=== PATIENT | male | born 1950 | race Caucasian/White ===

== ENCOUNTER 2016-07-04 13:20 | Emergency (ER) | payer MEDICARE, BC ==
[2016-07-04 14:31] LABS: Anisocytosis Slight; Basophils # (A) 0.1 k/uL (0-0.2); Basophils % (A) 1 %; CH 25.2; CHCM 31.6; Eosinophils # (A) 0.3 k/uL (0-0.7); Eosinophils % (A) 6 %; HCT 39.3 % (39.0-53.0); HDW 3.04; HGB 12.1 gm/dL (13.0-17.5); Hypochromasia Slight; Luc # (Auto) 0.08; Luc % (Auto) 2; Lymphocytes # (A) 1.4 k/uL (1.0-4.8); Lymphocytes % (A) 31 %; MCH 24.6 pg (25.0-35.0); MCHC 30.7 g/dL (31.0-37.0); MCV 80.2 fL (80.0-100.0); Mean Platelet Volume 8.3; Microcytosis Slight; Monocytes # (A) 0.4 k/uL (0-1.0); Monocytes % (A) 9 %; Neutrophils # (A) 2.3 k/uL (1.3-7.7); Neutrophils % (A) 51 %; RDW 18.7 % (11.5-15.5); WBC 4.4 k/uL (3.8-10.6)
[2016-07-04 14:47] LABS: Creatine Kinase 211 U/L (55-170)
[2016-07-04 15:00] LABS: ALT 26 U/L (21-72); AST 42 U/L (17-59); Alkaline Phosphatase 59 U/L (38-126); Anion Gap 13 mmol/L; Blood Urea Nitrogen 9 mg/dL (9-20); Calcium 9.1 mg/dL (8.4-10.2); Carbon Dioxide 24 mmol/L (22-30); Chloride 109 mmol/L (98-107); Glucose 99 mg/dL (74-99); Non-African American GFR(MDRD) >60 (>60 ml/min/1.73 sqM); Sodium 146 mmol/L (137-145); Total Bilirubin 0.7 mg/dL (0.2-1.3); Total Protein 8.4 g/dL (6.3-8.2); Troponin I <0.012 ng/mL (0.000-0.034)
[2016-07-04 15:04] LABS: INR 1.2 (<1.1); Partial Thromboplastin Time 30.4 sec (22.0-30.0); Prothrombin Time 12.2 sec (9.0-12.0)
[2016-07-04 15:06] LABS: Creatine Kinase MB 3.1 ng/mL (0.0-2.4)
[2016-07-04 15:18] LABS: Potassium 4.8 mmol/L (3.5-5.1)
--- NOTE | 2016-07-04 15:41 | XR ---
EXAMINATION TYPE: XR chest 1V portable DATE OF EXAM: 07/04/2016 3:29 PM COMPARISON: Prior chest x-ray 22 May 2016 HISTORY: Weakness, shortness of breath TECHNIQUE: Single frontal view of the chest is obtained. FINDINGS: Technique is somewhat rotated, there are overlying cardiac leads. Heart size is thought to be stable. No pneumothorax or pleural effusion is evident. Pulmonary vascularity and davis are stable . Old right clavicular fracture shows bayonet apposition and fusion. IMPRESSION: No acute process.
[2016-07-04 16:49] LABS: Appearance,Urine Cloudy (Clear); Bilirubin,Urine Negative (Negative); Calcium Oxalate Crystals,Urine Rare /hpf; Glucose,Urine (UA) Negative (Negative); Ketones,Urine Negative (Negative); Leukocyte Esterase,Urine Negative (Negative); Mucus,Urine Occasional /hpf; Nitrite,Urine Negative (Negative); Particle Count 1807; Protein,Urine Negative (Negative); RBC,Urine 1 /hpf (0-5); UA Billing (MACRO vs. MICRO) MICRO; Urobilinogen,Urine <2.0 mg/dL (<2.0); WBC,Urine <1 /hpf (0-5)
--- NOTE | 2016-07-04 16:58 | ED ---
Weakness HPI - General Chief complaint: Weakness Stated complaint: Chest Pain Time Seen by Provider: 07/04/16 13:59 Source: patient, family Mode of arrival: wheelchair Limitations: no limitations - History of Present Illness Initial comments: This patient is a 65-year-old man who presents with complaint that when he woke up from a nap around noon he was feeling short of breath. The patient states that he got up, felt that he was weaker than usual, and he went to lie down again. When he got up the second time he was feeling better but after telling his about the symptoms she was encouraged to be seen here in the emergency department. The patient states that he currently is feeling well and would not of come in if he had felt this well day. MD Complaint: lack of energy -: minutes(s) Consistency: now resolved Improves with: none Worsens with: none - Related Data Home Medications Medication Instructions Recorded Confirmed DULoxetine HCL [Cymbalta] 60 mg PO BID 03/08/16 07/04/16 Lovastatin [Mevacor] 80 mg PO DAILY 05/22/16 07/04/16 Albuterol Sulfate [Proair Hfa] 1 - 2 puff INHALATION RT-Q6H PRN 07/04/16 Rivaroxaban [Xarelto] 20 mg PO DAILY 07/04/16 07/04/16 Previous Rx's Medication Instructions Recorded ALPRAZolam 1 mg PO QID #40 tablet 05/26/16 Metoprolol Tartrate [Lopressor] 25 mg PO BID #60 tab 05/26/16 Metoprolol Tartrate [Lopressor] 12.5 mg PO BID #60 dose 07/04/16 Allergies Allergy/AdvReac Type Severity Reaction Status Date / Time No Known Allergies Allergy Verified 07/04/16 14:17 Review of Systems ROS Statement: Those systems with pertinent positive or pertinent negative responses have been documented in the HPI. ROS Other: All systems not noted in ROS Statement are negative. Constitutional: Reports: weakness. Denies: fever, chills Respiratory: Reports: as per HPI, dyspnea. Denies: cough, wheezes Cardiovascular: Denies: chest pain, palpitations, edema, syncope Gastrointestinal: Denies: abdominal pain, nausea, vomiting Genitourinary: Denies: dysuria, hematuria Musculoskeletal: Denies: back pain Skin: Denies: rash Neurological: Denies: headache, weakness Past Medical History Past Medical History: Asthma, Cancer, Hearing Disorder / Deafness, Hyperlipidemia, Hypertension Additional Past Medical History / Comment(s): kidney stones, chronic nausea, well differentiated neuroendocrine tumor, constipation, anemia, LIVER CANCER History of Any Multi-Drug Resistant Organisms: None Reported Past Surgical History: Hernia Repair Additional Past Surgical History / Comment(s): liver biopsy Past Anesthesia/Blood Transfusion Reactions: No Reported Reaction Past Psychological History: Anxiety, Depression Additional Psychological History / Comment(s): obsessive compulsive disorder Smoking Status: Never smoker Past Alcohol Use History: None Reported Past Drug Use History: None Reported - Past Family History Mother Family Medical History: No Reported History General Exam Limitations: no limitations General appearance: alert, in no apparent distress Head exam: Present: atraumatic, normocephalic Eye exam: Present: normal appearance. Absent: scleral icterus, conjunctival injection ENT exam: Present: normal oropharynx Neck exam: Present: normal inspection Respiratory exam: Present: normal lung sounds bilaterally. Absent: respiratory distress, wheezes, rales, rhonchi, stridor Cardiovascular Exam: Present: regular rate, normal rhythm, normal heart sounds. Absent: systolic murmur, diastolic murmur, rubs, gallop GI/Abdominal exam: Present: soft. Absent: distended, tenderness, guarding, rebound, rigid Extremities exam: Present: normal inspection, normal capillary refill. Absent: pedal edema, calf tenderness Neurological exam: Present: alert, CN II-XII intact. Absent: normal gait, motor sensory deficit Skin exam: Present: warm, dry, intact, normal color. Absent: rash, cyanosis, diaphoretic, erythema, petechiae, pallor, mottled Course Vital Signs 07/04/16 07/04/16 07/04/16 13:36 14:12 15:04 Temperature 97.5 F L Pulse Rate 41 L 41 L Pulse Rate [ 41 L Glass Or Mirror Inspector ] Respiratory 16 16 16 Rate Blood Pressure 150/97 150/102 O2 Sat by Pulse 96 98 Oximetry 07/04/16 07/04/16 16:28 17:25 Temperature 97.8 F Pulse Rate 42 L 45 L Pulse Rate [ Glass Or Mirror Inspector ] Respiratory 16 18 Rate Blood Pressure 152/98 149/91 O2 Sat by Pulse 98 99 Oximetry EKG Findings - EKG Results: EKG: interpreted by ERMD, sinus rhythm, normal axis, normal QRS EKG shows: bradycardia (Rate approximate 42 bpm) Medical Decision Making - Medical Decision Making The patient is 65-year-old man who does have underlying carcinoid tumors, who had episode of fatigue and some dyspnea that had resolved. The patient does have history of previous PE but he states that he has been taking his Xarelto and he is not having any chest pain like the last time. In addition the symptoms have resolved. The workup is negative other than revealing the patient to be bradycardic and he wants to try going home and decreasing his dose of beta tierra. He will return should he have a recurrence of the symptoms, we also discussed other signs and symptoms of PE and he will return if any these develop. Given the patient's underlying condition and his desire to be at home this does seem acceptable though I did offer admission, which she again declines - Lab Data Result diagrams: 07/04/16 14:10 07/04/16 14:10 Lab Results 07/04/16 07/04/16 07/04/16 Range/Units 14:10 14:10 14:10 WBC 4.4 (3.8-10.6) k/uL RBC 4.90 (4.30-5.90) m/uL Hgb 12.1 L (13.0-17.5) gm/dL Hct 39.3 (39.0-53.0) % MCV 80.2 (80.0-100.0) fL MCH 24.6 L (25.0-35.0) pg MCHC 30.7 L (31.0-37.0) g/dL RDW 18.7 H (11.5-15.5) % Plt Count 255 (150-450) k/uL Neutrophils % 51 % Lymphocytes % 31 % Monocytes % 9 % Eosinophils % 6 % Basophils % 1 % Neutrophils # 2.3 (1.3-7.7) k/uL Lymphocytes # 1.4 (1.0-4.8) k/uL Monocytes # 0.4 (0-1.0) k/uL Eosinophils # 0.3 (0-0.7) k/uL Basophils # 0.1 (0-0.2) k/uL Hypochromasia Slight Anisocytosis Slight Microcytosis Slight PT (9.0-12.0) sec INR (<1.1) APTT (22.0-30.0) sec Sodium 146 H (137-145) mmol/L Potassium 4.8 (3.5-5.1) mmol/L Chloride 109 H (98-107) mmol/L Carbon Dioxide 24 (22-30) mmol/L Anion Gap 13 mmol/L BUN 9 (9-20) mg/dL Creatinine 0.86 (0.66-1.25) mg/dL Est GFR (MDRD) Af Amer >60 (>60 ml/min/1.73 sqM) Est GFR (MDRD) Non-Af >60 (>60 ml/min/1.73 sqM) Glucose 99 (74-99) mg/dL Plasma Lactic Acid Ganesh (0.7-2.0) mmol/L Calcium 9.1 (8.4-10.2) mg/dL Total Bilirubin 0.7 (0.2-1.3) mg/dL AST 42 (17-59) U/L ALT 26 (21-72) U/L Alkaline Phosphatase 59 (38-126) U/L Ammonia (<30) umol/L Total Creatine Kinase 211 H (55-170) U/L CK-MB (CK-2) 3.1 H* (0.0-2.4) ng/mL CK-MB (CK-2) Rel Index 1.5 Troponin I <0.012 (0.000-0.034) ng/mL Total Protein 8.4 H (6.3-8.2) g/dL Albumin 4.5 (3.5-5.0) g/dL Urine Color Urine Appearance (Clear) Urine pH (5.0-8.0) Ur Specific [place] (1.001-1.035) Urine Protein (Negative) Urine Glucose (UA) (Negative) Urine Ketones (Negative) Urine Blood (Negative) Urine Nitrate (Negative) Urine Bilirubin (Negative) Urine Urobilinogen (<2.0) mg/dL Ur Leukocyte Esterase (Negative) Urine RBC (0-5) /hpf Urine WBC (0-5) /hpf Calcium Oxalate Crystal (None) /hpf Urine Mucus (None) /hpf 07/04/16 07/04/16 07/04/16 Range/Units 14:10 14:10 16:25 WBC (3.8-10.6) k/uL RBC (4.30-5.90) m/uL Hgb (13.0-17.5) gm/dL Hct (39.0-53.0) % MCV (80.0-100.0) fL MCH (25.0-35.0) pg MCHC (31.0-37.0) g/dL RDW (11.5-15.5) % Plt Count (150-450) k/uL Neutrophils % % Lymphocytes % % Monocytes % % Eosinophils % % Basophils % % Neutrophils # (1.3-7.7) k/uL Lymphocytes # (1.0-4.8) k/uL Monocytes # (0-1.0) k/uL Eosinophils # (0-0.7) k/uL Basophils # (0-0.2) k/uL Hypochromasia Anisocytosis Microcytosis PT 12.2 H (9.0-12.0) sec INR 1.2 (<1.1) APTT 30.4 H (22.0-30.0) sec Sodium (137-145) mmol/L Potassium (3.5-5.1) mmol/L Chloride (98-107) mmol/L Carbon Dioxide (22-30) mmol/L Anion Gap mmol/L BUN (9-20) mg/dL Creatinine (0.66-1.25) mg/dL Est GFR (MDRD) Af Amer (>60 ml/min/1.73 sqM) Est GFR (MDRD) Non-Af (>60 ml/min/1.73 sqM) Glucose (74-99) mg/dL Plasma Lactic Acid Ganesh 0.8 (0.7-2.0) mmol/L Calcium (8.4-10.2) mg/dL Total Bilirubin (0.2-1.3) mg/dL AST (17-59) U/L ALT (21-72) U/L Alkaline Phosphatase (38-126) U/L Ammonia 14 (<30) umol/L Total Creatine Kinase (55-170) U/L CK-MB (CK-2) (0.0-2.4) ng/mL CK-MB (CK-2) Rel Index Troponin I (0.000-0.034) ng/mL Total Protein (6.3-8.2) g/dL Albumin (3.5-5.0) g/dL Urine Color Yellow Urine Appearance Cloudy (Clear) Urine pH 5.0 (5.0-8.0) Ur Specific [place] 1.010 (1.001-1.035) Urine Protein Negative (Negative) Urine Glucose (UA) Negative (Negative) Urine Ketones Negative (Negative) Urine Blood Negative (Negative) Urine Nitrate Negative (Negative) Urine Bilirubin Negative (Negative) Urine Urobilinogen <2.0 (<2.0) mg/dL Ur Leukocyte Esterase Negative (Negative) Urine RBC 1 (0-5) /hpf Urine WBC <1 (0-5) /hpf Calcium Oxalate Crystal Rare H (None) /hpf Urine Mucus Occasional H (None) /hpf Disposition Clinical Impression: Bradycardia Disposition: HOME SELF-CARE Condition: Good Instructions: Bradycardia (ED) Prescriptions: Metoprolol Tartrate [Lopressor] 12.5 mg PO BID #60 dose Referrals: Rojas Pedraza DO [Primary Care Provider] - 1-2 days
[2016-07-04 17:26] VITALS: BP 149/91; PULSE 45; RESP 18; TEMP 97.8
== END 2016-07-04 17:35 | disposition home or self-care (01) ==
LOC: EC 13:20
DX: R00.1 Bradycardia, unspecified (principal); F32.9 Major depressive disorder, single episode, unspecified; F41.9 Anxiety disorder, unspecified; Z85.05 Personal history of malignant neoplasm of liver; Z86.711 Personal history of pulmonary embolism; Z79.899 Other long term (current) drug therapy; Z79.01 Long term (current) use of anticoagulants
CPT/HCPCS: 36415; 71010; 80053; 81001; 82140; 82550; 82553; 83605; 84484; 85025; 85610; 85730; 87086; 93005; 99285

== ENCOUNTER → 2016-08-16 | Outpatient (CLI) | payer MEDICARE, BC ==
--- NOTE | 2016-08-16 12:21 | MR ---
EXAMINATION TYPE: MR brain wo/w con DATE OF EXAM: 08/16/2016 11:58 AM COMPARISON: CT brain May 22, 2016. HISTORY: persistent altered mental status and imbalance rule out neoplasm per order. History of liver cancer with bilateral hearing loss per patient. TECHNIQUE: Multiplanar, multisequence images of the brain and brainstem is performed without and with IV contras t, utilizing 20 mL intravenous MultiHance . FINDINGS: Diffusion weighted images demonstrate no evidence of a recent infarct or other diffusion ab normality. There is no worrisome extra-axial fluid collection. There is ventricular and sulcal promi nence consistent with diffuse cerebral atrophy. There are focal and confluent areas of T2 hyperintens ity seen throughout the deep and periventricular white matter. Lesions are nonspecific in appearance and distribution but most likely on basis of product of chronic small vessel ischemic change in patie nt this age. Midline structures demonstrate normal morphology. The craniocervical junction appears within normal limits. Post contrast images demonstrate no abnormal enhancement. The dural venous sinuses appear pa tent mild mucosal thickening involving ethmoid sinuses bilaterally is present. The remainder of the p aranasal sinuses are clear. The globes are intact bilaterally. No suspicious fluid signal seen in mas toid air cells bilaterally. IMPRESSION: There is mild to moderate diffuse cerebral atrophy and moderate to severe chronic small v essel ischemic change without suspicious enhancing intraparenchymal mass noted.
== END | disposition home or self-care (01) ==
LOC: RADMRIMAIN 11:03
PROVIDERS: ATTEND Psychiatry & Neurology Neurology
DX: G31.9 Degenerative disease of nervous system, unspecified (principal); I67.82 Cerebral ischemia
CPT/HCPCS: 70553; A9577

== ENCOUNTER → 2016-12-14 | Outpatient (CLI) | payer MEDICARE, BC ==
[2016-12-14 10:54] LABS: Blood Urea Nitrogen 6 mg/dL (9-20); Non-African American GFR(MDRD) >60 (>60 ml/min/1.73 sqM)
--- NOTE | 2016-12-14 12:26 | CT ---
CT CHEST FOR PULMONARY EMBOLISM. EXAMINATION TYPE: CT angio chest DATE OF EXAM: 12/14/2016 INDICATION: Follow up scan from 04/21/16 CT DLP: 677 mGycm, Automated exposure control for dose reduction was used. CONTRAST: Patient injected with 100 mL of Omnipaque 350. COMPARISON: 05/22/2016 TECHNIQUE: CT of the chest is performed on a spiral scan at 2 mm thick sections. Study is performed with intravenous contrast timed for evaluation for pulmonary embolism. This will limit additional po rtions of the evaluation. 3-D MIP images reconstructed by the technologist are reviewed on the compu ter in the coronal and sagittal planes. FINDINGS: No persistent filling defects are evident to suggest an acute pulmonary embolism. No mediastinal or hilar adenopathy enlarged by CT criteria is evident. The ascending aorta diameter at the level of the main pulmonary artery is 4.4 cm. The main pulmonary artery diameter at the bifur cation is 2.4 cm. Aorta tapers throughout its visualized course. Some mild scattered groundglass opacities are within the lungs. Some mild compressive atelectasis is present. There is a 2.8 cm hypodensity with indistinct margins measuring approximately 18 Hounsfield units. Th is may be a more complex cyst within the anterior right mid lobe liver. Other etiologies are not excl uded. IMPRESSIONS: 1. Ascending thoracic aortic aneurysm measuring 4.4 cm AP dimension. 2. No persistent filling defects. 3. Hypodensity within the liver has increased in size over the interval. Additional workup is recomme nded. This may have been biopsied under ultrasound guidance in March 2016.
== END | disposition home or self-care (01) ==
LOC: RADCTMAIN 10:02
PROVIDERS: ATTEND Family Medicine
DX: I71.2 Thoracic aortic aneurysm, without rupture (principal)
CPT/HCPCS: 82565; 84520; 71275; 36415; Q9967

== ENCOUNTER 2017-05-08 12:43 | Emergency (ER) | payer MEDICARE, BC ==
[2017-05-08] MEDS ORDERED: NITROGLYCERIN OINT 1 INCH/GM PACKET TOPICAL STA (13:40)
[2017-05-08] MEDS ORDERED: LORazepam 2 MG/ML INJ IV STA (13:40)
[2017-05-08] MEDS ORDERED: ASPIRIN 81 MG PO STA (13:42)
[2017-05-08 14:08] LABS: Basophils % (A) 0 %; CH 27.5; CHCM 31.9; Eosinophils # (A) 0.2 k/uL (0-0.7); Eosinophils % (A) 2 %; HCT 41.3 % (39.0-53.0); HDW 2.47; HGB 13.2 gm/dL (13.0-17.5); Luc # (Auto) 0.11; Luc % (Auto) 1; Lymphocytes # (A) 1.4 k/uL (1.0-4.8); Lymphocytes % (A) 18 %; MCH 27.7 pg (25.0-35.0); MCV 86.6 fL (80.0-100.0); Mean Platelet Volume 8.3; Monocytes # (A) 0.7 k/uL (0-1.0); Monocytes % (A) 9 %; Neutrophils # (A) 5.2 k/uL (1.3-7.7); Neutrophils % (A) 69 %; RBC 4.77 m/uL (4.30-5.90); RDW 15.8 % (11.5-15.5); WBC 7.6 k/uL (3.8-10.6); WBC (Perox) 7.46
[2017-05-08 14:22] LABS: ALT 25 U/L (21-72); AST 23 U/L (17-59); Alkaline Phosphatase 77 U/L (38-126); Anion Gap 10 mmol/L; Blood Urea Nitrogen 14 mg/dL (9-20); Calcium 10.2 mg/dL (8.4-10.2); Carbon Dioxide 28 mmol/L (22-30); Chloride 106 mmol/L (98-107); Glucose 72 mg/dL (74-99); INR 1.2 (<1.2); Non-African American GFR(MDRD) >60 (>60 ml/min/1.73 sqM); Partial Thromboplastin Time 27.8 sec (22.0-30.0); Potassium 4.6 mmol/L (3.5-5.1); Prothrombin Time 11.7 sec (9.0-12.0); Sodium 144 mmol/L (137-145); Total Bilirubin 0.4 mg/dL (0.2-1.3)
[2017-05-08 14:28] LABS: Creatine Kinase 146 U/L (55-170)
[2017-05-08 14:38] VITALS: RESP 16
[2017-05-08 14:41] LABS: Troponin I <0.012 ng/mL (0.000-0.034)
[2017-05-08 14:53] LABS: Creatine Kinase MB 3.4 ng/mL (0.0-2.4)
--- NOTE | 2017-05-08 15:12 | ED ---
Anxiety HPI - General Chief Complaint: Anxiety Stated Complaint: Anxiety & SOB Time Seen by Provider: 05/08/17 13:31 Source: patient Mode of arrival: wheelchair - History of Present Illness Initial Comments: this 66-year-old white male presents with with complaint of anxiety. He states that he was changed from his citalopram which is been on for the past 15 + years to try Trintellix. He has been on this new medicine for approximately 3 days and states that he's been very anxious since. He has a long-standing history of anxiety and takes Xanax 1 mg 4 times a day. He relates associated shortness of breath and had some mild lower chest pain earlier today as well. He states that the anxiety is fairly severe and is also had some insomnia and he does see his psychiatrist fairly regularly. He denies any other complaints or modifying factors. - Related Data Home Medications: Home Medications Medication Instructions Recorded Confirmed Lovastatin [Mevacor] 80 mg PO HS 05/22/16 05/08/17 Rivaroxaban [Xarelto] 20 mg PO DAILY 07/04/16 05/08/17 Baclofen [Baclofen] 10 mg PO HS 05/08/17 05/08/17 Ergocalciferol (Vitamin D2) 50,000 unit PO TU 05/08/17 05/08/17 [Vitamin D2] Lisinopril [Zestril] 10 mg PO HS 05/08/17 05/08/17 Metoprolol Tartrate [Lopressor] 12.5 mg PO BID 05/08/17 05/08/17 Prochlorperazine [Compazine] 10 mg PO Q6H PRN 05/08/17 05/08/17 Vortioxetine Hydrobromide 5 mg PO DAILY 05/08/17 05/08/17 [Trintellix] Previous Rx's Medication Instructions Recorded ALPRAZolam 1 mg PO QID #40 tablet 05/26/16 Allergies/Adverse Reactions: Allergies Allergy/AdvReac Type Severity Reaction Status Date / Time No Known Allergies Allergy Verified 05/08/17 14:37 Review of Systems ROS Statement: Those systems with pertinent positive or pertinent negative responses have been documented in the HPI. ROS Other: All systems not noted in ROS Statement are negative. Past Medical History Past Medical History: Asthma, Cancer, Hearing Disorder / Deafness, Hyperlipidemia, Hypertension Additional Past Medical History / Comment(s): kidney stones, chronic nausea, well differentiated neuroendocrine tumor, constipation, anemia, LIVER CANCER History of Any Multi-Drug Resistant Organisms: None Reported Past Surgical History: Hernia Repair Additional Past Surgical History / Comment(s): liver biopsy Past Anesthesia/Blood Transfusion Reactions: No Reported Reaction Past Psychological History: Anxiety, Depression Smoking Status: Never smoker Past Alcohol Use History: None Reported Past Drug Use History: None Reported - Past Family History Mother Family Medical History: No Reported History General Exam - General Exam Comments Initial Comments: GENERAL: The patient is well nourished and well hydrated. VITAL SIGNS: Heart rate, blood pressure, respiratory rate reviewed as recorded in nurse's notes. EYES: Pupils are round and reactive. Extraocular movements are intact. No conjunctival / lid redness or swelling. ENT: No external evidence of injury, swelling, or ecchymosis. Airway is patent. Throat is clear. NECK: Nontender. No swelling or evidence of injury. No subcutaneous emphysema. Trachea is midline. No thyroid mass. HEART: Regular rate and rhythm. Good peripheral pulses. LUNGS/CHEST: Breath sounds clear and equal bilaterally. No rales, rhonchi, or wheezes. No ecchymosis, subcutaneous emphysema, or tenderness. ABDOMEN: Abdomen soft without tenderness. No palpable masses or organomegaly. No peritoneal signs. No abdominal wall swelling or ecchymosis. EXTREMITIES: No extremity tenderness. Normal muscle tone and function. No thoracolumbar tenderness. NEUROLOGIC: Sensation is grossly intact. Cranial nerve exam reveals face is symmetrical, tongue is midline, speech is clear. SKIN: No abrasions or ecchymosis is noted. No induration or masses noted. PSYCHIATRIC: Alert and oriented. appears very anxious. Limitations: no limitations Course Vital Signs 05/08/17 05/08/17 05/08/17 13:03 14:37 14:43 Temperature 97.1 F L Pulse Rate 68 64 Respiratory 18 16 16 Rate Blood Pressure 175/106 177/86 O2 Sat by Pulse 97 98 Oximetry Medical Decision Making - Medical Decision Making the patient was seen and examined. All diagnostics were reviewed. EKG shows a normal sinus rhythm at a rate of 60. There there is some T-wave inversions in V1 and V2. The IV is established and he receives Ativan 1 mg IV. The OH intervals 186, QRS duration is 112, and the QTC intervals 452. The patient's laboratory evaluation is fairly unremarkable with a negative d-dimer.the Ativan seemed to help to a certain degree but he still appears fairly anxious on recheck. He further relates that the anxiety is been fairly severe and feels as though symptoms are all related to this. Due to his complaints of shortness of breath and chest pain he is offered admission to the hospital to definitively rule out any possibility of acute coronary syndrome but refuses. Risks benefits are discussed. 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 He will return if his symptoms worsen. Overall, it is felt as though symptoms are more likely related to his anxiety. Is felt as though patient follow-up and or call his psychiatrist as soon as possible for further recommendations in this regard. He leaves in no apparent distress and return parameters are discussed in detail. - Lab Data Result diagrams: 05/08/17 13:53 05/08/17 13:53 Lab Results 05/08/17 05/08/17 05/08/17 Range/Units 13:53 13:53 13:53 WBC 7.6 (3.8-10.6) k/uL RBC 4.77 (4.30-5.90) m/uL Hgb 13.2 (13.0-17.5) gm/dL Hct 41.3 (39.0-53.0) % MCV 86.6 (80.0-100.0) fL MCH 27.7 (25.0-35.0) pg MCHC 32.0 (31.0-37.0) g/dL RDW 15.8 H (11.5-15.5) % Plt Count 235 (150-450) k/uL Neutrophils % 69 % Lymphocytes % 18 % Monocytes % 9 % Eosinophils % 2 % Basophils % 0 % Neutrophils # 5.2 (1.3-7.7) k/uL Lymphocytes # 1.4 (1.0-4.8) k/uL Monocytes # 0.7 (0-1.0) k/uL Eosinophils # 0.2 (0-0.7) k/uL Basophils # 0.0 (0-0.2) k/uL PT (9.0-12.0) sec INR (<1.2) APTT (22.0-30.0) sec D-Dimer (<0.60) mg/L FEU Sodium 144 (137-145) mmol/L Potassium 4.6 (3.5-5.1) mmol/L Chloride 106 (98-107) mmol/L Carbon Dioxide 28 (22-30) mmol/L Anion Gap 10 mmol/L BUN 14 (9-20) mg/dL Creatinine 0.74 (0.66-1.25) mg/dL Est GFR (MDRD) Af Amer >60 (>60 ml/min/1.73 sqM) Est GFR (MDRD) Non-Af >60 (>60 ml/min/1.73 sqM) Glucose 72 L (74-99) mg/dL Calcium 10.2 (8.4-10.2) mg/dL Total Bilirubin 0.4 (0.2-1.3) mg/dL AST 23 (17-59) U/L ALT 25 (21-72) U/L Alkaline Phosphatase 77 (38-126) U/L Total Creatine Kinase 146 (55-170) U/L CK-MB (CK-2) 3.4 H* (0.0-2.4) ng/mL CK-MB (CK-2) Rel Index 2.3 Troponin I <0.012 (0.000-0.034) ng/mL NT-Pro-B Natriuret Pep pg/mL Total Protein 8.0 (6.3-8.2) g/dL Albumin 4.3 (3.5-5.0) g/dL 05/08/17 05/08/17 Range/Units 13:53 13:53 WBC (3.8-10.6) k/uL RBC (4.30-5.90) m/uL Hgb (13.0-17.5) gm/dL Hct (39.0-53.0) % MCV (80.0-100.0) fL MCH (25.0-35.0) pg MCHC (31.0-37.0) g/dL RDW (11.5-15.5) % Plt Count (150-450) k/uL Neutrophils % % Lymphocytes % % Monocytes % % Eosinophils % % Basophils % % Neutrophils # (1.3-7.7) k/uL Lymphocytes # (1.0-4.8) k/uL Monocytes # (0-1.0) k/uL Eosinophils # (0-0.7) k/uL Basophils # (0-0.2) k/uL PT 11.7 (9.0-12.0) sec INR 1.2 H (<1.2) APTT 27.8 (22.0-30.0) sec D-Dimer 0.19 (<0.60) mg/L FEU Sodium (137-145) mmol/L Potassium (3.5-5.1) mmol/L Chloride (98-107) mmol/L Carbon Dioxide (22-30) mmol/L Anion Gap mmol/L BUN (9-20) mg/dL Creatinine (0.66-1.25) mg/dL Est GFR (MDRD) Af Amer (>60 ml/min/1.73 sqM) Est GFR (MDRD) Non-Af (>60 ml/min/1.73 sqM) Glucose (74-99) mg/dL Calcium (8.4-10.2) mg/dL Total Bilirubin (0.2-1.3) mg/dL AST (17-59) U/L ALT (21-72) U/L Alkaline Phosphatase (38-126) U/L Total Creatine Kinase (55-170) U/L CK-MB (CK-2) (0.0-2.4) ng/mL CK-MB (CK-2) Rel Index Troponin I (0.000-0.034) ng/mL NT-Pro-B Natriuret Pep 53 pg/mL Total Protein (6.3-8.2) g/dL Albumin (3.5-5.0) g/dL Disposition Clinical Impression: Acute anxiety, Panic attack, Dyspnea, Chest pain Disposition: HOME SELF-CARE Condition: Good Instructions: Generalized Anxiety Disorder (ED), Dyspnea (ED), Chest Pain (ED) Referrals: Rojas Pedraza DO [Primary Care Provider] - 1-2 days Time of Disposition: 15:29
--- NOTE | 2017-05-08 15:17 | XR ---
EXAMINATION TYPE: XR chest 2V DATE OF EXAM: 05/08/2017 COMPARISON: Chest x-ray July 04, 2016. CT chest December 14, 2016 HISTORY: Difficulty in breathing. TECHNIQUE: Frontal and lateral views of the chest are obtained. FINDINGS: There is no focal air space opacity, pleural effusion, or pneumothorax seen. The cardiac silhouette size is within normal limits. Old fracture deformity mid right clavicle is redemonstrated. IMPRESSION: No acute cardiopulmonary process currently.
[2017-05-08 15:42] VITALS: BP 164/93; PULSE 72; TEMP 97.9
== END 2017-05-08 15:40 | disposition home or self-care (01) ==
LOC: EC 12:43
DX: F41.0 Panic disorder [episodic paroxysmal anxiety] (principal); E78.5 Hyperlipidemia, unspecified; I10 Essential (primary) hypertension; F32.9 Major depressive disorder, single episode, unspecified; Z85.05 Personal history of malignant neoplasm of liver; Z79.899 Other long term (current) drug therapy
CPT/HCPCS: 36415; 93005; 85379; 83880; 80053; 82550; 82553; 84484; 85025; 85610; 85730; 71020; 99284; 96374; J2060

== ENCOUNTER 2017-07-06 18:07 | Inpatient (IN) | payer BC, MEDICARE ==
[2017-07-06] MEDS ORDERED: SODIUM CHLORIDE 0.9% 500 ML IV ONE (18:37)
[2017-07-06] MEDS ORDERED: diphenhydrAMINE 50 MG/ML 1 ML VIAL IVP STA (18:37)
--- NOTE | 2017-07-06 18:45 | ED ---
General Adult HPI - General Chief complaint: Seizure Stated complaint: Seizure Time Seen by Provider: 07/06/17 18:16 Source: patient, family, RN notes reviewed, old records reviewed Mode of arrival: wheelchair Limitations: no limitations - History of Present Illness Initial comments: Chief complaint and history of present illness this is a 66-year-old male here with his . The patient has a history of carcinoid tumor. He is seeing his oncologist. He received a Sandostatin subcu shots today. He also takes Compazine regularly for his nausea and upset stomach. noticed today that he had some rhythmic movements of his mouth and some tremors. These may be extrapyramidal in nature. - Related Data Home Medications Medication Instructions Recorded Confirmed Lovastatin [Mevacor] 80 mg PO HS 05/22/16 07/06/17 Rivaroxaban [Xarelto] 20 mg PO DAILY 07/04/16 07/06/17 Baclofen [Baclofen] 10 mg PO HS 05/08/17 07/06/17 Ergocalciferol (Vitamin D2) 50,000 unit PO TU 05/08/17 07/06/17 [Vitamin D2] Lisinopril [Zestril] 10 mg PO DAILY 05/08/17 07/06/17 Metoprolol Tartrate [Lopressor] 12.5 mg PO BID 05/08/17 07/06/17 Prochlorperazine [Compazine] 10 mg PO Q6H PRN 05/08/17 07/06/17 Vortioxetine Hydrobromide 5 mg PO DAILY 05/08/17 07/06/17 [Trintellix] Multivitamin with Iron 1 tab PO DAILY 07/06/17 07/06/17 [Multivitamins with Iron] OXcarbazepine [Trileptal] 300 mg PO BID 07/06/17 07/06/17 Previous Rx's Medication Instructions Recorded ALPRAZolam 1 mg PO QID #40 tablet 05/26/16 Allergies Allergy/AdvReac Type Severity Reaction Status Date / Time No Known Allergies Allergy Verified 07/06/17 19:45 Review of Systems ROS Statement: Those systems with pertinent positive or pertinent negative responses have been documented in the HPI. Review of systems; patient is hard of hearing. Denies headache. He reports he feels anxious. Denies chest pain or shortness of breath. He has discomfort to his left abdomen. he Also reports that looks as though he has dark colored urine. Denies frequency urgency or dysuria. Past medical problems significant for asthma, carcinoid, heart appearing, hyperlipidemia, hypertension, seizure disorder, kidney stones. Surgeries hernia repair and liver biopsy. ALLERGIES none. Nonsmoker nondrinker. ROS Other: All systems not noted in ROS Statement are negative. Past Medical History Past Medical History: Asthma, Cancer, Hearing Disorder / Deafness, Hyperlipidemia, Hypertension, Seizure Disorder Additional Past Medical History / Comment(s): kidney stones, chronic nausea, well differentiated neuroendocrine tumor, constipation, anemia, LIVER CANCER History of Any Multi-Drug Resistant Organisms: None Reported Past Surgical History: Hernia Repair Additional Past Surgical History / Comment(s): liver biopsy Past Anesthesia/Blood Transfusion Reactions: No Reported Reaction Past Psychological History: Anxiety, Depression Smoking Status: Never smoker Past Alcohol Use History: None Reported Past Drug Use History: None Reported - Past Family History Mother Family Medical History: No Reported History General Exam - General Exam Comments Initial Comments: General: The patient is awake and alert, states he feels anxious, has some tremors. Rhythmic movement of his mouth and blinking of his eyes. He does take several 10 mg Compazine for nausea. The patient has carcinoid with frequent loose stool. Vital signs temperature 98.6 pulse 61 respiratory rate 17 pulse ox 96% room air blood pressure 188/110. This be repeated when the patient relaxes. Eye: Pupils are equal, round and reactive to light, extra-ocular movements are intact ; there is normal conjunctiva bilaterally. No signs of icterus. Ears, nose, mouth and throat: There are moist mucous membranes and no oral lesions. Poor dentition. Very hard of appearing. Neck: The neck is supple, there is no tenderness . Cardiovascular: There is a regular rate and rhythm. No murmur, rub or gallop is appreciated. Respiratory: Lungs are clear to auscultation, respirations are non-labored, breath sounds are equal. No wheezes, stridor, rales, or rhonchi. Gastrointestinal: Tenderness to the left upper quadrant. Patient states he thinks his urine is dark possibly read. Back: There is no tenderness to palpation in the midline. There is no obvious deformity. No rashes noted. Early shingles discussed. Musculoskeletal: Normal ROM, no tenderness, There is no pedal edema. There is no calf tenderness or swelling. Sensation intact. Pulses equal bilaterally 2+. Neurological: Him hand tremors and rhythmic movements of his face and eyes. Suspected adverse reaction to Compazine Skin: Skin is warm and dry and no rashes or lesions are noted. Limitations: no limitations Course Vital Signs 07/06/17 07/06/17 07/06/17 18:07 18:20 19:08 Temperature 98.6 F Pulse Rate 61 65 63 Respiratory 17 18 18 Rate Blood Pressure 188/110 170/92 168/90 O2 Sat by Pulse 96 95 94 L Oximetry 07/06/17 07/06/17 07/06/17 20:19 20:29 21:39 Temperature 98.9 F 100.3 F H Pulse Rate 70 64 68 Respiratory 18 18 18 Rate Blood Pressure 176/97 179/108 O2 Sat by Pulse 95 94 L 95 Oximetry 07/06/17 07/06/17 22:15 22:24 Temperature Pulse Rate 66 71 Respiratory 18 18 Rate Blood Pressure 163/107 176/111 O2 Sat by Pulse 95 96 Oximetry Medical Decision Making - Medical Decision Making Decision making; patient's here with a fever and left flank area pain. Urine is showing evidence of urinary tract infection possibility of pyelonephritis was discussed with patient and at bedside. The patient's also here because of some twitching motions. Thought possibly to been caused by the overuse of Compazine. He is also taking Sandostatin for carcinoid tumor. Patient seemingly slowed his rhythmic motion with both Benadryl and Cogentin but continued afterwards. Labs show white count 6 hemoglobin 13 hematocrit of 40. Potassium 4.1 BUN 13 creatinine 0.8 and GFR greater than 60. Glucose 1:15. Urine shows leuk esterase +180 reds 68 whites. Culture pending. The patient will be started on Levaquin. Noted the patient's blood pressure remained high he was given Vasotec 1.25 IV push while in emergency room. She was given IV Levaquin. We did discuss possibility of pyelonephritis. The patient's twitching would stop and then started again and then more nervous type manner. The patient did agree to stay in hospital. - Lab Data Result diagrams: 07/06/17 19:04 07/06/17 19:04 Lab Results 07/06/17 07/06/17 07/06/17 Range/Units 19:04 19:04 21:35 WBC 6.0 (3.8-10.6) k/uL RBC 4.87 (4.30-5.90) m/uL Hgb 13.3 (13.0-17.5) gm/dL Hct 40.8 (39.0-53.0) % MCV 84.0 (80.0-100.0) fL MCH 27.4 (25.0-35.0) pg MCHC 32.6 (31.0-37.0) g/dL RDW 18.0 H (11.5-15.5) % Plt Count 230 (150-450) k/uL Neutrophils % 70 % Lymphocytes % 20 % Monocytes % 7 % Eosinophils % 1 % Basophils % 0 % Neutrophils # 4.2 (1.3-7.7) k/uL Lymphocytes # 1.2 (1.0-4.8) k/uL Monocytes # 0.4 (0-1.0) k/uL Eosinophils # 0.1 (0-0.7) k/uL Basophils # 0.0 (0-0.2) k/uL Anisocytosis Slight Sodium 141 (137-145) mmol/L Potassium 4.1 (3.5-5.1) mmol/L Chloride 102 (98-107) mmol/L Carbon Dioxide 28 (22-30) mmol/L Anion Gap 11 mmol/L BUN 13 (9-20) mg/dL Creatinine 0.82 (0.66-1.25) mg/dL Est GFR (MDRD) Af Amer >60 (>60 ml/min/1.73 sqM) Est GFR (MDRD) Non-Af >60 (>60 ml/min/1.73 sqM) Glucose 115 H (74-99) mg/dL Calcium 10.0 (8.4-10.2) mg/dL Total Bilirubin 0.5 (0.2-1.3) mg/dL AST 27 (17-59) U/L ALT 29 (21-72) U/L Alkaline Phosphatase 71 (38-126) U/L Total Protein 7.6 (6.3-8.2) g/dL Albumin 4.4 (3.5-5.0) g/dL Urine Color Light Red Urine Appearance Clear (Clear) Urine pH 6.0 (5.0-8.0) Ur Specific [place] 1.008 (1.001-1.035) Urine Protein Trace H (Negative) Urine Glucose (UA) Negative (Negative) Urine Ketones Negative (Negative) Urine Blood Large H (Negative) Urine Nitrite Negative (Negative) Urine Bilirubin Negative (Negative) Urine Urobilinogen <2.0 (<2.0) mg/dL Ur Leukocyte Esterase Small H (Negative) Urine RBC >182 H (0-5) /hpf Urine WBC 68 H (0-5) /hpf Amorphous Sediment Rare H (None) /hpf Urine Mucus Few H (None) /hpf Disposition Clinical Impression: Pyelonephritis, History of carcinoid syndrome Disposition: ADMITTED IP TO THIS [facility] Condition: Stable Referrals: Rojas Pedraza DO [Primary Care Provider] - 1-2 days
[2017-07-06] MEDS: SODIUM CHLORIDE 0.9% 1,000 ML IV SCH (19:06)
[2017-07-06 19:15] LABS: Anisocytosis Slight; Basophils % (A) 0 %; Eosinophils # (A) 0.1 k/uL (0-0.7); Eosinophils % (A) 1 %; HCT 40.8 % (39.0-53.0); HGB 13.3 gm/dL (13.0-17.5); Lymphocytes # (A) 1.2 k/uL (1.0-4.8); Lymphocytes % (A) 20 %; MCH 27.4 pg (25.0-35.0); MCHC 32.6 g/dL (31.0-37.0); Mean Platelet Volume 8.9; Monocytes # (A) 0.4 k/uL (0-1.0); Monocytes % (A) 7 %; Neutrophils # (A) 4.2 k/uL (1.3-7.7); Neutrophils % (A) 70 %; Platelet Count 230 k/uL (150-450); RBC 4.87 m/uL (4.30-5.90)
[2017-07-06 19:26] LABS: ALT 29 U/L (21-72); AST 27 U/L (17-59); Albumin 4.4 g/dL (3.5-5.0); Alkaline Phosphatase 71 U/L (38-126); Anion Gap 11 mmol/L; Blood Urea Nitrogen 13 mg/dL (9-20); Carbon Dioxide 28 mmol/L (22-30); Chloride 102 mmol/L (98-107); Glucose 115 mg/dL (74-99); Potassium 4.1 mmol/L (3.5-5.1); Sodium 141 mmol/L (137-145); Total Bilirubin 0.5 mg/dL (0.2-1.3); Total Protein 7.6 g/dL (6.3-8.2)
[2017-07-06] MEDS ORDERED: BENZTROPINE MESYLATE 1 MG TAB PO SCH (20:00)
[2017-07-06] MEDS ORDERED: BENZTROPINE MESYLATE 1 MG TAB PO STA (20:26)
[2017-07-06 21:53] LABS: Amorphous Sediment,Urine Rare /hpf; Appearance,Urine Clear (Clear); Bilirubin,Urine Negative (Negative); Blood,Urine Large (Negative); Color,Urine Light Red; Glucose,Urine (UA) Negative (Negative); Ketones,Urine Negative (Negative); Leukocyte Esterase,Urine Small (Negative); Mucus,Urine Few /hpf; Nitrite,Urine Negative (Negative); Protein,Urine Trace (Negative); RBC,Urine >182 /hpf (0-5); Specific Gravity,Urine 1.008 (1.001-1.035); Urobilinogen,Urine <2.0 mg/dL (<2.0); WBC,Urine 68 /hpf (0-5)
[2017-07-06] MEDS ORDERED: ALPRAZolam 0.5 MG TAB PO STA (22:01)
[2017-07-06] MEDS ORDERED: ENALAPRILAT 1.25 MG/ML 1 ML VIAL IVP STA (22:01)
[2017-07-06] MEDS ORDERED: ACETAMINOPHEN TAB 500 MG TAB PO STA (22:01)
[2017-07-06] MEDS ORDERED: LEVOFLOXACIN 500MG-D5W PMX 500 MG in DEXTROSE/WATER 1 100ML.BAG IVPB STA (22:53)
[2017-07-06] MEDS ORDERED: NALOXONE 0.4 MG/ML 1 ML VIAL IV PRN (22:55)
[2017-07-06] MEDS ORDERED: SODIUM CHLORIDE 0.9% 1,000 ML IV SCH (23:00)
[2017-07-06] MEDS ORDERED: cefTRIAXone 1,000 MG VIAL (IM USE) IM STA (23:02)
[2017-07-06] MEDS ORDERED: cefTRIAXone IN SWFI 1,000 MG/10 ML SYRINGE IVP STA (23:20)
[2017-07-06] MEDS ORDERED: ACETAMINOPHEN TAB 500 MG TAB PO PRN (23:22)
[2017-07-06] MEDS: LABETALOL 5 MG/ML VIAL MDV IVP STA (23:58)
[2017-07-07] MEDS ORDERED: cloNIDine HCL 0.1 MG TAB PO STA (00:03)
[2017-07-07] MEDS: LABETALOL 5 MG/ML VIAL MDV IVP STA (00:09)
[2017-07-07] MEDS ORDERED: hydrALAZINE HCL 20 MG/ML 1 ML VIAL IVP STA (00:54)
[2017-07-07 01:46] VITALS: RESP 16
[2017-07-07 02:09] VITALS: BMI 26.6
[2017-07-07] MEDS: MULTIVITAMINS, THERA 1 EACH TAB PO SCH (08:06)
[2017-07-07] MEDS: METOPROLOL TARTRATE 12.5 MG TAB PO SCH ×2 (08:06→20:06)
[2017-07-07] MEDS: LISINOPRIL 10 MG TAB PO SCH (08:07)
[2017-07-07] MEDS: FAMOTIDINE 20 MG TAB PO SCH ×2 (08:07→20:06)
[2017-07-07] MEDS: ALPRAZolam 0.5 MG TAB PO SCH ×4 (08:07→23:05)
[2017-07-07] MEDS: VORTIOXETINE HYDROBROMIDE 5 MG PO SCH (08:08)
[2017-07-07] MEDS: OXcarbazepine 300 MG TAB PO SCH ×2 (08:08→20:06)
[2017-07-07] MEDS: RIVAROXABAN 10 MG TAB PO SCH (08:09)
[2017-07-07] MEDS ORDERED: ONDANSETRON 4 MG/2 ML VIAL IVP PRN (11:52)
[2017-07-07] MEDS: SODIUM CHLORIDE 0.9% 1,000 ML IV SCH ×2 (12:02→23:08)
[2017-07-07] MEDS ORDERED: diphenhydrAMINE 50 MG/ML 1 ML VIAL IVP STA (17:32)
[2017-07-07] MEDS ORDERED: SCOPOLAMINE 1.5MG/72HR PATCH TRANSDERM STA (17:35)
[2017-07-07] MEDS ORDERED: diphenhydrAMINE 25 MG CAP PO SCH (18:00)
--- NOTE | 2017-07-07 18:09 | HP ---
HISTORY AND PHYSICAL DATE OF ADMISSION: 07/06/2017 PRESENT COMPLAINT: Abnormal movement in the face. HISTORY OF PRESENTING COMPLAINT: This is a pleasant 66-year-old patient of Dr. Pedraza. Chronic stable medical conditions include moderate persistent asthma, hard of hearing, hyperlipidemia, hypertension, neuroendocrine tumor of the liver/carcinoid tumor and obsessive- compulsive disorder. Patient yesterday received a dose of Sandostatin by Dr. Espinosa. The patient gets this once a month. Normally patient gets nausea lasting from 1-3 days. The patient did receive Compazine and subsequently patient started having tremors, abnormal movement of face, mouth, unable to eat anything and so was brought to the hospital. The patient did get a dose of Benadryl in the ER which temporarily he did feel better. Because he was not able to take anything by mouth, he was admitted to the medical floor. REVIEW OF SYSTEMS: CONSTITUTIONAL: Tired. HEENT: As above. RESPIRATORY: None. CARDIOVASCULAR: None. GASTROINTESTINAL: One loose stool yesterday. GENITOURINARY: None. MUSCULOSKELETAL: Some shaking tremors. DERMATOLOGICAL: None. HEMATOLOGICAL: None. LYMPHATIC: None. PSYCHIATRY: None. NEUROLOGICAL: As above. PAST MEDICAL HISTORY: Bilateral PE, moderate persistent asthma, hard of hearing with a hearing aid, hypertension, hyperlipidemia, neuroendocrine tumor of the liver/carcinoid tumor. He is following up with Dr. Espinosa. PAST SURGICAL HISTORY: Hernia repair, liver biopsy. SOCIAL HISTORY: Does not smoke or drink alcohol. . FAMILY HISTORY: Noncontributory to presentation. HOME MEDICATIONS: 1. Mevacor 80 mg q.h.s. 2. Trintellix 5 mg p.o. daily. 3. Compazine 10 mg p.o. every 6 hours p.r.n. 4. Multivitamin 1 tablet p.o. daily. 5. Baclofen 10 mg p.o. q.h.s. 6. Xanax 1 mg p.o. q.i.d. 7. Lopressor 12.5 p.o. b.i.d. 8. Zestril 10 mg p.o. daily. 9. Vitamin D2 50,000 units p.o. every Sunday. 10.Xarelto 20 mg p.o. daily. 11.Trileptal 300 mg p.o. b.i.d. ALLERGY: None. EXAMINATION: VITAL SIGNS: On presentation, temperature 100.3, pulse 58, respirations 18, blood pressure up to 163/107, also 179/108, pulse ox 95% on room air. GENERAL APPEARANCE: Elderly male, lying in bed, tired-appearing. EYES: Pupils equal. Conjunctivae normal. HEENT: Oral cavity shows mild abnormal movement of the jaw and tongue. NECK: JVD not raised. Mass not palpable. RESPIRATORY: Effort normal. Lungs are clear. CARDIOVASCULAR: First and second sounds normal. No edema. ABDOMEN: Soft, nontender. Liver and spleen not palpable. LYMPHATIC: No lymph nodes in neck or axillae. PSYCHIATRY: Alert and oriented x3. Mood and affect slightly anxious-appearing. NEUROLOGICAL: As above. INVESTIGATIONS: White count 6, hemoglobin is 13.3. Potassium 4.1. UA showing some blood, WBC 68, leuko esterase small. ASSESSMENT: 1. Extrapyramidal symptoms/tardive dyskinesia likely as a side effect of Compazine/prochlorperazine. 2. Acute urinary tract infection. 3. Chronic bilateral pulmonary embolism for which patient is on Xarelto. 4. Moderate persistent asthma. 5. Hard of hearing, wears hearing aids. 6. Hyperlipidemia. 7. Essential hypertension. 8. Neuroendocrine tumor/carcinoid tumor for which patient receives monthly Sandostatin, followed by Dr. Espinosa. 9. Obsessive-compulsive disorder, chronic. 10.Nausea as a side effect of Sandostatin which normally lasts more than 3 days. PLAN: Will give the patient a dose of IV Benadryl x1 dose 25 mg and give 25 mg 4 times a day. Will also give patient a scopolamine patch. The patient and were reassured. Other home medications resumed. Told them not to take Compazine and in the future. Will give Lovenox for DVT prophylaxis. We will also add Keflex for the antibiotic for the UTI. MMODL / IJN: [id number] /
[2017-07-07] MEDS: CEPHALEXIN 500 MG CAP PO SCH (20:06)
[2017-07-07] MEDS ORDERED: BACLOFEN 10 MG TAB PO SCH (21:00)
[2017-07-07] MEDS ORDERED: ATORVASTATIN 20 MG TAB PO SCH (21:00)
[2017-07-07 22:37] VITALS: PULSE 67
[2017-07-07] MEDS: diphenhydrAMINE 25 MG CAP PO SCH (23:09)
[2017-07-08] MEDS: METOPROLOL TARTRATE 12.5 MG TAB PO SCH (08:25)
[2017-07-08] MEDS: diphenhydrAMINE 25 MG CAP PO SCH ×2 (08:25→12:33)
[2017-07-08] MEDS: ALPRAZolam 0.5 MG TAB PO SCH ×3 (08:25→17:50)
[2017-07-08] MEDS: MULTIVITAMINS, THERA 1 EACH TAB PO SCH (08:26)
[2017-07-08] MEDS: FAMOTIDINE 20 MG TAB PO SCH (08:26)
[2017-07-08] MEDS: CEPHALEXIN 500 MG CAP PO SCH ×2 (08:26→15:24)
[2017-07-08] MEDS: LISINOPRIL 10 MG TAB PO SCH (08:26)
[2017-07-08] MEDS: OXcarbazepine 300 MG TAB PO SCH (08:26)
[2017-07-08] MEDS: RIVAROXABAN 10 MG TAB PO SCH (08:27)
[2017-07-08] MEDS: VORTIOXETINE HYDROBROMIDE 5 MG PO SCH (08:27)
[2017-07-08] MEDS: SODIUM CHLORIDE 0.9% 1,000 ML IV SCH (08:27)
[2017-07-08 16:14] VITALS: BP 186/112; TEMP 98.4
--- NOTE | 2017-07-08 20:57 | DS ---
DISCHARGE SUMMARY DATE OF ADMISSION: 07/06/17 DATE OF DISCHARGE: 07/08/17 FINAL DIAGNOSES: 1. Acute symptoms/tardive dyskinesia likely side effect of Compazine causing patient unable to eat. 2. Chronic bilateral pulmonary embolism for which patient is chronically on Xarelto. 3. Moderate persistent asthma. 4. Hard of hearing. Wears hearing aids. 5. Hyperlipidemia. 6. Essential hypertension. 7. Neuroendocrine tumor, carcinoid tumor for which patient received monthly Sandostatin followed by Dr. Espinosa. 8. Obsessive-compulsive disorder. 9. Nausea as a side effect of Sandostatin. HOSPITAL COURSE: This is a patient is getting treatment for carcinoid tumor with Sandostatin presented after getting Compazine with extrapyramidal symptoms, face twitching, normal movement, unable to eat, nausea. Did give patient Benadryl for 24 hours. Symptoms completely improved. This evening patient is tolerating a diet, up and about, feeling much better. The patient and his elected not to take the Compazine. PHYSICAL EXAMINATION: On examination tardive dyskinesia symptoms are resolved. DISCHARGE MEDICATIONS: 1. Mevacor 80 mg q.h.s. 2. Xanax 1 mg p.o. q.i.d. 3. Xarelto 20 mg p.o. daily. 4. Baclofen 10 mg q.h.s. 5. Vitamin D2 50,000 units on Tuesdays. 6. Zestril 10 mg p.o. daily. 7. Lopressor 12.5 p.o. b.i.d. 8. Trintellix 5 mg p.o. daily. 9. Multivitamin 1 tab p.o. daily. 10.Trileptal 300 mg p.o. b.i.d. 11.Keflex 500 mg p.o. t.i.d. [address] Pedraza in 3 days. Follow up with Dr. Espinosa as scheduled. MMODL / IJN: [id number] /
== END 2017-07-08 18:34 | disposition home or self-care (01) | DRG 92 ==
LOC: EC 18:07 → 5MS5E 22:54
PROVIDERS: ADMIT Hospitalist; ATTEND Hospitalist
DX: G24.01 Drug induced subacute dyskinesia (principal); I27.82 Chronic pulmonary embolism; N39.0 Urinary tract infection, site not specified; D3A.8 Other benign neuroendocrine tumors; T43.3X5A Adverse effect of phenothiazine antipsychotics and neuroleptics, initial encounter; T38.995A Adverse effect of other hormone antagonists, initial encounter; E78.5 Hyperlipidemia, unspecified; F42.9 Obsessive-compulsive disorder, unspecified; G40.909 Epilepsy, unspecified, not intractable, without status epilepticus; H91.90 Unspecified hearing loss, unspecified ear; I10 Essential (primary) hypertension; J45.40 Moderate persistent asthma, uncomplicated; F32.9 Major depressive disorder, single episode, unspecified; F41.9 Anxiety disorder, unspecified; R11.0 Nausea; Z79.01 Long term (current) use of anticoagulants; Z79.899 Other long term (current) drug therapy; Z87.442 Personal history of urinary calculi; Z97.4 Presence of external hearing-aid; Y92.009 Unspecified place in unspecified non-institutional (private) residence as the place of occurrence of the external cause
CPT/HCPCS: 36415; 80053; 81001; 85025; 87077; 87086; 87186; 96361; 96374; 96375; 99285

== ENCOUNTER → 2017-11-23 | Outpatient (CLI) | payer MEDICARE ==
[2017-11-23 13:10] LABS: Blood Urea Nitrogen 8 mg/dL (9-20)
--- NOTE | 2017-11-23 14:39 | CT ---
EXAMINATION TYPE: CT ChestAbdPelvis w con DATE OF EXAM: 11/23/2017 COMPARISON: 12/14/2016 CTA chest and MRCP dated 06/21/2016. HISTORY: Follow up liver cancer CT DLP: 1094.9 mGycm. Automated Exposure Control for Dose Reduction was Utilized. CONTRAST: CT scan of the thorax, abdomen and pelvis is performed with IV Contrast, patient injected with 100 mL of Isovue 300. FINDINGS: LUNGS: The lungs are grossly clear, there is no concerning parenchymal mass or nodule identified. Pun ctate calcified benign granuloma is unchanged from the prior along the right interlobar fissure on se martha 4 image 32. There is no pleural effusion or pneumothorax seen. The tracheobronchial tree is p atent. MEDIASTINUM: The ascending thoracic aorta is measured slightly larger than the prior examination and currently measures approximately 4.2 cm on series 7 image 37, minimally enlarged. There are no greate r than 1 cm hilar or mediastinal lymph nodes. No pericardial effusion is seen. Solitary prominent b ut nonenlarged 9 mm short axis right suprahilar lymph node is unchanged from the prior. Mild coronary artery calcifications are present. OTHER: Incidental note of very mild retroareolar bilateral gynecomastia. LIVER/GB: There is decrease in size of the previously seen segment 4A hepatic lesion now measuring 1. 9 cm and previously measuring 2.8 cm. Additional approximately 3 mm right hepatic lobe lesion on seri es 3 image 50 appears slightly smaller than on the prior. Other smaller subcentimeter hepatic lesions are better seen with MRI and not well delineated on today's examination, possibly due to decrease in size. No intrahepatic biliary ductal dilatation. No cholelithiasis. The gallbladder however is hydro pic in length measuring 10.7 cm. PANCREAS: Pancreatic parenchymal atrophy is seen. No ductal dilatation. SPLEEN: No significant abnormality is seen. ADRENALS: No significant abnormality is seen. KIDNEYS: 2 mm left upper pole nonobstructing renal calculus is present. Additional 2 mm left lower po le renal calculi are seen (2 in number). No hydronephrosis bilaterally. Kidneys enhance and excrete s ymmetrically other than an 8 mm right lower pole renal lesion that is too small to accurately charact erize on series 5 image 43. BOWEL: No dilated bowel. Bowel is grossly unremarkable. GENITAL ORGANS: Prostate gland is enlarged and heterogenous containing central zone calcifications. LYMPH NODES: No greater than 1cm abdominal or pelvic lymph nodes are appreciated. There are few promi nent central mesenteric lymph nodes that appear to have associated calcifications on coronal series 7 image 28 and 29. This may represent treated disease. Although given the patient's history of carcino id tumor surveillance is recommended. Additionally there is a new omental nodule seen on coronal seri es 7 image 20 and axial series 3 image 77 measuring 2.5 x 2.0 x 3.0 cm concerning for metastatic dise ase. OSSEOUS STRUCTURES: Extensive multilevel degenerative changes of the visualized spine are seen. No ne w suspicious osseous lesions. Moderate femoral acetabular arthropathy is seen bilaterally. OTHER: Moderate calcific atheromatous changes are seen of the abdominal aorta and its branches. Abdom inal aorta is of normal course and caliber. IMPRESSION: 1. New soft tissue omental nodule concerning for metastasis. This is seen adjacent to few prominent central mesenteric lymph nodes containing calcifications on coronal images and may represent treated disease in this patient with history of carcinoid tumor. 2. Decrease in size of the hepatic lesions receipt, overall response to treatment concerning for hepa tic metastasis. 3. Hydropic size of the gallbladder without other CT evidence of acute cholecystitis. 4. No evidence of metastatic disease within the chest. Thoracic aortic aneurysm has not enlarged from the prior exam. A Yellow level critical message alert has been initiated for Huang Espinosa MD via the [employer] on 11/23/2017 2:36 PM. This message alert has been sent to Huang Espinosa MD via the preferences provided by the clinician for the receipt of Radiology Critical Findings. Message ID [id number].
== END | disposition home or self-care (01) ==
LOC: RADCTMAIN 11:27
PROVIDERS: ATTEND Internal Medicine Hematology & Oncology
DX: C7A.098 Malignant carcinoid tumors of other sites (principal); K66.8 Other specified disorders of peritoneum; R59.1 Generalized enlarged lymph nodes; K76.9 Liver disease, unspecified; K82.1 Hydrops of gallbladder; I71.2 Thoracic aortic aneurysm, without rupture; Z88.8 Allergy status to other drugs, medicaments and biological substances
CPT/HCPCS: 82565; 84520; 71260; 74177; 36415; Q9967

== ENCOUNTER 2018-01-29 06:50 | Observation (INO) | payer MEDICARE ==
[2018-01-29] MEDS ORDERED: SODIUM CHLORIDE 0.9% 1,000 ML IV STA (07:25)
[2018-01-29] MEDS ORDERED: IPRATROPIUM-ALBUTEROL 3 ML NEB INHALATION STA (07:25)
[2018-01-29 07:43] LABS: Basophils % (A) 0 %; Eosinophils # (A) 0.2 k/uL (0-0.7); Eosinophils % (A) 2 %; HCT 41.1 % (39.0-53.0); HGB 13.4 gm/dL (13.0-17.5); Lymphocytes # (A) 0.7 k/uL (1.0-4.8); Lymphocytes % (A) 6 %; MCH 27.3 pg (25.0-35.0); MCHC 32.6 g/dL (31.0-37.0); MCV 83.8 fL (80.0-100.0); Mean Platelet Volume 6.8; Monocytes # (A) 0.4 k/uL (0-1.0); Monocytes % (A) 4 %; Neutrophils # (A) 9.9 k/uL (1.3-7.7); Neutrophils % (A) 87 %; Platelet Count 410 k/uL (150-450); RDW 15.3 % (11.5-15.5); WBC 11.4 k/uL (3.8-10.6)
--- NOTE | 2018-01-29 07:46 | ED ---
SOB HPI - General Chief Complaint: Shortness of Breath Stated Complaint: EDIE Time Seen by Provider: 01/29/18 07:00 Source: patient, RN notes reviewed Mode of arrival: wheelchair Limitations: no limitations - History of Present Illness Initial Comments: This is a 67-year-old male history of multiple medical problems including carcinoid tumors who was brought in today because of shortness of breath cough with thick white phlegm also earlier this morning he had abdominal pain that doubled him over with nausea. He states she had white frothy phlegm for about a month he was to have a Cardiolite stress test today but he could not make it due to weakness he also states he had an injection yesterday at his oncologist office. He also does state he took a Xanax this morning even though he wasn't supposed to because he was feeling so badly. He denies any overt fevers chills or sweats however no overt chest pain he did have the abdominal pain as mentioned MD Complaint: shortness of breath, cough, anxiety - Related Data Home Medications Medication Instructions Recorded Confirmed Lovastatin [Mevacor] 80 mg PO HS 05/22/16 01/29/18 Rivaroxaban [Xarelto] 20 mg PO DAILY 07/04/16 01/29/18 Baclofen 10 mg PO HS 05/08/17 01/29/18 Ergocalciferol (Vitamin D2) 50,000 unit PO TU 05/08/17 01/29/18 [Vitamin D2] Lisinopril [Zestril] 10 mg PO DAILY 05/08/17 01/29/18 Metoprolol Tartrate [Lopressor] 12.5 mg PO BID 05/08/17 01/29/18 OXcarbazepine [Trileptal] 300 mg PO BID 07/06/17 01/29/18 DULoxetine HCL [Cymbalta] 60 mg PO DAILY 01/29/18 01/29/18 Diphenox-Atrop 2.5-0.025 mg 1 tab PO DAILY PRN 01/29/18 01/29/18 [Lomotil] Famotidine [Pepcid] 20 mg PO BID 01/29/18 01/29/18 Octreotide Lar [SandoSTATIN LAR] 30 mg IM QMONTH 01/29/18 01/29/18 QUEtiapine [SEROquel] 50 mg PO HS 01/29/18 01/29/18 Previous Rx's Medication Instructions Recorded ALPRAZolam 1 mg PO QID #40 tablet 05/26/16 Allergies Allergy/AdvReac Type Severity Reaction Status Date / Time prochlorperazine Allergy Hallucinati Verified 01/29/18 06:56 [From Compazine] ons Review of Systems ROS Statement: Those systems with pertinent positive or pertinent negative responses have been documented in the HPI. ROS Other: All systems not noted in ROS Statement are negative. Past Medical History Past Medical History: Asthma, Cancer, Hearing Disorder / Deafness, Hyperlipidemia, Hypertension, Seizure Disorder Additional Past Medical History / Comment(s): kidney stones, chronic nausea, well differentiated neuroendocrine tumor, constipation, anemia, LIVER CANCER History of Any Multi-Drug Resistant Organisms: None Reported Past Surgical History: Hernia Repair Additional Past Surgical History / Comment(s): liver biopsy Past Anesthesia/Blood Transfusion Reactions: No Reported Reaction Past Psychological History: Anxiety, Depression Smoking Status: Never smoker Past Alcohol Use History: None Reported Past Drug Use History: None Reported - Past Family History Mother Family Medical History: No Reported History General Exam - General Exam Comments Initial Comments: This is a well-developed asthenic appearing male who is awake alert oriented 4. Limitations: no limitations General appearance: alert, anxious Head exam: Present: atraumatic, normocephalic, normal inspection Eye exam: Present: normal appearance, PERRL, EOMI. Absent: scleral icterus, conjunctival injection, periorbital swelling ENT exam: Present: mucous membranes dry Neck exam: Present: normal inspection. Absent: tenderness, meningismus, lymphadenopathy Respiratory exam: Present: decreased breath sounds. Absent: respiratory distress, wheezes, rales, rhonchi, stridor Cardiovascular Exam: Present: regular rate, normal rhythm, normal heart sounds. Absent: systolic murmur, diastolic murmur, rubs, gallop, clicks GI/Abdominal exam: Present: soft, normal bowel sounds. Absent: distended, tenderness, guarding, rebound, rigid Extremities exam: Present: normal inspection, full ROM, normal capillary refill. Absent: tenderness, pedal edema, joint swelling, calf tenderness Back exam: Present: normal inspection Neurological exam: Present: alert, oriented X3, CN II-XII intact, other ( Preliminary Zantac to set the patient is hard of hearing.) Psychiatric exam: Present: normal affect, anxious Skin exam: Present: warm, dry, intact, pallor. Absent: rash Course Vital Signs 01/29/18 01/29/18 01/29/18 06:53 08:09 08:16 Temperature 99.2 F Pulse Rate 81 60 67 Respiratory 20 18 Rate Blood Pressure 148/98 146/96 O2 Sat by Pulse 90 L 96 Oximetry 01/29/18 08:21 Temperature Pulse Rate 69 Respiratory Rate Blood Pressure O2 Sat by Pulse Oximetry Medical Decision Making - Medical Decision Making Patient is still having some difficulty with breathing I did discuss findings with him and his family members. Patient will be admitted for inpatient treatment. Consultation will be made to Dr. Pennington as well as Dr. Espinosa - Lab Data Result diagrams: 01/29/18 07:08 01/29/18 07:08 Lab Results 01/29/18 01/29/18 01/29/18 Range/Units 07:08 07:08 07:08 WBC 11.4 H (3.8-10.6) k/uL RBC 4.90 (4.30-5.90) m/uL Hgb 13.4 (13.0-17.5) gm/dL Hct 41.1 (39.0-53.0) % MCV 83.8 (80.0-100.0) fL MCH 27.3 (25.0-35.0) pg MCHC 32.6 (31.0-37.0) g/dL RDW 15.3 (11.5-15.5) % Plt Count 410 (150-450) k/uL Neutrophils % 87 % Lymphocytes % 6 % Monocytes % 4 % Eosinophils % 2 % Basophils % 0 % Neutrophils # 9.9 H (1.3-7.7) k/uL Lymphocytes # 0.7 L (1.0-4.8) k/uL Monocytes # 0.4 (0-1.0) k/uL Eosinophils # 0.2 (0-0.7) k/uL Basophils # 0.0 (0-0.2) k/uL PT (9.0-12.0) sec INR (<1.2) APTT (22.0-30.0) sec Sodium 135 L (137-145) mmol/L Potassium 4.5 (3.5-5.1) mmol/L Chloride 99 (98-107) mmol/L Carbon Dioxide 25 (22-30) mmol/L Anion Gap 11 mmol/L BUN 11 (9-20) mg/dL Creatinine 0.74 (0.66-1.25) mg/dL Est GFR (CKD-EPI)AfAm >90 (>60 ml/min/1.73 sqM) Est GFR (CKD-EPI)NonAf >90 (>60 ml/min/1.73 sqM) Glucose 121 H (74-99) mg/dL Plasma Lactic Acid Ganesh (0.7-2.0) mmol/L Calcium 9.3 (8.4-10.2) mg/dL Magnesium 1.8 (1.6-2.3) mg/dL Total Bilirubin 0.5 (0.2-1.3) mg/dL AST 30 (17-59) U/L ALT 28 (21-72) U/L Alkaline Phosphatase 93 (38-126) U/L Total Creatine Kinase 138 (55-170) U/L CK-MB (CK-2) 2.6 H* (0.0-2.4) ng/mL CK-MB (CK-2) Rel Index 1.9 Troponin I <0.012 (0.000-0.034) ng/mL NT-Pro-B Natriuret Pep pg/mL Total Protein 7.5 (6.3-8.2) g/dL Albumin 4.1 (3.5-5.0) g/dL Amylase 68 (30-110) U/L Lipase 23 (23-300) U/L 01/29/18 01/29/18 01/29/18 Range/Units 07:08 07:08 07:08 WBC (3.8-10.6) k/uL RBC (4.30-5.90) m/uL Hgb (13.0-17.5) gm/dL Hct (39.0-53.0) % MCV (80.0-100.0) fL MCH (25.0-35.0) pg MCHC (31.0-37.0) g/dL RDW (11.5-15.5) % Plt Count (150-450) k/uL Neutrophils % % Lymphocytes % % Monocytes % % Eosinophils % % Basophils % % Neutrophils # (1.3-7.7) k/uL Lymphocytes # (1.0-4.8) k/uL Monocytes # (0-1.0) k/uL Eosinophils # (0-0.7) k/uL Basophils # (0-0.2) k/uL PT 11.8 (9.0-12.0) sec INR 1.2 H (<1.2) APTT 28.4 (22.0-30.0) sec Sodium (137-145) mmol/L Potassium (3.5-5.1) mmol/L Chloride (98-107) mmol/L Carbon Dioxide (22-30) mmol/L Anion Gap mmol/L BUN (9-20) mg/dL Creatinine (0.66-1.25) mg/dL Est GFR (CKD-EPI)AfAm (>60 ml/min/1.73 sqM) Est GFR (CKD-EPI)NonAf (>60 ml/min/1.73 sqM) Glucose (74-99) mg/dL Plasma Lactic Acid Ganesh 1.1 (0.7-2.0) mmol/L Calcium (8.4-10.2) mg/dL Magnesium (1.6-2.3) mg/dL Total Bilirubin (0.2-1.3) mg/dL AST (17-59) U/L ALT (21-72) U/L Alkaline Phosphatase (38-126) U/L Total Creatine Kinase (55-170) U/L CK-MB (CK-2) (0.0-2.4) ng/mL CK-MB (CK-2) Rel Index Troponin I (0.000-0.034) ng/mL NT-Pro-B Natriuret Pep 267 pg/mL Total Protein (6.3-8.2) g/dL Albumin (3.5-5.0) g/dL Amylase (30-110) U/L Lipase (23-300) U/L - Radiology Data Radiology results: report reviewed (I did review the imaging and report no acute findings.), image reviewed Disposition Clinical Impression: Acute asthma exacerbation, Febrile illness, acute, Bronchitis Disposition: ADMITTED IP TO THIS [facility] Condition: Stable Referrals: Rojas Pedraza DO [Primary Care Provider] - 1-2 days
[2018-01-29 07:50] LABS: INR 1.2 (<1.2); Partial Thromboplastin Time 28.4 sec (22.0-30.0); Prothrombin Time 11.8 sec (9.0-12.0)
[2018-01-29 07:54] LABS: ALT 28 U/L (21-72); AST 30 U/L (17-59); Albumin 4.1 g/dL (3.5-5.0); Alkaline Phosphatase 93 U/L (38-126); Amylase 68 U/L (30-110); Anion Gap 11 mmol/L; Blood Urea Nitrogen 11 mg/dL (9-20); Calcium 9.3 mg/dL (8.4-10.2); Carbon Dioxide 25 mmol/L (22-30); Chloride 99 mmol/L (98-107); Glucose 121 mg/dL (74-99); Lipase 23 U/L (23-300); Magnesium 1.8 mg/dL (1.6-2.3); Potassium 4.5 mmol/L (3.5-5.1); Sodium 135 mmol/L (137-145); Total Bilirubin 0.5 mg/dL (0.2-1.3); Total Protein 7.5 g/dL (6.3-8.2)
[2018-01-29 08:19] LABS: Creatine Kinase 138 U/L (55-170)
--- NOTE | 2018-01-29 08:24 | XR ---
EXAMINATION TYPE: XR chest 2V DATE OF EXAM: 01/29/2018 COMPARISON: 05/08/2017 INDICATION: Difficulty breathing TECHNIQUE: Frontal and lateral views of the chest are obtained. FINDINGS: The heart size is normal. The pulmonary vasculature is normal. The lungs are clear. IMPRESSION: 1. No acute pulmonary process.
--- NOTE | 2018-01-29 08:25 | XR ---
EXAMINATION TYPE: XR KUB DATE OF EXAM: 01/29/2018 COMPARISON: None INDICATION: Abdomen pain TECHNIQUE: Single view abdomen upright view FINDINGS: There is a normal bowel gas pattern. Psoas margins are normal. No organomegaly is present. No suspicious calcifications are evident. IMPRESSION: 1. Unremarkable Abdomen
[2018-01-29 08:30] LABS: Troponin I <0.012 ng/mL (0.000-0.034)
[2018-01-29 08:36] LABS: Creatine Kinase MB 2.6 ng/mL (0.0-2.4)
[2018-01-29] MEDS ORDERED: cefTRIAXone IN SWFI 1,000 MG/10 ML SYRINGE IVP STA (09:20)
[2018-01-29] MEDS ORDERED: methylPREDNISolone SOD SUCCI 125 MG/2 ML VIAL IV STA (09:21)
[2018-01-29] MEDS ORDERED: DIPHENOX-ATROP 2.5-0.025 MG 1 EACH TAB PO PRN (09:29)
[2018-01-29] MEDS ORDERED: ONDANSETRON 4 MG/2 ML VIAL IVP STA (10:00)
[2018-01-29] MEDS: IPRATROPIUM-ALBUTEROL 3 ML NEB INHALATION SCH ×3 (11:09→21:20)
[2018-01-29] MEDS ORDERED: methylPREDNISolone SOD SUCCI 125 MG/2 ML VIAL IV SCH (12:00)
[2018-01-29] MEDS ORDERED: ERGOCALCIFEROL 50,000 UNIT CAP PO SCH (12:00)
[2018-01-29] MEDS ORDERED: MELATONIN 3 MG TABLET PO PRN (13:24)
[2018-01-29] MEDS ORDERED: MAGNESIUM HYDROXIDE 2,400 MG/10 ML CUP PO PRN (13:24)
[2018-01-29] MEDS ORDERED: CALCIUM CARBONATE 500 MG CHEWABLE PO PRN (13:24)
[2018-01-29] MEDS ORDERED: LACTULOSE 20 GM/30 ML CUP PO PRN (13:24)
[2018-01-29] MEDS ORDERED: ACETAMINOPHEN TAB 325 MG TAB PO PRN (13:24)
--- NOTE | 2018-01-29 14:33 | HP ---
HISTORY AND PHYSICAL DATE OF ADMISSION: 01/29/18 DATE OF SERVICE: 01/29/18 PRESENTING COMPLAINT: Cough, congested. HISTORY OF PRESENTING COMPLAINT: This is a pleasant 67-year-old patient who is here in the ER with his who is patient of Dr. Pedraza. Chronic stable medical conditions include hard of hearing, hyperlipidemia, hypertension, neuroendocrine tumor of the liver, carcinoid tumor and also some compulsive disorder. The patient presents with one day of increasingly short of breath, cough, frothy sputum, decreased appetite, low-grade fever, tired, run down. The patient was supposed to have a stress test today by Dr. Pennington and then patient was sent down to the ER. The patient intermittently gets chest pain off and on. Currently none. No radiation. REVIEW OF SYSTEMS: CONSTITUTIONAL: Weak, tired. HEENT: None. RESPIRATORY: As above. CARDIOVASCULAR: As above. GASTROINTESTINAL: None. GENITOURINARY: None. MUSCULOSKELETAL: None. DERMATOLOGICAL: None. HEMATOLOGICAL: None. PSYCHIATRY: Anxious. NEUROLOGICAL: Occasional tremors. PAST MEDICAL HISTORY: Bilateral PE, moderate persistent asthma, hard of hearing with hearing aid, hypertension, hyperlipidemia, neuroendocrine tumor of the liver, carcinoid tumor, being followed by Dr. Espinosa. PAST SURGICAL HISTORY: Hernia repair, liver biopsy. SOCIAL HISTORY: Does not smoke or drink alcohol. Lives with his . FAMILY HISTORY: Reviewed, noncontributory to presentation. HOME MEDICATIONS: 1. Pepcid 20 mg p.o. b.i.d. 2. Lomotil 1 tablet p.o. daily p.r.n. 3. Sandostatin 30 mg IM monthly. 4. Mevacor 80 mg q.h.s. 5. Xarelto 20 mg p.o. daily. 6. Seroquel 50 mg q.h.s. 7. Trileptal 300 mg p.o. b.i.d. 8. Lopressor 12.5 p.o. b.i.d. 9. Zestril 10 mg p.o. daily. 10.Vitamin D2 08520 units p.o. on Sunday. 11.Cymbalta 60 mg p.o. daily. 12.Baclofen 10 mg q.h.s. 13.Xanax 1 mg p.o. q.i.d. ALLERGIES: COMPAZINE. PHYSICAL EXAMINATION: Temperature 99.2, pulse 81, respiratory 20, blood pressure 148/98, pulse ox 90% on room air. GENERAL APPEARANCE: Average build, lying in bed, somewhat uncomfortable. EYES: Pupils equal. Conjunctivae normal. HEENT: External appearance of nose and ears normal. Oral cavity dry. NECK: JVD unable to assess. Mass not palpable. RESPIRATORY: Effort increased. Lungs decreased breath sounds. Prolonged expiration. Some wheezing. CARDIOVASCULAR: First and second sounds. No edema. ABDOMEN: Soft, nontender. Liver and spleen not palpable. LYMPHATIC: No lymph node palpable. PSYCHIATRY: Alert and oriented x3. Mood and affect anxious-appearing. NEUROLOGICAL: Pupils equal. Cranial nerves grossly intact. Power and sensation grossly intact. INVESTIGATIONS: White count 11.4, potassium 4.5, BUN and creatinine are normal. Troponin less than 0.012. UA showing some WBC and RBC. EKG tracing interpreted by me shows poor R-wave progression, unsteady baseline. Chest x-ray film interpreted by me shows a bit prominent pulmonary artery. Otherwise, no acute process. ASSESSMENT: 1. Acute exacerbation of moderate persistent asthma, probably from bronchitis. 2. Chronic bilateral pulmonary embolism for which patient is chronically on Xarelto. 3. Hard of hearing, wears hearing aids. 4. Hyperlipidemia. 5. Essential hypertension. 6. Neuroendocrine tumor for which patient receives monthly Sandostatin being followed by Dr. Espinosa. 7. Obsessive-compulsive disorder. 8. Intermittent chest pain. Patient was due for a stress test today. PLAN: At this point, patient is started on nebulized bronchodilators, IV steroids. Home medications will be resumed. Will give Lovenox for DVT prophylaxis. Consultation to both Pulmonary and Cardiology is being made. Care was discussed with the patient and at the bedside. Questions were answered. MMODL / IJN: [id number] /
[2018-01-29] MEDS: ALPRAZolam 1 MG TAB PO SCH ×3 (15:41→20:58)
[2018-01-29] MEDS ORDERED: methylPREDNISolone SOD SUCCI 40 MG/ML 1 ML VIAL IV SCH (16:00)
--- NOTE | 2018-01-29 16:21 | P.CNPUL ---
History of Present Illness Consult date: 01/29/18 Reason for consult: dyspnea, cough, other (Abdominal pain) Chief complaint: Abdominal pain and shortness of breath History of present illness: This is a 67-year-old white male with history of carcinoid tumor involving the GI tract, with hepatic metastasis. and history of chronic abdominal pain. Patient is on chemotherapy for his carcinoid tumor. Today he woke up with severe abdominal pain, and at the same time he was having some cough and shortness of breath. Patient had no fever, no chills, no hemoptysis, his pain was quite severe and he was at a point where it will double him over with some nausea. Along with the pain the patient was having some white frothy phlegm, more or less phlegm related to his episodes of nausea and dry heaves. I evaluated the patient in the ER, and his lungs sounded relatively clear. Chest x-ray showed no acute pulmonary process. And his labs including CBC, basic metabolic profile, renal profile, lactic acid, all were noted to be normal. His amylase and lipase were also normal. Patient does not have any smoking history, but he was diagnosed by his primary care physician as having COPD. On my physical examination, the lungs sounded quite clear, and I did not feel that the patient had any evidence of acute exacerbation of COPD or asthma exacerbation. I felt that the patient was mostly being admitted for his abdominal pain, and I did not feel that the patient needed to be admitted for his pulmonary issues whatsoever. According to the patient he had chronic abdominal pain, but for some reason his pain was more severe today compared to previous days. Recent CT of the abdomen and pelvis showed a new soft tissue omental nodule highly suspicious for metastasis. Patient is being closely followed by oncology for his metastatic carcinoid tumor. Patient is known to have history of chronic pulmonary embolism, maintained on Xarelto and on previous admissions there was documentation of history of moderate asthma. There is also evidence of essential hypertension, and history of up sensitive compulsive disorder. Denies any headaches, no blurred vision, no dizziness, patient is hard of hearing. His main complaint seems to be related to his abdominal pain, occasional cough, no wheezing, intermittent episodes of nausea and dry heaves, no vomiting, no melena, no hematemesis, no dysuria, no frequency, no urgency. Review of Systems 14 point review of systems were obtained, please refer to pertinent positives as noted in HPI. And pertinent negatives. Past Medical History Past Medical History: Cancer, Hearing Disorder / Deafness, Hyperlipidemia, Hypertension, Pulmonary Embolus (PE), Seizure Disorder Additional Past Medical History / Comment(s): asthma was previously charted but pt/ unaware of this. kidney stones, chronic nausea, neuroendocrine tumor carcinoid) gets sandostatin- stated spots on liver and in stomach", constipation, anemia, [place] even wl hearing aids. History of Any Multi-Drug Resistant Organisms: None Reported Past Surgical History: Hernia Repair Additional Past Surgical History / Comment(s): liver biopsy Past Anesthesia/Blood Transfusion Reactions: Motion Sickness Additional Past Anesthesia/Blood Transfusion Reaction / Comment(s): clausterphobia Past Psychological History: Anxiety, Depression Additional Psychological History / Comment(s): obsessive compulsive disorder Smoking Status: Never smoker Past Alcohol Use History: None Reported Past Drug Use History: None Reported - Past Family History Mother Family Medical History: Dementia Additional Family Medical History / Comment(s): alzhiemers Father Family Medical History: Cancer Additional Family Medical History / Comment(s): lung cancer, hx of smoking Medications and Allergies Home Medications Medication Instructions Recorded Confirmed Type Lovastatin [Mevacor] 80 mg PO HS 05/22/16 01/29/18 History ALPRAZolam 1 mg PO QID #40 tablet 05/26/16 01/29/18 Rx Rivaroxaban [Xarelto] 20 mg PO DAILY 07/04/16 01/29/18 History Baclofen 10 mg PO HS 05/08/17 01/29/18 History Ergocalciferol (Vitamin D2) 50,000 unit PO TU 05/08/17 01/29/18 History [Vitamin D2] Lisinopril [Zestril] 10 mg PO DAILY 05/08/17 01/29/18 History Metoprolol Tartrate [Lopressor] 12.5 mg PO BID 05/08/17 01/29/18 History OXcarbazepine [Trileptal] 300 mg PO BID 07/06/17 01/29/18 History DULoxetine HCL [Cymbalta] 60 mg PO DAILY 01/29/18 01/29/18 History Diphenox-Atrop 2.5-0.025 mg 1 tab PO DAILY PRN 08/07/18 08/07/18 History [Lomotil] Famotidine [Pepcid] 20 mg PO BID 01/29/18 01/29/18 History Octreotide Lar [SandoSTATIN LAR] 30 mg IM QMONTH 01/29/18 01/29/18 History QUEtiapine [SEROquel] 50 mg PO HS 01/29/18 01/29/18 History Allergies Allergy/AdvReac Type Severity Reaction Status Date / Time prochlorperazine Allergy Hallucinati Verified 01/29/18 06:56 [From Compazine] ons Physical Exam Vitals: Vital Signs Temp Pulse Resp BP Pulse Ox 01/29/18 14:30 68 20 146/65 99 01/29/18 12:32 98.0 F 01/29/18 12:15 65 20 138/88 95 01/29/18 11:22 64 01/29/18 11:15 59 L 18 132/85 97 01/29/18 11:09 57 L 01/29/18 09:24 71 18 141/95 93 L 01/29/18 08:21 69 01/29/18 08:16 67 18 146/96 96 01/29/18 08:09 60 01/29/18 06:53 99.2 F 81 20 148/98 90 L Intake and Output 01/29/18 01/29/18 01/29/18 06:59 14:59 22:59 Other: Weight 92.079 kg Physical Exam: Revealed a 67-year-old white male in no distress. Hard of hearing, has hearing aids bilaterally. Head: Atraumatic, normocephalic. HEENT:[Neck is supple.] [No neck masses.] [No thyromegaly.] [No JVD.] Chest: [Diminished breath sounds at the bases, no crackles, no rhonchi, no wheezes..] Cardiac Exam: [Normal S1 and S2, no S3 gallop, no murmur.] Abdomen: [Soft, nontender, no megaly, no rebound, no guarding, normal bowel sounds.] Extremities: [No clubbing, no edema, no cyanosis.] Neurological Exam: [No focal neurologic deficit. Lymphatics: No lymphadenopathy. Psychiatric: Normal mood affect and mental status examination] Results - Laboratory Findings CBC and BMP: 01/29/18 07:08 01/29/18 07:08 PT/INR, D-dimer PT 11.8 sec (9.0-12.0) 01/29/18 07:08 INR 1.2 (<1.2) H 01/29/18 07:08 Abnormal lab findings: Abnormal Labs 01/29/18 01/29/18 01/29/18 07:08 07:08 07:08 WBC 11.4 H Neutrophils # 9.9 H Lymphocytes # 0.7 L INR Sodium 135 L Glucose 121 H CK-MB (CK-2) 2.6 H* 01/29/18 07:08 WBC Neutrophils # Lymphocytes # INR 1.2 H Sodium Glucose CK-MB (CK-2) - Diagnostic Findings Chest x-ray: image reviewed (Chest x-ray showed no evidence of active disease. KUB was unremarkable.) Assessment and Plan Assessment: Impression: 1 acute on chronic abdominal pain and nausea most likely secondary to his underlying neuroendocrine tumor and likely related to his chemotherapy. 2 history of bronchial asthma, presently inactive based on my physical examination. His lungs sounded very clear bilaterally. 3 chronic bilateral pulmonary embolism, maintained on Xarelto. 4 neuroendocrine tumor, on chemotherapy, follows up with oncology on a regular basis. 5 chest with compulsive disorder 6 benign essential hypertension 7 hyperlipidemia 8 hard of hearing. Recommendation: Continue present treatment plan, try to control abdominal pain, placed on bronchodilators which she usually takes for his asthma, no need for systemic steroids, consider discharge planning in the next 24 hours. Time with Patient: Greater than 30
[2018-01-29 16:53] LABS: Glucose,Whole Blood 161 mg/dL (75-99)
[2018-01-29] MEDS: INSULIN ASPART 100 UNIT/ML 1 ML 10 ML VIAL SQ SCH (17:33)
[2018-01-29] MEDS ORDERED: ONDANSETRON 4 MG/2 ML VIAL IVP PRN (19:56)
[2018-01-29 20:34] LABS: Glucose,Whole Blood 158 mg/dL (75-99)
[2018-01-29] MEDS: METOPROLOL TARTRATE 12.5 MG TAB PO SCH (20:58)
[2018-01-29] MEDS: OXcarbazepine 300 MG TAB PO SCH (20:58)
[2018-01-29] MEDS: FAMOTIDINE 20 MG TAB PO SCH (20:58)
[2018-01-29] MEDS ORDERED: BACLOFEN 10 MG TAB PO SCH (21:00)
[2018-01-29] MEDS ORDERED: QUEtiapine 50 MG TAB PO SCH (21:00)
[2018-01-29] MEDS ORDERED: ATORVASTATIN 20 MG TAB PO SCH (21:00)
[2018-01-29] MEDS: SODIUM CHLORIDE 0.9% 1,000 ML IV SCH (21:03)
[2018-01-30] MEDS: IPRATROPIUM-ALBUTEROL 3 ML NEB INHALATION SCH ×5 (01:12→16:34)
[2018-01-30] MEDS: SODIUM CHLORIDE 0.9% 1,000 ML IV SCH ×2 (05:19→12:38)
[2018-01-30] MEDS: INSULIN ASPART 100 UNIT/ML 1 ML 10 ML VIAL SQ SCH ×2 (07:19→12:37)
[2018-01-30] MEDS: OXcarbazepine 300 MG TAB PO SCH (07:28)
[2018-01-30] MEDS: ALPRAZolam 1 MG TAB PO SCH ×2 (07:29→12:37)
[2018-01-30] MEDS: FAMOTIDINE 20 MG TAB PO SCH (07:29)
[2018-01-30] MEDS: METOPROLOL TARTRATE 12.5 MG TAB PO SCH (07:29)
[2018-01-30 07:41] LABS: Glucose,Whole Blood 115 mg/dL (75-99)
[2018-01-30] MEDS ORDERED: DULoxetine HCL 60 MG CAPSULE.DR PO SCH (09:00)
[2018-01-30] MEDS ORDERED: methylPREDNISolone 4 MG TAB TAPER PO SCH (09:00)
[2018-01-30] MEDS ORDERED: RIVAROXABAN 20 MG TAB PO SCH (09:00)
[2018-01-30] MEDS ORDERED: LISINOPRIL 10 MG TAB PO SCH (09:00)
[2018-01-30] MEDS ORDERED: ISOSORBIDE MONONITRATE ER 30 MG TAB.ER.24H PO SCH (09:15)
--- NOTE | 2018-01-30 09:48 | P.PN ---
Subjective Progress Note Date: 01/30/18 Principal diagnosis: Acute on chronic abdominal pain and nausea, most likely secondary to his underlying carcinoid tumor and related to chemotherapy This is a 67-year-old white male with history of carcinoid tumor involving the GI tract, with hepatic metastasis. and history of chronic abdominal pain. Patient is on chemotherapy for his carcinoid tumor. Today he woke up with severe abdominal pain, and at the same time he was having some cough and shortness of breath. Patient had no fever, no chills, no hemoptysis, his pain was quite severe and he was at a point where it will double him over with some nausea. Along with the pain the patient was having some white frothy phlegm, more or less phlegm related to his episodes of nausea and dry heaves. I evaluated the patient in the ER, and his lungs sounded relatively clear. Chest x-ray showed no acute pulmonary process. And his labs including CBC, basic metabolic profile, renal profile, lactic acid, all were noted to be normal. His amylase and lipase were also normal. Patient does not have any smoking history, but he was diagnosed by his primary care physician as having COPD. On my physical examination, the lungs sounded quite clear, and I did not feel that the patient had any evidence of acute exacerbation of COPD or asthma exacerbation. I felt that the patient was mostly being admitted for his abdominal pain, and I did not feel that the patient needed to be admitted for his pulmonary issues whatsoever. According to the patient he had chronic abdominal pain, but for some reason his pain was more severe today compared to previous days. Recent CT of the abdomen and pelvis showed a new soft tissue omental nodule highly suspicious for metastasis. Patient is being closely followed by oncology for his metastatic carcinoid tumor. Patient is known to have history of chronic pulmonary embolism, maintained on Xarelto and on previous admissions there was documentation of history of moderate asthma. There is also evidence of essential hypertension, and history of up sensitive compulsive disorder. Denies any headaches, no blurred vision, no dizziness, patient is hard of hearing. His main complaint seems to be related to his abdominal pain, occasional cough, no wheezing, intermittent episodes of nausea and dry heaves, no vomiting, no melena, no hematemesis, no dysuria, no frequency, no urgency. On 01/30/2018 patient seen in follow-up on medical surgical floor. Doing well, he states his abdominal pain has almost resolved completely. He was able to sleep last night restfully, no pulmonary complaints whatsoever. Remains on 2 L per nasal cannula, and his pulse ox is 94%, he is afebrile, vital signs are stable, no acute events overnight, no further nausea or vomiting. No cough, no phlegm production. His bronchial asthma is stable. From pulmonary standpoint patient can discharge home today. Objective - Vital Signs Vital signs: Vital Signs Temp 97.1 F L 01/30/18 06:06 Pulse 64 01/30/18 06:06 Resp 18 01/30/18 06:06 BP 130/79 01/30/18 06:06 Pulse Ox 94 L 01/30/18 06:06 Intake & Output 01/29/18 01/30/18 01/30/18 18:59 06:59 18:59 Other: Voiding Method Toilet Urinal # Voids 1 - Exam Physical Exam: Revealed a 67-year-old white male in no distress. Hard of hearing, has hearing aids bilaterally. Head: Atraumatic, normocephalic. HEENT:[Neck is supple.] [No neck masses.] [No thyromegaly.] [No JVD.] Chest: [Diminished breath sounds at the bases, no crackles, no rhonchi, no wheezes.] Cardiac Exam: [Normal S1 and S2, no S3 gallop, no murmur.] Abdomen: [Soft, nontender, no megaly, no rebound, no guarding, normal bowel sounds.] Extremities: [No clubbing, no edema, no cyanosis.] Neurological Exam: [No focal neurologic deficit. Lymphatics: No lymphadenopathy. Psychiatric: Normal mood affect and mental status examination] - Labs CBC & Chem 7: 01/29/18 07:08 01/29/18 07:08 Labs: Abnormal Lab Results - Last 24 Hours (Table) 01/29/18 01/29/18 01/30/18 Range/Units 16:41 20:33 07:15 POC Glucose (mg/dL) 161 H 158 H 115 H (75-99) mg/dL Assessment and Plan Plan: 1 acute on chronic abdominal pain and nausea most likely secondary to his underlying neuroendocrine tumor and likely related to his chemotherapy. 2 history of bronchial asthma, presently inactive based on my physical examination. His lungs sounded very clear bilaterally. 3 chronic bilateral pulmonary embolism, maintained on Xarelto. 4 neuroendocrine tumor, on chemotherapy, follows up with oncology on a regular basis. 5 chest with compulsive disorder 6 benign essential hypertension 7 hyperlipidemia 8 hard of hearing. Recommendation: Patient is doing well, his pain is well controlled, no further nausea or vomiting, no pulmonary complaints at today's exam, lungs are clear. Vital signs are stable, no acute events overnight, from pulmonary standpoint patient is stable for discharge home today. I performed a history & physical examination of the patient and discussed their management with my nurse practitioner, Tamera Alva. I reviewed the nurse practitioner's note and agree with the documented findings and plan of care. Lung sounds are clear. The findings and the impression was discussed with the patient. I attest to the documentation by the nurse practitioner. Time with Patient: Less than 30
--- NOTE | 2018-01-30 12:02 | P.CRDCN ---
History of Present Illness History of present illness: Mr. Correa is a pleasant 67-year-old male past medical history significant for hypertension, dyslipidemia, abdominal aortic aneurysm, PE on long-term anticoagulation and carcinoid tumor of the GI tract with hepatic metastasis. He follows with Dr. Pennington in the office. He was supposed to come to the hospital yesterday for Cardiolite stress test for symptoms of intermittent chest pain and exertional shortness of breath. However yesterday morning when he woke up he was feeling abdominal pain, nausea, vomiting and cough. He decided to present to the hospital instead. He states his abdominal pain was very severe woke him up out of asleep causing him to double over. He felt extremely nauseated and was coughing up quite a bit of white phlegm. He denies symptoms of chest pain, shortness of breath, dizziness, palpitations or diaphoresis. He is currently admitted to the hospital with an acute exacerbation of asthma and abdominal pain. He is seen Dr. Pennington in the office January 21 for symptoms of chest discomfort at that time Dr. Pennington recommended he undergo a Cardiolite stress test to further evaluate his symptoms. He started him on Imdur 30 mg daily at that time. EKG reveals sinus mechanism with T-wave inversions noted in the septal leads. Chest x-ray is negative for acute cardiopulmonary process. Laboratory data reviewed, WBC 11.4, hemoglobin 13.4, platelets 410, sodium 135, potassium 4.5, creatinine 0.74, magnesium 1.8, cardiac enzymes negative 1, proBNP 267. Current cardiac medications include lisinopril 10 mg daily, Lopressor 12.5 mg twice a day, lovastatin 80 mg daily and he is also on Xarelto for chronic PE. He takes also Pepcid Sandostatin, Trileptal, Cymbalta, baclofen and Xanax. Most recent stress test performed in the office 2016 he underwent a stress echocardiogram which was negative for stress-induced cardiac ischemia. Review of Systems At the time of my exam: CONSTITUTIONAL: Denies fever. Denies chills. EYES: Denies blurred vision. Denies vision changes. Denies eye pain. EARS, NOSE, MOUTH & THROAT: Denies headache. Denies sore throat. Denies ear pain. CARDIOVASCULAR: Denies chest pain. Denies shortness of breath. Denies orthopnea. Denies PND. Denies palpitations. RESPIRATORY: Denies cough. GASTROINTESTINAL: Denies abdominal pain. Denies diarrhea. Denies constipation. Denies nausea. Denies vomiting. MUSCULOSKELETAL: Denies myalgias. INTEGUMENTARY: Denies pruitis. Denies rash. NEUROLOGIC: Denies numbness. Denies tingling. Denies weakness. PSYCHIATRIC: Denies anxiety. Denies depression. ENDOCRINE: Denies fatigue. Denies weight change. Denies polydipsia. Denies polyurina. GENITOURINARY: Denies burning, hematuria or urgency with micturation. HEMATOLOGIC: Denies history of anemia. Denies bleeding. Past Medical History Past Medical History: Cancer, Hearing Disorder / Deafness, Hyperlipidemia, Hypertension, Pulmonary Embolus (PE), Seizure Disorder Additional Past Medical History / Comment(s): asthma was previously charted but pt/ unaware of this. kidney stones, chronic nausea, neuroendocrine tumor carcinoid) gets sandostatin- stated spots on liver and in stomach", constipation, anemia, [place] even wl hearing aids. History of Any Multi-Drug Resistant Organisms: None Reported Past Surgical History: Hernia Repair Additional Past Surgical History / Comment(s): liver biopsy Past Anesthesia/Blood Transfusion Reactions: Motion Sickness Additional Past Anesthesia/Blood Transfusion Reaction / Comment(s): clausterphobia Past Psychological History: Anxiety, Depression Additional Psychological History / Comment(s): obsessive compulsive disorder Smoking Status: Never smoker Past Alcohol Use History: None Reported Past Drug Use History: None Reported - Past Family History Mother Family Medical History: Dementia Additional Family Medical History / Comment(s): alzhiemers Father Family Medical History: Cancer Additional Family Medical History / Comment(s): lung cancer, hx of smoking Medications and Allergies Home Medications Medication Instructions Recorded Confirmed Type Lovastatin [Mevacor] 80 mg PO HS 05/22/16 01/29/18 History ALPRAZolam 1 mg PO QID #40 tablet 05/26/16 01/29/18 Rx Rivaroxaban [Xarelto] 20 mg PO DAILY 07/04/16 01/29/18 History Baclofen 10 mg PO HS 05/08/17 01/29/18 History Ergocalciferol (Vitamin D2) 50,000 unit PO TU 05/08/17 01/29/18 History [Vitamin D2] Lisinopril [Zestril] 10 mg PO DAILY 05/08/17 01/29/18 History Metoprolol Tartrate [Lopressor] 12.5 mg PO BID 05/08/17 01/29/18 History OXcarbazepine [Trileptal] 300 mg PO BID 07/06/17 01/29/18 History DULoxetine HCL [Cymbalta] 60 mg PO DAILY 01/29/18 01/29/18 History Diphenox-Atrop 2.5-0.025 mg 1 tab PO DAILY PRN 01/29/18 01/29/18 History [Lomotil] Famotidine [Pepcid] 20 mg PO BID 01/29/18 01/29/18 History Octreotide Lar [SandoSTATIN LAR] 30 mg IM QMONTH 01/29/18 01/29/18 History QUEtiapine [SEROquel] 50 mg PO HS 01/29/18 01/29/18 History Allergies Allergy/AdvReac Type Severity Reaction Status Date / Time prochlorperazine Allergy Hallucinati Verified 01/29/18 06:56 [From Compazine] ons Physical Exam Vitals: Vital Signs Temp Pulse Pulse Resp BP BP Pulse Ox 01/30/18 06:06 97.1 F L 64 18 130/79 94 L 01/29/18 23:00 97.4 F L 61 16 116/71 95 01/29/18 14:30 68 20 146/65 99 01/29/18 12:32 98.0 F 01/29/18 12:15 65 20 138/88 95 01/29/18 11:22 64 01/29/18 11:15 59 L 18 132/85 97 01/29/18 11:09 57 L 01/29/18 09:24 71 18 141/95 93 L Intake and Output 01/29/18 01/30/18 01/30/18 22:59 06:59 14:59 Other: Voiding Method Toilet Urinal # Voids 2 1 Blood pressure 130/79 heart rate 64 afebrile maintaining oxygen saturation on nasal cannula GENERAL: This is a 67-year-old male in no apparent distress at the time of my examination. HEENT: Head is atraumatic, normocephalic. Pupils are equal, round. Sclerae anicteric. Conjunctivae are clear. Mucous membranes of the mouth are moist. Neck is supple. There is no jugular venous distention. No carotid bruit is heard. LUNGS: Clear to auscultation no wheezes, rales or rhonchi. No chest wall tenderness is noted on palpation or with deep breathing. HEART: Regular rate and rhythm without murmurs, rubs or gallops. S1 and S2 heard. ABDOMEN: Soft, nontender. Bowel sounds are heard. No organomegaly noted. EXTREMITIES: No evidence of peripheral edema and no calf tenderness noted. VASCULAR: Radial and dorsalis pedis pulses palpated, no evidence of clubbing. NEUROLOGIC: Patient is awake, alert and oriented x3. Results 01/29/18 07:08 01/29/18 07:08 Current Medications Generic Name Dose Route Start Last Admin Trade Name Freq PRN Reason Stop Dose Admin Acetaminophen 650 mg 01/29/18 13:24 01/29/18 17:00 Tylenol Tab PO 650 mg Q6HR PRN Administration Mild Pain or Fever > 100.5 Albuterol/Ipratropium 3 ml 01/29/18 12:00 01/30/18 07:27 Duoneb 0.5 Mg-3 Mg/3 Ml Soln INHALATION Not Given RT-Q4H ISABELL Alprazolam 1 mg 01/29/18 13:00 01/30/18 07:29 Xanax PO 1 mg QID ISABELL Administration Atorvastatin Calcium 20 mg 01/29/18 21:00 01/29/18 20:59 Lipitor PO 20 mg HS ISABELL Administration Baclofen 10 mg 01/29/18 21:00 01/29/18 20:59 Lioresal PO 10 mg HS ISABELL Administration Calcium Carbonate/Glycine 1,000 mg 01/29/18 13:24 Tums PO Q4HR PRN Dyspepsia Diphenoxylate HCl/Atropine 1 each 01/29/18 09:29 Lomotil PO DAILY PRN Constipation Duloxetine HCl 60 mg 01/30/18 09:00 01/30/18 07:29 Cymbalta PO 60 mg DAILY ISABELL Administration Ergocalciferol 50,000 unit 01/29/18 12:00 01/29/18 15:40 Vitamin D2 PO 50,000 unit Tu@1200 ISABELL Administration Famotidine 20 mg 01/29/18 21:00 01/30/18 07:29 Pepcid PO 20 mg BID ISABELL Administration Sodium Chloride 1,000 mls @ 100 mls/hr 01/29/18 20:00 01/30/18 05:19 Saline 0.9% IV 100 mls/hr .Q10H ISABELL Administration Insulin Aspart 0 unit 01/29/18 17:30 01/30/18 07:19 Novolog SQ Not Given AC-TID [facility] Protocol Lactulose 20 gm 01/29/18 13:24 Cephulac PO DAILY PRN Constipation Lisinopril 10 mg 01/30/18 09:00 01/30/18 07:29 Zestril PO 10 mg DAILY ISABELL Administration Magnesium Hydroxide 2,400 mg 01/29/18 13:24 Milk Of Magnesia PO DAILY PRN Constipation Melatonin 3 mg 01/29/18 13:24 Melatonin PO HS PRN Insomnia Methylprednisolone 24 mg 01/30/18 09:00 01/30/18 07:29 Medrol Dose Pack PO 02/05/18 08:59 24 mg DAILY ISABELL Administration Taper Metoprolol Tartrate 12.5 mg 01/29/18 21:00 01/30/18 07:29 Lopressor PO 12.5 mg BID [facility] Administration Octreotide Acetate 30 mg 02/28/18 09:00 Sandostatin Lar IM QMONTH [facility] Ondansetron HCl 4 mg 01/29/18 19:56 Zofran IVP Q6HR PRN Nausea And Vomiting Oxcarbazepine 300 mg 01/29/18 21:00 01/30/18 07:28 Trileptal PO 300 mg BID [facility] Administration Quetiapine Fumarate 50 mg 01/29/18 21:00 01/29/18 20:58 Seroquel PO 50 mg HS ISABELL Administration Rivaroxaban 20 mg 01/30/18 09:00 01/30/18 07:29 Xarelto PO 20 mg DAILY [facility] Administration Intake and Output 01/29/18 01/30/18 01/30/18 22:59 06:59 14:59 Other: Voiding Method Toilet Urinal # Voids 2 1 01/29/18 07:08 01/29/18 07:08 Assessment and Plan Assessment: ASSESSMENT Abdominal pain with history of underlying neuroendocrine tumor of liver Hypertension Dyslipidemia 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 Stable from a cardiac perspective. An acute coronary event has been ruled out. Ongoing medical management of abdominal pain. Follow up with Dr. Pennington as an outpatient. Thank you kindly for this consultation. Nurse Practitioner note has been reviewed, I agree with a documented findings and plan of care. Patient was seen and examined.
[2018-01-30 12:05] LABS: Glucose,Whole Blood 153 mg/dL (75-99)
--- NOTE | 2018-01-30 12:33 | P.CONS ---
History of Present Illness - Reason for Consult Consult date: 01/30/18 Carcinoid Requesting physician: Campos Batista - Chief Complaint Abdominal Pain - History of Present Illness Mr Correa is a pleasant who is well known to us for diagnosis of well differentiated neuroendocrine carconoma, C/W Carcinoid. Primary oncologist Dr. Espinosa. Originally diagnosed in January 2016 when an US abdomen revealed 2 lesions superior and left to gallbladder, 2.5 x 1.8 x 1.3 cm, and 1.1 x 0.9 x 0.8 cm. He had Chest CT , and then CT AP also revealed 1 hypodense focus in the liver in the same area. He had a core biopsy on 04/06/16 revealing a well differentiated neuroendocrine cancer, c/w carcinoid. MRCP on 06/21/16 revealed no finding in the pancreas. However, multiple lesions were seen in the liver. He started Sandostatin in 05/2016. and has continued on this monthly, last dose 01/28/18. He consistently complains of abdominal discomfort and dairrhea and manages this at home with lomotil and imodium. He presented to [facility] with complaints of abdominal pain. He has improved since admission and states he has no abdominal pain this am and feels good enough to go home. We were consulted regarding his known oncologic history. Review of Systems A 14 point review of systems assessed and completed and all negative except HPI Past Medical History Past Medical History: Cancer, Hearing Disorder / Deafness, Hyperlipidemia, Hypertension, Pulmonary Embolus (PE), Seizure Disorder Additional Past Medical History / Comment(s): asthma was previously charted but pt/ unaware of this. kidney stones, chronic nausea, neuroendocrine tumor carcinoid) gets sandostatin- stated spots on liver and in stomach", constipation, anemia, [place] even wl hearing aids. History of Any Multi-Drug Resistant Organisms: None Reported Past Surgical History: Hernia Repair Additional Past Surgical History / Comment(s): liver biopsy Past Anesthesia/Blood Transfusion Reactions: Motion Sickness Additional Past Anesthesia/Blood Transfusion Reaction / Comm: clausterphobia Past Psychological History: Anxiety, Depression Additional Psychological History / Comment(s): obsessive compulsive disorder Smoking Status: Never smoker Past Alcohol Use History: None Reported Past Drug Use History: None Reported - Past Family History Mother Family Medical History: Dementia Additional Family Medical History / Comment(s): alzhiemers Father Family Medical History: Cancer Additional Family Medical History / Comment(s): lung cancer, hx of smoking Medications and Allergies Home Medications Medication Instructions Recorded Confirmed Type Lovastatin [Mevacor] 80 mg PO HS 05/22/16 01/29/18 History ALPRAZolam 1 mg PO QID #40 tablet 05/26/16 01/29/18 Rx Rivaroxaban [Xarelto] 20 mg PO DAILY 07/04/16 01/29/18 History Baclofen 10 mg PO HS 05/08/17 01/29/18 History Ergocalciferol (Vitamin D2) 50,000 unit PO TU 05/08/17 01/29/18 History [Vitamin D2] Lisinopril [Zestril] 10 mg PO DAILY 05/08/17 01/29/18 History Metoprolol Tartrate [Lopressor] 12.5 mg PO BID 05/08/17 01/29/18 History OXcarbazepine [Trileptal] 300 mg PO BID 07/06/17 01/29/18 History DULoxetine HCL [Cymbalta] 60 mg PO DAILY 01/29/18 01/29/18 History Diphenox-Atrop 2.5-0.025 mg 1 tab PO DAILY PRN 01/29/18 01/29/18 History [Lomotil] Famotidine [Pepcid] 20 mg PO BID 01/29/18 01/29/18 History Octreotide Lar [SandoSTATIN LAR] 30 mg IM QMONTH 01/29/18 01/29/18 History QUEtiapine [SEROquel] 50 mg PO HS 01/29/18 01/29/18 History Allergies Allergy/AdvReac Type Severity Reaction Status Date / Time prochlorperazine Allergy Hallucinati Verified 01/29/18 06:56 [From Compazine] ons Physical Exam Vitals: Vital Signs Temp Pulse Pulse Resp BP BP Pulse Ox 01/30/18 06:06 97.1 F L 64 18 130/79 94 L 01/29/18 23:00 97.4 F L 61 16 116/71 95 01/29/18 14:30 68 20 146/65 99 01/29/18 12:32 98.0 F 01/29/18 12:15 65 20 138/88 95 Intake and Output 01/29/18 01/30/18 01/30/18 22:59 06:59 14:59 Output Total 300 Balance -300 Output: Urine 300 Other: Voiding Method Toilet Urinal # Voids 2 1 - Constitutional Wears Hearing aide General appearance: average body habitus, cooperative, no acute distress - EENT Eyes: edentulous ENT: hard of hearing, NA/AT, normal oropharynx - Neck Supple, Trachea Midline Neck: normal ROM - Respiratory Respiratory: bilateral: CTA (No increased respiratory effort) - Cardiovascular Rhythm: regular Heart sounds: normal: S1, S2 - Gastrointestinal General gastrointestinal: normal bowel sounds, soft, tenderness - Integumentary Integumentary: pale - Neurologic NO focal defects Neurologic: CNII-XII intact - Musculoskeletal Musculoskeletal: generalized weakness, strength equal bilaterally - Psychiatric Psychiatric: A&O x's 3, appropriate affect, intact judgment & insight Results CBC & Chem 7: 01/29/18 07:08 01/29/18 07:08 Labs: Abnormal Lab Results - Last 24 Hours (Table) 01/29/18 01/29/18 01/30/18 Range/Units 16:41 20:33 07:15 POC Glucose (mg/dL) 161 H 158 H 115 H (75-99) mg/dL Chest x-ray: report reviewed Abdominal x-ray: report reviewed Assessment and Plan (1) Neuroendocrine carcinoma Narrative/Plan: No need for acute intervention related to his underlying Carcinoid - Will continue on same regimen as outpatient - Follow-up as planned in office Current Visit: No Status: Chronic Priority: Medium Code(s): C7A.8 - OTHER MALIGNANT NEUROENDOCRINE TUMORS SNOMED Code(s): 236187622
--- NOTE | 2018-01-30 13:08 | ECHOF ---
Referral Reason:cp MEASUREMENTS -------- HEIGHT: 185.4 cm WEIGHT: 92.1 kg BP: 130/79 RVIDd: 3.7 cm (< 3.3) IVSd: 1.1 cm (0.6 - 1.1) LVIDd: 5.3 cm (3.9 - 5.3) LVPWd: 1.2 cm (0.6 - 1.1) IVSs: 1.6 cm LVIDs: 3.3 cm LVPWs: 1.6 cm LA Diam: 3.8 cm (2.7 - 3.8) LAESV Index (A-L): 29.45 ml/m Ao Diam: 3.7 cm (2.0 - 3.7) AV Cusp: 2.2 cm (1.5 - 2.6) MV EXCURSION: 16.312 mm (> 18.000) MV EF SLOPE: 26 mm/s (70 - 150) EPSS: 0.8 cm MV E Pablo: 0.76 m/s MV DecT: 381 ms MV A Pablo: 0.71 m/s MV E/A Ratio: 1.06 FINDINGS -------- Resting bradycardia (HR<60bpm). This was a technically excellent study. The left ventricular size is normal. There is borderline concentric left ventricular hypertrophy. Overall left ventricular systolic function is normal with, an EF between 60 - 65 %. The right ventricle is mildly enlarged. LA is midly dilated 29-33ml/m2. The right atrium is normal in size. The aortic valve is trileaflet and appears structurally normal. Trace to mild aortic regurgitation. Mild mitral regurgitation is present. The tricuspid valve appears structurally normal. Trace/mild (physiologic) pulmonic regurgitation. The aortic root size is normal. Normal inferior vena cava with normal inspiratory collapse consistent with estimated right atrial pre ssure of 5 mmHg. There is no pericardial effusion. CONCLUSIONS -------- 1. Resting bradycardia (HR<60bpm). 2. This was a technically excellent study. 3. The left ventricular size is normal. 4. There is borderline concentric left ventricular hypertrophy. 5. Overall left ventricular systolic function is normal with, an EF between 60 - 65 %. 6. The right ventricle is mildly enlarged. 7. LA is midly dilated 29-33ml/m2. 8. The right atrium is normal in size. 9. The aortic valve is trileaflet and appears structurally normal. 10. Trace to mild aortic regurgitation. 11. Mild mitral regurgitation is present. 12. The tricuspid valve appears structurally normal. 13. Trace/mild (physiologic) pulmonic regurgitation. 14. The aortic root size is normal. 15. Normal inferior vena cava with normal inspiratory collapse consistent with estimated right atrial pressure of 5 mmHg. 16. There is no pericardial effusion. DIRECTOR OF [employer]ETING: Cris Arreola RDCS
[2018-01-30 14:42] VITALS: BMI 26.7
[2018-01-30 15:19] VITALS: BP 131/79; PULSE 53; RESP 16; TEMP 97.5
--- NOTE | 2018-01-31 07:08 | DS ---
DISCHARGE SUMMARY DATE OF ADMISSION: 01/29/18 DATE OF DISCHARGE: 01/30/18 FINAL DIAGNOSES: 1. Acute exacerbation of moderate persistent asthma, probably from bronchitis. 2. Chronic bilateral pulmonary embolism for which patient is chronically on Xarelto. 3. Hard of hearing, wears hearing aids. 4. Hyperlipidemia. 5. Essential hypertension. 6. Neuroendocrine tumor for which patient sees monthly [facility] being followed by Dr. Espinosa. 7. Obsessive-compulsive disorder. HOSPITAL COURSE: This patient presented with acute asthma exacerbation. Responded well to steroids, nebulized bronchodilators. Feeling much better. Also seen by Cardiology. Will see the patient as an outpatient. The patient doing much better at time of discharge. EXAM: Lungs: Improved air entry. Cardiovascular: 1st and 2nd sounds normal. Tolerating a diet. CONSULTATION: 1. Dr. Carrasco from Pulmonary. 2. Dr. Pennington from Cardiology. The patient did have a 2-D echocardiogram that showed preserved LV function. DISCHARGE MEDICATIONS: 1. Mevacor 80 mg at bedtime. 2. Xanax 1 mg p.o. q.i.d. 3. Xarelto 20 mg p.o. daily. 4. Baclofen 10 mg q.h.s. 5. Vitamin D2 06996 units p.o. Sunday. 6. Zestril 10 mg p.o. daily. 7. Lopressor 12.5 p.o. b.i.d. 8. Trileptal 16 mg p.o. b.i.d. 9. Cymbalta 60 mg p.o. daily. 10.Lomotil 1 tablet p.o. daily p.r.n. 11.Pepcid 20 mg p.o. b.i.d. 12.Sandostatin 30 mg monthly. 13. 50 mg p.o. q.h.s. 14.Imdur ER 30 mg p.o. daily. 15.Medrol Dosepak. Follow with Dr. Pedraza in 2 days. Follow up with Dr. Pennington on 02/12/18, follow with Pulmonary. MMODL / IJN: [id number] /
[2018-02-28] MEDS ORDERED: OCTREOTIDE LAR 30 MG IM SCH (09:00)
== END 2018-01-30 17:09 | disposition home or self-care (01) ==
LOC: EC 06:50 → 4MS4W 09:25
PROVIDERS: ADMIT Hospitalist; ATTEND Hospitalist
DX: J45.41 Moderate persistent asthma with (acute) exacerbation (principal); R10.9 Unspecified abdominal pain; R11.2 Nausea with vomiting, unspecified; G89.29 Other chronic pain; J44.9 Chronic obstructive pulmonary disease, unspecified; I27.82 Chronic pulmonary embolism; Z79.01 Long term (current) use of anticoagulants; H91.93 Unspecified hearing loss, bilateral; E78.5 Hyperlipidemia, unspecified; I10 Essential (primary) hypertension; F42.9 Obsessive-compulsive disorder, unspecified; Z97.4 Presence of external hearing-aid; G40.909 Epilepsy, unspecified, not intractable, without status epilepticus; K59.00 Constipation, unspecified; D64.9 Anemia, unspecified; F41.9 Anxiety disorder, unspecified; F32.9 Major depressive disorder, single episode, unspecified; C7A.00 Malignant carcinoid tumor of unspecified site; C7B.02 Secondary carcinoid tumors of liver; I71.4 Abdominal aortic aneurysm, without rupture; Z79.899 Other long term (current) drug therapy; Z88.8 Allergy status to other drugs, medicaments and biological substances; Z92.21 Personal history of antineoplastic chemotherapy; Z87.442 Personal history of urinary calculi; Z80.1 Family history of malignant neoplasm of trachea, bronchus and lung; Z81.8 Family history of other mental and behavioral disorders; R50.9 Fever, unspecified; J20.9 Acute bronchitis, unspecified
CPT/HCPCS: 99285 ×2; 96374 ×2; 96375 ×3; 96361 ×11; 36415; 94640; 93005; 93306; 83880; 80053; 82150; 82550; 82553; 83605; 83690; 83735; 84484 ×2; 85025; 85610; 85730; 71046; 74018; G0378 ×2; J2930; J2405; J0696; J7509

== ENCOUNTER 2018-04-30 20:23 | Emergency (ER) | payer MEDICARE ==
[2018-04-30 22:16] LABS: Anisocytosis Slight; Basophils # (A) 0.1 k/uL (0-0.2); Basophils % (A) 1 %; Eosinophils # (A) 1.2 k/uL (0-0.7); Eosinophils % (A) 20 %; HCT 42.7 % (39.0-53.0); Lymphocytes # (A) 1.5 k/uL (1.0-4.8); Lymphocytes % (A) 24 %; MCH 28.3 pg (25.0-35.0); MCHC 32.8 g/dL (31.0-37.0); MCV 86.2 fL (80.0-100.0); Mean Platelet Volume 7.2; Monocytes # (A) 0.4 k/uL (0-1.0); Monocytes % (A) 7 %; Neutrophils # (A) 2.9 k/uL (1.3-7.7); Neutrophils % (A) 47 %; Platelet Count 206 k/uL (150-450); RBC 4.95 m/uL (4.30-5.90); RDW 16.4 % (11.5-15.5); WBC 6.2 k/uL (3.8-10.6)
[2018-04-30 22:33] LABS: ALT 23 U/L (21-72); AST 27 U/L (17-59); Albumin 4.1 g/dL (3.5-5.0); Alkaline Phosphatase 55 U/L (38-126); Anion Gap 10 mmol/L; Blood Urea Nitrogen 10 mg/dL (9-20); Calcium 9.3 mg/dL (8.4-10.2); Carbon Dioxide 26 mmol/L (22-30); Chloride 102 mmol/L (98-107); Glucose 134 mg/dL (74-99); Potassium 3.8 mmol/L (3.5-5.1); Sodium 138 mmol/L (137-145); Total Bilirubin 0.3 mg/dL (0.2-1.3); Total Protein 7.5 g/dL (6.3-8.2)
[2018-04-30] MEDS ORDERED: cefTRIAXone 1,000 MG VIAL (IM USE) IM STA (22:47)
--- NOTE | 2018-04-30 22:56 | ED ---
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 Pt states that he noticed some mild erythema over the left AC joint, pt denies recent injection, masses or lumps. Pt denies pain to palpation. Pt states that the area is itchy. has been applying topical antibacterial ointment however she noticed today that the redness had doubled in size in the past 24 hours. She was concerned of infection and presented for evaluation. Pt denies any new medication, fever, chills, night sweats, malaise, injury/trauma to the arm. Remainder of ROS (-), patient denies any recent shortness of breath, chest pain, back pain, abdominal pain, nausea or vomiting, numbness or tingling, dysuria or hematuria, constipation or diarrhea, headaches or visual changes, or any other complaints. Upon arrival pt VS stable, afebrile. (Nancy Godinez) - Related Data Home Medications Medication Instructions Recorded Confirmed Lovastatin [Mevacor] 80 mg PO HS 05/22/16 01/29/18 Rivaroxaban [Xarelto] 20 mg PO DAILY 07/04/16 01/29/18 Baclofen 10 mg PO HS 05/08/17 01/29/18 Ergocalciferol (Vitamin D2) 50,000 unit PO TU 05/08/17 01/29/18 [Vitamin D2] Lisinopril [Zestril] 10 mg PO DAILY 05/08/17 01/29/18 Metoprolol Tartrate [Lopressor] 12.5 mg PO BID 05/08/17 01/29/18 OXcarbazepine [Trileptal] 300 mg PO BID 07/06/17 01/29/18 DULoxetine HCL [Cymbalta] 60 mg PO DAILY 01/29/18 01/29/18 Diphenox-Atrop 2.5-0.025 mg 1 tab PO DAILY PRN 01/29/18 01/29/18 [Lomotil] Famotidine [Pepcid] 20 mg PO BID 01/29/18 01/29/18 Octreotide Lar [SandoSTATIN LAR] 30 mg IM QMONTH 01/29/18 01/29/18 QUEtiapine [SEROquel] 50 mg PO HS 01/29/18 01/29/18 Previous Rx's Medication Instructions Recorded ALPRAZolam 1 mg PO QID #40 tablet 05/26/16 Isosorbide Mononitrate ER [Imdur] 30 mg PO DAILY #30 tab.er.24h 01/30/18 methylPREDNISolone Dose Pack 24 mg PO DAILY tab 01/30/18 [Medrol Dose Pack] Cephalexin [Keflex] 500 mg PO Q6HR 7 Days #28 cap 04/30/18 Sulfamethox-Tmp 800-160Mg [Bactrim 1 tab PO Q12HR 7 Days #14 tab 04/30/18 DS 800-160 mg] Allergies Allergy/AdvReac Type Severity Reaction Status Date / Time prochlorperazine Allergy Hallucinati Verified 04/30/18 20:44 [From Compazine] ons Review of Systems ROS Other: All systems not noted in ROS Statement are negative. Constitutional: Denies: fever, chills, night sweats ENT: Denies: ear pain, throat pain Respiratory: Denies: cough, dyspnea, wheezes, hemoptysis, stridor Cardiovascular: Denies: chest pain, palpitations, dyspnea on exertion Endocrine: Denies: fatigue Gastrointestinal: Denies: abdominal pain, nausea, vomiting, diarrhea, constipation Genitourinary: Denies: urgency, dysuria, frequency, hematuria Musculoskeletal: Denies: back pain Skin: Reports: as per HPI, rash (left ac erythema and itching) Neurological: Denies: headache, weakness, numbness, paresthesias, confusion <Nancy Godinez - Last Filed: 04/30/18 23:48> ROS Other: All systems not noted in ROS Statement are negative. <Kezia Payne - Last Filed: 05/01/18 04:09> ROS Statement: Those systems with pertinent positive or pertinent negative responses have been documented in the HPI. Past Medical History Past Medical History: Cancer, Hearing Disorder / Deafness, Hyperlipidemia, Hypertension, Pulmonary Embolus (PE), Seizure Disorder Additional Past Medical History / Comment(s): asthma was previously charted but pt/ unaware of this. kidney stones, chronic nausea, neuroendocrine tumor carcinoid) gets sandostatin- stated spots on liver and in stomach", constipation, anemia, [place] even wl hearing aids. History of Any Multi-Drug Resistant Organisms: None Reported Past Surgical History: Hernia Repair Additional Past Surgical History / Comment(s): liver biopsy Past Anesthesia/Blood Transfusion Reactions: Motion Sickness Additional Past Anesthesia/Blood Transfusion Reaction / Comment(s): clausterphobia Past Psychological History: Anxiety, Depression Smoking Status: Never smoker Past Alcohol Use History: None Reported Past Drug Use History: None Reported - Past Family History Mother Family Medical History: Dementia Additional Family Medical History / Comment(s): alzhiemers Father Family Medical History: Cancer Additional Family Medical History / Comment(s): lung cancer, hx of smoking <Nancy Godinez L - Last Filed: 04/30/18 23:48> General Exam Limitations: physical limitation <Nancy Godinez L - Last Filed: 04/30/18 23:48> <Kezia Payne P - Last Filed: 05/01/18 04:09> - General Exam Comments Initial Comments: General: The patient is awake and alert, in no distress, and does not appear acutely ill. Eye: Pupils are equal, round and reactive to light, extra-ocular movements are intact. No nystagmus. There is normal conjunctiva bilaterally. No signs of icterus. Ears, nose, mouth and throat: There are moist mucous membranes and no oral lesions. Neck: The neck is supple, there is no tenderness or JVD. Cardiovascular: There is a regular rate and rhythm. No murmur, rub or gallop is appreciated. Respiratory: Lungs are clear to auscultation, respirations are non-labored, breath sounds are equal. No wheezes, stridor, rales, or rhonchi. Gastrointestinal: Soft, non-distended, non-tender abdomen without masses or organomegaly noted. There is no rebound or guarding present. Musculoskeletal: Normal ROM, no tenderness. Strength 5/5. Sensation intact. Radial pulses equal bilaterally 2+. Neurological: A&O x 3. CN II-XII intact, There are no obvious motor or sensory deficits. Coordination appears grossly intact. Speech is normal. Skin: Skin is warm and dry. Erythema of the left A/C no streaking, warmth to touch. No vesicles/papules noted, no scaling, no evidence of abscess. No palpable cord. No palpable masses. Psychiatric: Cooperative, appropriate mood & affect, normal judgment. (Nancy Godinez) Vital Signs 04/30/18 04/30/18 20:41 23:53 Temperature 98.1 F 97 F L Pulse Rate 54 L 64 Respiratory 20 18 Rate Blood Pressure 168/99 171/99 O2 Sat by Pulse 99 95 Oximetry Medical Decision Making - Lab Data Result diagrams: 04/30/18 21:47 04/30/18 21:47 <Nancy Godinez - Last Filed: 04/30/18 23:48> - Lab Data Result diagrams: 04/30/18 21:47 04/30/18 21:47 <Kezia Payne - Last Filed: 05/01/18 04:09> - Medical Decision Making PE revealed erythema concerning for cellulitis, pt was evaluated by Dr Payne who agreed with impression. CBC obtained, unremarkable. Blood cultures pending. No elevation fo WBC. Pt appears well, nontoxic. VS within acceptable limits. Pt afebrile. At this time pt would like oral outpatient antibiotics, he states that he would refuse admission. We feel outpatient therapy is appropriate at this time. Pt was given 1g rocephin IM, and started on outpatient RX of keflex and bactrim. The area of erythema was marked using a marker. Return parameters discussed in detail, which included rapid spread of erythema, fever, night sweats, chills or general malaise. Both patient and patient's verbalize understanding of plan. Patient denies any ALLERGIES or recent antibiotic use. Patient denies previous MRSA infection. Patient was started on Bactrim and Keflex. At this time I feel patient is stable for discharge with primary care follow-up in 1-2 days. Patient is agreeable plan, denies questions at this time. Patient was discharged in stable condition. (Nancy Godinez) I was available for consultation in the emergency department. The history and physical exam were done by the midlevel provider. I was consulted for this patient's care. I reviewed the case with the midlevel provider and based on their presentation of the patient, I agree with the assessment, medical decision making and plan of care as documented. (Kezia Payne) - Lab Data Lab Results 04/30/18 04/30/18 Range/Units 21:47 21:47 WBC 6.2 (3.8-10.6) k/uL RBC 4.95 (4.30-5.90) m/uL Hgb 14.0 (13.0-17.5) gm/dL Hct 42.7 (39.0-53.0) % MCV 86.2 (80.0-100.0) fL MCH 28.3 (25.0-35.0) pg MCHC 32.8 (31.0-37.0) g/dL RDW 16.4 H (11.5-15.5) % Plt Count 206 (150-450) k/uL Neutrophils % 47 % Lymphocytes % 24 % Monocytes % 7 % Eosinophils % 20 % Basophils % 1 % Neutrophils # 2.9 (1.3-7.7) k/uL Lymphocytes # 1.5 (1.0-4.8) k/uL Monocytes # 0.4 (0-1.0) k/uL Eosinophils # 1.2 H (0-0.7) k/uL Basophils # 0.1 (0-0.2) k/uL Anisocytosis Slight Sodium 138 (137-145) mmol/L Potassium 3.8 (3.5-5.1) mmol/L Chloride 102 (98-107) mmol/L Carbon Dioxide 26 (22-30) mmol/L Anion Gap 10 mmol/L BUN 10 (9-20) mg/dL Creatinine 0.59 L (0.66-1.25) mg/dL Est GFR (CKD-EPI)AfAm >90 (>60 ml/min/1.73 sqM) Est GFR (CKD-EPI)NonAf >90 (>60 ml/min/1.73 sqM) Glucose 134 H (74-99) mg/dL Calcium 9.3 (8.4-10.2) mg/dL Total Bilirubin 0.3 (0.2-1.3) mg/dL AST 27 (17-59) U/L ALT 23 (21-72) U/L Alkaline Phosphatase 55 (38-126) U/L Total Protein 7.5 (6.3-8.2) g/dL Albumin 4.1 (3.5-5.0) g/dL Disposition Is patient prescribed a controlled substance at d/c from ED?: No Time of Disposition: 22:56 <Nancy Godinez L - Last Filed: 04/30/18 23:48> <Kezia Payne P - Last Filed: 05/01/18 04:09> Clinical Impression: Cellulitis of left upper extremity Disposition: HOME SELF-CARE Condition: Good Instructions: Cellulitis (ED) Additional Instructions: Please use medication as discussed. Please follow-up with family doctor in the next 2 days. Please watch area for spread of redness, must return immediately to ER for spread of redness outside of lines as discussed. Please return to emergency room if the symptoms increase or worsen or for any other concerns. Prescriptions: Cephalexin [Keflex] 500 mg PO Q6HR 7 Days #28 cap Sulfamethox-Tmp 800-160Mg [Bactrim DS 800-160 mg] 1 tab PO Q12HR 7 Days #14 tab Referrals: Rojas Pedraza DO [Primary Care Provider] - 1-2 days
[2018-04-30 23:55] VITALS: BP 171/99; PULSE 64; RESP 18; TEMP 97
== END 2018-04-30 23:55 | disposition home or self-care (01) ==
LOC: EC 20:23
DX: L03.114 Cellulitis of left upper limb (principal); E78.5 Hyperlipidemia, unspecified; I10 Essential (primary) hypertension; G40.909 Epilepsy, unspecified, not intractable, without status epilepticus; D64.9 Anemia, unspecified; H91.90 Unspecified hearing loss, unspecified ear; F32.9 Major depressive disorder, single episode, unspecified; F41.9 Anxiety disorder, unspecified; Z85.028 Personal history of other malignant neoplasm of stomach; Z86.711 Personal history of pulmonary embolism; Z85.05 Personal history of malignant neoplasm of liver; Z53.29 Procedure and treatment not carried out because of patient's decision for other reasons; Z79.01 Long term (current) use of anticoagulants; Z79.899 Other long term (current) drug therapy; Z88.8 Allergy status to other drugs, medicaments and biological substances
CPT/HCPCS: 36415; 80053; 85025; 87040; 99283; 96372; J0696

== ENCOUNTER → 2018-05-24 | Outpatient (CLI) | payer MEDICARE ==
[2018-05-24 10:57] LABS: Blood Urea Nitrogen 12 mg/dL (9-20)
--- NOTE | 2018-05-24 11:59 | CT ---
EXAMINATION TYPE: CT ChestAbdPelvis w con DATE OF EXAM: 05/24/2018 COMPARISON: CT chest abdomen and pelvis November 23, 2017 and older studies HISTORY: Liver CA follow up CT DLP: 1564.2 mGycm. Automated Exposure Control for Dose Reduction was Utilized. CONTRAST: CT scan of the thorax, abdomen and pelvis is performed with oral and with IV Contrast, patient inject ed with 100 mL of Isovue 300. FINDINGS: LUNGS: The lungs are grossly clear, there is no concerning parenchymal mass or nodule identified. T here is no pleural effusion or pneumothorax seen. The tracheobronchial tree is patent. MEDIASTINUM: There are no greater than 1 cm hilar or mediastinal lymph nodes. No cardiomegaly or pe ricardial effusion is seen. Coronary artery calcification is present which is noted marker for coron gulshan artery disease. OTHER: Small degree of bilateral gynecomastia is redemonstrated. LIVER/GB: Nonspecific heterogeneous hypodense lesion anterior liver abutting interlobar fissure measu res 1.5 cm long axis on axial image 63 stable or slightly smaller versus older exams is slightly poor defined on current study. No new intrahepatic lesions are clearly seen. Smaller lesions seen on MRI are less well seen on CT similar to prior. PANCREAS: Mild to moderate fat replaced atrophy of pancreas is redemonstrated. SPLEEN: No significant abnormality is seen. ADRENALS: No significant abnormality is seen. KIDNEYS: Scattered nonobstructing small renal calculi throughout the left kidney mid to lower pole [place] are redemonstrated. Stable subcentimeter low dense lesion posteriorly mid to lower pole level rig ht kidney axial image 38 series 5 is redemonstrated BOWEL: Oral contrast does not reach colonic level making evaluation slightly suboptimal. There is no suspicious small or large bowel dilatation. GENITAL ORGANS: Heterogeneous enlarged prostate bulging on bladder base suggestive of BPH is again se en. LYMPH NODES: Heterogeneous partially calcified just right of midline mid abdominal mesenteric mass ax ial image 83 is changed in orientation from axial image 81 but not significantly changed in size. More superior anterior lesion to left of midline on prior study is not clearly identified on current study with surrounding bowel loop and may be present axial image 74 and coronal image 39 slightly dim inished in size and less well circumscribed with persistent surrounding contrast filled small bowel l oop. This however also could reflect nonopacified bowel loop as there is a opacified loop inferior to this which may show contiguous extension OSSEOUS STRUCTURES: Moderate narrowing bilateral hip joints is seen with mild to moderate spurring. T here is multilevel mild to moderate spurring throughout the thoracolumbar spine with multilevel moder ate disc space narrowing. Posterior spurring effacing the anterior thecal sac L2-L3 level. OTHER: There is moderate calcified plaque of aorta extending into branch vessels. IMPRESSION: Prior visualized soft tissue omental nodule is less well seen on current study. Single li mariola lesion identified on CT is stable or smaller in size. There is stable size of partially calcifie d mid abdominal mesenteric lesion. No new suspicious lesions are evident.
== END | disposition home or self-care (01) ==
LOC: RADCTMAIN 09:39
PROVIDERS: ATTEND Internal Medicine Hematology & Oncology
DX: C7A.098 Malignant carcinoid tumors of other sites (principal); K76.9 Liver disease, unspecified
CPT/HCPCS: 82565; 84520; 71260; 74177; 36415; Q9967

== ENCOUNTER 2018-10-08 16:35 | Inpatient (IN) | payer MEDICARE ==
[2018-10-08] MEDS ORDERED: SODIUM CHLORIDE 0.9% 1,000 ML IV STA (16:51)
--- NOTE | 2018-10-08 17:18 | ED ---
SOB HPI - General Chief Complaint: Shortness of Breath Stated Complaint: Weakness/sob Time Seen by Provider: 10/08/18 16:51 Source: patient, family, RN notes reviewed, old records reviewed Mode of arrival: wheelchair Limitations: no limitations - History of Present Illness Initial Comments: This is a 67-year-old male the ER for evaluation shortness of breath. Patient believes that shortness of breath started today, severe weakness and inability to ambulate without severe shortness of breath and inability to go for similar stairs. No pain. No recent travel history or sick contacts. Patient has multiple underlying medical issues. Possible history of asthma MD Complaint: shortness of breath, cough, "asthma attack" -: hour(s) Severity: moderate Severity scale (1-10): 4 Consistency: constant Improves With: oxygen, rest Worsens With: exertion Known History Of: asthma Associated Symptoms: other (weakness) Treatments Prior to Arrival: oxygen - Related Data Home Medications Medication Instructions Recorded Confirmed Lovastatin [Mevacor] 80 mg PO HS 05/22/16 10/08/18 Rivaroxaban [Xarelto] 20 mg PO DAILY 07/04/16 10/08/18 Baclofen 10 mg PO HS 05/08/17 10/08/18 Ergocalciferol (Vitamin D2) 50,000 unit PO TU 05/08/17 10/08/18 [Vitamin D2] Metoprolol Tartrate [Lopressor] 12.5 mg PO BID 05/08/17 10/08/18 OXcarbazepine [Trileptal] 300 mg PO BID 07/06/17 10/08/18 Diphenox-Atrop 2.5-0.025 mg 1 tab PO DAILY PRN 01/29/18 10/08/18 [Lomotil] Famotidine [Pepcid] 20 mg PO BID 01/29/18 10/08/18 Octreotide Lar [SandoSTATIN LAR] 30 mg IM QMONTH 01/29/18 10/08/18 QUEtiapine [SEROquel] 50 mg PO HS 01/29/18 10/08/18 ALPRAZolam [Xanax] 1 mg PO TID 10/08/18 10/08/18 DULoxetine HCL [Cymbalta] 60 mg PO BID 10/08/18 10/08/18 Ipratropium-Albuterol Nebulize 3 ml INHALATION RT-QID 10/08/18 10/08/18 [Duoneb 0.5 mg-3 mg/3 ml Soln] Losartan [Cozaar] 25 mg PO DAILY 10/08/18 10/08/18 Previous Rx's Medication Instructions Recorded Isosorbide Mononitrate ER [Imdur] 30 mg PO DAILY #30 tab.er.24h 01/30/18 Allergies Allergy/AdvReac Type Severity Reaction Status Date / Time prochlorperazine Allergy Hallucinati Verified 10/08/18 16:49 [From Compazine] ons vortioxetine Allergy SEIZURES Verified 10/08/18 18:00 [From [employer]] Review of Systems ROS Statement: Those systems with pertinent positive or pertinent negative responses have been documented in the HPI. ROS Other: All systems not noted in ROS Statement are negative. Past Medical History Past Medical History: Cancer, Hearing Disorder / Deafness, Hyperlipidemia, Hypertension, Pulmonary Embolus (PE), Seizure Disorder Additional Past Medical History / Comment(s): asthma was previously charted but pt/ unaware of this. kidney stones, chronic nausea, neuroendocrine tumor carcinoid) gets sandostatin- stated spots on liver and in stomach", constipation, anemia, [place] even wl hearing aids. History of Any Multi-Drug Resistant Organisms: None Reported Past Surgical History: Hernia Repair Additional Past Surgical History / Comment(s): liver biopsy Past Anesthesia/Blood Transfusion Reactions: Motion Sickness Additional Past Anesthesia/Blood Transfusion Reaction / Comment(s): clausterphobia Past Psychological History: Anxiety, Depression Smoking Status: Never smoker Past Alcohol Use History: None Reported Past Drug Use History: None Reported - Past Family History Mother Family Medical History: Dementia Additional Family Medical History / Comment(s): alzhiemers Father Family Medical History: Cancer Additional Family Medical History / Comment(s): lung cancer, hx of smoking General Exam - General Exam Comments Initial Comments: Pale Limitations: no limitations General appearance: alert, in no apparent distress Head exam: Present: atraumatic, normocephalic, normal inspection Eye exam: Present: normal appearance, PERRL, EOMI. Absent: scleral icterus, conjunctival injection, periorbital swelling ENT exam: Present: normal exam, mucous membranes moist Neck exam: Present: normal inspection. Absent: tenderness, meningismus, lymphadenopathy Respiratory exam: Present: normal lung sounds bilaterally. Absent: respiratory distress, wheezes, rales, rhonchi, stridor Cardiovascular Exam: Present: regular rate, normal rhythm, normal heart sounds. Absent: systolic murmur, diastolic murmur, rubs, gallop, clicks GI/Abdominal exam: Present: soft, normal bowel sounds. Absent: distended, ten derness, guarding, rebound, rigid Extremities exam: Present: normal inspection, full ROM, normal capillary refill. Absent: tenderness, pedal edema, joint swelling, calf tenderness Back exam: Present: normal inspection Neurological exam: Present: alert, oriented X3, CN II-XII intact Psychiatric exam: Present: normal affect, normal mood Skin exam: Present: warm, dry, intact, normal color. Absent: rash Course Vital Signs 10/08/18 10/08/18 10/08/18 16:46 16:48 18:48 Temperature 98.3 F 97.8 F Pulse Rate 87 Pulse Rate [ 86 Right Supine] Respiratory 20 18 19 Rate Blood Pressure 90/65 Blood Pressure 127/93 [Right Arm Supine] O2 Sat by Pulse 97 Oximetry 10/08/18 19:19 Temperature Pulse Rate 98 Pulse Rate [ Right Supine] Respiratory 18 Rate Blood Pressure 127/96 Blood Pressure [Right Arm Supine] O2 Sat by Pulse 99 Oximetry - Reevaluation(s) Reevaluation #1: 10/08/18 19:44 Clinical record reviewed Reevaluation #2: 10/08/18 19:44 Patient still feels very short of breath, needing oxygen Medical Decision Making - Medical Decision Making 67 male the ER for evaluation presents today for evaluation regarding shortness of breath and weakness. Dehydration, will not for rehydration monitoring of oxygen level, breathing treatments - Lab Data Result diagrams: 10/08/18 17:20 10/08/18 17:20 Lab Results 10/08/18 10/08/18 10/08/18 Range/Units 17:20 17:20 17:20 WBC 8.5 (3.8-10.6) k/uL RBC 3.92 L (4.30-5.90) m/uL Hgb 11.2 L (13.0-17.5) gm/dL Hct 35.4 L (39.0-53.0) % MCV 90.4 (80.0-100.0) fL MCH 28.5 (25.0-35.0) pg MCHC 31.6 (31.0-37.0) g/dL RDW 15.4 (11.5-15.5) % Plt Count 235 (150-450) k/uL Neutrophils % 73 % Lymphocytes % 15 % Monocytes % 6 % Eosinophils % 4 % Basophils % 1 % Neutrophils # 6.2 (1.3-7.7) k/uL Lymphocytes # 1.3 (1.0-4.8) k/uL Monocytes # 0.5 (0-1.0) k/uL Eosinophils # 0.4 (0-0.7) k/uL Basophils # 0.0 (0-0.2) k/uL PT 12.1 H (9.0-12.0) sec INR 1.2 H (<1.2) APTT 28.0 (22.0-30.0) sec Sodium 137 (137-145) mmol/L Potassium 4.5 (3.5-5.1) mmol/L Chloride 101 (98-107) mmol/L Carbon Dioxide 28 (22-30) mmol/L Anion Gap 8 mmol/L BUN 14 (9-20) mg/dL Creatinine 0.74 (0.66-1.25) mg/dL Est GFR (CKD-EPI)AfAm >90 (>60 ml/min/1.73 sqM) Est GFR (CKD-EPI)NonAf >90 (>60 ml/min/1.73 sqM) Glucose 119 H (74-99) mg/dL Calcium 9.4 (8.4-10.2) mg/dL Magnesium 1.9 (1.6-2.3) mg/dL Total Bilirubin 0.6 (0.2-1.3) mg/dL AST 20 (17-59) U/L ALT 27 (21-72) U/L Alkaline Phosphatase 58 (38-126) U/L Troponin I (0.000-0.034) ng/mL NT-Pro-B Natriuret Pep pg/mL Total Protein 6.9 (6.3-8.2) g/dL Albumin 4.1 (3.5-5.0) g/dL 10/08/18 10/08/18 Range/Units 17:20 17:20 WBC (3.8-10.6) k/uL RBC (4.30-5.90) m/uL Hgb (13.0-17.5) gm/dL Hct (39.0-53.0) % MCV (80.0-100.0) fL MCH (25.0-35.0) pg MCHC (31.0-37.0) g/dL RDW (11.5-15.5) % Plt Count (150-450) k/uL Neutrophils % % Lymphocytes % % Monocytes % % Eosinophils % % Basophils % % Neutrophils # (1.3-7.7) k/uL Lymphocytes # (1.0-4.8) k/uL Monocytes # (0-1.0) k/uL Eosinophils # (0-0.7) k/uL Basophils # (0-0.2) k/uL PT (9.0-12.0) sec INR (<1.2) APTT (22.0-30.0) sec Sodium (137-145) mmol/L Potassium (3.5-5.1) mmol/L Chloride (98-107) mmol/L Carbon Dioxide (22-30) mmol/L Anion Gap mmol/L BUN (9-20) mg/dL Creatinine (0.66-1.25) mg/dL Est GFR (CKD-EPI)AfAm (>60 ml/min/1.73 sqM) Est GFR (CKD-EPI)NonAf (>60 ml/min/1.73 sqM) Glucose (74-99) mg/dL Calcium (8.4-10.2) mg/dL Magnesium (1.6-2.3) mg/dL Total Bilirubin (0.2-1.3) mg/dL AST (17-59) U/L ALT (21-72) U/L Alkaline Phosphatase (38-126) U/L Troponin I <0.012 (0.000-0.034) ng/mL NT-Pro-B Natriuret Pep 51 pg/mL Total Protein (6.3-8.2) g/dL Albumin (3.5-5.0) g/dL - EKG Data -: EKG Interpreted by Me (EKG shows NSR rate 69 WV 172 QRS 112 QTc 432) - Radiology Data Radiology results: report reviewed (Chest x-rays negative for acute disease, CTA), image reviewed Disposition Clinical Impression: Asthma with status asthmaticus, Weakness, Dehydration Disposition: ADMITTED IP TO THIS HOSP Condition: Fair Is patient prescribed a controlled substance at d/c from ED?: No Referrals: Rojas Pedraza DO [Primary Care Provider] - 1-2 days
[2018-10-08 17:40] LABS: Basophils % (A) 1 %; Eosinophils # (A) 0.4 k/uL (0-0.7); Eosinophils % (A) 4 %; HCT 35.4 % (39.0-53.0); HGB 11.2 gm/dL (13.0-17.5); Lymphocytes # (A) 1.3 k/uL (1.0-4.8); Lymphocytes % (A) 15 %; MCH 28.5 pg (25.0-35.0); MCHC 31.6 g/dL (31.0-37.0); MCV 90.4 fL (80.0-100.0); Mean Platelet Volume 7.1; Monocytes # (A) 0.5 k/uL (0-1.0); Monocytes % (A) 6 %; Neutrophils # (A) 6.2 k/uL (1.3-7.7); Neutrophils % (A) 73 %; Platelet Count 235 k/uL (150-450); RBC 3.92 m/uL (4.30-5.90); RDW 15.4 % (11.5-15.5); WBC 8.5 k/uL (3.8-10.6)
[2018-10-08 17:52] LABS: ALT 27 U/L (21-72); AST 20 U/L (17-59); Albumin 4.1 g/dL (3.5-5.0); Alkaline Phosphatase 58 U/L (38-126); Anion Gap 8 mmol/L; Blood Urea Nitrogen 14 mg/dL (9-20); Calcium 9.4 mg/dL (8.4-10.2); Carbon Dioxide 28 mmol/L (22-30); Chloride 101 mmol/L (98-107); Glucose 119 mg/dL (74-99); INR 1.2 (<1.2); Magnesium 1.9 mg/dL (1.6-2.3); Potassium 4.5 mmol/L (3.5-5.1); Prothrombin Time 12.1 sec (9.0-12.0); Sodium 137 mmol/L (137-145); Total Bilirubin 0.6 mg/dL (0.2-1.3); Total Protein 6.9 g/dL (6.3-8.2)
--- NOTE | 2018-10-08 18:33 | XR ---
EXAMINATION: XR chest 2V DATE AND TIME: 10/08/2018 5:49 PM CLINICAL INDICATION: PHH; difficulty breathing TECHNIQUE: Departmental protocol COMPARISON: 01/29/2018 FINDINGS: The lungs are clear. The pleural spaces are negative. The cardiac silhouette is not enlarged. The thoracic aorta is tortuous. The skeletal structures and soft tissues are negative for acute findings. IMPRESSION: NO ACUTE PROCESS.
[2018-10-08] MEDS ORDERED: methylPREDNISolone SOD SUCCI 125 MG/2 ML VIAL IV STA (19:38)
--- NOTE | 2018-10-08 20:23 | CT ---
EXAMINATION TYPE: CT angio chest DATE OF EXAM: 10/08/2018 8:07 PM COMPARISON: 05/24/2018 CT HISTORY: SOB CT DLP: 415.4 mGycm Automated exposure control for dose reduction was used. CONTRAST: CTA scan of the thorax is performed with IV Contrast, patient injected with 100 mL of Isovue 370, pul monary embolism protocol. . FINDINGS: AIRWAYS AND LUNGS: There is diffuse bilateral bronchial wall thickening and indistinctness to a mild degree, suggesting bronchitis. The lungs are clear. PLEURAL SPACES: Negative. MEDIASTINUM: There is satisfactory enhancement of the pulmonary artery and its branches, there is no CT evidence for pulmonary embolism. There are no acute aortic findings, but the descending aortic ariadna iber is enlarged at 4.3 cm caliber. There is mild cardiomegaly, but no pericardial effusion. Coronary calcifications are noted. There are no enlarged hilar or mediastinal lymph nodes. SKELETAL STRUCTURES: No acute findings. VISUALIZED UPPER ABDOMEN: There is a new moderate volume of ascites, with a CT attenuation mildly hig her than water. There is a new lobulated soft tissue mass in the anterior left upper quadrant, latera l to the stomach, measuring 10-12 cm mean diameter. The gallbladder is distended. The previously seen liver lesion is redemonstrated. IMPRESSION: 1) NEGATIVE FOR PULMONARY EMBOLISM, BUT FINDINGS CONSISTENT WITH BRONCHITIS. 2) NEW NEOPLASTIC FINDINGS WITHIN THE VISUALIZED UPPER ABDOMEN. 3) ANEURYSMAL DILATION OF ASCENDING AORTA.
[2018-10-08] MEDS: IPRATROPIUM-ALBUTEROL 3 ML NEB INHALATION SCH (20:29)
[2018-10-08] MEDS ORDERED: DIPHENOX-ATROP 2.5-0.025 MG 1 EACH TAB PO PRN (20:56)
[2018-10-08] MEDS: SODIUM CHLORIDE 0.9% 1,000 ML IV SCH (20:57)
[2018-10-08] MEDS ORDERED: LACTULOSE 20 GM/30 ML CUP PO PRN (20:58)
[2018-10-08] MEDS ORDERED: ACETAMINOPHEN TAB 325 MG TAB PO PRN (20:58)
[2018-10-08] MEDS ORDERED: MELATONIN 3 MG TABLET PO PRN (20:58)
[2018-10-08] MEDS ORDERED: MAGNESIUM HYDROXIDE 2,400 MG/10 ML CUP PO PRN (20:58)
[2018-10-08] MEDS ORDERED: CALCIUM CARBONATE 500 MG CHEWABLE PO PRN (20:58)
[2018-10-08] MEDS ORDERED: ONDANSETRON 4 MG/2 ML VIAL IVP PRN (20:58)
[2018-10-08] MEDS ORDERED: NALOXONE 0.4 MG/ML 1 ML VIAL IV PRN (20:58)
[2018-10-08] MEDS ORDERED: ERGOCALCIFEROL 50,000 UNIT CAP PO SCH (21:00)
[2018-10-08] MEDS: QUEtiapine 50 MG TAB PO SCH (21:07)
[2018-10-08] MEDS: OXcarbazepine 300 MG TAB PO SCH (21:10)
[2018-10-08 21:34] LABS: Glucose,Whole Blood 132 mg/dL (75-99)
[2018-10-08] MEDS: INSULIN ASPART (NovoLOG) 100 UNIT/ML VIAL SQ SCH (22:52)
[2018-10-08] MEDS: DULoxetine HCL 60 MG CAPSULE.DR PO SCH (23:06)
[2018-10-08] MEDS: METOPROLOL TARTRATE 12.5 MG TAB PO SCH (23:06)
[2018-10-08] MEDS: BACLOFEN 10 MG TAB PO SCH (23:06)
[2018-10-08] MEDS: FAMOTIDINE 20 MG TAB PO SCH (23:07)
[2018-10-08] MEDS: ATORVASTATIN 20 MG TAB PO SCH (23:07)
[2018-10-09] MEDS: methylPREDNISolone SOD SUCCI 125 MG/2 ML VIAL IV SCH ×2 (00:50→05:08)
[2018-10-09] MEDS ORDERED: IPRATROPIUM-ALBUTEROL 3 ML NEB INHALATION PRN (00:54)
[2018-10-09] MEDS: ALPRAZolam 1 MG TAB PO SCH ×4 (00:55→22:00)
[2018-10-09] MEDS: IPRATROPIUM-ALBUTEROL 3 ML NEB INHALATION SCH ×5 (02:24→19:45)
[2018-10-09] MEDS: SODIUM CHLORIDE 0.9% 1,000 ML IV SCH ×2 (05:04→15:22)
[2018-10-09 06:52] LABS: Glucose,Whole Blood 182 mg/dL (75-99)
[2018-10-09] MEDS: LOSARTAN 25 MG TAB PO SCH (08:00)
[2018-10-09] MEDS: INSULIN ASPART (NovoLOG) 100 UNIT/ML VIAL SQ SCH ×4 (08:11→22:01)
[2018-10-09] MEDS: METOPROLOL TARTRATE 12.5 MG TAB PO SCH ×2 (08:12→22:00)
[2018-10-09] MEDS: FAMOTIDINE 20 MG TAB PO SCH ×2 (08:12→21:59)
[2018-10-09] MEDS: OXcarbazepine 300 MG TAB PO SCH ×2 (08:12→22:00)
[2018-10-09] MEDS: RIVAROXABAN 20 MG TAB PO SCH (08:12)
[2018-10-09] MEDS: DULoxetine HCL 60 MG CAPSULE.DR PO SCH ×2 (08:12→21:59)
[2018-10-09] MEDS: ISOSORBIDE MONONITRATE ER 30 MG TAB.ER.24H PO SCH (08:17)
[2018-10-09 11:16] LABS: Glucose,Whole Blood 170 mg/dL (75-99)
--- NOTE | 2018-10-09 11:42 | P.CNPUL ---
History of Present Illness Consult date: 10/09/18 Requesting physician: Darin Burt Reason for consult: dyspnea Chief complaint: Shortness of breath History of present illness: This is a very pleasant 67-year-old gentleman who follows with Dr. Pedraza as his primary care physician. He has a history of hearing disorder, hyperlipidemia, hypertension, pulmonary embolism anticoagulated with Xarelto, seizure disorder, carcinoid of the liver, carcinoma in situ of the stomach, anxiety. He is a lifelong nonsmoker. He does follow with Dr. Carrasco in our office for chronic obstructive pulmonary disease in the form of asthma. His FEV1 value is 54% of predicted. He's been maintained on DuoNeb inhalations and pro-air rescue inhaler. He was last seen in May 2018. Since that time he had been doing well from the pulmonary standpoint. He presented here yesterday to the emergency room with complaints of shortness of breath, severe weakness, inability to ambulate and inability to climb familiar stairs. No previous sick contacts or recent travel history. Chest x-ray showed no acute process. CT angiogram ruled out pulmonary embolism. There were some findings consistent with bronchitis. There is also a new neoplastic finding within the upper abdomen. This is a new lobulated soft tissue mass in the anterior left upper quadrant, lateral to the stomach measuring 10-12 cm. Liver lesion is redemonstrated. There is aneurysm dilatation of the aorta. Labs revealed a new CPAP 0.5. Hemoglobin 11.2. Creatinine 0.74. ProBNP 51, troponin negative. He is seen today in consultation on the regular medical floor. He is awake and alert in no acute distress. He denies any worsening shortness of breath, cough or congestion. He is maintaining O2 saturations in the upper 90s on room air. He's been afebrile. Hemodynamically stable. He is anxious to go home. His was at the bedside states his lower extremity weakness was her main concern. He's been initiated on DuoNeb inhalations and IV Solu-Medrol. Review of Systems REVIEW OF SYSTEMS: CONSTITUTIONAL: Denies any recent significant weight loss or weight gain. EYES: Denies change in vision. EARS, NOSE, MOUTH, THROAT: Denies headaches, denies sore throat. CARDIOVASCULAR: Denies chest pain, palpitations or syncopal episodes. RESPIRATORY: Positive for shortness of breath, no cough, congestion or hemoptysis. GASTROINTESTINAL: Denies change in appetite, denies abdominal pain GENITOURINARY: Denies hematuria, denies infections. MUSKULOSKELETAL: Denies pain, denies swelling. Lower extremity weakness INTEGUMENTARY: Denies rash, denies eczema. NEUROLOGICAL: Denies recent memory loss, no recent seizure activity. PSYCHIATRIC: Positive for anxiety, denies depression. HEMATOLOGIC/LYMPHATIC: Denies anemia, denies enlarged lymph nodes. Past Medical History Past Medical History: Asthma, Cancer, COPD, Hearing Disorder / Deafness, Hyperlipidemia, Hypertension, Pulmonary Embolus (PE), Seizure Disorder Additional Past Medical History / Comment(s): "Mini strokes" and small vessel disorder, asthma was previously charted but pt/ unaware of this. 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, constipation (both in remission per dr oquendo), anemia, upper [place] even wl hearing aids since 8 years old, last seizure 3 years ago, obsessive compulsive disorder History of Any Multi-Drug Resistant Organisms: None Reported Past Surgical History: Hernia Repair Additional Past Surgical History / Comment(s): liver biopsy Past Anesthesia/Blood Transfusion Reactions: Motion Sickness Additional Past Anesthesia/Blood Transfusion Reaction / Comment(s): clausterphobia, obsessive compulsive disorder Past Psychological History: Anxiety, Depression Additional Psychological History / Comment(s): obsessive compulsive disorder Smoking Status: Never smoker Past Alcohol Use History: None Reported Past Drug Use History: None Reported - Past Family History Mother Family Medical History: Dementia Additional Family Medical History / Comment(s): alzhiemers Father Family Medical History: Cancer Additional Family Medical History / Comment(s): lung cancer, hx of smoking Medications and Allergies Home Medications Medication Instructions Recorded Confirmed Type Lovastatin [Mevacor] 80 mg PO HS 05/22/16 10/08/18 History Rivaroxaban [Xarelto] 20 mg PO DAILY 07/04/16 10/08/18 History Baclofen 10 mg PO HS 05/08/17 10/08/18 History Ergocalciferol (Vitamin D2) 50,000 unit PO TU 05/08/17 10/08/18 History [Vitamin D2] Metoprolol Tartrate [Lopressor] 12.5 mg PO BID 05/08/17 10/08/18 History OXcarbazepine [Trileptal] 300 mg PO BID 07/06/17 10/08/18 History Diphenox-Atrop 2.5-0.025 mg 1 tab PO DAILY PRN 01/29/18 10/08/18 History [Lomotil] Famotidine [Pepcid] 20 mg PO BID 01/29/18 10/08/18 History Octreotide Lar [SandoSTATIN LAR] 30 mg IM QMONTH 01/29/18 10/08/18 History QUEtiapine [SEROquel] 50 mg PO HS 01/29/18 10/08/18 History Isosorbide Mononitrate ER [Imdur] 30 mg PO DAILY #30 tab.er.24h 01/30/18 10/08/18 Rx ALPRAZolam [Xanax] 1 mg PO TID 10/08/18 10/08/18 History DULoxetine HCL [Cymbalta] 60 mg PO BID 10/08/18 10/08/18 History Ipratropium-Albuterol Nebulize 3 ml INHALATION RT-QID 10/08/18 10/08/18 History [Duoneb 0.5 mg-3 mg/3 ml Soln] Losartan [Cozaar] 25 mg PO DAILY 10/08/18 10/08/18 History Allergies Allergy/AdvReac Type Severity Reaction Status Date / Time prochlorperazine Allergy Hallucinati Verified 10/08/18 16:49 [From Compazine] ons vortioxetine Allergy SEIZURES Verified 10/08/18 18:00 [From Trintellix] Physical Exam Vitals: Vital Signs Temp Pulse Pulse Pulse Resp BP BP 10/09/18 08:00 89 115/85 10/09/18 07:55 74 10/09/18 07:44 70 10/09/18 05:00 98.2 F 86 16 108/74 10/09/18 02:31 72 14 10/09/18 02:24 72 14 10/09/18 00:10 92 16 10/08/18 21:47 98.1 F 92 16 110/73 10/08/18 21:13 98.0 F 87 18 103/86 10/08/18 19:19 98 18 127/96 10/08/18 18:48 97.8 F 86 19 127/93 10/08/18 16:48 18 10/08/18 16:46 98.3 F 87 20 90/65 Pulse Ox 10/09/18 08:00 97 10/09/18 07:55 10/09/18 07:44 10/09/18 05:00 94 L 10/09/18 02:31 10/09/18 02:24 10/09/18 00:10 10/08/18 21:47 95 10/08/18 21:13 97 10/08/18 19:19 99 10/08/18 18:48 10/08/18 16:48 10/08/18 16:46 97 Intake and Output 10/08/18 10/09/18 10/09/18 22:59 06:59 14:59 Intake Total 300 Output Total 750 Balance -450 Intake: Intake, IV Titration 300 Amount Sodium Chloride 0.9% 1, 300 000 ml @ 100 mls/hr IV . Q10H ISABELL Rx#:[id number] Output: Urine 750 Other: Voiding Method Urinal # Voids 0 Weight 94.347 kg GENERAL EXAM: Pleasant 67-year-old gentleman. Alert, active, comfortable in no apparent distress. On room air. HEAD: Normocephalic. EYES: Normal reaction of pupils, equal size. NOSE: Clear with pink turbinates. THROAT: No erythema or exudates. NECK: No masses, no JVD. CHEST: No chest wall deformity. LUNGS: Equal air entry with no crackles, wheeze, rhonchi or dullness. CVS: S1 and S2 normal with no audible murmur, regular rhythm. ABDOMEN: No hepatosplenomegaly, normal bowel sounds, no guarding or rigidity. SPINE: No scoliosis or deformity SKIN: No rashes CENTRAL NERVOUS SYSTEM: No focal deficits, tone is normal in all 4 extremities. EXTREMITIES: There is no peripheral edema. No clubbing, no cyanosis. Peripheral pulses are intact. Results - Laboratory Findings CBC and BMP: 10/08/18 17:20 10/08/18 17:20 PT/INR, D-dimer PT 12.1 sec (9.0-12.0) H 10/08/18 17:20 INR 1.2 (<1.2) H 10/08/18 17:20 Abnormal lab findings: Abnormal Labs 10/08/18 10/08/18 10/08/18 17:20 17:20 17:20 RBC 3.92 L Hgb 11.2 L Hct 35.4 L PT 12.1 H INR 1.2 H Glucose 119 H POC Glucose (mg/dL) 10/08/18 10/09/18 10/09/18 20:52 06:50 11:14 RBC Hgb Hct PT INR Glucose POC Glucose (mg/dL) 132 H 182 H 170 H - Diagnostic Findings Chest x-ray: image reviewed CT scan - chest: image reviewed Assessment and Plan Assessment: Impression: #1 Lower extremity weakness of unclear etiology. #2 Dyspnea secondary to mild exacerbation of chronic obstructive pulmonary disease/mild intermittent asthma. Chest x-ray shows no acute pulmonary process. CT angiogram ruled out pulmonary embolism. Question of bronchitis. #3 History of anxiety/panic disorder. #4 Hearing disorder. #5 Neuroendocrine (carcinoid) tumor of the liver diagnosed in 2016. #6 Ascites. #7 New lobulated soft tissue mass in the anterior left upper quadrant, lateral to the stomach, measuring 10-12 cm in diameter. #8 History of carcinoma in situ of the stomach. #9 Hypertension. Plan: The patient was seen and evaluated by Dr. Carrasco. He is quite stable from the pulmonary standpoint. He could be discharged home today. We'll continue with bronchodilators. Converted to oral prednisone. No clear indication for antibiotics at this point. Follow up with Dr. Carrasco in our office in 1-2 weeks' time. He has are both encouraged to call sooner with any recurrence of symptoms or other questions or concerns. I, the cosigning physician, performed a history & physical examination of the patient. Lungs sounds are clear. Maintaining good O2 saturations in the 90s on room air. I discussed the assessment and plan of care with my nurse practitioner, Analia Fontenot. I attest to the above note as dictated by her. Time with Patient: Greater than 30
[2018-10-09] MEDS: TAMSULOSIN 0.4 MG CAP.ER.24H PO SCH (12:17)
[2018-10-09] MEDS: methylPREDNISolone SOD SUCCI 40 MG/ML 1 ML VIAL IV SCH (15:21)
[2018-10-09] MEDS ORDERED: LIDOCAINE 2% GEL 30 ML TUBE TOPICAL ONE (15:29)
[2018-10-09] MEDS ORDERED: LIDOCAINE URO-JET JELLY 2% 5 ML KIT URETHRAL ONE (15:45)
[2018-10-09] MEDS: IOPAMIDOL-300 CONTRAST 30 ML VIAL (ORAL USE) PO PRN ×2 (16:03→17:11)
[2018-10-09 17:16] LABS: Glucose,Whole Blood 158 mg/dL (75-99)
--- NOTE | 2018-10-09 18:07 | HP ---
HISTORY AND PHYSICAL DATE OF ADMISSION: 10/09/2018 DATE OF SERVICE: 10/09/2018. PRESENTING COMPLAINT: Short of breath. HISTORY OF PRESENTING COMPLAINT: This is a 67-year-old patient. The patient follows with Dr. Pedraza. Chronic stable medical conditions include hard of hearing, hyperlipidemia, hypertension, neuroendocrine tumor of the liver, carcinoid tumor and compulsive disorder. The patient presented 1 day of increasing short of breath, wheezing, cough. No fever, no chills, feeling weak, tired, run down. Appetite had gone down. The patient did receive some bronchodilators which he felt a bit better. The patient does also follow up with Dr. Carrasco from Pulmonary. History is obtained with the patient and the at the bedside. The patient did tolerate some breakfast. REVIEW OF SYSTEMS: CONSTITUTIONAL: Tired. HEENT decreased hearing. RESPIRATORY: As above. CARDIOVASCULAR: None. GASTROINTESTINAL: None. GENITOURINARY: None. MUSCULOSKELETAL none. DERMATOLOGICAL, HEMATOLOGIC, LYMPHATIC: None. PSYCHIATRY: Anxious. NEUROLOGICAL: None. PAST MEDICAL HISTORY: Of asthma, hard of hearing, hyperlipidemia, hypertension, pulmonary embolism, seizure disorder, mini-stroke, neuroendocrine tumor, carcinoid get Sandostatin. The patient has porcelain liver, stomach, anemia. Last seizure was 3 years ago, obsessive- compulsive disorder. PAST SURGICAL HISTORY: Hernia repair. Liver biopsy. PSYCH HISTORY: Obsessive-compulsive disorder, schizophrenia, anxiety, depression. SOCIAL HISTORY: No smoking. No alcohol. . FAMILY HISTORY: Of Alzheimer's dementia. HOME MEDICATIONS: 1. Xarelto 20 mg p.o. daily. 2. Seroquel 50 mg q.h.s. 3. Sandostatin 30 mg IM monthly. 4. Trileptal 300 mg b.i.d. 5. Lopressor 12.5 p.o. b.i.d. 6. Mevacor 80 mg q.h.s. 7. Cozaar 25 mg p.o. daily. 8. Imdur ER 30 mg p.o. daily. 9. DuoNeb q.i.d. 10.Pepcid 20 mg b.i.d. 11.Vitamin D2 89013 units on Tuesdays. 12.Lomotil 1 tablet p.o. daily p.r.n. 13.Cymbalta 60 mg b.i.d. 14.Baclofen 10 mg q.h.s. 15.Xanax 1 mg p.o. t.i.d. ALLERGIES: TO COMPAZINE AND TRINTELLIX. PHYSICAL EXAMINATION: VITAL SIGNS: Vital signs on presentation, temperature 98.3, pulse 87, respiration 20, blood pressure 98/65, repeat blood pressure 127/93, pulse 97% on room air. GENERAL APPEARANCE: Average built, sitting up, a bit tired. EYES: Pupils are equal. Conjunctivae normal. HEENT: External appearance of nose and ears normal. Oral cavity, some lack of dentition. Decreased hearing. NECK: JVD not raised. Mass not palpable. RESPIRATORY: Effort increased. LUNGS: Decreased breath sounds. CARDIOVASCULAR: First and second sounds normal. No edema. ABDOMEN: Soft, nontender. Liver and spleen not palpable. LYMPHATIC: No lymph nodes palpable in the neck and axilla. PSYCHIATRY: Alert and oriented x3. Mood and affect normal. NEUROLOGICAL: Pupils equal. Cranial nerves grossly intact. Power and sensation grossly intact. INVESTIGATIONS: White count 8.5, hemoglobin 11.2. Potassium 4.5. BUN and creatinine is normal. Accu- Cheks are noted. EKG tracing personally reviewed by me shows normal sinus rhythm. Chest CTA shows negative for PE, some bronchitis reported. New neoplastic findings within the upper abdomen. There is mild dilatation of ascending aorta. Descending aorta is 4.3 cm. Chest x-ray film personally reviewed by me shows some cardiomegaly and unclear lung adam. ASSESSMENT: 1. Acute mild intermittent asthma with exacerbation. 2. Chronic hard of hearing. 3. Hyperlipidemia. 4. Essential hypertension. 5. Neuroendocrine tumor, carcinoid for which the patient gets Sandostatin. 6. Obsessive-compulsive disorder. 7. Abdominal mass, cause unclear. PLAN: Patient is given a burst of steroids, bronchodilators. Home medications are resumed. Care was discussed with the patient and at the bedside. Dr. Carrasco was consulted. Will do CT scan of the abdomen and pelvis to further define the mass reported on the CT angio of the chest, PE was ruled out. Copy to Dr. Pedraza. MMODL / TKN: [id number] /
[2018-10-09 20:32] LABS: Glucose,Whole Blood 164 mg/dL (75-99)
[2018-10-09] MEDS: ATORVASTATIN 20 MG TAB PO SCH (21:59)
[2018-10-09] MEDS: BACLOFEN 10 MG TAB PO SCH (21:59)
[2018-10-09] MEDS: QUEtiapine 50 MG TAB PO SCH (22:00)
--- NOTE | 2018-10-09 22:22 | CT ---
EXAMINATION TYPE: CT abdomen pelvis w con DATE OF EXAM: 10/09/2018 COMPARISON: CT 05/24/2018 HISTORY: Adominal mass, pain CT DLP: 1303.50 mGycm Automated exposure control for dose reduction was used. TECHNIQUE: Helical acquisition of images was performed from the lung bases through the pelvis. CONTRAST: Performed with Oral Contrast and with IV Contrast, patient injected with 100 mL of Isovue 3 00. FINDINGS: LUNG BASES: No significant abnormality is appreciated. LIVER/GB: The previously seen 1.5 cm hypodense lesion anteriorly abutting the interlobar fissure is u nchanged. Liver is otherwise unremarkable. PANCREAS: No significant abnormality is seen. SPLEEN: No significant abnormality is seen. ADRENALS: No significant abnormality is seen. KIDNEYS: No significant abnormality is seen. Bilateral nonobstructing renal calcifications are noted, measuring 1 to 4 mm. PERITONEAL CAVITY: Since the prior study of 05/24/2018 a mild-moderate volume of peritoneal fluid has developed throughout the abdomen and pelvis. EXTRAPERITONEAL SPACES: In the left upper quadrant, closely related to the stomach's left lateral and inferior margins is a 17 x 16 x 8 cm soft tissue mass which is new since the prior study. RETROPERITONEAL ADENOPATHY: None visualized REPRODUCTIVE ORGANS: No significant abnormality is seen URINARY BLADDER: No significant abnormality is seen. PELVIC ADENOPATHY: None visualized. OSSEOUS STRUCTURES: No significant abnormality is seen. BOWEL: No significant abnormality is seen. OTHER: No acute vascular findings. IMPRESSION: NEW FINDINGS INCLUDE 17 X 16 X 8 CM LEFT UPPER QUADRANT SOFT TISSUE MASS AND MILD/MODERATE ABDOMINAL PELVIC ASCITES.
[2018-10-10] MEDS: methylPREDNISolone SOD SUCCI 40 MG/ML 1 ML VIAL IV SCH ×2 (00:58→08:13)
[2018-10-10] MEDS: SODIUM CHLORIDE 0.9% 1,000 ML IV SCH ×2 (01:36→11:33)
[2018-10-10 07:11] LABS: Glucose,Whole Blood 137 mg/dL (75-99)
[2018-10-10] MEDS: IPRATROPIUM-ALBUTEROL 3 ML NEB INHALATION SCH ×2 (07:32→11:57)
[2018-10-10] MEDS: INSULIN ASPART (NovoLOG) 100 UNIT/ML VIAL SQ SCH ×2 (08:13→11:55)
[2018-10-10] MEDS: METOPROLOL TARTRATE 12.5 MG TAB PO SCH (08:13)
[2018-10-10] MEDS: TAMSULOSIN 0.4 MG CAP.ER.24H PO SCH (08:13)
[2018-10-10] MEDS: ALPRAZolam 1 MG TAB PO SCH (08:13)
[2018-10-10] MEDS: RIVAROXABAN 20 MG TAB PO SCH (08:13)
[2018-10-10] MEDS: FAMOTIDINE 20 MG TAB PO SCH (08:13)
[2018-10-10] MEDS: DULoxetine HCL 60 MG CAPSULE.DR PO SCH (08:14)
[2018-10-10] MEDS: OXcarbazepine 300 MG TAB PO SCH (08:14)
[2018-10-10] MEDS: LOSARTAN 25 MG TAB PO SCH (08:18)
[2018-10-10] MEDS: ISOSORBIDE MONONITRATE ER 30 MG TAB.ER.24H PO SCH (08:18)
[2018-10-10 11:13] LABS: Glucose,Whole Blood 130 mg/dL (75-99)
[2018-10-10 12:33] VITALS: BP 121/73; PULSE 75; RESP 20; TEMP 98
--- NOTE | 2018-10-10 12:58 | P.PN ---
Subjective Progress Note Date: 10/10/18 Principal diagnosis: Mild exacerbation of chronic obstructive disease/mild intermittent asthma This is a very pleasant 67-year-old gentleman who follows with Dr. Pedraza as his primary care physician. He has a history of hearing disorder, hyperlipidemia, hypertension, pulmonary embolism anticoagulated with Xarelto, seizure disorder, carcinoid of the liver, carcinoma in situ of the stomach, anxiety. He is a lifelong nonsmoker. He does follow with Dr. Carrasco in our office for chronic obstructive pulmonary disease in the form of asthma. His FEV1 value is 54% of predicted. He's been maintained on DuoNeb inhalations and pro-air rescue inhaler. He was last seen in May 2018. Since that time he had been doing well from the pulmonary standpoint. He presented here yesterday to the emergency room with complaints of shortness of breath, severe weakness, inability to ambulate and inability to climb familiar stairs. No previous sick contacts or recent travel history. Chest x-ray showed no acute process. CT angiogram ruled out pulmonary embolism. There were some findings consistent with bronchitis. There is also a new neoplastic finding within the upper abdo men. This is a new lobulated soft tissue mass in the anterior left upper quadrant, lateral to the stomach measuring 10-12 cm. Liver lesion is redemonstrated. There is aneurysm dilatation of the aorta. Labs revealed a new CPAP 0.5. Hemoglobin 11.2. Creatinine 0.74. ProBNP 51, troponin negative. He is seen today in consultation on the regular medical floor. He is awake and alert in no acute distress. He denies any worsening shortness of breath, cough or congestion. He is maintaining O2 saturations in the upper 90s on room air. He's been afebrile. Hemodynamically stable. He is anxious to go home. His was at the bedside states his lower extremity weakness was her main concern. He's been initiated on DuoNeb inhalations and IV Solu-Medrol. The patient is seen today 10/10/2018 in follow-up. He is awake and alert in no acute distress. He states his breathing is back to his baseline. No worsening shortness of breath, cough or congestion. Maintaining good O2 saturations in the 90s on room air. He remains on DuoNeb inhalations, IV Solu-Medrol. He is quite anxious to go home. He did have issues with urinary retention and now has a Gillespie catheter in place. He has been initiated on Flomax. Objective - Vital Signs Vital signs: Vital Signs Temp 98 F 10/10/18 12:32 Pulse 75 10/10/18 12:32 Resp 20 10/10/18 12:32 BP 121/73 10/10/18 12:32 Pulse Ox 95 10/10/18 12:32 Intake & Output 10/09/18 10/10/18 10/10/18 18:59 06:59 18:59 Output Total 1600 Balance -1600 Output: Urine 1600 Uretheral (Gillespie) 1000 Other: Voiding Method Indwelling Catheter Indwelling Catheter Indwelling Catheter # Voids 0 - Exam GENERAL EXAM: Alert, active, comfortable in no apparent distress. On room air. HEAD: Normocephalic. EYES: Normal reaction of pupils, equal size. NOSE: Clear with pink turbinates. THROAT: No erythema or exudates. NECK: No masses, no JVD. CHEST: No chest wall deformity. LUNGS: Equal air entry with no crackles, wheeze, rhonchi or dullness. CVS: S1 and S2 normal with no audible murmur, regular rhythm. ABDOMEN: No hepatosplenomegaly, normal bowel sounds, no guarding or rigidity. SPINE: No scoliosis or deformity SKIN: No rashes CENTRAL NERVOUS SYSTEM: No focal deficits, tone is normal in all 4 extremities. EXTREMITIES: There is no peripheral edema. No clubbing, no cyanosis. Peripheral pulses are intact. - Labs CBC & Chem 7: 10/08/18 17:20 10/08/18 17:20 Labs: Abnormal Lab Results - Last 24 Hours (Table) 10/09/18 10/09/18 10/10/18 Range/Units 17:15 20:30 07:09 POC Glucose (mg/dL) 158 H 164 H 137 H (75-99) mg/dL 10/10/18 Range/Units 11:11 POC Glucose (mg/dL) 130 H (75-99) mg/dL Assessment and Plan Assessment: Impression: #1 Lower extremity weakness of unclear etiology. #2 Dyspnea secondary to mild exacerbation of chronic obstructive pulmonary disease/mild intermittent asthma. Chest x-ray shows no acute pulmonary process. CT angiogram ruled out pulmonary embolism. Question of bronchitis. #3 History of anxiety/panic disorder. #4 Hearing disorder. #5 Neuroendocrine (carcinoid) tumor of the liver diagnosed in 2016. #6 Ascites. #7 New lobulated soft tissue mass in the anterior left upper quadrant, lateral to the stomach, measuring 10-12 cm in diameter. #8 History of carcinoma in situ of the stomach. #9 Hypertension. #10 Urinary retention, Gillespie catheter in place. Plan: The patient was seen and evaluated by Dr. Carrasco. He is quite stable from the pulmonary standpoint. Continue his home pulmonary medications. Complete a short prednisone taper starting with 30 mg for 3 days. Follow up with Dr. Carrasco in our office in 1-2 weeks' time. He and his are both encouraged to call sooner with any recurrence of symptoms or other questions or concerns. I, the cosigning physician, performed a history & physical examination of the patient. Lungs sounds are clear. Maintaining good O2 saturations in the 90s on room air. I discussed the assessment and plan of care with my nurse practitioner, Analia Fontenot. I attest to the above note as dictated by her.
--- NOTE | 2018-10-10 15:21 | P.CONS ---
History of Present Illness - Reason for Consult Consult date: 10/10/18 Carcinoid, Neuroendocrine tumor Requesting physician: Dairn Burt - Chief Complaint Urinary Retention - History of Present Illness Xu is a patient well known to us for treatment of his known neuroendocrine cancer. He receives monthly sandostatin injections. today a CT abd and pelvis reveiwled new finding of LUQ soft tissue mass [id number] as well as interval devlopement of moderate peritoneal fluid. Review of Systems A 14 point review of systems assessed and completed and all negative except HPI Past Medical History Past Medical History: Asthma, Cancer, COPD, Hearing Disorder / Deafness, Hyp erlipidemia, Hypertension, Pulmonary Embolus (PE), Seizure Disorder Additional Past Medical History / Comment(s): "Mini strokes" and small vessel disorder, asthma was previously charted but pt/ unaware of this. 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, constipation (both in remission per dr oquendo), anemia, [place] even wl hearing aids since 8 years old, last seizure 3 years ago, obsessive compulsive disorder History of Any Multi-Drug Resistant Organisms: None Reported Past Surgical History: Hernia Repair Additional Past Surgical History / Comment(s): liver biopsy Past Anesthesia/Blood Transfusion Reactions: Motion Sickness Additional Past Anesthesia/Blood Transfusion Reaction / Comm: clausterphobia, obsessive compulsive disorder Past Psychological History: Anxiety, Depression Additional Psychological History / Comment(s): obsessive compulsive disorder Smoking Status: Never smoker Past Alcohol Use History: None Reported Past Drug Use History: None Reported - Past Family History Mother Family Medical History: Dementia Additional Family Medical History / Comment(s): alzhiemers Father Family Medical History: Cancer Additional Family Medical History / Comment(s): lung cancer, hx of smoking Medications and Allergies Home Medications Medication Instructions Recorded Confirmed Type Lovastatin [Mevacor] 80 mg PO HS 05/22/16 10/08/18 History Rivaroxaban [Xarelto] 20 mg PO DAILY 07/04/16 10/08/18 History Baclofen 10 mg PO HS 05/08/17 10/08/18 History Ergocalciferol (Vitamin D2) 50,000 unit PO TU 05/08/17 10/08/18 History [Vitamin D2] Metoprolol Tartrate [Lopressor] 12.5 mg PO BID 05/08/17 10/08/18 History OXcarbazepine [Trileptal] 300 mg PO BID 07/06/17 10/08/18 History Diphenox-Atrop 2.5-0.025 mg 1 tab PO DAILY PRN 01/29/18 10/08/18 History [Lomotil] Famotidine [Pepcid] 20 mg PO BID 01/29/18 10/08/18 History Octreotide Lar [SandoSTATIN LAR] 30 mg IM QMONTH 01/29/18 10/08/18 History QUEtiapine [SEROquel] 50 mg PO HS 01/29/18 10/08/18 History Isosorbide Mononitrate ER [Imdur] 30 mg PO DAILY #30 tab.er.24h 01/30/18 10/08/18 Rx ALPRAZolam [Xanax] 1 mg PO TID 10/08/18 10/08/18 History DULoxetine HCL [Cymbalta] 60 mg PO BID 10/08/18 10/08/18 History Ipratropium-Albuterol Nebulize 3 ml INHALATION RT-QID 10/08/18 10/08/18 History [Duoneb 0.5 mg-3 mg/3 ml Soln] Losartan [Cozaar] 25 mg PO DAILY 10/08/18 10/08/18 History Tamsulosin [Flomax] 0.4 mg PO PC-BRKFST #30 cap.er.24h 10/10/18 Rx Allergies Allergy/AdvReac Type Severity Reaction Status Date / Time prochlorperazine Allergy Hallucinati Verified 10/08/18 16:49 [From Compazine] ons vortioxetine Allergy SEIZURES Verified 10/08/18 18:00 [From Trintellix] Physical Exam Vitals: Vital Signs Temp Pulse Pulse Resp BP BP Pulse Ox 10/10/18 12:32 98 F 75 20 121/73 95 10/10/18 12:08 70 10/10/18 11:58 74 10/10/18 08:18 78 122/78 95 10/10/18 07:41 74 10/10/18 07:32 70 10/10/18 05:25 98.1 F 76 18 172/89 94 L 10/10/18 00:05 96 20 10/09/18 20:30 98.4 F 96 20 130/71 95 10/09/18 20:00 74 10/09/18 19:45 72 Intake and Output 10/10/18 10/10/18 10/10/18 06:59 14:59 22:59 Output Total 1000 Balance -1000 Output: Urine 1000 Uretheral (Gillespie) 1000 Other: Voiding Method Indwelling Catheter Indwelling Catheter Gen: NAD, ALert Head: NC, NT NEck: Supple Lungs: DIminished bilateral bases, No increased effort HEart: RRR, S1s2 Abdomen: Tender, MIld Distention Ext: Mild Edema Bilateral Catheter clear drainage for new urinary retention Neuro: No sensory or motor deficits Highly anxious Results CBC & Chem 7: 10/10/18 15:09 10/10/18 15:09 Labs: Abnormal Lab Results - Last 24 Hours (Table) 10/09/18 10/09/18 10/10/18 Range/Units 17:15 20:30 07:09 POC Glucose (mg/dL) 158 H 164 H 137 H (75-99) mg/dL 10/10/18 Range/Units 11:11 POC Glucose (mg/dL) 130 H (75-99) mg/dL Assessment and Plan Plan: Assessment and Recommendations: Neuroendocrine Carcinoid with possible progression: - New [id number] LUQ soft tissue mass identified with mild to moderate pelvic fluid - Check Chromagranin A, Seratonin, LDH, CBC, CMP, Mag, Phos - I will set up for him to see me in office on Sunday next week, this will allow these labs to process to assess for further diagnostic progression - Octreotide Scan and medication recommendations will be made as outpatient. Plan and CT scan reviewed with patient and
[2018-10-10 15:46] LABS: ALT 24 U/L (21-72); AST 35 U/L (17-59); Albumin 4.2 g/dL (3.5-5.0); Alkaline Phosphatase 48 U/L (38-126); Anion Gap 11 mmol/L; Blood Urea Nitrogen 17 mg/dL (9-20); Calcium 9.4 mg/dL (8.4-10.2); Carbon Dioxide 25 mmol/L (22-30); Chloride 98 mmol/L (98-107); Glucose 97 mg/dL (74-99); LDH 405 U/L (313-618); Potassium 4.4 mmol/L (3.5-5.1); Sodium 134 mmol/L (137-145); Total Bilirubin 0.4 mg/dL (0.2-1.3); Total Protein 6.9 g/dL (6.3-8.2)
[2018-10-10 15:49] LABS: Anisocytosis Slight; Basophils % (A) 0 %; Eosinophils # (A) 0.1 k/uL (0-0.7); Eosinophils % (A) 1 %; HCT 24.2 % (39.0-53.0); Lymphocytes # (A) 1.6 k/uL (1.0-4.8); Lymphocytes % (A) 14 %; MCH 30.4 pg (25.0-35.0); MCHC 34.1 g/dL (31.0-37.0); MCV 89.2 fL (80.0-100.0); Mean Platelet Volume 7.8; Monocytes # (A) 0.7 k/uL (0-1.0); Monocytes % (A) 7 %; Neutrophils # (A) 8.7 k/uL (1.3-7.7); Neutrophils % (A) 77 %; Platelet Count 239 k/uL (150-450); RBC 2.72 m/uL (4.30-5.90); RDW 16.1 % (11.5-15.5); WBC 11.3 k/uL (3.8-10.6)
[2018-10-10 15:53] LABS: HGB 8.3 gm/dL (13.0-17.5)
--- NOTE | 2018-10-11 06:44 | DS ---
DISCHARGE SUMMARY DATE OF ADMISSION: 10/09/2018 DATE OF DISCHARGE: 10/10/2018 FINAL DIAGNOSES: 1. Acute mild intermittent asthma exacerbation. 2. Chronic hard of hearing. 3. Hyperlipidemia. 4. Essential hypertension. 5. Neuroendocrine tumor, carcinoid for which patient gets Sandostatin. 6. Obsessive-compulsive disorder. 7. New abdominal mass to be further worked up as an outpatient. CONSULTATION: Dr. Espinosa from Oncology and Dr. Carrasco from Pulmonary. HOSPITAL COURSE: This patient present with asthma exacerbation. Responded well to steroids and bronchodilators. CT scan of the abdomen did show a new mass that is 17 x 16 x 8 cm in the left upper quadrant closely related to the stomach's left lateral and inferior margin and a prior mass of 1.5 cm on the interlobar fissure in the liver unchanged. Dr. Espinosa will followup the same as an outpatient. The patient is very keen to go home. The patient's chromogranin A, serotonin, LDH, CBC, CMP, mag, phos was being ordered. On examination, lungs are clear. CARDIOVASCULAR: First and second sounds normal. I discussed at length with the patient the plan and also spoke to Krista from Oncology. The patient's CT was negative for PE. Discussion and discharge planning more than 35 minutes. On examination, afebrile, pulse 75, respiration 20, blood pressure 121/73, pulse ox 95% on room air. White count 11.3, hemoglobin 8.3, potassium 4.4. BUN and creatinine is normal. DISCHARGE MEDICATIONS: 1. Mevacor 80 mg q.h.s. 2. Xarelto 20 mg p.o. daily. 3. Baclofen 10 mg q.h.s. 4. Vitamin D2, 50,000 units on Sunday. 5. Lopressor 12.5 p.o. b.i.d. 6. Trileptal 300 mg p.o. b.i.d. 7. Lomotil 1 tablet p.o. daily p.r.n. 8. Pepcid 20 mg b.i.d. 9. Sandostatin 30 mg IM monthly. 10.Seroquel 50 mg q.h.s. 11.Imdur ER 30 mg daily. 12.Xanax 1 mg p.o. t.i.d. 13.Cymbalta 60 mg b.i.d. 14.DuoNeb q.i.d. 15.Cozaar 25 mg p.o. daily. 16.Flomax 0.4 mg before breakfast. Follow up with Dr. Pedraza on 10/23/2018. Follow up with Dr. Reynolds for bladder outflow obstruction, patient has got a Gillespie catheter in 1 week. Follow up with Krista Wilson on 10/15/2018. Discussion and discharge planning more with 35 minutes. MMODL / IJN: [id number] /
[2018-10-11] MEDS ORDERED: predniSONE 10 MG TAB PO SCH (09:00)
== END 2018-10-10 16:00 | disposition home or self-care (01) | DRG 202 ==
LOC: EC 16:35 → 3NMEDONC 19:38 → OBSVTOIN 10-09 08:25
PROVIDERS: ADMIT Hospitalist; ATTEND Hospitalist
DX: J45.21 Mild intermittent asthma with (acute) exacerbation (principal); C7A.098 Malignant carcinoid tumors of other sites; R18.8 Other ascites; F20.9 Schizophrenia, unspecified; E78.5 Hyperlipidemia, unspecified; E86.0 Dehydration; F41.0 Panic disorder [episodic paroxysmal anxiety]; F42.9 Obsessive-compulsive disorder, unspecified; G40.909 Epilepsy, unspecified, not intractable, without status epilepticus; H91.90 Unspecified hearing loss, unspecified ear; I10 Essential (primary) hypertension; R19.00 Intra-abdominal and pelvic swelling, mass and lump, unspecified site; F32.9 Major depressive disorder, single episode, unspecified; R33.9 Retention of urine, unspecified; Z79.01 Long term (current) use of anticoagulants; Z79.899 Other long term (current) drug therapy; Z88.8 Allergy status to other drugs, medicaments and biological substances; Z85.828 Personal history of other malignant neoplasm of skin; Z86.73 Personal history of transient ischemic attack (TIA), and cerebral infarction without residual deficits; Z86.711 Personal history of pulmonary embolism; Z80.1 Family history of malignant neoplasm of trachea, bronchus and lung; Z82.0 Family history of epilepsy and other diseases of the nervous system
CPT/HCPCS: 36415; 71046; 71275; 74177; 80053; 83615; 83735; 83880; 84260; 84484; 85025; 85610; 85730; 86316; 93005; 94640; 96361; 96374; 99285

== ENCOUNTER → 2018-11-19 | Outpatient (CLI) | payer MEDICARE ==
[2018-11-19 10:06] LABS: Blood Urea Nitrogen 9 mg/dL (9-20)
--- NOTE | 2018-11-19 12:19 | CT ---
EXAMINATION TYPE: CT ChestAbdPelvis w con DATE OF EXAM: 11/19/2018 COMPARISON: CT abdomen and pelvis October 09, 2018. CTA chest October 08, 2018. Older CTs. HISTORY: Malignant Carcinoid tumor of liver CT DLP: 1137.3 mGycm. Automated Exposure Control for Dose Reduction was Utilized. CONTRAST: CT scan of the thorax, abdomen and pelvis is performed with IV Contrast, patient injected with 100 mL of Isovue 300. FINDINGS: LUNGS: The lungs are grossly clear, there is no concerning parenchymal mass or nodule identified. T here is no pleural effusion or pneumothorax seen. The tracheobronchial tree is patent. MEDIASTINUM: There are no greater than 1 cm hilar or mediastinal lymph nodes. No cardiomegaly or pe ricardial effusion is seen. Some coronary artery calcification is redemonstrated which is noted zhanna er for underlying coronary artery disease. OTHER: No additional significant abnormality is seen. LIVER/GB: Evaluation for carcinoid tumor suboptimal as no dedicated hepatic arterial phase imaging is performed. Liver is heterogeneously hypodense relative to spleen suggesting fatty infiltration. Vagu e nonspecific hypodense lesion anteriorly in liver measures 1.6cm long axis current study image [address] st able from prior studies. Interval resolution of adjacent ascites noted. PANCREAS: Moderate fat replaced atrophy is redemonstrated. SPLEEN: No significant abnormality is seen. ADRENALS: No significant abnormality is seen. KIDNEYS: No significant abnormality is seen. BOWEL: Oral contrast reaches level of the proximal sigmoid colon. No suspicious small or large bowel dilatation is present. Poor opacification at level of cecum and terminal ileum makes evaluation at th is level suboptimal. GENITAL ORGANS: Prostate gland is enlarged in size consistent with BPH. Scattered pelvic phleboliths are seen. LYMPH NODES: No greater than 1cm abdominal or pelvic lymph nodes are appreciated. OSSEOUS STRUCTURES: Moderate to severe narrowing in both hip joints is redemonstrated. There is multi level spurring and disc space narrowing with vacuum disc phenomenon throughout the spine.. OTHER: There is redemonstration of heterogeneous hypodense mass in the left upper quadrant abutting t he inferior left lateral margin of stomach now measuring 6.1 x 5.0 cm axial image 64 diminished in si ze from prior. There may be second smaller or lobulated extension of this lesion inferiorly measuring 3.4 x 2.9 cm image 73 also diminished from prior study image 41. No enhancement is noted. IMPRESSION: Resolution of previously visualized ascites with diminished size of left upper quadrant p eritoneal mass suggests positive treatment response if the patient is actively undergoing treatment, correlate clinically. No new suspicious masses or adenopathy are identified.
== END | disposition home or self-care (01) ==
LOC: RADCTMAIN 08:50
PROVIDERS: ATTEND Internal Medicine Hematology & Oncology
DX: C7A.098 Malignant carcinoid tumors of other sites (principal); Z88.8 Allergy status to other drugs, medicaments and biological substances
CPT/HCPCS: 82565; 84520; 71260; 74177; 36415; Q9967 ×2

== ENCOUNTER → 2018-12-09 | Day surgery (SDC) | payer MEDICARE ==
[2018-12-09 08:18] VITALS: TEMP 97.6
[2018-12-09 08:36] LABS: Platelet Count 372 k/uL (150-450)
[2018-12-09 08:45] LABS: Prothrombin Time 10.3 sec (9.0-12.0)
--- NOTE | 2018-12-09 09:38 | P.PCN ---
Date of Procedure: 12/09/18 Preoperative Diagnosis: abdomen mass Postoperative Diagnosis: same Procedure(s) Performed: ct guide abd mass biopsy Anesthesia: other (local) Estimated Blood Loss (ml): 10 Pathology: other (core biopsy to lab) Condition: stable Disposition: observation Indications for Procedure: abd mass Operative Findings: 18 ga core in formalin left upper quadrant
[2018-12-09 09:57] VITALS: PULSE 59
[2018-12-09 10:00] VITALS: RESP 20
--- NOTE | 2018-12-09 10:17 | CT ---
EXAMINATION TYPE: CT biopsy abdomen percutaneous DATE OF EXAM: 12/09/2018 HISTORY: Abdominal mass, carcinoid tumor COMPARISON: CT 11/19/2018 Maximal barrier technique was utilized. The skin overlying a suitable path to the lesion was localiz ed using CT and the overlying skin was prepped and draped. Lidocaine used for local anesthesia. A s kin zhao made with a scalpel. Using CT guidance, access was gained to the lesion with a 17-gauge koki de needle. Coaxial 18-gauge placement then obtained core specimen submitted to cytology in formalin. 1 pass performed in all. Following the procedure no immediate complications. The patient is disch arged in stable condition. Hemostasis achieved. IMPRESSION: SUCCESSFUL CT GUIDED CORE BIOPSY abdominal mass. PATHOLOGY PENDING. THIS PROCEDURE WAS PERFORMED BY THE UNDERSIGNED.
[2018-12-09 13:22] VITALS: BP 158/89
== END ==
LOC: RADPROMAIN 07:46
PROVIDERS: ATTEND Internal Medicine Hematology & Oncology
DX: R19.02 Left upper quadrant abdominal swelling, mass and lump (principal); C7A.098 Malignant carcinoid tumors of other sites
CPT/HCPCS: 49180; 77012; 85049; 85610; 88305

== ENCOUNTER → 2018-12-28 | Outpatient (CLI) | payer MEDICARE ==
--- NOTE | 2019-01-01 12:15 | PE ---
EXAMINATION TYPE: PET CT fusion skull to thigh DATE OF EXAM: 12/28/2018 COMPARISON: CT of the chest, abdomen, and pelvis dated 11/11/2018 HISTORY: Carcinoid tumor. Subsequent treatment strategy as this patient has been treated with chemoth erapy "monthly" for an unknown duration. TECHNIQUE: Following the intravenous administration of 11.46 mCi of F-18 FDG, whole body images are performed from the skull base to the midthigh. Images are reviewed on the computer in the coronal, a xial, and sagittal planes. Reconstructed rotating images are created on independent workstation and reviewed on the computer. A localization and attenuation correction CT is performed in conjunction with the PET scan. SCAN: Initial PET/CT at this institution FINDINGS: Thoracic background: 1.39 Abdominal background: 2.44 SKULL BASE AND NECK: No suspicious hypermetabolic activity. CHEST, MEDIASTINUM, AND HILAR REGION: No suspicious hypermetabolic activity. ABDOMEN AND PELVIS: Calcified mesenteric structure containing vasculature, lymph nodes, and possible mesenteric carcinoid tumor is seen of the low central abdomen on series 102 image 175 and 176 measuri ng 1.5 x 1.5 cm. This has a maximum SUV of 1.17, below abdominal background. This could simply repres ent tortuous clumped vasculature with atherosclerosis. There is redemonstration of a mass in the left upper quadrant containing decrease in size now measuri ng 5.0 x 3.5 cm and previously measuring 6.1 x 5.0 cm. Lobular extension currently measures 2.3 x 1.8 cm and previously measured 3.4 x 2.9 cm. These masses are hypometabolic. On the prior biopsy degener ative blood and inflammatory cells that was nondiagnostic of mass or malignancy was seen on aspiratio n. Favored a nonspecific hypoattenuated lesion anteriorly in the liver measuring 1.6 cm on the prior exa m with better delineated with contrast however is subtly seen on image 131 and 132 with a maximum SUV of 2.5, slightly above background. OSSEOUS STRUCTURES: No suspicious hypermetabolic activity. OTHER CT: Paranasal sinuses are well aerated. Degenerative changes of the spine are seen throughout a n overall moderate. No suspicious osseous lesion. Probable bone island of the left iliac bone is punc andrews and stable. There are multiple nonobstructing bilateral punctate renal calculi. Ectasia of the u pper abdominal aorta is seen as it measures 2.9 cm in anterior posterior dimension. Extensive atheros clerosis of the abdominal aorta and its branches. Prostate gland is heterogenous containing central z one calcifications. Contrast or radiopaque density is seen within the colon as there is large burden colonic fecal stasis. No dilated bowel to suggest obstruction. 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 Moderate coronary calcifications are seen. No mediastinal adenopathy or a xillary adenopathy. Bandlike scarring is seen along the left lung base and interlobar fissure. Strand -like atelectasis is also seen at the lung bases. IMPRESSION: 1. The solitary hepatic lesion representing the patient's known hepatic carcinoid tumor is stable ove rall stable in size dating back to 02/14/2016 and currently demonstrates only very slight hypermetabol ic activity. No additional lesions are seen. 2. Calcified not hypermetabolic mesenteric structure measuring 1.5 cm could represent tortuous vascul ature or mesenteric carcinoid. This is also stable from prior exams. 3. Intra-abdominal low-density lesions adjacent to the liver that were recently biopsied demonstrate no hypermetabolic activity and have continued to decrease in size, possibly seromas. Enteric duplicat ion cysts is another possibility.
== END | disposition home or self-care (01) ==
LOC: RADPETMAIN 09:26
PROVIDERS: ATTEND Internal Medicine Hematology & Oncology
DX: C7A.098 Malignant carcinoid tumors of other sites (principal)
CPT/HCPCS: 78815; A9552

== ENCOUNTER → 2019-03-28 | Outpatient (CLI) | payer MEDICARE ==
[2019-03-28 12:55] LABS: African American GFR (CKD) >90 (>60 ml/min/1.73 sqM); Blood Urea Nitrogen 12 mg/dL (9-20)
--- NOTE | 2019-03-28 17:05 | CT ---
EXAMINATION TYPE: CT ChestAbdPelvis w con DATE OF EXAM: 03/28/2019 INDICATION: Follow up for carcinoid tumors COMPARISON: 11/19/2018, PET/CT 12/28/2018 CT DLP: 1282.1 mGycm CONTRAST: Performed with Oral Contrast and with IV Contrast, patient injected with 100 mL of Isovue 300. TECHNIQUE: Axial images at 5 mm thick sections. Reconstructed images in the coronal plane. Delayed images through the kidneys. FINDINGS: CT CHEST: Portion of the thyroid visualized is normal. No suspicious lung nodules or focal infiltrates are present. No enlarged mediastinal or hilar adenopathy is evident. The ascending aorta diameter at the level of the main pulmonary artery is 4.3 cm. The main pulmonary artery diameter at the bifurcation is 2.[address] ABDOMEN: There is an circumscribed lobular mass measuring approximately 2.4 x 3.4 cm and the left upper anterior quadrant of the abdomen. This is smaller than comparison. The second area which may be contiguous with a 1.5 cm in diameter. Series 3 image 70. This is smaller than the comparison. No new masses are evident. Enhancement pattern is peripheral with some more homogenous appearance on the de layed images. Liver: Subtle hypodensities adjacent to the ligamentum teres in the anterior right lobe liver measure s approximately 1.5 cm likely corresponds to the patient's reported carcinoid tumor. Spleen: Normal Pancreas: Normal Adrenal glands: The adrenal glands are normal. Gallbladder: Normal Kidneys: No masses are evident. No hydronephrosis is present. No cysts are present. Delayed images were obtained through the kidneys, which remain unremarkable. Aorta: Vascular calcification is within the aorta. Inferior vena cava: Normal. CT PELVIS: Loops of bowel within the abdomen and pelvis are normal. There are loops of bowel which are incom pletely distended or lack oral contrast limiting their evaluation. Diverticular changes are within th e sigmoid colon. Appendix: Normal as visualized. Urinary bladder: Normal. Genitourinary structures: Prostate appears slightly prominent contains a few small calcifications. Osseous structures: No suspicious lytic or sclerotic lesions. Degenerative disc changes are within th e lower lumbar spine. IMPRESSIONS: 1. Diminished size of the left upper quadrant mesenteric masses. 2. The ill-defined subtle hypodensity within the liver appears smaller than comparison.
== END | disposition home or self-care (01) ==
LOC: RADCTMAIN 12:20
PROVIDERS: ATTEND Internal Medicine Hematology & Oncology
DX: R19.02 Left upper quadrant abdominal swelling, mass and lump (principal); C7A.098 Malignant carcinoid tumors of other sites; Z88.8 Allergy status to other drugs, medicaments and biological substances
CPT/HCPCS: 82565; 84520; 71260; 74177; 36415; Q9967

== ENCOUNTER → 2019-06-20 | Outpatient (CLI) | payer MEDICARE ==
[2019-06-20 13:17] LABS: African American GFR (CKD) >90 (>60 ml/min/1.73 sqM); Blood Urea Nitrogen 8 mg/dL (9-20); Non-African American GFR(CKD) >90 (>60 ml/min/1.73 sqM)
--- NOTE | 2019-06-20 14:48 | CT ---
EXAMINATION TYPE: CT ChestAbdPelvis w con DATE OF EXAM: 06/20/2019 COMPARISON: 03/28/2019 HISTORY: Malignant carcinoid tumors follow up CT DLP: 1490.7 mGycm CONTRAST: CT scan of the chest, abdomen and pelvis is performed with Oral Contrast and with IV Contrast, patien t injected with 100 mL of Isovue 300. CT Chest: LUNGS: The lungs are clear and free of infiltrate or atelectasis. No pulmonary nodule or mass is det ected. No pleural effusion or CT evidence of interstitial lung disease. MEDIASTINUM: Thoracic aorta is of normal caliber. The heart is not enlarged. No evidence for media stinal mass or adenopathy. HILAR STRUCTURES: No evidence for mass. No hilar adenopathy is appreciated. OTHER: No significant abnormality. CONTRAST CT ABDOMEN AND PELVIS FINDINGS: LIVER/GB: No calcified gallstones. Hypodense lesion adjacent to the falciform ligament is unchanged and measures 1.6 cm versus 1.5 cm previously. Additional small vague hypodensity is noted within the periphery of the medial segment left hepatic lobe measuring 1.1 cm versus 1 cm previously. No additi onal lesions seen. Biliary tree is of normal caliber. PANCREAS: No inflammation. No distinct mass. SPLEEN: No splenic enlargement. No lesion seen. ADRENALS: No nodule. No thickening. KIDNEYS/BLADDER: No hydronephrosis. No nephrolithiasis. No disctinct renal mass. BOWEL: Normal appendix. Normal bowel caliber. No inflammation. GENITAL ORGANS: No gross abnormality. LYMPH NODES: No greater than 1cm abdominal or pelvic lymph nodes are appreciated. AORTA: No significant abnormality. OSSEOUS STRUCTURES: No significant abnormality is seen. OTHER: Dominant left upper quadrant mesenteric nodule is smaller in size and measures 2.4 x 1.0 cm ve rsus 3.4 x 2.4 cm. Smaller adjacent nodule measures 1.2 cm versus 1.5 cm previously. IMPRESSION: 1. Left upper quadrant mesenteric nodules are smaller in size however do persist. 2. Stable left base hypodensities within the liver. No new lesions are identified.
== END | disposition home or self-care (01) ==
LOC: RADCTMAIN 12:37
PROVIDERS: ATTEND Internal Medicine Hematology & Oncology
DX: C7A.098 Malignant carcinoid tumors of other sites (principal); R93.5 Abnormal findings on diagnostic imaging of other abdominal regions, including retroperitoneum; Z88.8 Allergy status to other drugs, medicaments and biological substances
CPT/HCPCS: 82565; 84520; 71260; 74177; 36415; Q9967

== ENCOUNTER 2019-07-04 12:02 | Emergency (ER) | payer MEDICARE ==
[2019-07-04 12:13] LABS: Glucose,Whole Blood 98 mg/dL (75-99)
[2019-07-04] MEDS ORDERED: DEXTROSE 5%-0.45% NACL 1,000 ML IV ONE (12:21)
--- NOTE | 2019-07-04 12:26 | ED ---
General Adult HPI - General Chief complaint: Altered Mental Status Stated complaint: Altered mental status Time Seen by Provider: 07/04/19 12:05 Source: patient, EMS, RN notes reviewed Mode of arrival: EMS Limitations: no limitations - History of Present Illness Initial comments: Patient is a pleasant 68-year-old male presenting to the emergency department for near syncopal episode. Patient states he felt somewhat weak all over and then fell down. Patient denies injury. Patient is unclear whether or not he lost consciousness. Per EMS history is that patient has been drowsy or confused throughout the day. Patient did have near syncopal episode however no report of losing consciousness. Blood sugar was 51 per EMS. They did provide D10W drip with significant improvement in patient's symptoms. Patient denies any history of diabetes. Patient is unclear of any history of low blood sugar however states he does sometimes keep sugar tablets around in case he feels he needs them. 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 - Related Data Home Medications Medication Instructions Recorded Confirmed Lovastatin [Mevacor] 80 mg PO HS 05/22/16 07/04/19 Rivaroxaban [Xarelto] 20 mg PO DAILY 07/04/16 07/04/19 Ergocalciferol (Vitamin D2) 50,000 unit PO TU 05/08/17 07/04/19 [Vitamin D2] Metoprolol Tartrate [Lopressor] 12.5 mg PO BID 05/08/17 07/04/19 OXcarbazepine [Trileptal] 300 mg PO BID 07/06/17 07/04/19 Diphenox-Atrop 2.5-0.025 mg 1 tab PO DAILY PRN 01/29/18 07/04/19 [Lomotil] Octreotide Lar [SandoSTATIN LAR] 30 mg IM QMONTH 01/29/18 07/04/19 ALPRAZolam [Xanax] 1 mg PO TID 10/08/18 07/04/19 DULoxetine HCL [Cymbalta] 60 mg PO BID 10/08/18 07/04/19 Ipratropium-Albuterol Nebulize 3 ml INHALATION RT-QID 10/08/18 07/04/19 [Duoneb 0.5 mg-3 mg/3 ml Soln] Losartan [Cozaar] 25 mg PO DAILY 10/08/18 07/04/19 Baclofen 10 mg PO HS 07/04/19 07/04/19 Ondansetron [Zofran] 4 mg PO Q8HR PRN 07/04/19 07/04/19 QUEtiapine [SEROquel] 150 mg PO HS 07/04/19 07/04/19 Previous Rx's Medication Instructions Recorded Isosorbide Mononitrate ER [Imdur] 30 mg PO DAILY #30 tab.er.24h 01/30/18 Allergies Allergy/AdvReac Type Severity Reaction Status Date / Time prochlorperazine Allergy Hallucinati Verified 07/04/19 13:07 [From Compazine] ons vortioxetine Allergy SEIZURES Verified 07/04/19 13:07 [From Joyus] Review of Systems ROS Statement: Those systems with pertinent positive or pertinent negative responses have been documented in the HPI. ROS Other: All systems not noted in ROS Statement are negative. Constitutional: Denies: fever Eyes: Denies: eye pain ENT: Denies: ear pain Respiratory: Denies: cough Cardiovascular: Denies: chest pain Endocrine: Reports: fatigue Gastrointestinal: Denies: abdominal pain Genitourinary: Denies: dysuria Musculoskeletal: Denies: back pain Skin: Denies: rash Neurological: Denies: weakness Past Medical History Past Medical History: Asthma, Cancer, COPD, Hearing Disorder / Deafness, Hyperlipidemia, Hypertension, Pulmonary Embolus (PE), Seizure Disorder Additional Past Medical History / Comment(s): "Mini strokes" and small vessel disorder, asthma was previously charted but pt/ unaware of this. 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, constipation (both in remission per dr espinosa), anemia, [place] even w[employer] hearing aids since 8 years old, last seizure 3 years ago, obsessive compulsive disorder History of Any Multi-Drug Resistant Organisms: None Reported Past Surgical History: Hernia Repair Additional Past Surgical History / Comment(s): liver biopsy, soft tissue biopsy November 2018 Past Anesthesia/Blood Transfusion Reactions: Motion Sickness Additional Past Anesthesia/Blood Transfusion Reaction / Comment(s): c lausterphobia, obsessive compulsive disorder Past Psychological History: Anxiety, Depression Smoking Status: Never smoker Past Alcohol Use History: None Reported Past Drug Use History: None Reported - Past Family History Mother Family Medical History: Dementia Additional Family Medical History / Comment(s): alzhiemers Father Family Medical History: Cancer Additional Family Medical History / Comment(s): lung cancer, hx of smoking General Exam Limitations: no limitations General appearance: alert, in no apparent distress Head exam: Present: atraumatic, normocephalic Eye exam: Present: normal appearance, PERRL, EOMI. Absent: nystagmus ENT exam: Present: normal oropharynx Neck exam: Present: normal inspection. Absent: tenderness, meningismus Respiratory exam: Present: normal lung sounds bilaterally Cardiovascular Exam: Present: bradycardia GI/Abdominal exam: Present: soft. Absent: tenderness Extremities exam: Present: normal inspection Neurological exam: Present: alert, oriented X3, CN II-XII intact. 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 QRS 118. QTC 514. QTC 439. Normal axis. Normal QRS. Nonspecific T waves. Medical Decision Making - Medical Decision Making Patient reevaluated and resting comfortably in bed, symptom-free. Heart rate is 56. Patient and family updated on results and recommendations for admission. They're made aware that low blood sugar and low heart rate could return anytime if patient could be in the same position or worse. Patient does them straight medical decision making. Patient is recommended admission for further evaluation as well as evaluation by internal medicine and cardiology and his oncologist. Despite this patient refuses and will leave AGAINST MEDICAL ADVICE. is present. - Lab Data Result diagrams: 07/04/19 12:18 07/04/19 12:18 Lab Results 07/04/19 07/04/19 07/04/19 Range/Units 12:12 12:18 12:18 WBC 5.7 (3.8-10.6) k/uL RBC 4.59 (4.30-5.90) m/uL Hgb 13.4 (13.0-17.5) gm/dL Hct 41.5 (39.0-53.0) % MCV 90.4 (80.0-100.0) fL MCH 29.3 (25.0-35.0) pg MCHC 32.4 (31.0-37.0) g/dL RDW 16.7 H (11.5-15.5) % Plt Count 259 (150-450) k/uL Neutrophils % 41 % Lymphocytes % 34 % Monocytes % 11 % Eosinophils % 9 % Basophils % 3 % Neutrophils # 2.4 (1.3-7.7) k/uL Lymphocytes # 2.0 (1.0-4.8) k/uL Monocytes # 0.6 (0-1.0) k/uL Eosinophils # 0.5 (0-0.7) k/uL Basophils # 0.2 (0-0.2) k/uL Anisocytosis Slight PT (9.0-12.0) sec INR (<1.2) APTT (22.0-30.0) sec Sodium 138 (137-145) mmol/L Potassium 3.7 (3.5-5.1) mmol/L Chloride 103 (98-107) mmol/L Carbon Dioxide 25 (22-30) mmol/L Anion Gap 10 mmol/L BUN 16 (9-20) mg/dL Creatinine 0.59 L (0.66-1.25) mg/dL Est GFR (CKD-EPI)AfAm >90 (>60 ml/min/1.73 sqM) Est GFR (CKD-EPI)NonAf >90 (>60 ml/min/1.73 sqM) Glucose 94 (74-99) mg/dL POC Glucose (mg/dL) 98 (75-99) mg/dL POC Glu Timber Inspector ID Jessica Khan Calcium 9.3 (8.4-10.2) mg/dL Magnesium 2.1 (1.6-2.3) mg/dL Total Bilirubin 0.8 (0.2-1.3) mg/dL AST 43 (17-59) U/L ALT 18 (4-49) U/L Alkaline Phosphatase 48 (38-126) U/L Creatine Kinase 293 H (55-170) U/L Troponin I (0.000-0.034) ng/mL Total Protein 7.7 (6.3-8.2) g/dL Albumin 4.4 (3.5-5.0) g/dL TSH 4.050 (0.465-4.680) mIU/L Free T4 0.71 L (0.78-2.19) ng/dL Free T3 pg/mL 3.4 (2.8-5.3) pg/ml Urine Color Urine Appearance (Clear) Urine pH (5.0-8.0) Ur Specific [place] (1.001-1.035) Urine Protein (Negative) Urine Glucose (UA) (Negative) Urine Ketones (Negative) Urine Blood (Negative) Urine Nitrite (Negative) Urine Bilirubin (Negative) Urine Urobilinogen (<2.0) mg/dL Ur Leukocyte Esterase (Negative) Urine RBC (0-5) /hpf Urine WBC (0-5) /hpf Ur Squamous Epith Cells (0-4) /hpf Urine Bacteria (None) /hpf Urine Mucus (None) /hpf 07/04/19 07/04/19 07/04/19 Range/Units 12:18 12:18 13:50 WBC (3.8-10.6) k/uL RBC (4.30-5.90) m/uL Hgb (13.0-17.5) gm/dL Hct (39.0-53.0) % MCV (80.0-100.0) fL MCH (25.0-35.0) pg MCHC (31.0-37.0) g/dL RDW (11.5-15.5) % Plt Count (150-450) k/uL Neutrophils % % Lymphocytes % % Monocytes % % Eosinophils % % Basophils % % Neutrophils # (1.3-7.7) k/uL Lymphocytes # (1.0-4.8) k/uL Monocytes # (0-1.0) k/uL Eosinophils # (0-0.7) k/uL Basophils # (0-0.2) k/uL Anisocytosis PT 11.5 (9.0-12.0) sec INR 1.1 (<1.2) APTT 24.4 (22.0-30.0) sec Sodium (137-145) mmol/L Potassium (3.5-5.1) mmol/L Chloride (98-107) mmol/L Carbon Dioxide (22-30) mmol/L Anion Gap mmol/L BUN (9-20) mg/dL Creatinine (0.66-1.25) mg/dL Est GFR (CKD-EPI)AfAm (>60 ml/min/1.73 sqM) Est GFR (CKD-EPI)NonAf (>60 ml/min/1.73 sqM) Glucose (74-99) mg/dL POC Glucose (mg/dL) (75-99) mg/dL POC Glu Timber Inspector ID Calcium (8.4-10.2) mg/dL Magnesium (1.6-2.3) mg/dL Total Bilirubin (0.2-1.3) mg/dL AST (17-59) U/L ALT (4-49) U/L Alkaline Phosphatase (38-126) U/L Creatine Kinase (55-170) U/L Troponin I <0.012 (0.000-0.034) ng/mL Total Protein (6.3-8.2) g/dL Albumin (3.5-5.0) g/dL TSH (0.465-4.680) mIU/L Free T4 (0.78-2.19) ng/dL Free T3 pg/mL (2.8-5.3) pg/ml Urine Color Yellow Urine Appearance Clear (Clear) Urine pH 5.5 (5.0-8.0) Ur Specific [place] 1.017 (1.001-1.035) Urine Protein Negative (Negative) Urine Glucose (UA) Negative (Negative) Urine Ketones Negative (Negative) Urine Blood Negative (Negative) Urine Nitrite Negative (Negative) Urine Bilirubin Negative (Negative) Urine Urobilinogen <2.0 (<2.0) mg/dL Ur Leukocyte Esterase Moderate H (Negative) Urine RBC 1 (0-5) /hpf Urine WBC 7 H (0-5) /hpf Ur Squamous Epith Cells <1 (0-4) /hpf Urine Bacteria Rare H (None) /hpf Urine Mucus Occasional H (None) /hpf 07/04/19 Range/Units 13:56 WBC (3.8-10.6) k/uL RBC (4.30-5.90) m/uL Hgb (13.0-17.5) gm/dL Hct (39.0-53.0) % MCV (80.0-100.0) fL MCH (25.0-35.0) pg MCHC (31.0-37.0) g/dL RDW (11.5-15.5) % Plt Count (150-450) k/uL Neutrophils % % Lymphocytes % % Monocytes % % Eosinophils % % Basophils % % Neutrophils # (1.3-7.7) k/uL Lymphocytes # (1.0-4.8) k/uL Monocytes # (0-1.0) k/uL Eosinophils # (0-0.7) k/uL Basophils # (0-0.2) k/uL Anisocytosis PT (9.0-12.0) sec INR (<1.2) APTT (22.0-30.0) sec Sodium (137-145) mmol/L Potassium (3.5-5.1) mmol/L Chloride (98-107) mmol/L Carbon Dioxide (22-30) mmol/L Anion Gap mmol/L BUN (9-20) mg/dL Creatinine (0.66-1.25) mg/dL Est GFR (CKD-EPI)AfAm (>60 ml/min/1.73 sqM) Est GFR (CKD-EPI)NonAf (>60 ml/min/1.73 sqM) Glucose (74-99) mg/dL POC Glucose (mg/dL) 109 H (75-99) mg/dL POC Glu Timber Inspector ID Nilton Gonzalez Calcium (8.4-10.2) mg/dL Magnesium (1.6-2.3) mg/dL Total Bilirubin (0.2-1.3) mg/dL AST (17-59) U/L ALT (4-49) U/L Alkaline Phosphatase (38-126) U/L Creatine Kinase (55-170) U/L Troponin I (0.000-0.034) ng/mL Total Protein (6.3-8.2) g/dL Albumin (3.5-5.0) g/dL TSH (0.465-4.680) mIU/L Free T4 (0.78-2.19) ng/dL Free T3 pg/mL (2.8-5.3) pg/ml Urine Color Urine Appearance (Clear) Urine pH (5.0-8.0) Ur Specific [place] (1.001-1.035) Urine Protein (Negative) Urine Glucose (UA) (Negative) Urine Ketones (Negative) Urine Blood (Negative) Urine Nitrite (Negative) Urine Bilirubin (Negative) Urine Urobilinogen (<2.0) mg/dL Ur Leukocyte Esterase (Negative) Urine RBC (0-5) /hpf Urine WBC (0-5) /hpf Ur Squamous Epith Cells (0-4) /hpf Urine Bacteria (None) /hpf Urine Mucus (None) /hpf - Radiology Data Radiology results: report reviewed (Computed tomography scan of the brain shows atrophy. No acute process.), image reviewed (Chest x-ray shows no acute pro cess) Disposition Clinical Impression: Bradycardia, Hypoglycemia, Near syncope Disposition: Left Against Medical Advice Instructions (If sedation given, give patient instructions): Bradycardia (ED), Non-diabetic Hypoglycemia (ED) Additional Instructions: Please follow-up with your primary care physician as well as your oncologist and cardiology in the next day or 2 for recheck. Return for low blood sugar, low heart rate, passing out, altered mental status, worsening symptoms or any other concerns. You're leaving AGAINST MEDICAL ADVICE. Hold Lopressor until follow- up and discussion with your doctor Is patient prescribed a controlled substance at d/c from ED?: No Referrals: Rojas Pedraza DO [Primary Care Provider] - 1-2 days Huang Espinosa MD [STAFF PHYSICIAN] - 1-2 days Cheryl Piper MD [STAFF PHYSICIAN] - 1-2 days Time of Disposition: 14:44
[2019-07-04 12:41] LABS: Anisocytosis Slight; Basophils # (A) 0.2 k/uL (0-0.2); Basophils % (A) 3 %; Eosinophils # (A) 0.5 k/uL (0-0.7); Eosinophils % (A) 9 %; HCT 41.5 % (39.0-53.0); HGB 13.4 gm/dL (13.0-17.5); Lymphocytes % (A) 34 %; MCH 29.3 pg (25.0-35.0); MCHC 32.4 g/dL (31.0-37.0); MCV 90.4 fL (80.0-100.0); Mean Platelet Volume 9.8; Monocytes # (A) 0.6 k/uL (0-1.0); Monocytes % (A) 11 %; Neutrophils # (A) 2.4 k/uL (1.3-7.7); Neutrophils % (A) 41 %; Platelet Count 259 k/uL (150-450); RBC 4.59 m/uL (4.30-5.90); RDW 16.7 % (11.5-15.5); WBC 5.7 k/uL (3.8-10.6)
[2019-07-04 12:47] LABS: INR 1.1 (<1.2); Partial Thromboplastin Time 24.4 sec (22.0-30.0); Prothrombin Time 11.5 sec (9.0-12.0)
[2019-07-04 12:52] LABS: ALT 18 U/L (4-49); AST 43 U/L (17-59); African American GFR (CKD) >90 (>60 ml/min/1.73 sqM); Albumin 4.4 g/dL (3.5-5.0); Alkaline Phosphatase 48 U/L (38-126); Anion Gap 10 mmol/L; Blood Urea Nitrogen 16 mg/dL (9-20); Calcium 9.3 mg/dL (8.4-10.2); Carbon Dioxide 25 mmol/L (22-30); Chloride 103 mmol/L (98-107); Creatine Kinase 293 U/L (55-170); Glucose 94 mg/dL (74-99); Magnesium 2.1 mg/dL (1.6-2.3); Non-African American GFR(CKD) >90 (>60 ml/min/1.73 sqM); Sodium 138 mmol/L (137-145); Total Bilirubin 0.8 mg/dL (0.2-1.3); Total Protein 7.7 g/dL (6.3-8.2)
[2019-07-04 12:53] LABS: Potassium 3.7 mmol/L (3.5-5.1)
--- NOTE | 2019-07-04 13:01 | CT ---
EXAMINATION TYPE: CT brain wo con DATE OF EXAM: 07/04/2019 HISTORY: Altered mental status CT DLP: 1099.4 mGycm. Automated Exposure Control for Dose Reduction was Utilized. TECHNIQUE: CT scan of the head is performed without contrast. COMPARISON: CT brain May 22, 2016. FINDINGS: There is no acute intracranial hemorrhage or midline shift identified. There is diffuse v entricular and sulcal prominence consistent with diffuse age-related cerebral atrophy. There is low- attenuation in the periventricular white matter consistent with chronic small vessel ischemic change. The globes are intact and the visualized sinuses are clear. IMPRESSION: No acute intracranial hemorrhage or midline shift. There is moderate diffuse age-relate d cerebral atrophy and chronic small vessel ischemic change redemonstrated. No significant change fr om prior.
[2019-07-04 13:07] LABS: T4, Free (Free Thyroxine) 0.71 ng/dL (0.78-2.19)
--- NOTE | 2019-07-04 13:13 | XR ---
EXAMINATION TYPE: XR chest 2V DATE OF EXAM: 07/04/2019 COMPARISON: Chest x-ray October 08, 2018. CT chest June 20, 2019. HISTORY: Syncope and weakness. TECHNIQUE: Frontal and lateral views of the chest are obtained. FINDINGS: Overlying EKG leads are present. There is no focal air space opacity, pleural effusion, or pneumothorax seen. The cardiac silhouette size is upper limits of normal. Old fracture deformity ri ght mid clavicle redemonstrated. IMPRESSION: No acute cardiopulmonary process. No significant change from prior studies.
[2019-07-04 13:58] LABS: Glucose,Whole Blood 109 mg/dL (75-99)
[2019-07-04 14:15] LABS: Appearance,Urine Clear (Clear); Bacteria,Urine Rare /hpf; Bilirubin,Urine Negative (Negative); Blood,Urine Negative (Negative); Color,Urine Yellow; Glucose,Urine (UA) Negative (Negative); Ketones,Urine Negative (Negative); Leukocyte Esterase,Urine Moderate (Negative); Mucus,Urine Occasional /hpf; Nitrite,Urine Negative (Negative); PH, Urine 5.5 (5.0-8.0); Protein,Urine Negative (Negative); RBC,Urine 1 /hpf (0-5); Specific Gravity,Urine 1.017 (1.001-1.035); Squamous Epithelial Cell,Urine <1 /hpf (0-4); Urobilinogen,Urine <2.0 mg/dL (<2.0); WBC,Urine 7 /hpf (0-5)
[2019-07-04 15:16] VITALS: BP 126/79; PULSE 52; RESP 20; TEMP 98.3
== END 2019-07-04 15:16 | disposition left against medical advice (07) ==
LOC: EC 12:02
DX: E16.2 Hypoglycemia, unspecified (principal); J44.9 Chronic obstructive pulmonary disease, unspecified; H91.90 Unspecified hearing loss, unspecified ear; E78.5 Hyperlipidemia, unspecified; I10 Essential (primary) hypertension; G40.909 Epilepsy, unspecified, not intractable, without status epilepticus; F32.9 Major depressive disorder, single episode, unspecified; F41.9 Anxiety disorder, unspecified; Z88.8 Allergy status to other drugs, medicaments and biological substances; Z79.01 Long term (current) use of anticoagulants; Z79.899 Other long term (current) drug therapy; Z85.05 Personal history of malignant neoplasm of liver; Z86.711 Personal history of pulmonary embolism; Z86.73 Personal history of transient ischemic attack (TIA), and cerebral infarction without residual deficits; Z97.4 Presence of external hearing-aid; W01.0XXA Fall on same level from slipping, tripping and stumbling without subsequent striking against object, initial encounter; Z53.20 Procedure and treatment not carried out because of patient's decision for unspecified reasons
CPT/HCPCS: 36415; 70450; 71046; 80053; 81001; 82550; 83735; 84439; 84443; 84481; 84484; 85025; 85610; 85730; 93005; 96360; 96361; 99285

== ENCOUNTER → 2019-12-10 | Outpatient (CLI) | payer MEDICARE ==
[2019-12-10 17:43] LABS: HCT 37.5 % (39.0-53.0); HGB 12.7 gm/dL (13.0-17.5); MCH 30.7 pg (25.0-35.0); MCHC 33.8 g/dL (31.0-37.0); MCV 90.7 fL (80.0-100.0); Mean Platelet Volume 7.4; Platelet Count 324 k/uL (150-450); RBC 4.13 m/uL (4.30-5.90); RDW 15.3 % (11.5-15.5); WBC 4.6 k/uL (3.8-10.6)
== END | disposition home or self-care (01) ==
LOC: LABMAIN 17:07
PROVIDERS: ATTEND Family Medicine
DX: Z00.01 Encounter for general adult medical examination with abnormal findings (principal)
CPT/HCPCS: 36415; 85027

== ENCOUNTER → 2019-12-16 | Outpatient (CLI) | payer MEDICARE ==
[2019-12-16 14:33] LABS: African American GFR (CKD) >90 (>60 ml/min/1.73 sqM); Blood Urea Nitrogen 6 mg/dL (9-20); Non-African American GFR(CKD) >90 (>60 ml/min/1.73 sqM)
--- NOTE | 2019-12-16 16:25 | CT ---
EXAMINATION TYPE: CT ChestAbdPelvis w con DATE OF EXAM: 12/16/2019 COMPARISON: 06/20/2019 HISTORY: Malignant carcinoid tumors of other sites CT DLP: 1293.5 mGycm CONTRAST: CT scan of the chest, abdomen and pelvis is performed with Oral Contrast and with IV Contrast, patien t injected with 100 mL of Isovue 300. CT Chest: LUNGS: The lungs are clear and free of infiltrate or atelectasis. No pulmonary nodule or mass is det ected. No pleural effusion or CT evidence of interstitial lung disease. MEDIASTINUM: Thoracic aorta is of normal caliber. The heart is not enlarged. No evidence for media stinal mass or adenopathy. HILAR STRUCTURES: No evidence for mass. No hilar adenopathy is appreciated. OTHER: No significant abnormality. CONTRAST CT ABDOMEN AND PELVIS FINDINGS: LIVER/GB: No calcified gallstones. Hypodense lesion adjacent to the falciform ligament is unchanged at 1.6 cm versus 1.6 cm previously. Additional hypodense lesion left hepatic lobe at its periphery i s not well seen at this time. PANCREAS: No inflammation. No distinct mass. SPLEEN: No splenic enlargement. No lesion seen. ADRENALS: No nodule. No thickening. KIDNEYS/BLADDER: No hydronephrosis. No nephrolithiasis. No distinct renal mass. BOWEL: Normal appendix. Normal bowel caliber. No inflammation. There appears to be a mass adjacent to the distal ileum measuring 3.5 cm and not appreciated with certainty previously. There is unopacif ied bowel previously in this location. GENITAL ORGANS: No gross abnormality. LYMPH NODES: No greater than 1cm abdominal or pelvic lymph nodes are appreciated. AORTA: No significant abnormality. OSSEOUS STRUCTURES: No significant abnormality is seen. OTHER: Left upper quadrant mesenteric nodule is smaller in size and currently measures 1.9 cm maximal dimension versus 2.4 cm previously. Smaller adjacent nodules also smaller in size measuring 7.2 mm v ersus 12 mm previously. No additional mesenteric nodules identified. IMPRESSION: 1. Mesenteric nodules persist although appear to be smaller in size. 2. Mass adjacent to the distal ileum measuring 3.5 cm may be new however previous examination demonst rated probable unopacified bowel in this location resulting in limited evaluation. 3. Stable hepatic lesion adjacent to the falciform ligament. Additional lesions seen previously is no t well demonstrated at this time.
== END | disposition home or self-care (01) ==
LOC: RADCTMAIN 13:17
PROVIDERS: ATTEND Internal Medicine Hematology & Oncology
DX: C7A.098 Malignant carcinoid tumors of other sites (principal); Z88.8 Allergy status to other drugs, medicaments and biological substances
CPT/HCPCS: 82565; 84520; 71260; 74177; 36415; Q9967

== ENCOUNTER → 2020-03-05 | Outpatient (CLI) | payer MEDICARE ==
[2020-03-05 10:50] LABS: African American GFR (CKD) >90 (>60 ml/min/1.73 sqM); Blood Urea Nitrogen 10 mg/dL (9-20); Non-African American GFR(CKD) >90 (>60 ml/min/1.73 sqM)
--- NOTE | 2020-03-05 13:09 | CT ---
EXAMINATION TYPE: CT ChestAbdPelvis w con DATE OF EXAM: 03/05/2020 COMPARISON: 12/16/2019 HISTORY: Follow up malignant carcinoid tumor (liver) CT DLP: 1978 mGycm CONTRAST: CT scan of the chest, abdomen and pelvis is performed with Oral Contrast and with IV Contrast, patien t injected with 100 mL of Isovue 300. CT Chest: LUNGS: The lungs are clear and free of infiltrate or atelectasis. No pulmonary nodule or mass is det ected. No pleural effusion or CT evidence of interstitial lung disease. MEDIASTINUM: Thoracic aorta is of normal caliber. The heart is not enlarged. No evidence for media stinal mass or adenopathy. HILAR STRUCTURES: No evidence for mass. No hilar adenopathy is appreciated. OTHER: No significant abnormality. CONTRAST CT ABDOMEN AND PELVIS FINDINGS: LIVER/GB: No calcified gallstones. Stable hepatic lesion adjacent to the falciform ligament measuri ng 1.7 cm versus 1.6 cm previously. No additional lesions identified at this time. Biliary tree is of normal caliber. PANCREAS: No inflammation. No distinct mass. SPLEEN: No splenic enlargement. No lesion seen. ADRENALS: No nodule. No thickening. KIDNEYS/BLADDER: No hydronephrosis. No nephrolithiasis. No distinct renal mass. BOWEL: Right lower quadrant nodule seen previously likely reflect unopacified bowel as I do not see e vidence for a mass at this time. Moderate fecal stasis identified. Normal bowel caliber. No inflamma tion. GENITAL ORGANS: No gross abnormality. LYMPH NODES: No greater than 1cm abdominal or pelvic lymph nodes are appreciated. AORTA: No significant abnormality. OSSEOUS STRUCTURES: No significant abnormality is seen. OTHER: Left upper quadrant mesenteric nodule slightly smaller in size and currently measures 1.6 cm v ersus 1.9 cm previously. Smaller adjacent nodule is stable at 7 mm versus 7 mm. No additional mesente arias nodules seen. IMPRESSION: 1. Right lower quadrant nodule seen previously likely reflect unopacified bowel as I do not see evide nce for a mass at this time. 2. Upper abdominal mesenteric nodules persist although dominant nodule is slightly smaller in size. 3. Stable hepatic lesion.
== END | disposition home or self-care (01) ==
LOC: RADCTMAIN 10:12
PROVIDERS: ATTEND Internal Medicine Hematology & Oncology
DX: K76.9 Liver disease, unspecified (principal); C7A.098 Malignant carcinoid tumors of other sites; Z88.8 Allergy status to other drugs, medicaments and biological substances
CPT/HCPCS: 82565; 84520; 71260; 74177; 36415; Q9967

== ENCOUNTER → 2020-08-11 | Outpatient (CLI) | payer MEDICARE ==
[2020-08-11 16:08] LABS: African American GFR (CKD) >90 (>60 ml/min/1.73 sqM); Blood Urea Nitrogen 8 mg/dL (9-20); Non-African American GFR(CKD) >90 (>60 ml/min/1.73 sqM)
--- NOTE | 2020-08-12 08:03 | CT ---
EXAMINATION TYPE: CT ChestAbdPelvis w con DATE OF EXAM: 08/11/2020 COMPARISON: 03/05/2012. No edema or single stenosis at 24 hours. HISTORY: Carcinoid tumor F/U CT DLP: 1992.7 mGycm CONTRAST: CT scan of the chest, abdomen and pelvis is performed with Oral Contrast and with IV Contrast, patien t injected with 100 mL of Isovue 300. CT Chest: LUNGS: The lungs are clear and free of infiltrate or atelectasis. No pulmonary nodule or mass is det ected. No pleural effusion or CT evidence of interstitial lung disease. MEDIASTINUM: Thoracic aorta is of normal caliber. The heart is not enlarged. No evidence for media stinal mass or adenopathy. HILAR STRUCTURES: No evidence for mass. No hilar adenopathy is appreciated. OTHER: No significant abnormality. CONTRAST CT ABDOMEN AND PELVIS FINDINGS: LIVER/GB: Gallbladder sludge noted. While hepatic lesions persist they do appear to be much less cons picuous. Biliary tree is of normal caliber. PANCREAS: No inflammation. No distinct mass. SPLEEN: No splenic enlargement. No lesion seen. ADRENALS: No nodule. No thickening. KIDNEYS/BLADDER: No hydronephrosis. No nephrolithiasis. No disctinct renal mass. BOWEL: Normal appendix. Normal bowel caliber. No inflammation. GENITAL ORGANS: Prostate enlargement persists. LYMPH NODES: No greater than 1cm abdominal or pelvic lymph nodes are appreciated. AORTA: No significant abnormality. OSSEOUS STRUCTURES: No significant abnormality is seen. OTHER: Left upper quadrant mesenteric nodule is slightly smaller in size at 1.4 cm versus 1.6 cm prev iously. Smaller adjacent nodule measures 2 mm versus 7 mm. No additional mesenteric nodules identifie d at this time. IMPRESSION: 1. While hepatic lesions persist they do appear to be much less conspicuous. 2. Persistent diminution in size and mesenteric nodules. No new nodules identified.
== END | disposition home or self-care (01) ==
LOC: RADCTMAIN 15:14
PROVIDERS: ATTEND Internal Medicine Hematology & Oncology
DX: Z03.89 Encounter for observation for other suspected diseases and conditions ruled out (principal); C7A.098 Malignant carcinoid tumors of other sites; K66.8 Other specified disorders of peritoneum; Z88.8 Allergy status to other drugs, medicaments and biological substances
CPT/HCPCS: 82565; 84520; 71260; 74177; 36415; Q9967

== ENCOUNTER 2021-03-01 19:33 | Inpatient (IN) | payer MEDICARE ==
[2021-03-01] MEDS ORDERED: SODIUM CHLORIDE 0.9% 1,000 ML IV STA (19:50)
[2021-03-01] MEDS ORDERED: MORPHINE SULFATE 2 MG/ML SYRINGE IVP STA (19:50)
[2021-03-01] MEDS ORDERED: KETOROLAC 15 MG/ML 1 ML VIAL IVP STA (19:51)
--- NOTE | 2021-03-01 20:04 | ED ---
General Adult HPI - General Chief complaint: Weakness Stated complaint: Knee Swelling Time Seen by Provider: 03/01/21 19:50 Source: patient, family, EMS, RN notes reviewed, old records reviewed Mode of arrival: EMS Limitations: altered mental status, physical limitation - History of Present Illness Initial comments: Is a 70-year-old male who presents emergency Department by EMS and daughter is in the room. Patient had fallen off the bed and he had his foot jammed between the side board and under the mattress and couldn't get it out his head was on the ground his other knee and elbows were on the ground as well trying to pull himself out. Daughter came home from work and found him this way she does not know how long he has been in this position. Daughter states he has fallen 7 times in the last 5 days. She states she's been to other hospitals after small but at this point time she is no longer capable of taking care of him because she has to go to work and the brother is trying to get guardianship at court date is not dizzy and weak. Patient himself states he is a little bit of pain at the knee but other than that he has no complaints. Patient does not complain of any headache complaint of chest pain or abdominal pain or back pain. Daughter states that he has not had a fever recently is been no difficulty breathing recently the patient has had no nausea vomiting diarrhea. - Related Data Home Medications Medication Instructions Recorded Confirmed Lovastatin [Mevacor] 80 mg PO HS 05/22/16 07/04/19 Rivaroxaban [Xarelto] 20 mg PO DAILY 07/04/16 07/04/19 Ergocalciferol (Vitamin D2) 50,000 unit PO TU 05/08/17 07/04/19 [Vitamin D2] Metoprolol Tartrate [Lopressor] 12.5 mg PO BID 05/08/17 07/04/19 OXcarbazepine [Trileptal] 300 mg PO BID 07/06/17 07/04/19 Diphenox-Atrop 2.5-0.025 mg 1 tab PO DAILY PRN 01/29/18 07/04/19 [Lomotil] Octreotide Lar [SandoSTATIN LAR] 30 mg IM QMONTH 01/29/18 07/04/19 ALPRAZolam [Xanax] 1 mg PO TID 10/08/18 07/04/19 DULoxetine HCL [Cymbalta] 60 mg PO BID 10/08/18 07/04/19 Ipratropium-Albuterol Nebulize 3 ml INHALATION RT-QID 10/08/18 07/04/19 [Duoneb 0.5 mg-3 mg/3 ml Soln] Losartan [Cozaar] 25 mg PO DAILY 10/08/18 07/04/19 Baclofen 10 mg PO HS 07/04/19 07/04/19 Ondansetron [Zofran] 4 mg PO Q8HR PRN 07/04/19 07/04/19 QUEtiapine [SEROquel] 150 mg PO HS 07/04/19 07/04/19 Previous Rx's Medication Instructions Recorded Isosorbide Mononitrate ER [Imdur] 30 mg PO DAILY #30 tab.er.24h 01/30/18 Allergies Allergy/AdvReac Type Severity Reaction Status Date / Time prochlorperazine Allergy Hallucinati Verified 07/04/19 13:07 [From Compazine] ons vortioxetine Allergy SEIZURES Verified 07/04/19 13:07 [From TrinAkosha] Review of Systems ROS Statement: Those systems with pertinent positive or pertinent negative responses have been documented in the HPI. ROS Other: All systems not noted in ROS Statement are negative. Past Medical History Past Medical History: Asthma, Cancer, COPD, Hearing Disorder / Deafness, Hyperlipidemia, Hypertension, Pulmonary Embolus (PE), Seizure Disorder Additional Past Medical History / Comment(s): "Mini strokes" and small vessel disorder, asthma was previously charted but pt/ unaware of this. 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, constipation (both in remission per dr oquendo), anemia, [place] even wl hearing aids since 8 years old, last seizure 3 years ago, obsessive compulsive disorder History of Any Multi-Drug Resistant Organisms: None Reported Past Surgical History: Hernia Repair Additional Past Surgical History / Comment(s): liver biopsy, soft tissue biopsy November 2018 Past Anesthesia/Blood Transfusion Reactions: Motion Sickness Additional Past Anesthesia/Blood Transfusion Reaction / Comment(s): clausterphobia, obsessive compulsive disorder Past Psychological History: Anxiety, Depression Past Alcohol Use History: None Reported Past Drug Use History: None Reported - Past Family History Mother Family Medical History: Dementia Additional Family Medical History / Comment(s): alzhiemers Father Family Medical History: Cancer Additional Family Medical History / Comment(s): lung cancer, hx of smoking General Exam - General Exam Comments Initial Comments: GENERAL: Patient is well-developed and well-nourished. Patient is nontoxic and well- hydrated and is in mild distress. ENT: Neck is soft and supple. No significant lymphadenopathy is noted. Oropharynx is clear. Moist mucous membranes. Neck has full range of motion without eliciting any pain. EYES: The sclera were anicteric and conjunctiva were pink and moist. Extraocular movements were intact and pupils were equal round and reactive to light. Eyelids were unremarkable. PULMONARY: Unlabored respirations. Good breath sounds bilaterally. No audible rales rhonchi or wheezing was noted. CARDIOVASCULAR: There is a regular rate and rhythm without any murmurs gallops or rubs. ABDOMEN: Soft and nontender with normal bowel sounds. SKIN: Patient superficial abrasion to the right knee and a more in-depth abrasion on the lateral aspect of the left leg old bruising on the right arm. Forearms are reddened is if he was lying on the but there is no abrasion or ecchymosis. NEUROLOGIC: Patient is alert and oriented 2. Cranial nerves II through XII are grossly intact. Motor and sensory are also intact. Normal speech, volume and content. Symmetrical smile. MUSCULOSKELETAL: Normal extremities with adequate strength and full range of motion. LYMPHATICS: No significant lymphadenopathy is noted PSYCHIATRIC: Difficult to assess Says since she's not completely oriented. Limitations: altered mental status, physical limitation Course Vital Signs 03/01/21 19:50 Temperature 98.2 F Pulse Rate 93 Respiratory 18 Rate Blood Pressure 133/95 O2 Sat by Pulse 89 L Oximetry Medical Decision Making - Medical Decision Making EKG shows sinus rhythm at 93 bpm [place] interval is 210 QRS is 122 QT interval 390 QTC is 484. EKG shows no ST segment elevation or depression. I spoke with Dr. Burt he agreed to admit the patient admitted the patient wrote admitting orders. - Lab Data Result diagrams: 03/01/21 20:13 03/01/21 20:13 Lab Results 03/01/21 03/01/21 03/01/21 Range/Units 20:13 20:13 20:13 WBC 12.1 H (3.8-10.6) k/uL RBC 4.39 (4.30-5.90) m/uL Hgb 12.6 L (13.0-17.5) gm/dL Hct 37.5 L (39.0-53.0) % MCV 85.4 (80.0-100.0) fL MCH 28.8 (25.0-35.0) pg MCHC 33.8 (31.0-37.0) g/dL RDW 16.1 H (11.5-15.5) % Plt Count 228 (150-450) k/uL MPV 8.5 Neutrophils % 90 % Lymphocytes % 4 % Monocytes % 4 % Eosinophils % 1 % Basophils % 0 % Neutrophils # 11.0 H (1.3-7.7) k/uL Lymphocytes # 0.5 L (1.0-4.8) k/uL Monocytes # 0.5 (0-1.0) k/uL Eosinophils # 0.1 (0-0.7) k/uL Basophils # 0.0 (0-0.2) k/uL Anisocytosis Slight PT 10.4 (9.0-12.0) sec INR 1.0 (<1.2) APTT 19.6 L (22.0-30.0) sec Sodium (137-145) mmol/L Potassium (3.5-5.1) mmol/L Chloride (98-107) mmol/L Carbon Dioxide (22-30) mmol/L Anion Gap mmol/L BUN (9-20) mg/dL Creatinine (0.66-1.25) mg/dL Est GFR (CKD-EPI)AfAm (>60 ml/min/1.73 sqM) Est GFR (CKD-EPI)NonAf (>60 ml/min/1.73 sqM) Glucose (74-99) mg/dL Calcium (8.4-10.2) mg/dL Total Bilirubin (0.2-1.3) mg/dL AST (17-59) U/L ALT (4-49) U/L Alkaline Phosphatase (38-126) U/L Creatine Kinase (55-170) U/L Total Protein (6.3-8.2) g/dL Albumin (3.5-5.0) g/dL Urine Color Yellow Urine Appearance Clear (Clear) Urine pH 6.0 (5.0-8.0) Ur Specific [place] 1.020 (1.001-1.035) Urine Protein Negative (Negative) Urine Glucose (UA) Negative (Negative) Urine Ketones Negative (Negative) Urine Blood Moderate H (Negative) Urine Nitrite Negative (Negative) Urine Bilirubin Negative (Negative) Urine Urobilinogen <2.0 (<2.0) mg/dL Ur Leukocyte Esterase Negative (Negative) Urine RBC <1 (0-5) /hpf Urine WBC 1 (0-5) /hpf Ur Squamous Epith Cells <1 (0-4) /hpf Urine Mucus Rare H (None) /hpf 03/01/21 Range/Units 20:13 WBC (3.8-10.6) k/uL RBC (4.30-5.90) m/uL Hgb (13.0-17.5) gm/dL Hct (39.0-53.0) % MCV (80.0-100.0) fL MCH (25.0-35.0) pg MCHC (31.0-37.0) g/dL RDW (11.5-15.5) % Plt Count (150-450) k/uL MPV Neutrophils % % Lymphocytes % % Monocytes % % Eosinophils % % Basophils % % Neutrophils # (1.3-7.7) k/uL Lymphocytes # (1.0-4.8) k/uL Monocytes # (0-1.0) k/uL Eosinophils # (0-0.7) k/uL Basophils # (0-0.2) k/uL Anisocytosis PT (9.0-12.0) sec INR (<1.2) APTT (22.0-30.0) sec Sodium 130 L (137-145) mmol/L Potassium 4.7 (3.5-5.1) mmol/L Chloride 99 (98-107) mmol/L Carbon Dioxide 20 L (22-30) mmol/L Anion Gap 11 mmol/L BUN 12 (9-20) mg/dL Creatinine 0.67 (0.66-1.25) mg/dL Est GFR (CKD-EPI)AfAm >90 (>60 ml/min/1.73 sqM) Est GFR (CKD-EPI)NonAf >90 (>60 ml/min/1.73 sqM) Glucose 148 H (74-99) mg/dL Calcium 9.1 (8.4-10.2) mg/dL Total Bilirubin 0.7 (0.2-1.3) mg/dL AST 65 H (17-59) U/L ALT 24 (4-49) U/L Alkaline Phosphatase 65 (38-126) U/L Creatine Kinase 1241 H* (55-170) U/L Total Protein 7.2 (6.3-8.2) g/dL Albumin 4.2 (3.5-5.0) g/dL Urine Color Urine Appearance (Clear) Urine pH (5.0-8.0) Ur Specific [place] (1.001-1.035) Urine Protein (Negative) Urine Glucose (UA) (Negative) Urine Ketones (Negative) Urine Blood (Negative) Urine Nitrite (Negative) Urine Bilirubin (Negative) Urine Urobilinogen (<2.0) mg/dL Ur Leukocyte Esterase (Negative) Urine RBC (0-5) /hpf Urine WBC (0-5) /hpf Ur Squamous Epith Cells (0-4) /hpf Urine Mucus (None) /hpf Disposition Clinical Impression: Rhabdomyolysis, Multiple falls Disposition: ADMITTED IP TO THIS HOSP Referrals: Rojas Pedraza DO [Primary Care Provider] - 1-2 days Time of Disposition: 21:06
[2021-03-01 20:19] LABS: Anisocytosis Slight; Basophils % (A) 0 %; Eosinophils # (A) 0.1 k/uL (0-0.7); Eosinophils % (A) 1 %; HCT 37.5 % (39.0-53.0); HGB 12.6 gm/dL (13.0-17.5); Lymphocytes # (A) 0.5 k/uL (1.0-4.8); Lymphocytes % (A) 4 %; MCH 28.8 pg (25.0-35.0); MCHC 33.8 g/dL (31.0-37.0); MCV 85.4 fL (80.0-100.0); Mean Platelet Volume 8.5; Monocytes # (A) 0.5 k/uL (0-1.0); Monocytes % (A) 4 %; Neutrophils % (A) 90 %; Platelet Count 228 k/uL (150-450); RBC 4.39 m/uL (4.30-5.90); RDW 16.1 % (11.5-15.5); WBC 12.1 k/uL (3.8-10.6)
[2021-03-01 20:32] LABS: ALT 24 U/L (4-49); AST 65 U/L (17-59); African American GFR (CKD) >90 (>60 ml/min/1.73 sqM); Albumin 4.2 g/dL (3.5-5.0); Alkaline Phosphatase 65 U/L (38-126); Anion Gap 11 mmol/L; Blood Urea Nitrogen 12 mg/dL (9-20); Calcium 9.1 mg/dL (8.4-10.2); Carbon Dioxide 20 mmol/L (22-30); Chloride 99 mmol/L (98-107); Glucose 148 mg/dL (74-99); Non-African American GFR(CKD) >90 (>60 ml/min/1.73 sqM); Potassium 4.7 mmol/L (3.5-5.1); Sodium 130 mmol/L (137-145); Total Bilirubin 0.7 mg/dL (0.2-1.3); Total Protein 7.2 g/dL (6.3-8.2)
[2021-03-01 20:36] LABS: Prothrombin Time 10.4 sec (9.0-12.0)
[2021-03-01 20:37] LABS: Partial Thromboplastin Time 19.6 sec (22.0-30.0)
[2021-03-01 20:43] LABS: Creatine Kinase 1241 U/L (55-170)
[2021-03-01 21:01] LABS: Appearance,Urine Clear (Clear); Bilirubin,Urine Negative (Negative); Blood,Urine Moderate (Negative); Color,Urine Yellow; Glucose,Urine (UA) Negative (Negative); Ketones,Urine Negative (Negative); Leukocyte Esterase,Urine Negative (Negative); Mucus,Urine Rare /hpf; Nitrite,Urine Negative (Negative); Protein,Urine Negative (Negative); RBC,Urine <1 /hpf (0-5); Squamous Epithelial Cell,Urine <1 /hpf (0-4); Urobilinogen,Urine <2.0 mg/dL (<2.0); WBC,Urine 1 /hpf (0-5)
[2021-03-01] MEDS ORDERED: SODIUM CHLORIDE 0.9% 1,000 ML IV ONE (21:06)
--- NOTE | 2021-03-01 21:41 | XR ---
EXAMINATION TYPE: XR chest 2V DATE OF EXAM: 03/01/2021 COMPARISON: 07/04/2019. HISTORY: Difficulty breathing. TECHNIQUE: Frontal and lateral views of the chest are obtained. FINDINGS: There is no focal air space opacity, pleural effusion, or pneumothorax seen. The cardiac silhouette size is borderline enlarged. No acute osseous abnormality. Remote post traumatic changes o f the right clavicle seen. IMPRESSION: No acute cardiopulmonary process.
--- NOTE | 2021-03-01 21:42 | XR ---
Result: History: Pain. Comparison: None available. Technique: 3 views of the left knee. Findings: No acute fracture or dislocation is seen. The visualized osseous structures are in anatomic alignmen t. The joint spaces are preserved. There is no significant knee joint effusion. Impression: No acute osseous abnormality.
[2021-03-01] MEDS ORDERED: ONDANSETRON 4 MG/2 ML VIAL IVP PRN (22:10)
[2021-03-01] MEDS ORDERED: CALCIUM CARBONATE 500 MG CHEWABLE PO PRN (22:10)
[2021-03-01] MEDS ORDERED: MAG HYDROX/AL HYDROX/SIMETH 30 ML CUP PO PRN (22:10)
[2021-03-01] MEDS ORDERED: NALOXONE 0.4 MG/ML 1 ML VIAL IV PRN (22:10)
--- NOTE | 2021-03-01 22:23 | P.HPIM ---
History of Present Illness H&P Date: 03/01/21 Chief Complaint: Frequent falls History of presenting complaint: This is a 70-year-old patient who follows with Dr. Pedraza. Chronic stable medical conditions include hard of hearing, hyperlipidemia, hypertension, neuroendocrine tumor of the liver, carcinoid tumor and compulsive disorder. Difficult to get a history from the patient has patient's of the heart of hearing. As per the family who told the ER patient is "falling quite a bit at home. In fact he got stuck between the bed and the wall with his leg in the air. He has a significant bruising on the lateral part of the left leg. Patient does follow at home. Normally does not use any support to walk. He is on xarelto. CPK was found to be a bit elevated. Patient's appetite has been weak. Denies any chills or fever. Review of systems: GEN.: Tired, weak EYES: None HEENT: None NECK: None RESPIRATORY: None CARDIOVASCULAR: None GASTROINTESTINAL: None GENITOURINARY: None MUSCULOSKELETAL: Joint pains and some bruising LYMPHATICS: None HEMATOLOGICAL: Bruising PSYCHIATRY: Anxious NEUROLOGICAL: As above Past medical history to include: Asthma, hard of hearing, hypertension, hyperlipidemia, pulmonary embolism, seizure disorder, kidney stones, neuroendocrine tumor carcinoid, get Sandostatin. Anemia, last seizure about 4 years ago. Obsessive-compulsive disorder Social history: . No smoking no alcohol. Family history: Dementia Physical examination: VITAL SIGNS: 98.2, 93, 18, 1 33 x 95, and 89% room air GENERAL: BMI 26.8, reclining in bed, awake, tired. EYES: Pupils equal. Conjunctiva normal. HEENT: External appearance of nose and ears normal, oral cavity grossly normal. Very hard of hearing NECK: JVD not raised; masses not palpable. HEART: First and second heart sounds are normal; no edema. LUNGS: Respiratory rate normal; clear to auscultation. ABDOMEN: Soft, nontender, liver spleen not palpable, no masses palpable. PSYCH: Alert and oriented x3; mood and affect anxiousl. DERMATOLOGICAL: Bruising of the left upper arm, left leg just below the knee, laterally NEUROLOGICAL: Cranial nerves grossly intact; no facial asymmetry, power and sensation grossly intact. LYMPHATICS: No lymph nodes palpable in the axilla and neck INVESTIGATIONS, reviewed in the clinical context: White count 12.1 hemoglobin 12.6 platelets 228 potassium 4.7 creatinine 0.67 Creatinine kinase 1241 Left knee x-ray: No fracture EKG tracing personally reviewed by me-was degree AV block Chest x-ray film personally reviewed by me-no obvious infiltrate Assessment and plan: -Recurrent falls. Patient does seem to lose balance. Check orthostatics. Telemetric to rule out any arrhythmias. Fall precautions. History is not compatible with seizure disorder, causing the falls -Acute rhabdomyolysis secondary to fall IV fluids -Moderate persistent asthma DuoNeb 4 times a day -Chronic pulmonary embolism On xarelto -Nephrolithiasis, asymptomatic -Neuroendocrine tumor/carcinoid On Sandostatin -Very hard of hearing since the age of 8 Hearing aids -Seizure disorder Trileptal 300 mg twice a day -Essential hypertension Cozaar 25 mg daily. Imdur ER 30 mg daily -Obsessive-compulsive disorder Seroquel 150 mg daily at bedtime Cymbalta 60 mg twice a day Xanax 1 mg 3 times a day -Hyperlipidemia Lovastatin 80 mg daily at bedtime-hold for now Home medications resumed. Fall precautions. Orthostatics. Telemetry. IV fluids. Repeat CPK in the morning. Care was discussed with the patient. Hold off xarelto for now. Because of significant bruising. 80 has been skin marker make sure is not increasing in size. Past Medical History Past Medical History: Asthma, Cancer, COPD, Hearing Disorder / Deafness, Hyperlipidemia, Hypertension, Pulmonary Embolus (PE), Seizure Disorder Additional Past Medical History / Comment(s): "Mini strokes" and small vessel disorder, asthma was previously charted but pt/ unaware of this. 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, constipation (both in remission per dr oquendo), anemia, [place] even wl hearing aids since 8 years old, last seizure 3 years ago, obsessive compulsive disorder History of Any Multi-Drug Resistant Organisms: None Reported Past Surgical History: Hernia Repair Additional Past Surgical History / Comment(s): liver biopsy, soft tissue biopsy November 2018 Past Anesthesia/Blood Transfusion Reactions: Motion Sickness Additional Past Anesthesia/Blood Transfusion Reaction / Comment(s): clausterphobia, obsessive compulsive disorder Past Psychological History: Anxiety, Depression Past Alcohol Use History: None Reported Past Drug Use History: None Reported - Past Family History Mother Family Medical History: Dementia Additional Family Medical History / Comment(s): alzhiemers Father Family Medical History: Cancer Additional Family Medical History / Comment(s): lung cancer, hx of smoking Medications and Allergies Home Medications Medication Instructions Recorded Confirmed Type Lovastatin [Mevacor] 80 mg PO HS 05/22/16 07/04/19 History Rivaroxaban [Xarelto] 20 mg PO DAILY 07/04/16 07/04/19 History Ergocalciferol (Vitamin D2) 50,000 unit PO TU 05/08/17 07/04/19 History [Vitamin D2] Metoprolol Tartrate [Lopressor] 12.5 mg PO BID 05/08/17 07/04/19 History OXcarbazepine [Trileptal] 300 mg PO BID 07/06/17 07/04/19 History Diphenox-Atrop 2.5-0.025 mg 1 tab PO DAILY PRN 01/29/18 07/04/19 History [Lomotil] Octreotide Lar [SandoSTATIN LAR] 30 mg IM QMONTH 01/29/18 07/04/19 History Isosorbide Mononitrate ER [Imdur] 30 mg PO DAILY #30 tab.er.24h 01/30/18 0 Rx ALPRAZolam [Xanax] 1 mg PO TID 10/08/18 07/04/19 History DULoxetine HCL [Cymbalta] 60 mg PO BID 10/08/18 07/04/19 History Ipratropium-Albuterol Nebulize 3 ml INHALATION RT-QID 10/08/18 07/04/19 History [Duoneb 0.5 mg-3 mg/3 ml Soln] Losartan [Cozaar] 25 mg PO DAILY 10/08/18 07/04/19 History Baclofen 10 mg PO HS 07/04/19 07/04/19 History Ondansetron [Zofran] 4 mg PO Q8HR PRN 07/04/19 07/04/19 History QUEtiapine [SEROquel] 150 mg PO HS 07/04/19 07/04/19 History Allergies Allergy/AdvReac Type Severity Reaction Status Date / Time prochlorperazine Allergy Hallucinati Verified 07/04/19 13:07 [From Compazine] ons vortioxetine Allergy SEIZURES Verified 07/04/19 13:07 [From Trintellix] Physical Exam Vitals: Vital Signs Temp Pulse Resp BP Pulse Ox 03/01/21 19:50 98.2 F 93 18 133/95 89 L Intake and Output 03/01/21 03/01/21 03/01/21 06:59 14:59 22:59 Other: Weight 99.79 kg Results CBC & Chem 7: 03/01/21 20:13 03/01/21 20:13 Labs: Abnormal Lab Results - Last 24 Hours (Table) 03/01/21 03/01/21 03/01/21 Range/Units 20:13 20:13 20:13 WBC 12.1 H (3.8-10.6) k/uL Hgb 12.6 L (13.0-17.5) gm/dL Hct 37.5 L (39.0-53.0) % RDW 16.1 H (11.5-15.5) % Neutrophils # 11.0 H (1.3-7.7) k/uL Lymphocytes # 0.5 L (1.0-4.8) k/uL APTT 19.6 L (22.0-30.0) sec Sodium (137-145) mmol/L Carbon Dioxide (22-30) mmol/L Glucose (74-99) mg/dL AST (17-59) U/L Creatine Kinase (55-170) U/L Urine Blood Moderate H (Negative) Urine Mucus Rare H (None) /hpf 03/01/21 Range/Units 20:13 WBC (3.8-10.6) k/uL Hgb (13.0-17.5) gm/dL Hct (39.0-53.0) % RDW (11.5-15.5) % Neutrophils # (1.3-7.7) k/uL Lymphocytes # (1.0-4.8) k/uL APTT (22.0-30.0) sec Sodium 130 L (137-145) mmol/L Carbon Dioxide 20 L (22-30) mmol/L Glucose 148 H (74-99) mg/dL AST 65 H (17-59) U/L Creatine Kinase 1241 H* (55-170) U/L Urine Blood (Negative) Urine Mucus (None) /hpf
[2021-03-01] MEDS: LACTATED RINGERS 1,000 ML IV SCH (23:49)
[2021-03-01] MEDS: BACLOFEN 10 MG TAB PO SCH (23:49)
[2021-03-01] MEDS: DULoxetine HCL 60 MG CAPSULE.DR PO SCH (23:49)
[2021-03-01] MEDS: METOPROLOL TARTRATE 12.5 MG TAB PO SCH (23:49)
[2021-03-01] MEDS: QUEtiapine 50 MG TAB PO SCH (23:49)
[2021-03-02] MEDS: OXcarbazepine 300 MG TAB PO SCH ×3 (00:17→21:39)
[2021-03-02 06:44] LABS: African American GFR (CKD) >90 (>60 ml/min/1.73 sqM); Anion Gap 5 mmol/L; Blood Urea Nitrogen 12 mg/dL (9-20); Calcium 9.2 mg/dL (8.4-10.2); Carbon Dioxide 25 mmol/L (22-30); Chloride 101 mmol/L (98-107); Glucose 113 mg/dL (74-99); Non-African American GFR(CKD) >90 (>60 ml/min/1.73 sqM); Potassium 4.7 mmol/L (3.5-5.1); Sodium 131 mmol/L (137-145)
[2021-03-02 07:32] LABS: Creatine Kinase 9136 U/L (55-170)
[2021-03-02] MEDS: LACTATED RINGERS 1,000 ML IV SCH ×3 (07:50→21:39)
[2021-03-02] MEDS: IPRATROPIUM-ALBUTEROL 3 ML NEB INHALATION SCH ×4 (08:01→19:46)
[2021-03-02] MEDS: LOSARTAN 25 MG TAB PO SCH (09:18)
[2021-03-02] MEDS: ISOSORBIDE MONONITRATE ER 30 MG TAB.ER.24H PO SCH (09:18)
[2021-03-02] MEDS: METOPROLOL TARTRATE 12.5 MG TAB PO SCH ×2 (09:18→20:21)
[2021-03-02] MEDS: ALPRAZolam 1 MG TAB PO SCH ×3 (09:18→20:20)
[2021-03-02] MEDS: DULoxetine HCL 60 MG CAPSULE.DR PO SCH ×2 (09:18→20:21)
[2021-03-02] MEDS ORDERED: SODIUM CHLORIDE 0.9% 1,000 ML IV SCH (10:00)
--- NOTE | 2021-03-02 18:16 | P.CONS ---
History of Present Illness - Reason for Consult Consult date: 03/02/21 Carcinoid Tumor Requesting physician: Darin Burt - Chief Complaint Recurrent falls - History of Present Illness Mr Correa is a pleasant WM, who had presented to his PCP in 02/07, with c/o nausea off and on over the past 2 mths, overall unrelated with eating or fasting , though a heavy meal did seem to aggavate symptoms. He was also c/o somewhat vague upper abdominal pain , described as a tightness beneath the ribs, with again, no aggravating or relieving factors. He had an US abdomen done on 02/21/16 revealing 2 lesions superior and left to gallbladder, 2.5 x 1.8 x 1.3 cm, and 1.1 x 0.9 x 0.8 cm. He had been c/o SOB on exertion over the same period of time, slowly progressive. Chest CT , and then CT AP also revealed 1 hypodense focus in the liver in the same area. He had a core biopsy on 04/06/16 revealing a well differentiated neuroendocrine cancer, c/w carcinoid. Labs in 03/10 revealed anemia with Hgb in the 9 range, MCV in the 76 range , and iron studies c/w iron deficiency ( ferritin of 5) He was thus referred here for further evaluation and recommendations. Octreoscan showed uptake only in the liver lesion. Serotonin and chromogranin were WNL. EGD and colonoscopy were recommended to check for a primary site. This was negative ( 05/16/16) He was admitted to [facility] in early 06/09 with b/l PE. His stay was complicated by developement of psychotic episodes. CT brain is negative. He was discharged on Xarelto. MRCP on 06/21/16 revealed no finding in the pancreas. However, multiple lesions were seen in the liver. He started Sandostatin in 06/09. 04/25/17-Pt here today for acute visit-he was given augmentin by his PCP for sinus infection then had green urine, then pink urine, he stopped abx and denies any hematuria today, unknown if any fever, pt feels sinus infection is resolved, no back pain, he has had buring with urination since taking augmentin, having difficulty starting stream as well. Patient's urine is positive for blood as well as protein. Patient's heart rate is noted to be significantly low in the 40s, patient is asymptomatic. States a history of seeing a emt intermediate as well as a urologist, recommended follow-up as soon as possible with either PCP or specialist to make adjustments in patient's medications for the low heart rate and for the urinary symptoms. We follow patient for carcinoid tumor, he denies any acute changes in his bowel habits, no new abdominal pain, he medicates for nausea frequently which is unchanged from baseline. he was admitted in 08/12 with UTI, and also subsequently had a massive nosebleed. CT scans in 12/10 showed a possible new omental lesion, but decrease in size of the liver lesions He was admitted in 02/09 with COPD exacerbation, and then 05/12 for UE cellulitis. He was admitted in 10/11 for SOB, and urinary retention. CTA was negative for PE, but showed a new LUQ mass 17 x 16 cm abutting the stomach. Some ascites was also noted. Octeroscan was performed, which was positive only in the aforementioned liver lesion He had a biopsy of the LUQ mass in 12/11, revealing degenerated cells, and old blood. PET scan in 01/10 was negative in this area, and showed a reduction. There was only mild activity in the solitary liver lesion ( known carcinoid). Another area in the mesentery was noted, in the 1-2 cm range, which was, however hypometabolic. 06/05/19-Pt here today for acute visit, c/o diarrhea, has had diarrhea before he had cancer, been on lomotil for years, he had diarrhea multiple times yesterday, 3-5 times, loose but not diarrhea, he is taking lomotil 4-5 times a day, he is using imodium too. His sandostatin dose was increased to 40 mg in 06/12, along with increase in Lomotil He was having rt sided nosebleeds lasting upto 15-20 mins, almost daily since mid 12/12. He was seen by ENT, and had a cauterization,with resolution. His diarrhea and nausea are both improved, since he was started on hyoscyamine by his PCP. He still uses Lomotil and Zofran when necessary, but infrequently. He had developed a reddish rash on his hands and elbow creases, and ankles. He was referred to Dermatology, but decided not to go to the appt. His PO intake is improved. He is maintaining his weight. 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 He is following with Neurology. He now presents to [facility] ER for falls. He has had recurrent falls over the past few weeks, he is a poor historian and unable to get a clear picture or reasoning why. Review of Systems All systems: negative Constitutional: Reports as per HPI Past Medical History Past Medical History: Asthma, Cancer, COPD, Hearing Disorder / Deafness, Hyperlipidemia, Hypertension, Pulmonary Embolus (PE), Seizure Disorder Additional Past Medical History / Comment(s): "Mini strokes" and small vessel disorder, asthma was previously charted but pt/ unaware of this. 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, constipation (both in remission per dr oquendo), anemia, [place] even wl hearing aids since 8 years old, last seizure 3 years ago, obsessive compulsive disorder History of Any Multi-Drug Resistant Organisms: None Reported Past Surgical History: Hernia Repair Additional Past Surgical History / Comment(s): liver biopsy, soft tissue biopsy November 2018 Past Anesthesia/Blood Transfusion Reactions: Motion Sickness Additional Past Anesthesia/Blood Transfusion Reaction / Comm: clausterphobia, obsessive compulsive disorder Past Psychological History: Anxiety, Depression Past Alcohol Use History: None Reported Past Drug Use History: None Reported - Past Family History Mother Family Medical History: Dementia Additional Family Medical History / Comment(s): alzhiemers Father Family Medical History: Cancer Additional Family Medical History / Comment(s): lung cancer, hx of smoking Medications and Allergies Home Medications Medication Instructions Recorded Confirmed Type Rivaroxaban [Xarelto] 20 mg PO DAILY 07/04/16 03/01/21 History Ergocalciferol (Vitamin D2) 50,000 unit PO TU 05/08/17 03/01/21 History [Vitamin D2] OXcarbazepine [Trileptal] 300 mg PO BID 07/06/17 03/01/21 History Diphenox-Atrop 2.5-0.025 mg 1 - 2 tab PO Q6H PRN 01/29/18 03/01/21 History [Lomotil] Octreotide Lar [SandoSTATIN LAR] 30 mg IM QMONTH 01/29/18 03/01/21 History Isosorbide Mononitrate ER [Imdur] 30 mg PO DAILY #30 tab.er.24h 01/30/18 03/01/21 Rx ALPRAZolam [Xanax] 1 mg PO Q6H PRN 10/08/18 03/01/21 History DULoxetine HCL [Cymbalta] 60 mg PO BID 10/08/18 03/01/21 History Ipratropium-Albuterol Nebulize 3 ml INHALATION RT-QID 10/08/18 03/01/21 History [Duoneb 0.5 mg-3 mg/3 ml Soln] Losartan [Cozaar] 25 mg PO DAILY 10/08/18 03/01/21 History Ondansetron [Zofran] 4 mg PO Q8HR PRN 07/04/19 03/01/21 History QUEtiapine [SEROquel] 150 mg PO HS 07/04/19 03/01/21 History Albuterol Inhaler [Ventolin Hfa 2 puff INHALATION RT-QID PRN 03/01/21 03/01/21 History Inhaler] Hyoscyamine Sulfate [Levbid] 0.375 mg PO Q12H PRN 03/01/21 03/01/21 History Allergies Allergy/AdvReac Type Severity Reaction Status Date / Time prochlorperazine Allergy Hallucinati Verified 03/01/21 23:19 [From Compazine] ons vortioxetine Allergy SEIZURES Verified 03/01/21 23:19 [From Trintellix] Physical Exam Vitals: Vital Signs Temp Pulse Pulse Resp BP BP BP 03/02/21 12:29 98.0 F 60 159/96 03/02/21 10:06 153/98 03/02/21 09:15 63 165/102 03/02/21 08:16 92 03/02/21 08:01 69 03/02/21 04:00 98.1 F 65 16 125/89 03/01/21 23:37 98.0 F 75 16 178/88 03/01/21 19:50 98.2 F 93 18 133/95 Pulse Ox 03/02/21 12:29 95 03/02/21 10:06 03/02/21 09:15 94 L 03/02/21 08:16 03/02/21 08:01 03/02/21 04:00 96 03/01/21 23:37 96 03/01/21 19:50 89 L Intake and Output 03/01/21 03/02/21 03/02/21 22:59 06:59 14:59 Other: Voiding Method Toilet Urinal Weight 99.79 kg - Constitutional General appearance: cooperative, no acute distress - EENT Eyes: EOMI, PERRLA ENT: hard of hearing, NA/AT - Neck Neck: normal ROM - Respiratory Respiratory: bilateral: diminished - Cardiovascular Rhythm: regular Heart sounds: normal: S1, S2 - Gastrointestinal General gastrointestinal: soft, tenderness - Integumentary Integumentary: pale - Neurologic Neurologic: CNII-XII intact - Musculoskeletal Musculoskeletal: generalized weakness, strength equal bilaterally - Psychiatric Psychiatric: A&O x's 3, appropriate affect, intact judgment & insight Results CBC & Chem 7: 03/01/21 20:13 03/02/21 05:39 Labs: Abnormal Lab Results - Last 24 Hours (Table) 03/01/21 03/01/21 03/01/21 Range/Units 20:13 20:13 20:13 WBC 12.1 H (3.8-10.6) k/uL Hgb 12.6 L (13.0-17.5) gm/dL Hct 37.5 L (39.0-53.0) % RDW 16.1 H (11.5-15.5) % Neutrophils # 11.0 H (1.3-7.7) k/uL Lymphocytes # 0.5 L (1.0-4.8) k/uL APTT 19.6 L (22.0-30.0) sec Sodium (137-145) mmol/L Carbon Dioxide (22-30) mmol/L Glucose (74-99) mg/dL AST (17-59) U/L Creatine Kinase (55-170) U/L Urine Blood Moderate H (Negative) Urine Mucus Rare H (None) /hpf 03/01/21 03/02/21 Range/Units 20:13 05:39 WBC (3.8-10.6) k/uL Hgb (13.0-17.5) gm/dL Hct (39.0-53.0) % RDW (11.5-15.5) % Neutrophils # (1.3-7.7) k/uL Lymphocytes # (1.0-4.8) k/uL APTT (22.0-30.0) sec Sodium 130 L 131 L (137-145) mmol/L Carbon Dioxide 20 L (22-30) mmol/L Glucose 148 H 113 H (74-99) mg/dL AST 65 H (17-59) U/L Creatine Kinase 1241 H* 9136 H* (55-170) U/L Urine Blood (Negative) Urine Mucus (None) /hpf Assessment and Plan (1) Multiple falls Current Visit: Yes Status: Acute Code(s): R29.6 - REPEATED FALLS SNOMED Code(s): 097320185 (2) Rhabdomyolysis Current Visit: Yes Status: Acute Code(s): M62.82 - RHABDOMYOLYSIS SNOMED Code(s): 860297625 (3) Carcinoid tumor Current Visit: No Status: Acute Code(s): D3A.00 - BENIGN CARCINOID TUMOR OF UNSPECIFIED SITE SNOMED Code(s): 068634650 (4) Weakness Current Visit: No Status: Acute Code(s): R53.1 - WEAKNESS SNOMED Code(s): 83334133 (5) Neuroendocrine carcinoma Current Visit: No Status: Chronic Priority: Medium Code(s): C7A.8 - OTHER MALIGNANT NEUROENDOCRINE TUMORS SNOMED Code(s): 415882773 Plan: Case discussed with Primary team We will move forward with assessing imaging of brain with his recurrent falls and the fact he is on anticoagulation therapy, patient understands Physician Attest: I have completed the full history and physical and agree with above dictation, dictated as a scribe.
--- NOTE | 2021-03-02 19:29 | P.PN ---
Progress Note - Text Progress Note Date: 03/02/21 Chief Complaint: Frequent falls History of presenting complaint: This is a 70-year-old patient who follows with Dr. Pedraza. Chronic stable medical conditions include hard of hearing, hyperlipidemia, hypertension, neuroendocrine tumor of the liver, carcinoid tumor and compulsive disorder. Difficult to get a history from the patient has patient's of the heart of hearing. As per the family who told the ER patient is "falling quite a bit at home. In fact he got stuck between the bed and the wall with his leg in the air. He has a significant bruising on the lateral part of the left leg. Patient does follow at home. Normally does not use any support to walk. He is on xarelto. CPK was found to be a bit elevated. Patient's appetite has been weak. Denies any chills or fever. Admitted with frequent falls, bruising, acute rhabdomyolysis. Started IV fluids. IV bicarbonate. March 02: Laying in bed. Not in distress. Getting IV fluids. Oral intake fair. Seen by oncology. Patient has some malfunction in his hearing aids. Has difficulty in communicating. Bruising present. CPK has gone up from yesterday. IV fluids increased Review of systems: Was done for constitutional, cardiovascular, GI, pulmonary. relevant finding as above Active Medications Acetaminophen (Acetaminophen Tab 325 Mg Tab) 650 mg PO Q6HR PRN PRN Reason: Mild Pain or Fever > 100.5 Al Hydroxide/Mg Hydroxide (Mag Hydrox/Al Hydrox/Simeth 30 Ml Cup) 15 ml PO Q6HR PRN PRN Reason: Indigestion Albuterol/Ipratropium (Ipratropium-Albuterol 3 Ml Neb) 3 ml INHALATION RT-QID [facility] Last Admin: 03/02/21 15:50 Dose: Not Given Documented by: Alprazolam (Alprazolam 1 Mg Tab) 1 mg PO TID [facility] Last Admin: 03/02/21 16:03 Dose: 1 mg Documented by: Baclofen (Baclofen 10 Mg Tab) 10 mg PO HS [facility] Last Admin: 03/01/21 23:49 Dose: 10 mg Documented by: Calcium Carbonate/Glycine (Calcium Carbonate 500 Mg Chewable) 1,000 mg PO Q4HR PRN PRN Reason: Dyspepsia Duloxetine HCl (Duloxetine Hcl 60 Mg ) 60 mg PO BID [facility] Last Admin: 03/02/21 09:18 Dose: 60 mg Documented by: Lactated Ringer's (Lactated Ringers) 1,000 mls @ 125 mls/hr IV .Q8H [facility] Last Admin: 03/02/21 07:50 Dose: 125 mls/hr Documented by: Isosorbide Mononitrate (Isosorbide Mononitrate Er 30 Mg Tab.Er.24h) 30 mg PO DAILY [facility] Last Admin: 03/02/21 09:18 Dose: 30 mg Documented by: Losartan Potassium (Losartan 25 Mg Tab) 25 mg PO DAILY [facility] Last Admin: 03/02/21 09:18 Dose: 25 mg Documented by: Metoprolol Tartrate (Metoprolol Tartrate 12.5 Mg Tab) 12.5 mg PO BID [facility] Last Admin: 03/02/21 09:18 Dose: 12.5 mg Documented by: Naloxone HCl (Naloxone 0.4 Mg/Ml 1 Ml Vial) 0.2 mg IV Q2M PRN PRN Reason: Opioid Reversal Ondansetron HCl (Ondansetron 4 Mg/2 Ml Vial) 4 mg IVP Q8HR PRN PRN Reason: Nausea And Vomiting Oxcarbazepine (Oxcarbazepine 300 Mg Tab) 300 mg PO BID [facility] Last Admin: 03/02/21 09:18 Dose: 300 mg Documented by: Quetiapine Fumarate (Quetiapine 50 Mg Tab) 150 mg PO HS [facility] Last Admin: 03/01/21 23:49 Dose: 150 mg Documented by: Past medical history to include: Asthma, hard of hearing, hypertension, hyperlipidemia, pulmonary embolism, seizure disorder, kidney stones, neuroendocrine tumor carcinoid, get Sandostatin. Anemia, last seizure about 4 years ago. Obsessive-compulsive disorder Social history: . No smoking no alcohol. Family history: Dementia Physical examination: VITAL SIGNS: 98, 60, 16, 159/96, 95% room air GENERAL: reclining in bed, awake,. EYES: Pupils equal. Conjunctiva normal. HEENT: Very hard of hearing NECK: JVD not raised; masses not palpable. HEART: First and second heart sounds are normal; no edema. LUNGS: Respiratory rate normal; clear to auscultation. ABDOMEN: Soft, nontender, liver spleen not palpable, no masses palpable. PSYCH: Alert and oriented x3; mood and affect anxious. DERMATOLOGICAL: Bruising of the left upper arm, left leg just below the knee, laterally INVESTIGATIONS, reviewed in the clinical context: March 02: Potassium 4.7 BUN 12 creatinine 0.67 CPK 9136 White count 12.1 hemoglobin 12.6 platelets 228 potassium 4.7 creatinine 0.67 Creatinine kinase 1241 Left knee x-ray: No fracture EKG tracing personally reviewed by me-was degree AV block Chest x-ray film personally reviewed by me-no obvious infiltrate Assessment and plan: -Recurrent falls. Patient does seem to lose balance. Nursing reminded to check orthostatic. Telemetry. We'll order EEG and consult neurology. -Acute rhabdomyolysis secondary to fall: Worsening IV fluids increased -Moderate persistent asthma DuoNeb 4 times a day -Chronic pulmonary embolism On xarelto -Nephrolithiasis, asymptomatic -Neuroendocrine tumor/carcinoid On Sandostatin -Very hard of hearing since the age of 8 Hearing aids -Complex partial Seizure disorder Trileptal 300 mg twice a day -Essential hypertension Cozaar 25 mg daily. Imdur ER 30 mg daily -Obsessive-compulsive disorder Seroquel 150 mg daily at bedtime Cymbalta 60 mg twice a day Xanax 1 mg 3 times a day -Hyperlipidemia Lovastatin 80 mg daily at bedtime-hold for now Telemetry. Orthostatics requested. EEG. Neurology consult. Communicated with patient. Increase IV fluids. Hematology team is ordering MRA brain
[2021-03-02] MEDS: BACLOFEN 10 MG TAB PO SCH (20:21)
[2021-03-02] MEDS: QUEtiapine 50 MG TAB PO SCH (21:39)
[2021-03-03] MEDS: LACTATED RINGERS 1,000 ML IV SCH ×3 (04:47→21:39)
[2021-03-03 06:15] LABS: African American GFR (CKD) >90 (>60 ml/min/1.73 sqM); Anion Gap 7 mmol/L; Blood Urea Nitrogen 11 mg/dL (9-20); Carbon Dioxide 28 mmol/L (22-30); Chloride 99 mmol/L (98-107); Glucose 140 mg/dL (74-99); Potassium 4.1 mmol/L (3.5-5.1); Sodium 134 mmol/L (137-145)
[2021-03-03 06:16] LABS: Calcium 9.3 mg/dL (8.4-10.2); Non-African American GFR(CKD) >90 (>60 ml/min/1.73 sqM)
[2021-03-03 06:45] LABS: Creatine Kinase 7115 U/L (55-170)
[2021-03-03] MEDS: DULoxetine HCL 60 MG CAPSULE.DR PO SCH ×2 (07:43→21:19)
[2021-03-03] MEDS: OXcarbazepine 300 MG TAB PO SCH ×2 (07:44→21:19)
[2021-03-03] MEDS: LOSARTAN 25 MG TAB PO SCH (07:44)
[2021-03-03] MEDS: ALPRAZolam 1 MG TAB PO SCH ×2 (07:44→16:24)
[2021-03-03] MEDS: METOPROLOL TARTRATE 12.5 MG TAB PO SCH ×2 (07:44→21:19)
[2021-03-03] MEDS: ISOSORBIDE MONONITRATE ER 30 MG TAB.ER.24H PO SCH (08:06)
[2021-03-03] MEDS: IPRATROPIUM-ALBUTEROL 3 ML NEB INHALATION SCH ×4 (09:27→19:30)
[2021-03-03] MEDS: FUROSEMIDE 20 MG TAB PO SCH ×2 (12:42→16:49)
--- NOTE | 2021-03-03 15:35 | MR ---
EXAMINATION TYPE: MR brain wo/w con DATE OF EXAM: 03/03/2021 COMPARISON: Prior MRI brain from August 16, 2016. CT brain July 04, 2019 HISTORY: Recurrent falls. History of malignant carcinoid tumor. TECHNIQUE: Multiplanar, multisequence images of the brain and brainstem is performed without and with IV contras t, utilizing 10 mL intravenous Gadavist . FINDINGS: Exam is suboptimal due to patient motion and confusion. Fast sequence imaging had to be per formed. Diffusion weighted images demonstrate no evidence of a recent infarct or other diffusion abnormality. There is is mild to moderate ventricular and sulcal prominence consistent with diffuse cerebral atro phy. There are focal and confluent areas of T2 hyperintensity redemonstrated throughout the deep and periventricular white matter. Lesions are nonspecific in appearance and distribution but most likely on basis of product of chronic small vessel ischemic change in patient of this age. Midline structures demonstrate normal morphology. The craniocervical junction remains within normal limits. Post contrast images demonstrate no new or abnormal enhancement. Normal enhancing pituitary suspected coronal image 14 similar to prior. The dural venous sinuses remain patent. The paranasal si nuses are clear. The globes are intact bilaterally. No suspicious fluid signal seen in mastoid air ce lls bilaterally. IMPRESSION: There is mild to moderate diffuse cerebral atrophy and moderate to severe chronic small v essel ischemic change redemonstrated. No significant change from prior MRI
--- NOTE | 2021-03-03 16:21 | US ---
EXAMINATION TYPE: US carotid duplex BILAT DATE OF EXAM: 03/03/2021 COMPARISON: NONE CLINICAL HISTORY: seizure vs syncope. syncope x 2 EXAM MEASUREMENTS: RIGHT: Peak Systolic Velocity (PSV) cm/sec ----- Right CCA: 37.0 ----- Right ICA: 49.5 ----- Right ECA: 53.1 ICA/CCA ratio: 1.3 RIGHT: End Diastole cm/sec ----- Right CCA: 9.1 ----- Right ICA: 18.2 ----- Right ECA: 9.0 LEFT: Peak Systolic Velocity (PSV) cm/sec ----- Left CCA: 40.3 ----- Left ICA: 44.6 ----- Left ECA: 65.1 ICA/CCA ratio: 1.1 LEFT: End Diastole cm/sec ----- Left CCA: 8.5 ----- Left ICA: 17.5 ----- Left ECA: 10.1 VERTEBRALS (direction of flow): Right Vertebral: Antegrade Left Vertebral: Antegrade Rhythm: Normal Moderate peripheral shadowing plaque left carotid bulb. Velocity measurements and ratios remain withi n normal limits bilaterally. IMPRESSION: No hemodynamically significant stenosis seen in either internal carotid artery. NASCET criteria was used in interpretation of this exam? Criteria for Assigning % of Stenosis / Diameter reduction (Estimation based on the indirect measurements of the internal carotid artery velocities (ICA PSV). 1. Normal (no stenosis)=ICA PSV < 125 cm/s: ratio < 2.0: ICA EDV<40 cm/s. 2. Less than 50% stenosis=ICA PSV < 125 cm/s: ratio < 2.0: ICA EDV<40 cm/s. 3. 50 to 69% stenosis=ICA PSV of 125 to 230 cm/s: ration 2.0 ? 4.0: ICA EDV 40-100 cm/s. 4. Greater than 70% stenosis to near occlusion= ICA PSV > 230 cm/s: ratio > 4.0: ICA EDV > 100 cm/s. 5. Near occlusion= ICA PSV velocities may be low or undetectable: variable ratio and ICA EDV. 6. Total occlusion=unable to detect flow.
--- NOTE | 2021-03-03 16:50 | P.PN ---
Progress Note - Text Progress Note Date: 03/03/21 Chief Complaint: Frequent falls History of presenting complaint: This is a 70-year-old patient who follows with Dr. Pedraza. Chronic stable medical conditions include hard of hearing, hyperlipidemia, hypertension, neuroendocrine tumor of the liver, carcinoid tumor and compulsive disorder. Difficult to get a history from the patient has patient's of the heart of hearing. As per the family who told the ER patient is "falling quite a bit at home. In fact he got stuck between the bed and the wall with his leg in the air. He has a significant bruising on the lateral part of the left leg. Patient does follow at home. Normally does not use any support to walk. He is on xarelto. CPK was found to be a bit elevated. Patient's appetite has been weak. Denies any chills or fever. Admitted with frequent falls, bruising, acute rhabdomyolysis. Started IV fluids. IV bicarbonate. March 02: Laying in bed. Not in distress. Getting IV fluids. Oral intake fair. Seen by oncology. Patient has some malfunction in his hearing aids. Has difficulty in communicating. Bruising present. CPK has gone up from yesterday. IV fluids increased March 03: Oral intake good. CPK and 7000s. Did explain to the patient. He is of course keen to go home. assistant spa manager informed be that has been taking extra Seroquel and Xanax at home it seems. Family does start monitoring the same. MRI of the brain nonspecific. Patient walking well as per PT. Review of systems: Was done for constitutional, cardiovascular, GI, pulmonary. relevant finding as above Active Medications Acetaminophen (Acetaminophen Tab 325 Mg Tab) 650 mg PO Q6HR PRN PRN Reason: Mild Pain or Fever > 100.5 Al Hydroxide/Mg Hydroxide (Mag Hydrox/Al Hydrox/Simeth 30 Ml Cup) 15 ml PO Q6HR PRN PRN Reason: Indigestion Albuterol/Ipratropium (Ipratropium-Albuterol 3 Ml Neb) 3 ml INHALATION RT-QID [facility] Last Admin: 03/03/21 16:32 Dose: Not Given Documented by: Alprazolam (Alprazolam 1 Mg Tab) 1 mg PO TID [facility] Last Admin: 03/03/21 16:24 Dose: 1 mg Documented by: Baclofen (Baclofen 10 Mg Tab) 10 mg PO HS [facility] Last Admin: 03/02/21 20:21 Dose: 10 mg Documented by: Calcium Carbonate/Glycine (Calcium Carbonate 500 Mg Chewable) 1,000 mg PO Q4HR PRN PRN Reason: Dyspepsia Duloxetine HCl (Duloxetine Hcl 60 Mg Capsule.Dr) 60 mg PO BID [facility] Last Admin: 03/03/21 07:43 Dose: 60 mg Documented by: Furosemide (Furosemide 20 Mg Tab) 20 mg PO BID@0900,1600 [facility] Last Admin: 03/03/21 12:42 Dose: 20 mg Documented by: Lactated Ringer's (Lactated Ringers) 1,000 mls @ 200 mls/hr IV .Q5H [facility] Last Admin: 03/03/21 12:42 Dose: 200 mls/hr Documented by: Isosorbide Mononitrate (Isosorbide Mononitrate Er 30 Mg Tab.Er.24h) 30 mg PO DAILY [facility] Last Admin: 03/03/21 08:06 Dose: 30 mg Documented by: Losartan Potassium (Losartan 25 Mg Tab) 25 mg PO DAILY [facility] Last Admin: 03/03/21 07:44 Dose: 25 mg Documented by: Metoprolol Tartrate (Metoprolol Tartrate 12.5 Mg Tab) 12.5 mg PO BID [facility] Last Admin: 03/03/21 07:44 Dose: 12.5 mg Documented by: Naloxone HCl (Naloxone 0.4 Mg/Ml 1 Ml Vial) 0.2 mg IV Q2M PRN PRN Reason: Opioid Reversal Ondansetron HCl (Ondansetron 4 Mg/2 Ml Vial) 4 mg IVP Q8HR PRN PRN Reason: Nausea And Vomiting Oxcarbazepine (Oxcarbazepine 300 Mg Tab) 300 mg PO BID [facility] Last Admin: 03/03/21 07:44 Dose: 300 mg Documented by: Quetiapine Fumarate (Quetiapine 50 Mg Tab) 150 mg PO HS [facility] Last Admin: 03/02/21 21:39 Dose: 150 mg Documented by: Past medical history to include: Asthma, hard of hearing, hypertension, hyperlipidemia, pulmonary embolism, seizure disorder, kidney stones, neuroendocrine tumor carcinoid, get Sandostatin. Anemia, last seizure about 4 years ago. Obsessive-compulsive disorder Social history: . No smoking no alcohol. Family history: Dementia Physical examination: VITAL SIGNS: 98.4, 65, 16, 152/88, 97% room air. Negative for orthostatic. GENERAL: Sitting up in bed, awake,. EYES: Pupils equal. Conjunctiva normal. HEENT: Very hard of hearing. Hearing aid NECK: JVD not raised; masses not palpable. HEART: First and second heart sounds are normal; no edema. LUNGS: Respiratory rate normal; clear to auscultation. ABDOMEN: Soft, nontender, liver spleen not palpable, no masses palpable. PSYCH: Alert and oriented x3; mood and affect anxious. DERMATOLOGICAL: Bruising of the left upper arm, left leg just below the knee, laterally INVESTIGATIONS, reviewed in the clinical context: March 03: Pressure 4.1 creatinine 0.71 CPK 7115 MRI of the brain: Chronic white matter changes. Nothing acute March 02: Potassium 4.7 BUN 12 creatinine 0.67 CPK 9136 White count 12.1 hemoglobin 12.6 platelets 228 potassium 4.7 creatinine 0.67 Creatinine kinase 1241 Left knee x-ray: No fracture EKG tracing personally reviewed by me-was degree AV block Chest x-ray film personally reviewed by me-no obvious infiltrate Assessment and plan: -Recurrent falls. Patient does seem to lose balance. Patient reported to be taking his Seroquel and Xanax. That could be contribution to the same. Negative for orthostatic. Telemetry-unremarkable. Pending EEG and consult neurology. -Acute rhabdomyolysis secondary to fall: Slow to respond. Increase IV fluids to 200 mL out. Add Lasix 20 mg twice a day. Follow CPK -Moderate persistent asthma DuoNeb 4 times a day -Chronic pulmonary embolism On xarelto -Nephrolithiasis, asymptomatic -Neuroendocrine tumor/carcinoid On Sandostatin -Very hard of hearing since the age of 8 Hearing aids -Complex partial Seizure disorder Trileptal 300 mg twice a day -Essential hypertension Cozaar 25 mg daily. Imdur ER 30 mg daily -Obsessive-compulsive disorder Seroquel 150 mg daily at bedtime Cymbalta 60 mg twice a day . Will DC Xanax for now. Consult psychiatry -Hyperlipidemia Lovastatin 80 mg daily at resume Pending EEG. Neurology consult. Increase IV fluids to 200 mL an hour. Add Lasix 20 mg twice a day. Follow CPK. DC Xanax. Consult psychiatry
[2021-03-03] MEDS: QUEtiapine 50 MG TAB PO SCH (21:19)
[2021-03-03] MEDS: BACLOFEN 10 MG TAB PO SCH (21:19)
--- NOTE | 2021-03-03 21:26 | EEG ---
ELECTROENCEPHALOGRAM REPORT DATE OF SERVICE: 03/03/2021 PREAMBLE: This is a 70-year-old male with fall versus syncope. Rule out seizure activity. EEG FINDINGS: A 21 channel routine EEG recording patient utilizing 10/20 international system with referential and bipolar montages. Background consists of well-developed, moderately well regulated predominantly moderate amplitude 6-7 hertz theta seen in bihemispheric region. Background does not seem to be clearly reactive to eye opening and closing. Frequent myogenic activity was seen periodically during most of the study. Photic stimulation was not performed. Hyperventilation was not done. Different stages of sleep were not seen. No focal or generalized epileptiform activity was seen. IMPRESSION: This is a mildly abnormal EEG due to mild background slowing. This is suggestive of generalized cerebral dysfunction as can be seen with encephalopathy of metabolic, vascular or degenerative cause. No epileptiform activity was seen. MMISMAELL / TKN: [id number] /
--- NOTE | 2021-03-03 22:55 | P.CNNES ---
History of Present Illness Consult date: 03/03/21 Requesting physician: Darin Burt Reason for Consult: Frequent falls History of Present Illness: Patient is a 70-year-old male, who is extremely hard of hearing came to the hospital because he lost balance and fell producing a lot of bruises. Patient is extremely hard of hearing. I had to often communicate with him by writing on the board. He does not know why he lost balance and the reason for the falls. He has fell about 1 or 2 other times in the past 2 months. The last one was couple weeks ago but it was not serious. Patient denies any loss of consciousness, although he does not remember about the details of the falls. He states that he fell on the face arm spread out. As per EMS flow sheet, when the daughter came home and found him for unknown period of time that he has been trapped due to patient having dementia, extreme hard of hearing, could not tell how long he had been there. Patient's leg was caught and his body was prone on the floor. Patient has swelling to the left knee and was removed from bed with fires jaw. Patient has indentation on the lateral side of bed with footboard and swelling to the knee and posterior knee. Patient has some abrasions to the right knee and both posterior forearms. Patient was able to move all 4 extremities but left knee very swollen with difficulty flexing. Patient has distal pulses. Patient has history of seizures and previous CVA 3 years ago. No deficits from the stroke but started having seizures afterwards. No shortening or rotation to the leg. Patient was alert and oriented 3. His oxygen saturation was 92%. Patient's vitals was blood pressure 145/101, pulse rate 103, saturation 95%. EKG shows sinus rhythm with first-degree AV block. Chest x-ray negative, knee x-ray showed no acute osseous abnormality. MRI of the brain was performed today, which was mild to moderate diffuse cerebral atrophy and moderate to severe chronic small vessel ischemic change redemonstrated. No significant change from prior MRI. Blood tests showed WBC 12.1 hemoglobin 12.6, platelets 228. PT/PTT normal, sodium 1:30, potassium 4.7, normal renal functions. Patient's CPK is elevated 1241, which has gone up to 7115. UA negative. Patient's TSH is normal 4.05 on 07/04/2019. Patient at present denies any neck pain, no back pain. Denies any numbness or tingling in his arms or legs. No focal weakness. Denies diabetes. Denies focal weakness. Patient states that he lives with his and daughter. Also with a 45-year-old brother who is mentally challenged. He does not use any device at home. Patient does take Xarelto 20 mg daily, vitamin D, Trileptal 300 mg twice a day losartan 25 mg, Cymbalta 60 mg twice a day Xanax 1 mg every 6 hours when necessary Seroquel 150 mg at bedtime. Review of Systems Patient denies any chest pain, shortness of breath, wheezing or cough. Denies any abdominal pain nausea vomiting diarrhea. No fever or chills. Patient is very hard of hearing. No numbness or tingling, no weakness. Denies any neck pain or low back pain. Denies any problems with bowel or bladder control. Past Medical History Past Medical History: Asthma, Cancer, COPD, Hearing Disorder / Deafness, Hyperlipidemia, Hypertension, Pulmonary Embolus (PE), Seizure Disorder Additional Past Medical History / Comment(s): "Mini strokes" and small vessel disorder, asthma was previously charted but pt/ unaware of this. 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, constipation (both in remission per dr oquendo), anemia, [place] even wl hearing aids since 8 years old, last seizure 3 years ago, obsessive compulsive disorder History of Any Multi-Drug Resistant Organisms: None Reported Past Surgical History: Hernia Repair Additional Past Surgical History / Comment(s): liver biopsy, soft tissue biopsy November 2018 Past Anesthesia/Blood Transfusion Reactions: Motion Sickness Additional Past Anesthesia/Blood Transfusion Reaction / Comment(s): clausterphobia, obsessive compulsive disorder Past Psychological History: Anxiety, Depression Past Alcohol Use History: None Reported Past Drug Use History: None Reported - Past Family History Mother Family Medical History: Dementia Additional Family Medical History / Comment(s): alzhiemers Father Family Medical History: Cancer Additional Family Medical History / Comment(s): lung cancer, hx of smoking Medications and Allergies Home Medications Medication Instructions Recorded Confirmed Type Rivaroxaban [Xarelto] 20 mg PO DAILY 07/04/16 03/01/21 History Ergocalciferol (Vitamin D2) 50,000 unit PO TU 05/08/17 03/01/21 History [Vitamin D2] OXcarbazepine [Trileptal] 300 mg PO BID 07/06/17 03/01/21 History Diphenox-Atrop 2.5-0.025 mg 1 - 2 tab PO Q6H PRN 01/29/18 03/01/21 History [Lomotil] Octreotide Lar [SandoSTATIN LAR] 30 mg IM QMONTH 01/29/18 03/01/21 History Isosorbide Mononitrate ER [Imdur] 30 mg PO DAILY #30 tab.er.24h 01/30/18 03/01/21 Rx ALPRAZolam [Xanax] 1 mg PO Q6H PRN 10/08/18 03/01/21 History DULoxetine HCL [Cymbalta] 60 mg PO BID 10/08/18 03/01/21 History Ipratropium-Albuterol Nebulize 3 ml INHALATION RT-QID 10/08/18 03/01/21 History [Duoneb 0.5 mg-3 mg/3 ml Soln] Losartan [Cozaar] 25 mg PO DAILY 10/08/18 03/01/21 History Ondansetron [Zofran] 4 mg PO Q8HR PRN 07/04/19 03/01/21 History QUEtiapine [SEROquel] 150 mg PO HS 07/04/19 03/01/21 History Albuterol Inhaler [Ventolin Hfa 2 puff INHALATION RT-QID PRN 03/01/21 03/01/21 History Inhaler] Hyoscyamine Sulfate [Levbid] 0.375 mg PO Q12H PRN 03/01/21 03/01/21 History Allergies Allergy/AdvReac Type Severity Reaction Status Date / Time prochlorperazine Allergy Hallucinati Verified 03/01/21 23:19 [From Compazine] ons vortioxetine Allergy SEIZURES Verified 03/01/21 23:19 [From Trintellix] Physical Examination - Vital Signs Vital Signs: Vital Signs Temp Pulse Resp BP Pulse Ox 03/03/21 14:03 161/101 03/03/21 14:00 98.4 F 65 16 163/87 97 03/03/21 09:16 137/87 03/03/21 08:00 75 03/03/21 07:31 98.1 F 75 18 184/93 96 03/03/21 02:00 98.5 F 72 18 157/93 95 03/02/21 18:47 98.5 F 55 L 16 152/84 95 Intake and Output 03/03/21 03/03/21 03/03/21 06:59 14:59 22:59 Output Total 700 Balance -700 Output: Urine 700 Other: # Voids 2 2 Patient is an elderly male, in no distress. He is very pleasant. Patient is alert awake oriented to time place and person. Patient knows it is February 2021 and that he is in [facility] in [facility]. He states that he lives in [facility]. Speech and language functions are normal. Attention, concentration and fund of knowledge is adequate. On cranial examination, pupils are round and reacting to light, visual adam are full on confrontation, extraocular muscles are intact with no nystagmus. Face is symmetric, tongue protrudes to the midline. Palatal elevation and sensation normal, hearing is severely decreased and shoulder shrug normal, facial sensation normal. Shoulder shrug normal. On muscle strength testing, there is no pronator drift and the strength is normal in arms and legs distally and proximally. Deep tendon reflexes are symmetric, 2 at biceps, 1 brachioradialis, 2 at the left knee, right not checked. Ankles are 1+ and plantars downgoing bilaterally. Sensory to touch is equal with no neglect. Cerebellar function showed no ataxia for [id number] testing. No dysdiadochokinesia. Tone and bulk of muscles normal. Gait deferred. On general examination, there is no carotid bruit or murmur, S1-S2 audible. Abdomen is soft nontender. Chest is clear. Peripheral pulses are present. No edema. Results - Laboratory Findings CBC and BMP: 03/01/21 20:13 03/03/21 05:25 Abnormal Lab Findings: Abnormal Labs 03/01/21 03/01/21 03/01/21 20:13 20:13 20:13 WBC 12.1 H Hgb 12.6 L Hct 37.5 L RDW 16.1 H Neutrophils # 11.0 H Lymphocytes # 0.5 L APTT 19.6 L Sodium Carbon Dioxide Glucose AST Creatine Kinase Urine Blood Moderate H Urine Mucus Rare H 03/01/21 03/02/21 03/03/21 20:13 05:39 05:25 WBC Hgb Hct RDW Neutrophils # Lymphocytes # APTT Sodium 130 L 131 L 134 L Carbon Dioxide 20 L Glucose 148 H 113 H 140 H AST 65 H Creatine Kinase 1241 H* 9136 H* 7115 H* Urine Blood Urine Mucus Assessment and Plan Assessment: * 70-year-old male came with a fall, in which he was stuck in one place for uncertain period of time. Patient denies loss of consciousness, although does not remember details about the falls. Patient's current examination is nonfocal. Patient needs syncopal workup. * Seizure disorder, last seizure 3 years ago. Uncertain if this episode/fall was related to a seizure. * Hard of hearing * Hypertension * History of DVT, on anticoagulation with Xarelto Plan: * Carotid Doppler was ordered, which revealed no hemodynamically significant stenosis in either ICA. Antegrade flow in both vertebral arteries. * EEG was performed, which is mildly abnormal due to mild background slowing. This is suggestive of generalized cerebral dysfunction as can be seen with encephalopathy of metabolic, vascular or degenerative causes. No epileptiform activity was seen. * Patient is currently on Trileptal 300 mg twice a day, which will be continued. * We will check B12, folate, TSH, MMA, RPR, B1, B6. * Patient had rhabdomyolysis. Follow CPK closely. * We will follow patient clinically. * PT OT, evaluate gait. * Telemetry monitoring so far showing sinus rhythm, sinus bradycardia in 70s to 50s. * Thank you for the consult. Time with Patient: Greater than 30 (Including time and coordinating care with his decreased hearing.)
[2021-03-03] MEDS: ACETAMINOPHEN TAB 325 MG TAB PO PRN (23:17)
[2021-03-04] MEDS: LACTATED RINGERS 1,000 ML IV SCH ×5 (00:15→21:02)
[2021-03-04] MEDS: IPRATROPIUM-ALBUTEROL 3 ML NEB INHALATION SCH ×4 (08:22→19:46)
[2021-03-04] MEDS: FUROSEMIDE 20 MG TAB PO SCH ×2 (09:08→15:41)
[2021-03-04] MEDS: DULoxetine HCL 60 MG CAPSULE.DR PO SCH ×2 (09:09→20:58)
[2021-03-04] MEDS: ISOSORBIDE MONONITRATE ER 30 MG TAB.ER.24H PO SCH (09:09)
[2021-03-04] MEDS: METOPROLOL TARTRATE 12.5 MG TAB PO SCH ×2 (09:09→20:58)
[2021-03-04] MEDS: OXcarbazepine 300 MG TAB PO SCH ×2 (09:09→20:58)
[2021-03-04] MEDS: LOSARTAN 25 MG TAB PO SCH (09:09)
--- NOTE | 2021-03-04 13:51 | P.CN ---
Psychiatric Consult - . Consult date: 03/04/21 Consult:: 03/04/21 12:59 IDENTIFYING DATA: This patient is a 70-year-old male, with a hx of ocd, hard of hearing who currently lives with , his daughter and [id number]-wls in a house. REASON FOR REFERRAL: Psychiatry was consulted for anxiety, review of medications. HISTORY OF PRESENT ILLNESS: The patient presented to the hospital via EMS after patient apparently had a fall at home. Patient was apparently stuck in a position on the floor and was found by his daughter quite some time after. Daughter had claimed that patient has had several falls recently. Patient was admitted to medicine for rhabdomyolysis and workup of falls. Neurology is on board and performed a EEG which showed mild abnormal background slowing suggestive of probable encephalopathy. Patient's nurse claims that patient has been doing well walking, not endoorsing SI or Hi and they had questions about his medications. Patient was seen at the bedside today and was agreeable to speak to selling underwriter. Patient claims that he is doing okay today and explained that he has been falling at home and losing his balance and did not know why. He states that his falls have been going on for the past 2 years however has been more frequent recently. He states he started taking Xanax in 1994 and has had his dose increased gradually and is now taking 4 mg per day. He states that he also has been taking Seroquel for approximately 2 years now with no dose adj ustments. He did not know much about his Trileptal dosing and when he started or why he is taking it. He states that he did not have any dizziness and has been walking better since in the hospital. He was fairly preoccupied with his dose of Xanax being "completely cut off". He described more about his OCD and his handwashing history. He states that the falls "are like a bad dream". He states that his sleep has been "on and off" since being in the hospital. He describes high level of anxiety however is denying any depression today. At this time patient denies any suicidal or homical ideations, intent or plan. Patient denies any auditory, visual hallucinations and denies any paranoia or delusions. Patients admits to using no recreational drugs or cigarettes PAST PSYCHIATRIC HISTORY: Patient has a a history of OCD and depression. Patient was previously on Xanax, Seroquel Cymbalta and Trileptal. Patient denies any previous psychiatric hospitalizations. He states that he does have a outpatient therapist and psychiatrist however sees them through telemedicine. Patient denies any history of suicide attempts in the past. Past Medical History: Asthma, Cancer, COPD, Hearing Disorder / Deafness, Hyperlipidemia, Hypertension, Pulmonary Embolus (PE), Seizure Disorder Additional Past Medical History / Comment(s): "Mini strokes" and small vessel disorder, asthma was previously charted but pt/ unaware of this. 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, constipation (both in remission per dr muñiz), anemia, [place] even wl hearing aids since 8 years old, last seizure 3 years ago, obsessive compulsive disorder ALLERGIES: as per EMR. CHEMICAL DEPENDENCY HISTORY: as per HPI. FAMILY PSYCHIATRIC/SUBSTANCE USE HISTORY: He states that his sister had some form of mental illness. SOCIAL HISTORY: Patient was born and raised in [facility]. He states that he graduated high school however did some college but dropped out. He states that he worked for [employer]. He is currently has 2 kids and lives with his daughter and lezqkyd-zx-ity and his house. Currently his son is his guardian. MENTAL STATUS EXAM: General Appearance: Patient appears to be tall, stated age is alert, attempts to cooperate. Patient appears to have fair hygiene and grooming wearing hospital gown with fair eye contact. Bruises and abrasions on his legs. Behavior: Patient is calmly lying in bed without any agitated behavior. Irritable at times Speech: Patient's speech is fluent and nonpressured. Mood/Affect: Patient reports their mood is "anxious", affect is congruent Suicidality/Homicidality: Patient denies having any suicidal or homicidal ideation intent or plan. Perceptions: Patient denies any visual hallucinations and denies any auditory hallucinations Though content/process: There is no evidence of any delusional thought content and thought process is linear and goal-directed. Focused on his medications. Memory and concentration: AOX3, grossly intact for the purposes of this session. Can spell "WORLD" backwards Judgment and insight: fair IMPRESSIONS: Obsessive-compulsive disorder History of depressive disorder Adverse effects of medications PLAN: -At this time patient DOES NOT meet criteria for inpatient psychiatric admission. -Delirium precautions recommended with patient including - avoiding use of narcotics and ELECTRIC [employer] FURNACE OPERATOR sedatives, limit anticholinergic medications when possible, frequent re-orientation, minimize use of restraints, open window shades during the day and close them at night -Would recommend the following medication changes/additions: Agree with holding off on Xanax at this time as this is most likely the cause of patient's falls. Will start Klonopin 0.5 mg twice a day for anxiety and to prevent benzodiazepine withdrawal. Can continue with Cymbalta Seroquel and Trileptal as prescribed. Added trazodone 25 mg daily at bedtime when necessary for insomnia. -s iron worker to provide patient with outpatient mental health/psychiatry resources for appropriate follow up upon discharge -Communicated plan to patient's nurse and discussed case also with Dr. Burt -Lead Sprinkler attempted to call Patients edmund Martinez at [phone] however did not not answer, left a VM. -Will continue to follow along -Please contact with any questions. 03/04/21 13:50
[2021-03-04] MEDS: clonazePAM 0.5 MG TAB PO SCH ×2 (14:06→20:58)
--- NOTE | 2021-03-04 16:40 | P.PN ---
Subjective Progress Note Date: 03/04/21 Patient was seen for a follow-up. Patient's son was also present. Patient's son states that about 6 years ago he had "series of mini seizures and mini strokes". After that his balance became off. This has gotten much worse in the last 1 year, especially in the last few months. He cannot go up and down stairs without falling. He cannot see how many steps are left at the end of the stairs. He has problems with depth perception. Patient states that he is also careless while going down steps. He often does not remember falling. When he walks 5-6 feet, he stumbles. He trips on things, cannot see things on the floor. He would have falls against the rucker but sometimes get hard falls. He cannot get 5 steps without falling. According to patient's son he is falling about 6-7 times a week. Mostly he catches himself. With heavy falls, he passes out. He collapses on the floor. Patient had a fall on 02/27/2021, when he fell face forward witnessed by his son. Patient was taken to [facility] where he was hospitalized and then released. About 2 days later patient fell when he was trapped in the bed, resulting in the current hospitalization. The EMS had to cut the bed to release his leg. He has been on Xanax 1 mg 4 times a day for last 40 years. It was felt that patient is taking more Xanax than he should which may be contributing to the falls. He is also on Seroquel. He saw an eye doctor about 1-1/2 years ago. He has a reading glasses, but he does not need any glasses for distant vision. Objective - Vital Signs Vital signs: Vital Signs Temp 98.4 F 03/04/21 08:00 Pulse 63 03/04/21 08:00 Resp 16 03/04/21 08:00 BP 153/86 03/04/21 08:00 Pulse Ox 96 03/04/21 08:22 Intake & Output 03/03/21 03/04/21 03/04/21 18:59 06:59 18:59 Other: # Voids 2 3 - Exam Patient's mental status, speech and language functions are normal. Muscle strength is completely normal in the arms and legs distally and proximally. Only toe extension appears somewhat weak, 4+ to 5-bilaterally. Reflexes are 2+ to 3, ankles 1 and plantars are downgoing. Sensations are equal. No ataxia for [id number] testing. On checking his gait, patient was able to get up from the bed spontaneously without any hint of difficulty. He was able to walk with normal stride and arm swing. No parkinsonian gait. He appeared very steady, with normal pace. He turned around without much effect at the at all. Patient claims that he is concentrating on his gait therefore is walking better. He states that he is more careless when he is walking down the steps and now he will concentrate more. I offered him to start using a cane, but he declined. Based upon his current gait, patient does not need a cane or a walker. - Labs CBC & Chem 7: 03/01/21 20:13 03/08/21 05:49 Labs: Abnormal Lab Results - Last 24 Hours (Table) 03/04/21 Range/Units 07:11 Creatine Kinase 5113 H* (55-170) U/L Assessment and Plan Assessment: * Recurrent falls from tripping, losing balance, sometimes simple falls, sometimes with loss of memory. This has been going on for last several months to a year, now falling "6-7 times a week" as per his son. Examination is normal with no evidence of parkinsonism or myelopathy or neuropathy. Suspect falls from polypharmacy (on Xanax 1 mg 4 times a day) * Seizure disorder, last seizure 3 years ago. Uncertain if this episode/fall was related to a seizure. * Hard of hearing * Hypertension * Possible Mild cognitive impairment. * History of DVT, on anticoagulation with Xarelto Plan: * Patient's examination today appears normal. His gait was normal. Psychiatry had seen the patient and his switched from Xanax to Klonopin. Appreciate psychiatry input. * Carotid Doppler revealed no hemodynamically significant stenosis in either ICA. Antegrade flow in both vertebral arteries. * EEG was performed, which is mildly abnormal due to mild background slowing. This is suggestive of generalized cerebral dysfunction as can be seen with encephalopathy of metabolic, vascular or degenerative causes. No epileptiform activity was seen. * Patient is currently on Trileptal 300 mg twice a day, which will be continued. * Await blood test results including B12, folate, TSH, MMA, RPR, B1, B6. * Patient had rhabdomyolysis. CPK improving, now 5113. * PT OT, evaluate gait. * As patient has been having frequent falls, I did order an MRI of the cervical and lumbar spine without contrast to rule out spinal stenosis. Patient could not tolerate the MRI and therefore was canceled. * Patient may benefit from EMG and nerve conductions of lower extremities to rule out peripheral neuropathy. * Patient tells me that he will be very cautious while walking at home to preve nt falls. Addendum: Folate 11.4 TSH normal 3.310, RPR nonreactive B12 466, MMA 0.16, B1 51, B6 26, all normal. Need to replace B12 if levels are low. Patient's gait has much improved since his dose of benzodiazepine has been reduced. Xanax has been switched to Klonopin. Neurology will sign off. Please reconsult neurology if any concerns.
--- NOTE | 2021-03-04 16:49 | P.PN ---
Progress Note - Text Progress Note Date: 03/04/21 Chief Complaint: Frequent falls History of presenting complaint: This is a 70-year-old patient who follows with Dr. Pedraza. Chronic stable medical conditions include hard of hearing, hyperlipidemia, hypertension, neuroendocrine tumor of the liver, carcinoid tumor and compulsive disorder. Difficult to get a history from the patient has patient's of the heart of hearing. As per the family who told the ER patient is "falling quite a bit at home. In fact he got stuck between the bed and the wall with his leg in the air. He has a significant bruising on the lateral part of the left leg. Patient does follow at home. Normally does not use any support to walk. He is on xarelto. CPK was found to be a bit elevated. Patient's appetite has been weak. Denies any chills or fever. Admitted with frequent falls, bruising, acute rhabdomyolysis. Started IV fluids. IV bicarbonate. March 02: Laying in bed. Not in distress. Getting IV fluids. Oral intake fair. Seen by oncology. Patient has some malfunction in his hearing aids. Has difficulty in communicating. Bruising present. CPK has gone up from yesterday. IV fluids increased March 03: Oral intake good. CPK and 7000s. Did explain to the patient. He is of course keen to go home. 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 Family does start monitoring the same. MRI of the brain nonspecific. Patient walking well as per PT. March 04: Last night through the help line for hearing impaired telephone number [phone] I spoke at length to patient's son Juan Correa. Clinical picture was discussed. Also told him to talk to the psychiatrist and the neurologist with the same hearing 8 telephone number. Give a message to the nurse to arrange for that for today. Patient walking relevant in the hallway. Does not qualify for inpatient rehab. CPK and 5000. Getting IV fluids. Discussed with Dr. Ashford from neurology and with Dr. Claire from psychiatry. It was felt that the heavy doses of Xanax was causing most of the symptoms. Given that it's been discontinued she's done really well walking. It is also felt that patient will benefit from Klonopin which has been started 0.5 mg twice daily. Patient is very keen to go home. Informed that until his CPK comes down he cannot be discharged. Son is looking into assisted living. I did call today the hearing impaired telephone line to talk to him but it went into his school voicemail. Patient is eating well. Review of systems: Was done for constitutional, cardiovascular, GI, pulmonary. relevant finding as above Active Medications Acetaminophen (Acetaminophen Tab 325 Mg Tab) 650 mg PO Q6HR PRN PRN Reason: Mild Pain or Fever > 100.5 Last Admin: 03/03/21 23:17 Dose: 650 mg Documented by: Al Hydroxide/Mg Hydroxide (Mag Hydrox/Al Hydrox/Simeth 30 Ml Cup) 15 ml PO Q6HR PRN PRN Reason: Indigestion Albuterol/Ipratropium (Ipratropium-Albuterol 3 Ml Neb) 3 ml INHALATION RT-QID [facility] Last Admin: 03/04/21 11:45 Dose: Not Given Documented by: Baclofen (Baclofen 10 Mg Tab) 10 mg PO HS [facility] Last Admin: 03/03/21 21:19 Dose: 10 mg Documented by: Calcium Carbonate/Glycine (Calcium Carbonate 500 Mg Chewable) 1,000 mg PO Q4HR PRN PRN Reason: Dyspepsia Clonazepam (Clonazepam 0.5 Mg Tab) 0.5 mg PO BID [facility] Last Admin: 03/04/21 14:06 Dose: 0.5 mg Documented by: Duloxetine HCl (Duloxetine Hcl 60 Mg Capsule.Dr) 60 mg PO BID [facility] Last Admin: 03/04/21 09:09 Dose: 60 mg Documented by: Furosemide (Furosemide 20 Mg Tab) 20 mg PO BID@0900,1600 [facility] Last Admin: 03/04/21 15:41 Dose: 20 mg Documented by: Lactated Ringer's (Lactated Ringers) 1,000 mls @ 200 mls/hr IV .Q5H [facility] Last Admin: 03/04/21 15:45 Dose: 200 mls/hr Documented by: Isosorbide Mononitrate (Isosorbide Mononitrate Er 30 Mg Tab.Er.24h) 30 mg PO DAILY [facility] Last Admin: 03/04/21 09:09 Dose: 30 mg Documented by: Losartan Potassium (Losartan 25 Mg Tab) 25 mg PO DAILY [facility] Last Admin: 03/04/21 09:09 Dose: 25 mg Documented by: Metoprolol Tartrate (Metoprolol Tartrate 12.5 Mg Tab) 12.5 mg PO BID [facility] Last Admin: 03/04/21 09:09 Dose: 12.5 mg Documented by: Naloxone HCl (Naloxone 0.4 Mg/Ml 1 Ml Vial) 0.2 mg IV Q2M PRN PRN Reason: Opioid Reversal Ondansetron HCl (Ondansetron 4 Mg/2 Ml Vial) 4 mg IVP Q8HR PRN PRN Reason: Nausea And Vomiting Oxcarbazepine (Oxcarbazepine 300 Mg Tab) 300 mg PO BID [facility] Last Admin: 03/04/21 09:09 Dose: 300 mg Documented by: Quetiapine Fumarate (Quetiapine 50 Mg Tab) 150 mg PO HS [facility] Last Admin: 03/03/21 21:19 Dose: 150 mg Documented by: Trazodone HCl (Trazodone Hcl 50 Mg Tab) 25 mg PO HS PRN PRN Reason: Insomnia Past medical history to include: Asthma, hard of hearing, hypertension, hyperlipidemia, pulmonary embolism, seizure disorder, kidney stones, neuroendocrine tumor carcinoid, get Sandostatin. Anemia, last seizure about 4 years ago. Obsessive-compulsive disorder Social history: . No smoking no alcohol. Family history: Dementia Physical examination: VITAL SIGNS: 98.5, 60, 16, 153/86, 98% on room air GENERAL: Sitting up in bed, awake,. Comfortable EYES: Pupils equal. Conjunctiva normal. HEENT: Very hard of hearing. Hearing aid NECK: JVD not raised; masses not palpable. HEART: First and second heart sounds are normal; no edema. LUNGS: Respiratory rate normal; clear to auscultation. ABDOMEN: Soft, nontender, liver spleen not palpable, no masses palpable. PSYCH: Alert and oriented x3; mood and affect anxious. DERMATOLOGICAL: Bruising of the left upper arm, left leg just below the knee, laterally INVESTIGATIONS, reviewed in the clinical context: March 04: CPK 5113 March 03: Pressure 4.1 creatinine 0.71 CPK 7115 MRI of the brain: Chronic white matter changes. Nothing acute March 02: Potassium 4.7 BUN 12 creatinine 0.67 CPK 9136 White count 12.1 hemoglobin 12.6 platelets 228 potassium 4.7 creatinine 0.67 Creatinine kinase 1241 Left knee x-ray: No fracture EKG tracing personally reviewed by me-was degree AV block Chest x-ray film personally reviewed by me-no obvious infiltrate Assessment and plan: -Recurrent falls. Patient does seem to lose balance. Patient reported to be taking his Seroquel and Xanax 1 mg 4 times a day.. Cause: Metabolic encephalopathy from medications Negative for orthostatic. Telemetry-unremarkable. EEG negative for seizure. After Xanax was discontinued. Patient has been doing very well walking.. -Acute rhabdomyolysis secondary to fall: Slow to respond. IV fluids to 200 mL/hour. Lasix 20 mg twice a day. Follow CPK -Moderate persistent asthma DuoNeb 4 times a day -Chronic pulmonary embolism On xarelto -Nephrolithiasis, asymptomatic -Neuroendocrine tumor/carcinoid On Sandostatin -Very hard of hearing since the age of 8 Hearing aids -Complex partial Seizure disorder Trileptal 300 mg twice a day -Essential hypertension Cozaar 25 mg daily. Imdur ER 30 mg daily -Obsessive-compulsive disorder Seroquel 150 mg daily at bedtime Cymbalta 60 mg twice a day . Xanax discontinu ed. Klonopin 0.5 mg twice a day started -Hyperlipidemia Lovastatin 80 mg daily at resume Continue IV fluids with Lasix. Klonopin 0.5 mg twice a day just started. Patient does not qualify for inpatient rehab. Spoke to social media specialist, son is looking for assisted living. Patient informed that cannot be discharged until rhabdomyolysis improves. Patient very anxious to go home.
[2021-03-04] MEDS: QUEtiapine 50 MG TAB PO SCH (20:58)
[2021-03-04] MEDS: BACLOFEN 10 MG TAB PO SCH (20:58)
[2021-03-04] MEDS: traZODone HCL 50 MG TAB PO PRN (20:59)
[2021-03-05] MEDS: LACTATED RINGERS 1,000 ML IV SCH ×5 (01:04→20:28)
[2021-03-05 01:09] LABS: Folate, Serum 11.4 ng/mL
[2021-03-05] MEDS: ACETAMINOPHEN TAB 325 MG TAB PO PRN ×2 (02:27→17:22)
[2021-03-05] MEDS: IPRATROPIUM-ALBUTEROL 3 ML NEB INHALATION SCH ×4 (07:43→20:33)
[2021-03-05] MEDS: FUROSEMIDE 20 MG TAB PO SCH ×2 (08:45→15:30)
[2021-03-05] MEDS: OXcarbazepine 300 MG TAB PO SCH ×2 (08:46→20:28)
[2021-03-05] MEDS: LOSARTAN 25 MG TAB PO SCH (08:46)
[2021-03-05] MEDS: ISOSORBIDE MONONITRATE ER 30 MG TAB.ER.24H PO SCH (08:46)
[2021-03-05] MEDS: clonazePAM 0.5 MG TAB PO SCH ×2 (08:46→20:28)
[2021-03-05] MEDS: DULoxetine HCL 60 MG CAPSULE.DR PO SCH ×2 (08:46→20:28)
[2021-03-05] MEDS: METOPROLOL TARTRATE 12.5 MG TAB PO SCH ×2 (08:46→20:28)
--- NOTE | 2021-03-05 15:20 | P.PN ---
Progress Note - Text Progress Note Date: 03/05/21 Chief Complaint: Frequent falls History of presenting complaint: This is a 70-year-old patient who follows with Dr. Pedraza. Chronic stable medical conditions include hard of hearing, hyperlipidemia, hypertension, neuroendocrine tumor of the liver, carcinoid tumor and compulsive disorder. Difficult to get a history from the patient has patient's of the heart of hearing. As per the family who told the ER patient is "falling quite a bit at home. In fact he got stuck between the bed and the wall with his leg in the air. He has a significant bruising on the lateral part of the left leg. Patient does follow at home. Normally does not use any support to walk. He is on xarelto. CPK was found to be a bit elevated. Patient's appetite has been weak. Denies any chills or fever. Admitted with frequent falls, bruising, acute rhabdomyolysis. Started IV fluids. IV bicarbonate. March 02: Laying in bed. Not in distress. Getting IV fluids. Oral intake fair. Seen by oncology. Patient has some malfunction in his hearing aids. Has difficulty in communicating. Bruising present. CPK has gone up from yesterday. IV fluids increased March 03: Oral intake good. CPK and 7000s. Did explain to the patient. He is of course keen to go home. 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 Family does start monitoring the same. MRI of the brain nonspecific. Patient walking well as per PT. March 04: Last night through the help line for hearing impaired telephone number [phone] I spoke at length to patient's son Juan Correa. Clinical picture was discussed. Also told him to talk to the psychiatrist and the neurologist with the same hearing 8 telephone number. Give a message to the nurse to arrange for that for today. Patient walking relevant in the hallway. Does not qualify for inpatient rehab. CPK and 5000. Getting IV fluids. Discussed with Dr. Ashford from neurology and with Dr. Claire from psychiatry. It was felt that the heavy doses of Xanax was causing most of the symptoms. Given that it's been discontinued she's done really well walking. It is also felt that patient will benefit from Klonopin which has been started 0.5 mg twice daily. Patient is very keen to go home. Informed that until his CPK comes down he cannot be discharged. Son is looking into assisted living. I did call today the hearing impaired telephone line to talk to him but it went into his school voicemail. Patient is eating well. March 05: Eating well. Anxiety better. Started on Klonopin yesterday. CPK 5000. Patient anxious to go home. Explained importance of continuing current treatment. Review of systems: Was done for constitutional, cardiovascular, GI, pulmonary. relevant finding as above Active Medications Acetaminophen (Acetaminophen Tab 325 Mg Tab) 650 mg PO Q6HR PRN PRN Reason: Mild Pain or Fever > 100.5 Last Admin: 03/05/21 02:27 Dose: 650 mg Documented by: Al Hydroxide/Mg Hydroxide (Mag Hydrox/Al Hydrox/Simeth 30 Ml Cup) 15 ml PO Q6HR PRN PRN Reason: Indigestion Albuterol/Ipratropium (Ipratropium-Albuterol 3 Ml Neb) 3 ml INHALATION RT-QID [facility] Last Admin: 03/05/21 15:01 Dose: Not Given Documented by: Baclofen (Baclofen 10 Mg Tab) 10 mg PO HS [facility] Last Admin: 03/04/21 20:58 Dose: 10 mg Documented by: Calcium Carbonate/Glycine (Calcium Carbonate 500 Mg Chewable) 1,000 mg PO Q4HR PRN PRN Reason: Dyspepsia Clonazepam (Clonazepam 0.5 Mg Tab) 0.5 mg PO BID [facility] Last Admin: 03/05/21 08:46 Dose: 0.5 mg Documented by: Duloxetine HCl (Duloxetine Hcl 60 Mg Capsule.Dr) 60 mg PO BID [facility] Last Admin: 03/05/21 08:46 Dose: 60 mg Documented by: Furosemide (Furosemide 20 Mg Tab) 20 mg PO BID@0900,1600 [facility] Last Admin: 03/05/21 08:45 Dose: 20 mg Documented by: Lactated Ringer's (Lactated Ringers) 1,000 mls @ 200 mls/hr IV .Q5H [facility] Last Admin: 03/05/21 08:45 Dose: 200 mls/hr Documented by: Isosorbide Mononitrate (Isosorbide Mononitrate Er 30 Mg Tab.Er.24h) 30 mg PO DAILY [facility] Last Admin: 03/05/21 08:46 Dose: 30 mg Documented by: Losartan Potassium (Losartan 25 Mg Tab) 25 mg PO DAILY [facility] Last Admin: 03/05/21 08:46 Dose: 25 mg Documented by: Metoprolol Tartrate (Metoprolol Tartrate 12.5 Mg Tab) 12.5 mg PO BID [facility] Last Admin: 03/05/21 08:46 Dose: 12.5 mg Documented by: Naloxone HCl (Naloxone 0.4 Mg/Ml 1 Ml Vial) 0.2 mg IV Q2M PRN PRN Reason: Opioid Reversal Ondansetron HCl (Ondansetron 4 Mg/2 Ml Vial) 4 mg IVP Q8HR PRN PRN Reason: Nausea And Vomiting Oxcarbazepine (Oxcarbazepine 300 Mg Tab) 300 mg PO BID [facility] Last Admin: 03/05/21 08:46 Dose: 300 mg Documented by: Quetiapine Fumarate (Quetiapine 50 Mg Tab) 150 mg PO HS [facility] Last Admin: 03/04/21 20:58 Dose: 150 mg Documented by: Trazodone HCl (Trazodone Hcl 50 Mg Tab) 25 mg PO HS PRN PRN Reason: Insomnia Last Admin: 03/04/21 20:59 Dose: 25 mg Documented by: Past medical history to include: Asthma, hard of hearing, hypertension, hyperlipidemia, pulmonary embolism, seizure disorder, kidney stones, neuroendocrine tumor carcinoid, get Sandostatin. Anemia, last seizure about 4 years ago. Obsessive-compulsive disorder Social history: . No smoking no alcohol. Family history: Dementia Physical examination: VITAL SIGNS: 99.2, 58, 19, 164/96, 96% room air GENERAL: Sitting at the edge of the bed awake,. Comfortable EYES: Pupils equal. Conjunctiva normal. HEENT: Very hard of hearing. Hearing aid NECK: JVD not raised; masses not palpable. HEART: First and second heart sounds are normal; no edema. LUNGS: Respiratory rate normal; clear to auscultation. ABDOMEN: Soft, nontender, liver spleen not palpable, no masses palpable. PSYCH: Alert and oriented x3; mood and affect, is anxious DERMATOLOGICAL: Bruising of the left upper arm, left leg just below the knee, laterally INVESTIGATIONS, reviewed in the clinical context: March 04: CPK 5113 March 03: Pressure 4.1 creatinine 0.71 CPK 7115 MRI of the brain: Chronic white matter changes. Nothing acute March 02: Potassium 4.7 BUN 12 creatinine 0.67 CPK 9136 White count 12.1 hemoglobin 12.6 platelets 228 potassium 4.7 creatinine 0.67 Creatinine kinase 1241 Left knee x-ray: No fracture EKG tracing personally reviewed by me-was degree AV block Chest x-ray film personally reviewed by me-no obvious infiltrate Assessment and plan: -Recurrent falls. Patient does seem to lose balance. Patient reported to be taking his Seroquel and Xanax 1 mg 4 times a day.. Cause: Metabolic encephalopathy from medications Negative for orthostatic. Telemetry-unremarkable. EEG negative for seizure. After Xanax was discontinued. Patient has been doing very well walking.. -Acute rhabdomyolysis secondary to fall: Slow to respond. IV fluids to 200 mL/hour. Lasix 20 mg twice a day. Follow CPK -Moderate persistent asthma DuoNeb 4 times a day -Chronic pulmonary embolism On xarelto -Nephrolithiasis, asymptomatic -Neuroendocrine tumor/carcinoid On Sandostatin -Very hard of hearing since the age of 8 Hearing aids -Complex partial Seizure disorder Trileptal 300 mg twice a day -Essential hypertension Cozaar 25 mg daily. Imdur ER 30 mg daily -Obsessive-compulsive disorder Seroquel 150 mg daily at bedtime Cymbalta 60 mg twice a day . Xanax discontinued. Klonopin 0.5 mg twice a day started -Hyperlipidemia Lovastatin 80 mg daily at resume Continue IV fluids with Lasix. Klonopin 0.5 mg twice a day working well.. Discussed with the patient
[2021-03-05] MEDS: BACLOFEN 10 MG TAB PO SCH (20:28)
[2021-03-05] MEDS: QUEtiapine 50 MG TAB PO SCH (20:28)
[2021-03-06] MEDS: LACTATED RINGERS 1,000 ML IV SCH ×5 (03:18→21:17)
[2021-03-06] MEDS: IPRATROPIUM-ALBUTEROL 3 ML NEB INHALATION SCH ×4 (07:47→20:45)
[2021-03-06] MEDS: FUROSEMIDE 20 MG TAB PO SCH ×2 (08:30→15:28)
[2021-03-06] MEDS: OXcarbazepine 300 MG TAB PO SCH ×2 (08:30→21:16)
[2021-03-06] MEDS: LOSARTAN 25 MG TAB PO SCH (08:30)
[2021-03-06] MEDS: METOPROLOL TARTRATE 12.5 MG TAB PO SCH ×2 (08:30→21:14)
[2021-03-06] MEDS: ISOSORBIDE MONONITRATE ER 30 MG TAB.ER.24H PO SCH (08:30)
[2021-03-06] MEDS: clonazePAM 0.5 MG TAB PO SCH ×2 (08:30→21:14)
[2021-03-06] MEDS: DULoxetine HCL 60 MG CAPSULE.DR PO SCH ×2 (08:30→21:14)
[2021-03-06 08:47] LABS: African American GFR (CKD) >90 (>60 ml/min/1.73 sqM); Anion Gap 8 mmol/L; Blood Urea Nitrogen 9 mg/dL (9-20); Calcium 9.2 mg/dL (8.4-10.2); Carbon Dioxide 27 mmol/L (22-30); Chloride 99 mmol/L (98-107); Glucose 105 mg/dL (74-99); Non-African American GFR(CKD) >90 (>60 ml/min/1.73 sqM); Sodium 134 mmol/L (137-145)
[2021-03-06 08:57] LABS: Creatine Kinase 2815 U/L (55-170)
--- NOTE | 2021-03-06 09:22 | CONS ---
CONSULTATION DATE OF SERVICE: 03/05/2021 PURPOSE FOR CONSULTATION: Evaluate for falls and psychotropic medication issues. INTERVAL HISTORY: Patient has been doing fairly well. He states that he has been steady on his feet and is hopeful to be going home soon. He has been sleeping fairly well at night. He has not had significant anxiety problems in spite of being tapered off benzodiazepines. It is noteworthy that he has been on a significantly high dose of Xanax at 4 mg daily. Other than that, he continues on his outpatient psychotropics including duloxetine 60 mg twice a day, Trileptal 300 mg twice a day, Seroquel 150 mg at bedtime and trazodone 25 mg as needed. He also has been started on Klonopin 0.5 mg twice a day. He has not had any issues with his psychotropics. There was concern for encephalopathy and delirium, though he shows no issues with cognitive function at present, his mood has been stable without signs of depression. He feels OCD symptoms have been manageable. MENTAL STATUS EXAM: Patient was in his room. He was sitting on the bed for a fair amount of the interview, though he also stood up for a brief period of time. He gave good eye contact. He answered questions appropriately. His thoughts were clear. He was hard of hearing, though was able to lip read fairly proficiently. His thoughts were clear, coherent and goal-directed. He was spontaneous and interactive. His affect was in a reasonable range. He smiled. He had a friendly manner. His mood was even. He did not appear to be distressed. There was no indication of thought disorder. He made no indications of thoughts of harm. On cognitive exam, the patient was oriented and alert. He was well aware of his circumstances. He described events of his coming into the hospital and being in the hospital that had details consistent with what is documented in the medical record. He talked about a book that he is reading which he picked up off the bedside table. He describes some specifics of the book relating to stoicism and gave specific details. ASSESSMENT: This 70-year-old male is progressing well. My understanding is that discharge is creatinine kinase levels which have been high. His last level on the was 5113. In terms of psychotropic medications, I would continue his medications the same. It is noteworthy that he continues to be at risk for seizures secondary to benzodiazepine withdrawal. He has been abruptly taken off Xanax 4 mg a day. Currently he is on Klonopin 0.5 mg twice a day which is potentially lower than indicated for benzodiazepine withdrawal. I would recommend he continue on Klonopin for about 2 weeks and then taper it off. The immediate risk for seizures from benzodiazepine withdrawal would generally be within the first 7-14 days. It may be helpful for the patient to have a psychiatric referral in regard to his OCD. Currently he is not on medications that have a specific indication for OCD, which would include Anafranil and SSRIs. Along with that, he is on Seroquel for unclear indications with Seroquel for metabolics and movement disorder issues. It is noteworthy that he has a diagnosis of hyperlipidemia. Long-term issues relating to potential for tardive dyskinesia may have a negative impact on ambulation. I briefly reviewed the more immediate medication issues with the patient. I will continue to follow. ORB / TKN: [id number] /
--- NOTE | 2021-03-06 14:59 | P.PN ---
Progress Note - Text Progress Note Date: 03/06/21 Chief Complaint: Frequent falls History of presenting complaint: This is a 70-year-old patient who follows with Dr. Pedraza. Chronic stable medical conditions include hard of hearing, hyperlipidemia, hypertension, neuroendocrine tumor of the liver, carcinoid tumor and compulsive disorder. Difficult to get a history from the patient has patient's of the heart of hearing. As per the family who told the ER patient is "falling quite a bit at home. In fact he got stuck between the bed and the wall with his leg in the air. He has a significant bruising on the lateral part of the left leg. Patient does follow at home. Normally does not use any support to walk. He is on xarelto. CPK was found to be a bit elevated. Patient's appetite has been weak. Denies any chills or fever. Admitted with frequent falls, bruising, acute rhabdomyolysis. Started IV fluids. IV bicarbonate. March 02: Laying in bed. Not in distress. Getting IV fluids. Oral intake fair. Seen by oncology. Patient has some malfunction in his hearing aids. Has difficulty in communicating. Bruising present. CPK has gone up from yesterday. IV fluids increased March 03: Oral intake good. CPK and 7000s. Did explain to the patient. He is of course keen to go home. manager android informed be that has been taking extra Seroquel and Xanax at home it seems. Family does start monitoring the same. MRI of the brain nonspecific. Patient walking well as per PT. March 04: Last night through the help line for hearing impaired telephone number [phone] I spoke at length to patient's son Juan Correa. Clinical picture was discussed. Also told him to talk to the psychiatrist and the neurologist with the same hearing 8 telephone number. Give a message to the nurse to arrange for that for today. Patient walking relevant in the hallway. Does not qualify for inpatient rehab. CPK and 5000. Getting IV fluids. Discussed with Dr. Ashford from neurology and with Dr. Claire from psychiatry. It was felt that the heavy doses of Xanax was causing most of the symptoms. Given that it's been discontinued she's done really well walking. It is also felt that patient will benefit from Klonopin which has been started 0.5 mg twice daily. Patient is very keen to go home. Informed that until his CPK comes down he cannot be discharged. Son is looking into assisted living. I did call today the hearing impaired telephone line to talk to him but it went into his school voicemail. Patient is eating well. March 05: Eating well. Anxiety better. Started on Klonopin yesterday. CPK 5000. Patient anxious to go home. Explained importance of continuing current treatment. March 06: Fair oral intake. Son is visiting. Spoke to the patient and son at length. Discussed the consequences of going home early with the rhabdomyolysis in terms of kidney being affected. They understand. Continue with IV fluids. Possibility of discharge in next 24-48 hours discussed. Review of systems: Was done for constitutional, cardiovascular, GI, pulmonary. relevant finding as above Active Medications Acetaminophen (Acetaminophen Tab 325 Mg Tab) 650 mg PO Q6HR PRN PRN Reason: Mild Pain or Fever > 100.5 Last Admin: 03/05/21 17:22 Dose: 650 mg Documented by: Al Hydroxide/Mg Hydroxide (Mag Hydrox/Al Hydrox/Simeth 30 Ml Cup) 15 ml PO Q6HR PRN PRN Reason: Indigestion Albuterol/Ipratropium (Ipratropium-Albuterol 3 Ml Neb) 3 ml INHALATION RT-QID [facility] Last Admin: 03/06/21 11:16 Dose: Not Given Documented by: Baclofen (Baclofen 10 Mg Tab) 10 mg PO HS [facility] Last Admin: 03/05/21 20:28 Dose: 10 mg Documented by: Calcium Carbonate/Glycine (Calcium Carbonate 500 Mg Chewable) 1,000 mg PO Q4HR PRN PRN Reason: Dyspepsia Clonazepam (Clonazepam 0.5 Mg Tab) 0.5 mg PO BID [facility] Last Admin: 03/06/21 08:30 Dose: 0.5 mg Documented by: Duloxetine HCl (Duloxetine Hcl 60 Mg Capsule.Dr) 60 mg PO BID [facility] Last Admin: 03/06/21 08:30 Dose: 60 mg Documented by: Furosemide (Furosemide 20 Mg Tab) 20 mg PO BID@0900,1600 [facility] Last Admin: 03/06/21 08:30 Dose: 20 mg Documented by: Lactated Ringer's (Lactated Ringers) 1,000 mls @ 200 mls/hr IV .Q5H [facility] Last Admin: 03/06/21 12:27 Dose: 200 mls/hr Documented by: Isosorbide Mononitrate (Isosorbide Mononitrate Er 30 Mg Tab.Er.24h) 30 mg PO DAILY [facility] Last Admin: 03/06/21 08:30 Dose: 30 mg Documented by: Losartan Potassium (Losartan 25 Mg Tab) 25 mg PO DAILY [facility] Last Admin: 03/06/21 08:30 Dose: 25 mg Documented by: Metoprolol Tartrate (Metoprolol Tartrate 12.5 Mg Tab) 12.5 mg PO BID [facility] Last Admin: 03/06/21 08:30 Dose: 12.5 mg Documented by: Naloxone HCl (Naloxone 0.4 Mg/Ml 1 Ml Vial) 0.2 mg IV Q2M PRN PRN Reason: Opioid Reversal Ondansetron HCl (Ondansetron 4 Mg/2 Ml Vial) 4 mg IVP Q8HR PRN PRN Reason: Nausea And Vomiting Oxcarbazepine (Oxcarbazepine 300 Mg Tab) 300 mg PO BID [facility] Last Admin: 03/06/21 08:30 Dose: 300 mg Documented by: Quetiapine Fumarate (Quetiapine 50 Mg Tab) 150 mg PO HS [facility] Last Admin: 03/05/21 20:28 Dose: 150 mg Documented by: Trazodone HCl (Trazodone Hcl 50 Mg Tab) 25 mg PO HS PRN PRN Reason: Insomnia Last Admin: 03/04/21 20:59 Dose: 25 mg Documented by: Past medical history to include: Asthma, hard of hearing, hypertension, hyperlipidemia, pulmonary embolism, seizure disorder, kidney stones, neuroendocrine tumor carcinoid, get Sandostatin. Anemia, last seizure about 4 years ago. Obsessive-compulsive disorder Social history: . No smoking no alcohol. Family history: Dementia Physical examination: VITAL SIGNS: 99.4, 60, 16, 170/101, 95% room air GENERAL: Sitting at the edge of the bed awake,. Comfortable EYES: Pupils equal. Conjunctiva normal. HEENT: Very hard of hearing. Hearing aid NECK: JVD not raised; masses not palpable. HEART: First and second heart sounds are normal; no edema. LUNGS: Respiratory rate normal; clear to auscultation. ABDOMEN: Soft, nontender, liver spleen not palpable, no masses palpable. PSYCH: Alert and oriented x3; mood and affect, is anxious DERMATOLOGICAL: Bruising of the left upper arm, left leg just below the knee, laterally INVESTIGATIONS, reviewed in the clinical context: March 06: Creatinine 0.6 CPK 2815 March 04: CPK 5113 March 03: Pressure 4.1 creatinine 0.71 CPK 7115 MRI of the brain: Chronic white matter changes. Nothing acute March 02: Potassium 4.7 BUN 12 creatinine 0.67 CPK 9136 White count 12.1 hemoglobin 12.6 platelets 228 potassium 4.7 creatinine 0.67 Creatinine kinase 1241 Left knee x-ray: No fracture EKG tracing personally reviewed by me-was degree AV block Chest x-ray film personally reviewed by me-no obvious infiltrate Assessment and plan: -Recurrent falls. Patient does seem to lose balance. Patient reported to be taking his Seroquel and Xanax 1 mg 4 times a day.. Cause: Metabolic encephalopathy from medications Negative for orthostatic. Telemetry-unremarkable. EEG negative for seizure. After Xanax was discontinued. Patient has been doing very well walking.. -Acute rhabdomyolysis secondary to fall: Slowly improving IV fluids to 200 mL/hour. Lasix 20 mg twice a day. Follow CPK -Moderate persistent asthma DuoNeb 4 times a day -Chronic pulmonary embolism On xarelto -Nephrolithiasis, asymptomatic -Neuroendocrine tumor/carcinoid On Sandostatin -Very hard of hearing since the age of 8 Hearing aids -Complex partial Seizure disorder Trileptal 300 mg twice a day -Essential hypertension Cozaar 25 mg daily. Imdur ER 30 mg daily -Obsessive-compulsive disorder Seroquel 150 mg daily at bedtime Cymbalta 60 mg twice a day . Xanax discontinued. Klonopin 0.5 mg twice a day started -Hyperlipidemia Lovastatin 80 mg daily at resume Continue IV fluids with Lasix. Klonopin 0.5 mg twice a day working well.. Discussed at length with the patient and son. Questions answered. Total time spent today about 40 minutes with over 20 minutes of discussion
[2021-03-06] MEDS: ACETAMINOPHEN TAB 325 MG TAB PO PRN (15:28)
[2021-03-06] MEDS: BACLOFEN 10 MG TAB PO SCH (21:14)
[2021-03-06] MEDS: traZODone HCL 50 MG TAB PO PRN (21:14)
[2021-03-06] MEDS: QUEtiapine 50 MG TAB PO SCH (21:16)
--- NOTE | 2021-03-06 23:08 | CONS ---
CONSULTATION DATE OF SERVICE: 03/06/2021. PURPOSE FOR CONSULTATION: Evaluate for falls and psychotropic medication issues. INTERVAL HISTORY: The patient has been doing fairly well. He seems to be making progress. It is noted that I interviewed the patient today along with his son, who was there for most of the interview, and for a short period time with his daughter. It is noted that the patient has had long-term problems with anxiety. He was diagnosed many years ago with obsessive compulsive disorder where he had behaviors such as washing his hands 100 times or more in a day. He had psychiatric followup over an extended period time, though had not been able to continue that followup due to the psychiatrist's absence. He has been prescribed his medications from his primary care physician. His son noted that patient has significant issues with social isolation. He will spend much if not most all of his time in his room. The patient says that he is comfortable being in his own room with a computer and engaging in personal activities. He reads. He does exploring on the Internet. He apparently gets high anxiety in social settings. When he feels out of control in aspects of his life, it tends to set off significant compulsions and obsessions. The patient was saying today that he is very distressed about being in the hospital and feels that he is locked up in the hospital. He said that he thought the plan was for him to be discharged today, and when that did not happen, it caused him to be quite anxious. As noted in previous notes, he has been quite anxious about going off Xanax, which he has been on for many years. When I discussed the question of what indication there would be for the patient being on Seroquel, the son noted that the patient liked to take medications that sedated him because that would seem to help alleviate some of his anxiety, perhaps by sleeping excessively. He appears to be managing adequately at this point with the fairly low dose of Klonopin prescribed as a stepping stone to taper off benzodiazepines altogether. According to the son, one of the plans at this point is for the patient to come and live with the son for about a week and then after that would be returning to his own home. There is hope that some supportive services can be set up for the patient at home. When I talked to the patient today he responded appropriately to questions. As noted before, he is hard of hearing, though reads lips fairly well. He does best reading his son's lips, and they were able to communicate quite well. The patient generally was in a fairly good mood. He had a reasonable range of affect. He was responsive in the interview. He would respond some to humor. He generally had a calm manner and did not appear to be significantly anxious or distressed. His mood was even. There was no indication of thought disorder or thoughts of self-harm. ASSESSMENT: I will continue the current diagnosis and treatment plan. I had an extensive discussion with the patient and family regarding treatment issues. I discussed that at this point, the number one focus would be on managing withdrawal from benzodiazepines. I described that from the last dose of Klonopin, I would anticipate withdrawal getting progressively worse over the first 2 weeks, with the worst being day 10 to day 14. I noted that by day 21, patients typically report to me that they do not feel getting better, though they do not feel they are getting worse. After day 21 there is a slow progressive improvement, though often there are a lot of ups and downs throughout the day. In that regard, I indicated that at 6 weeks I generally assess that a patient is about 60% through withdrawal, which would be a D grade; passing, but not by any significant means. After 6 weeks people begin to tell me they are feeling more in control of withdrawal issues. I noted that in the first 6 weeks antidepressants such as Cymbalta or others have little or no benefit and do not provide much help in terms of managing withdrawal. I indicated that my recommendation would be for the patient to take Seroquel 0.5 mg for total of one week, then on a week 2 decrease the dose to 0.5 mg at bedtime for 5 days, and then discontinue Klonopin altogether. My recommendation generally would include use of Zyprexa as a primary medication to help manage withdrawal from benzodiazepines. In my experience, the dose of 5 mg 3 times a day has been generally effective; it may not provide full relief from withdrawal issues, but generally enough to help a person manage, especially in the first 2 weeks, and beyond that to continue to help support improvement for the first 6 weeks at least. Beyond 6 weeks, there then may be a benefit for antidepressants. At this point the patient is on Cymbalta 60 mg twice a day, which is the maximum dose of Cymbalta. If he were able to remain completely off benzodiazepines for the next 6-8 weeks, I would then monitor for a few weeks after that to see if the patient is showing reasonable improvement, having gotten through early withdrawal and possibly beginning to show response to Cymbalta. If there is not clear response, then there would be an indication to consider switching to an alternative antidepressants. It is noted that in general antidepressants have about 65% success rate, so there are significant concerns about failure rates with any antidepressant. In regard to treatment of obsessive-compulsive disorder, there are alternative treatment options. One consideration would be initiating Anafranil. Typically the dose is started at 25 mg a day and titrated up, possibly in the range of 100-200 mg or higher. With Anafranil blood levels can be a guide to treatment, with a target blood level in the range of 150 . Alternatives to Anafranil would be SSRIs. I have suggested consideration of Prozac as an alternative. I noted that in treatment of obsessive-compulsive disorder, typically an SSRI such as Prozac needs to be titrated up to fairly high doses. If he were to be trialed on Prozac, it would start at 20 mg a day, and if no clear benefit over 3-4 weeks, I would look at increasing every 2 weeks up to a total of 80 to 100 mg a day. I noted that response to OCD tends to be about half the rate that the people respond antidepressants, so a significant period to look for recovery would be in the 3- to 6-month range. I would anticipate indications earlier on that the medication has been beneficial. Alternatives to Prozac could be Zoloft titrated at least up to 200 mg and possibly higher. The same would be with Paxil, also titrated up to the 60- to 80-mg range. It would be reasonable at the start of this process to look at reducing Seroquel. Seroquel does have significant sedation and may help with sleep, though given that he might be started on Zyprexa, I would look at reducing the dose to 100 mg for possibly a week and then consider going down to 50 mg after that. If the patient is managing adequately, it might be reasonable to discontinue Seroquel altogether so as to simplify medications. There is limited information on what benefit he may receive from Trileptal. Trileptal does have some indications for bipolar disorder, though the primary medication that has been used in that regard would be Tegretol, which has a broader range of investigative studies in regard to mood disorder. It is the case that Trileptal or for that matter Tegretol might provide some protection against seizures early on in terms of benzodiazepine withdrawal. Generally the risk period for withdrawal-related seizures typically would be within the first few weeks of stopping a benzodiazepine. There is a higher risk for short-acting benzodiazepines such as Xanax, which the patient has been on. There have been some seizures reported, apparently directly related to benzodiazepine withdrawal. As long as about 40 days out withdrawal, it would be reasonable to look at a consideration for a tapering Trileptal after the first 2 weeks of stoppage of the Klonopin. Again the benefit in that regard would be to simplify medications and focus on the medications that would have specific indications for helping to manage withdrawal symptoms. It is noted that the patient has been running a high blood pressure with vital signs today at 1400 hours including BP 170/101, pulse 60 and regular, respirations 16, temperature 99.4. Oxygen saturation 95. Given his elevated blood pressure, it would be reasonable to consider using clonidine. Typically the form that I use in withdrawal would be a Catapres patch, possibly starting with 0.2 mg dose. Clonidine and Catapres have been used to help ameliorate withdrawal symptoms, both in alcohol as well as opioid withdrawal, and could very well provide some help in relieving withdrawal symptoms for benzodiazepines as well. Given the persistence of high blood pressure that the patient has been having, I think it would be reasonable to start clonidine, though I will defer that to Dr. Burt, given that the patient currently is on three blood pressure- or heart-related medications. I recommended to the family that it would be beneficial to refer the patient for psychiatric followup to further help manage obsessive-compulsive disorder, especially if he has significant problems with related symptoms after a reasonable period of withdrawing from benzodiazepines. At this point it is anticipated that the patient will be discharged in the next few days. It is not clear that there would be any further need for psychiatric followup. As noted, I would continue Klonopin 0.5 mg twice a day for one week and then reduce the dose to 0.5 mg at bedtime for 5 days, and then discontinue altogether. When the patient is discharged, or when the dose of Klonopin is reduced, that would be a reasonable point to initiates Zyprexa and look at tapering some of his other medications. It would be reasonable for him to continue on Cymbalta, though I would not look for much benefit until he is at least 6-8 weeks beyond his last use of any benzodiazepine. I indicated to the family that his primary care physician could feel free to contact me with any further questions or concerns. ROB / TKN: [id number] /
[2021-03-07] MEDS: LACTATED RINGERS 1,000 ML IV SCH ×5 (03:58→22:49)
[2021-03-07] MEDS: IPRATROPIUM-ALBUTEROL 3 ML NEB INHALATION SCH ×4 (08:57→20:10)
[2021-03-07] MEDS: clonazePAM 0.5 MG TAB PO SCH ×2 (09:28→20:14)
[2021-03-07] MEDS: OXcarbazepine 300 MG TAB PO SCH ×2 (09:29→20:14)
[2021-03-07] MEDS: ISOSORBIDE MONONITRATE ER 30 MG TAB.ER.24H PO SCH (09:29)
[2021-03-07] MEDS: DULoxetine HCL 60 MG CAPSULE.DR PO SCH ×2 (09:29→20:14)
[2021-03-07] MEDS: METOPROLOL TARTRATE 12.5 MG TAB PO SCH ×2 (09:29→20:14)
[2021-03-07] MEDS: FUROSEMIDE 20 MG TAB PO SCH ×2 (09:30→16:23)
[2021-03-07] MEDS: LOSARTAN 25 MG TAB PO SCH (09:30)
--- NOTE | 2021-03-07 13:45 | P.PN ---
Progress Note - Text Progress Note Date: 03/07/21 Interval History: Patient was seen today for psychiatric follow up. Patients nurse states that p christelle has been doing better overall with his anxiety and sx and also has been sleeping better. She states that patient jojo has been improving and should be better for tomorrow for possible discharge. Patient had his son Juan at his side today in his room and both were agreeable to speak with junior technical writer today. Patient and son had several questions about his medications and medical condition and chances of discharge along with treatment planning. Patient claims that he is doing better overall with interms of his anxiety and ocd. He also claimed that the trazodone has helped with sleep. He states that he did have some restless leg sympomts and was agreeable to try requip tonight. At this time patient denies any suicidal or homical ideations, intent or plan. Patient denies any auditory, visual hallucinations and denies any paranoia or delusions. Patient denies any side effects from the medications and has been compliant with meds. Mental Status Exam: General Appearance: [Patient appears to be a tall, elderly, bruises on his arms, stated age is alert, directable, and cooperative.] Behavior: [Patient is seated without any agitated behavior.] Mildly anxious. Speech: Patient's speech is fluent and nonpressured. Mood/Affect: Mood is improving, affect is congruent and constricted. Suicidality/Homicidality: Patient denies having any suicidal or homicidal ideation intent or plan. Perceptions: Patient denies any visual hallucinations [and denies any auditory hallucinations] Though content/process: [There is no evidence of any delusional thought content and thought process is linear and goal-directed.] Focused on his medications and his treatment planning. Memory and concentration: AOX3, grossly intact for the purposes of this session Judgment and insight: Improving mildly Assessment Obsessive-compulsive disorder History of depressive disorder Adverse effects of medications PLAN: -At this time patient DOES NOT meet criteria for inpatient psychiatric admission. -Delirium precautions recommended with patient including - avoiding use of narcotics and TABLE TENDER sedatives, limit anticholinergic medications when possible, frequent re-orientation, minimize use of restraints, open window shades during the day and close them at night -Would recommend the following medication changes/additions: Can continue with Klonopin 0.5 mg twice a day for anxiety and to prevent benzodiazepine withdrawal. Klonopin can be switched to prn bid same dose upon discharge to encourage patient to only take it as needed. Continue with Cymbalta Seroquel and Trileptal as prescribed. trazodone 25 mg daily at bedtime when necessary for insomnia. added Requip 0.25 mg at 1900hr for restless leg symptoms. -piggery worker to provide patient with outpatient mental health/psychiatry resources for appropriate follow up upon discharge. Patient currently follow up at [facility] with his therapist and PCP for medications. -Communicated plan to patient's nurse -Will try to see patient tomorrow before he is discharge back home -Son will likely have patient stay with him but his plan will be to eventually get him into an independent living apartment complex. -Please contact with any questions.
[2021-03-07] MEDS: ACETAMINOPHEN TAB 325 MG TAB PO PRN ×2 (14:05→20:14)
[2021-03-07 14:47] VITALS: BMI 26.7
--- NOTE | 2021-03-07 15:13 | P.PN ---
Progress Note - Text Progress Note Date: 03/07/21 Chief Complaint: Frequent falls History of presenting complaint: This is a 70-year-old patient who follows with Dr. Pedraza. Chronic stable medical conditions include hard of hearing, hyperlipidemia, hypertension, neuroendocrine tumor of the liver, carcinoid tumor and compulsive disorder. Difficult to get a history from the patient has patient's of the heart of hearing. As per the family who told the ER patient is "falling quite a bit at home. In fact he got stuck between the bed and the wall with his leg in the air. He has a significant bruising on the lateral part of the left leg. Patient does follow at home. Normally does not use any support to walk. He is on xarelto. CPK was found to be a bit elevated. Patient's appetite has been weak. Denies any chills or fever. Admitted with frequent falls, bruising, acute rhabdomyolysis. Started IV fluids. IV bicarbonate. March 02: Laying in bed. Not in distress. Getting IV fluids. Oral intake fair. Seen by oncology. Patient has some malfunction in his hearing aids. Has difficulty in communicating. Bruising present. CPK has gone up from yesterday. IV fluids increased March 03: Oral intake good. CPK and 7000s. Did explain to the patient. He is of course keen to go home. sales enablement manager informed be that has been taking extra Seroquel and Xanax at home it seems. Family does start monitoring the same. MRI of the brain nonspecific. Patient walking well as per PT. March 04: Last night through the help line for hearing impaired telephone number [phone] I spoke at length to patient's son Juan Correa. Clinical picture was discussed. Also told him to talk to the psychiatrist and the neurologist with the same hearing 8 telephone number. Give a message to the nurse to arrange for that for today. Patient walking relevant in the hallway. Does not qualify for inpatient rehab. CPK and 5000. Getting IV fluids. Discussed with Dr. Ashford from neurology and with Dr. Claire from psychiatry. It was felt that the heavy doses of Xanax was causing most of the symptoms. Given that it's been discontinued she's done really well walking. It is also felt that patient will benefit from Klonopin which has been started 0.5 mg twice daily. Patient is very keen to go home. Informed that until his CPK comes down he cannot be discharged. Son is looking into assisted living. I did call today the hearing impaired telephone line to talk to him but it went into his school voicemail. Patient is eating well. March 05: Eating well. Anxiety better. Started on Klonopin yesterday. CPK 5000. Patient anxious to go home. Explained importance of continuing current treatment. March 06: Fair oral intake. Son is visiting. Spoke to the patient and son at length. Discussed the consequences of going home early with the rhabdomyolysis in terms of kidney being affected. They understand. Continue with IV fluids. Possibility of discharge in next 24-48 hours discussed. March 07: CPK slowly coming down. 1490 today. Continue with IV fluids. Care was discussed with the patient and son at the bedside. Reminded that on the CPK to be at least below 1000 before I decide to let him go home. Questions answered. Review of systems: Was done for constitutional, cardiovascular, GI, pulmonary. relevant finding as above Active Medications Acetaminophen (Acetaminophen Tab 325 Mg Tab) 650 mg PO Q6HR PRN PRN Reason: Mild Pain or Fever > 100.5 Last Admin: 03/07/21 14:05 Dose: 650 mg Documented by: Al Hydroxide/Mg Hydroxide (Mag Hydrox/Al Hydrox/Simeth 30 Ml Cup) 15 ml PO Q6HR PRN PRN Reason: Indigestion Albuterol/Ipratropium (Ipratropium-Albuterol 3 Ml Neb) 3 ml INHALATION RT-QID REPLACED BY [facility] Last Admin: 03/07/21 11:57 Dose: Not Given Documented by: Baclofen (Baclofen 10 Mg Tab) 10 mg PO [facility] Last Admin: 03/06/21 21:14 Dose: 10 mg Documented by: Calcium Carbonate/Glycine (Calcium Carbonate 500 Mg Chewable) 1,000 mg PO Q4HR PRN PRN Reason: Dyspepsia Clonazepam (Clonazepam 0.5 Mg Tab) 0.5 mg PO BID REPLACED BY [facility] Last Admin: 03/07/21 09:28 Dose: 0.5 mg Documented by: Duloxetine HCl (Duloxetine Hcl 60 Mg Capsule.Dr) 60 mg PO BID REPLACED BY [facility] Last Admin: 03/07/21 09:29 Dose: 60 mg Documented by: Furosemide (Furosemide 20 Mg Tab) 20 mg PO BID@0900,1600 REPLACED BY [facility] Last Admin: 03/07/21 09:30 Dose: 20 mg Documented by: Lactated Ringer's (Lactated Ringers) 1,000 mls @ 200 mls/hr IV .Q5H REPLACED BY [facility] Last Admin: 03/07/21 14:06 Dose: 200 mls/hr Documented by: Isosorbide Mononitrate (Isosorbide Mononitrate Er 30 Mg Tab.Er.24h) 30 mg PO DAILY REPLACED BY [facility] Last Admin: 03/07/21 09:29 Dose: 30 mg Documented by: Losartan Potassium (Losartan 25 Mg Tab) 25 mg PO DAILY REPLACED BY [facility] Last Admin: 03/07/21 09:30 Dose: 25 mg Documented by: Metoprolol Tartrate (Metoprolol Tartrate 12.5 Mg Tab) 12.5 mg PO BID REPLACED BY [facility] Last Admin: 03/07/21 09:29 Dose: 12.5 mg Documented by: Naloxone HCl (Naloxone 0.4 Mg/Ml 1 Ml Vial) 0.2 mg IV Q2M PRN PRN Reason: Opioid Reversal Ondansetron HCl (Ondansetron 4 Mg/2 Ml Vial) 4 mg IVP Q8HR PRN PRN Reason: Nausea And Vomiting Oxcarbazepine (Oxcarbazepine 300 Mg Tab) 300 mg PO BID REPLACED BY [facility] Last Admin: 03/07/21 09:29 Dose: 300 mg Documented by: Quetiapine Fumarate (Quetiapine 50 Mg Tab) 150 mg PO HS REPLACED BY [facility] Last Admin: 03/06/21 21:16 Dose: 150 mg Documented by: Ropinirole HCl (Ropinirole Hcl 0.25 Mg Tab) 0.25 mg PO 1900 REPLACED BY [facility] Trazodone HCl (Trazodone Hcl 50 Mg Tab) 25 mg PO HS PRN PRN Reason: Insomnia Last Admin: 03/06/21 21:14 Dose: 25 mg Documented by: Past medical history to include: Asthma, hard of hearing, hypertension, hyperlipidemia, pulmonary embolism, seizure disorder, kidney stones, neuroendocrine tumor carcinoid, get Sandostatin. Anemia, last seizure about 4 years ago. Obsessive-compulsive disorder Social history: . No smoking no alcohol. Family history: Dementia Physical examination: VITAL SIGNS: 98.5, 68, 18, 1 43 x 81, 94% room air GENERAL: Sitting at the edge of the bed Comfortable EYES: Pupils equal. Conjunctiva normal. HEENT: Very hard of hearing. Hearing aid NECK: JVD not raised; masses not palpable. HEART: First and second heart sounds are normal; no edema. LUNGS: Respiratory rate normal; clear to auscultation. ABDOMEN: Soft, nontender, liver spleen not palpable, no masses palpable. PSYCH: Alert and oriented x3; mood and affect, is anxious DERMATOLOGICAL: Bruising of the left upper arm, left leg just below the knee, laterally INVESTIGATIONS, reviewed in the clinical context: March 07: Creatinine kinase 1470 March 06: Creatinine 0.6 CPK 2815 March 04: CPK 5113 March 03: Pressure 4.1 creatinine 0.71 CPK 7115 MRI of the brain: Chronic white matter changes. Nothing acute March 02: Potassium 4.7 BUN 12 creatinine 0.67 CPK 9136 White count 12.1 hemoglobin 12.6 platelets 228 potassium 4.7 creatinine 0.67 Creatinine kinase 1241 Left knee x-ray: No fracture EKG tracing personally reviewed by me-was degree AV block Chest x-ray film personally reviewed by me-no obvious infiltrate Assessment and plan: -Recurrent falls. Patient does seem to lose balance. Patient reported to be taking his Seroquel and Xanax 1 mg 4 times a day.. Cause: Metabolic encephalopathy from medications Negative for orthostatic. Telemetry-unremarkable. EEG negative for seizure. After Xanax was discontinued. Patient has been doing very well walking.. -Obsessive-compulsive disorder -Restless leg syndrome Recurrent 0.25 mg daily at bedtime added. -Acute rhabdomyolysis secondary to fall: Slowly improving IV fluids to 200 mL/hour. Lasix 20 mg twice a day. Follow CPK -Moderate persistent asthma DuoNeb 4 times a day -Chronic pulmonary embolism On xarelto -Nephrolithiasis, asymptomatic -Neuroendocrine tumor/carcinoid On Sandostatin -Very hard of hearing since the age of 8 Hearing aids -Complex partial Seizure disorder Trileptal 300 mg twice a day -Essential hypertension Cozaar 25 mg daily. Imdur ER 30 mg daily -Obsessive-compulsive disorder Seroquel 150 mg daily at bedtime Cymbalta 60 mg twice a day . Xanax discontinued. Klonopin 0.5 mg twice a day : To be changed to when necessary upon discharge -Hyperlipidemia Lovastatin 80 mg daily at resume Continue IV fluids with Lasix. Per Dr. Alethea Mon to be changed to 0.5 mg twice daily when necessary upon discharge. Discussed with patient and son.
[2021-03-07] MEDS: QUEtiapine 50 MG TAB PO SCH (20:14)
[2021-03-07] MEDS: BACLOFEN 10 MG TAB PO SCH (20:14)
[2021-03-08] MEDS: LACTATED RINGERS 1,000 ML IV SCH ×3 (04:45→12:19)
[2021-03-08 06:12] LABS: African American GFR (CKD) >90 (>60 ml/min/1.73 sqM); Anion Gap 8 mmol/L; Blood Urea Nitrogen 7 mg/dL (9-20); Calcium 8.9 mg/dL (8.4-10.2); Carbon Dioxide 27 mmol/L (22-30); Chloride 99 mmol/L (98-107); Glucose 109 mg/dL (74-99); Non-African American GFR(CKD) >90 (>60 ml/min/1.73 sqM); Potassium 3.2 mmol/L (3.5-5.1); Sodium 134 mmol/L (137-145)
[2021-03-08 07:01] LABS: Creatine Kinase 1124 U/L (55-170)
[2021-03-08 07:09] LABS: Methylmalonic Acid 0.16 umol/L (<0.40)
[2021-03-08] MEDS ORDERED: Potassium Replacement Protocol 1 EACH MISC MISCELLANE PRN (07:45)
[2021-03-08] MEDS: LOSARTAN 25 MG TAB PO SCH (07:46)
[2021-03-08] MEDS: clonazePAM 0.5 MG TAB PO SCH (07:46)
[2021-03-08] MEDS: ACETAMINOPHEN TAB 325 MG TAB PO PRN (07:46)
[2021-03-08] MEDS: DULoxetine HCL 60 MG CAPSULE.DR PO SCH (07:47)
[2021-03-08] MEDS: METOPROLOL TARTRATE 12.5 MG TAB PO SCH (07:47)
[2021-03-08] MEDS: FUROSEMIDE 20 MG TAB PO SCH ×2 (07:48→15:49)
[2021-03-08] MEDS: OXcarbazepine 300 MG TAB PO SCH (07:48)
[2021-03-08] MEDS: ISOSORBIDE MONONITRATE ER 30 MG TAB.ER.24H PO SCH (07:48)
[2021-03-08 08:03] VITALS: RESP 16
[2021-03-08] MEDS: IPRATROPIUM-ALBUTEROL 3 ML NEB INHALATION SCH ×3 (08:09→16:12)
[2021-03-08] MEDS: POTASSIUM CHLORIDE ER 20 MEQ TAB.ER PO SCH ×2 (08:20→10:27)
[2021-03-08] MEDS ORDERED: POTASSIUM CHLORIDE ER 20 MEQ TAB.ER PO STA ×2 (12:33→12:50)
--- NOTE | 2021-03-08 13:34 | P.PN ---
Progress Note - Text Progress Note Date: 03/08/21 Interval History: Patient was seen today for psychiatric follow up. Patients nurse states that axel bourgeois has been doing better overall however did state that patient's Ck is still over 1000 and patient has been upset and wanting discharge. Patient was seen after speaking with Dr Burt today about the case. Patient claims that he is doing better overall however continues to speak about on and off anxiety mainly related to being in the hospital. He was persistent with asking about discharge and his numbers. He states that he'll be going to [place] to live with his son however talks about where he will be following up and eating to come back to [place] for a chemo treatment. He states that he is not having any depression today. He claims that he was able to sleep fairly last night and did not have restless leg symptoms as he took Requip. Christian [employer] Reader explained to him the medication change of discontinuing trazodone and replacing with Seroquel instead at a higher dose and patient was agreeable to this. He states that he has been eating fairly. At this time patient denies any suicidal or homical ideations, intent or plan. Patient denies any auditory, visual hallucinations and denies any paranoia or delusions. Patient denies any side effects from the medications and has been compliant with meds. Mental Status Exam: General Appearance: [Patient appears to be a tall, elderly, bruises on his arms, stated age is alert, directable, and cooperative.] Behavior: [Patient is seated without any agitated behavior.] Mildly anxious. Speech: Patient's speech is fluent and nonpressured. Mood/Affect: Mood is improving, affect is congruent and constricted. Suicidality/Homicidality: Patient denies having any suicidal or homicidal ideation intent or plan. Perceptions: Patient denies any visual hallucinations [and denies any auditory hallucinations] Though content/process: [There is no evidence of any delusional thought content and thought process is linear and goal-directed.] Focused on discharge today. Memory and concentration: AOX3, grossly intact for the purposes of this session Judgment and insight: Improving mildly Assessment Obsessive-compulsive disorder History of depressive disorder Adverse effects of medications PLAN: -At this time patient DOES NOT meet criteria for inpatient psychiatric admission. -Delirium precautions recommended with patient including - avoiding use of narcotics and SERVICES DELIVERY DRIVER sedatives, limit anticholinergic medications when possible, fr equent re-orientation, minimize use of restraints, open window shades during the day and close them at night -Would recommend the following medication changes/additions: Can continue with Klonopin 0.5 mg twice a day for anxiety and to prevent benzodiazepine withdrawal. Klonopin can be switched to prn bid same dose upon discharge to encourage patient to only take it as needed. Continue with Cymbalta and Trileptal as prescribed. Discontinue trazodone. Increase Seroquel to 200 mg daily at bedtime for anxiety/insomnia/mood stabilization. Continue with Requip 0.25 mg at 1900hr for restless leg symptoms. -ornamental metal worker apprentice to provide patient with outpatient mental health/psychiatry resources for appropriate follow up upon discharge. Patient currently follow up at [facility] with his therapist and PCP for medications. -Communicated plan to patient's nurse -At this time psychiatry will sign off. -Son will likely have patient stay with him but his plan will be to eventually get him into an independent living apartment complex. -Please contact with any questions.
[2021-03-08 15:29] VITALS: BP 155/86; PULSE 55; TEMP 98.1
--- NOTE | 2021-03-08 20:56 | P.DS ---
Providers Date of admission: 03/01/21 21:06 Expected date of discharge: 03/08/21 Attending physician: Darin Burt Consults: 03/02/21 19:24 Consult Physician Routine Consulting Provider: Huang Espinosa Consult Reason/Comments: Neuroendocrine tumor Do you want consulting provider notified?: Yes 03/02/21 19:25 Consult Physician Routine Consulting Provider: Sayda Pat Consult Reason/Comments: Frequent falls Do you want consulting provider notified?: Yes 03/03/21 19:48 Consult Physician Routine Consulting Provider: Lestre Myrick Consult Reason/Comments: anxiety/ review meds Do you want consulting provider notified?: Yes Primary care physician: [facility] Course: Chief Complaint: Frequent falls History of presenting complaint: This is a 70-year-old patient who follows with Dr. Pedraza. Chronic stable medical conditions include hard of hearing, hyperlipidemia, hypertension, neuroendocrine tumor of the liver, carcinoid tumor and compulsive disorder. Difficult to get a history from the patient has patient's of the heart of hearing. As per the family who told the ER patient is "falling quite a bit at home. In fact he got stuck between the bed and the wall with his leg in the air. He has a significant bruising on the lateral part of the left leg. Patient does follow at home. Normally does not use any support to walk. He is on xarelto. CPK was found to be a bit elevated. Patient's appetite has been weak. Denies any chills or fever. Admitted with frequent falls, bruising, acute rhabdomyolysis. Started IV fl uids. IV bicarbonate. March 02: Laying in bed. Not in distress. Getting IV fluids. Oral intake fair. Seen by oncology. Patient has some malfunction in his hearing aids. Has difficulty in communicating. Bruising present. CPK has gone up from yesterday. IV fluids increased March 03: Oral intake good. CPK and 7000s. Did explain to the patient. He is of course keen to go home. manager child informed be that has been taking extra Seroquel and Xanax at home it seems. Family does start monitoring the same. MRI of the brain nonspecific. Patient walking well as per PT. March 04: Last night through the help line for hearing impaired telephone number [phone] I spoke at length to patient's son Juan Correa. Clinical picture was discussed. Also told him to talk to the psychiatrist and the neurologist with the same hearing 8 telephone number. Give a message to the nurse to arrange for that for today. Patient walking relevant in the hallway. Does not qualify for inpatient rehab. CPK and 5000. Getting IV fluids. Discussed with Dr. Ashford from neurology and with Dr. Claire from psychiatry. It was felt that the heavy doses of Xanax was causing most of the symptoms. Given that it's been discontinued she's done really well walking. It is also felt that patient will benefit from Klonopin which has been started 0.5 mg twice daily. Patient is very keen to go home. Informed that until his CPK comes down he cannot be discharged. Son is looking into assisted living. I did call today the hearing impaired telephone line to talk to him but it went into his school voicemail. Patient is eating well. March 05: Eating well. Anxiety better. Started on Klonopin yesterday. CPK 5000. Patient anxious to go home. Explained importance of continuing current treatment. March 06: Fair oral intake. Son is visiting. Spoke to the patient and son at length. Discussed the consequences of going home early with the rhabdomyolysis in terms of kidney being affected. They understand. Continue with IV fluids. Possibility of discharge in next 24-48 hours discussed. March 07: CPK slowly coming down. 1490 today. Continue with IV fluids. Care was discussed with the patient and son at the bedside. Reminded that on the CPK to be at least below 1000 before I decide to let him go home. Questions answered. March 08: CPK coming down. Very keen to go home. We will give IV fluids to this evening in the patient will be discharged home. Discussed with Dr. Claire from psychiatry. P.m. dose of Seroquel increased to 200 mg. DC trazodone. Ke ep current dose of Klonopin. Discussion and discharge planning more than 35 minutes Consultation: [facility] Dr. Ashford from neurology Dr. espinsoa from hematology Past medical history to include: Asthma, hard of hearing, hypertension, hyperlipidemia, pulmonary embolism, seizure disorder, kidney stones, neuroendocrine tumor carcinoid, get Sandostatin. Anemia, last seizure about 4 years ago. Obsessive-compulsive disorder Social history: . No smoking no alcohol. Family history: Dementia Physical examination: VITAL SIGNS: 98.1, 55, 16, 155-86, 96% room air GENERAL: Sitting at the edge of the bed Comfortable EYES: Pupils equal. Conjunctiva normal. HEENT: Very hard of hearing. Hearing aid NECK: JVD not raised; masses not palpable. HEART: First and second heart sounds are normal; no edema. LUNGS: Respiratory rate normal; clear to auscultation. ABDOMEN: Soft, nontender, liver spleen not palpable, no masses palpable. PSYCH: Alert and oriented x3; mood and affect, is anxious DERMATOLOGICAL: Bruising of the left upper arm, left leg just below the knee, laterally INVESTIGATIONS, reviewed in the clinical context: March 08: CPK 1124 creatinine 0.53 March 03: Pressure 4.1 creatinine 0.71 CPK 7115 MRI of the brain: Chronic white matter changes. Nothing acute March 02: Potassium 4.7 BUN 12 creatinine 0.67 CPK 9136 White count 12.1 hemoglobin 12.6 platelets 228 potassium 4.7 creatinine 0.67 Creatinine kinase 1241 Left knee x-ray: No fracture EKG tracing personally reviewed by me-was degree AV block Chest x-ray film personally reviewed by me-no obvious infiltrate Assessment and plan: -Recurrent falls. Patient does seem to lose balance. Patient reported to be taking his Seroquel and Xanax 1 mg 4 times a day.. Cause: Metabolic encephalopathy from medications Negative for orthostatic. Telemetry-unremarkable. EEG negative for seizure. After Xanax was discontinued. Patient has been doing very well walking.. -Restless leg syndrome Recurrent 0.25 mg daily at bedtime added. -Acute rhabdomyolysis secondary to fall: improving Given IV fluids and Lasix -Moderate persistent asthma DuoNeb 4 times a day -Chronic pulmonary embolism On xarelto -Nephrolithiasis, asymptomatic -Neuroendocrine tumor/carcinoid On Sandostatin -Very hard of hearing since the age of 8 Hearing aids -Complex partial Seizure disorder Trileptal 300 mg twice a day -Essential hypertension Cozaar 25 mg daily. Imdur ER 30 mg daily -Obsessive-compulsive disorder Seroquel 200 mg daily at bedtime Cymbalta 60 mg twice a day . Xanax discon tinued. Klonopin 0.5 mg twice a day : -Hyperlipidemia Lovastatin 80 mg daily at resume Disposition: Home with son Labs: CPK, CBC: 3 days Patient Condition at Discharge: Good Plan - Discharge Summary New Discharge Prescriptions: New clonazePAM [KlonoPIN] 0.5 mg PO BID #60 tab Metoprolol Tartrate [Lopressor] 12.5 mg PO BID #60 tab rOPINIRole HCL [Requip] 0.25 mg PO 1900 #30 tab Continue Rivaroxaban [Xarelto] 20 mg PO DAILY Ergocalciferol (Vitamin D2) [Vitamin D2] 50,000 unit PO TU OXcarbazepine [Trileptal] 300 mg PO BID Diphenox-Atrop 2.5-0.025 mg [Lomotil] 1 - 2 tab PO Q6H PRN PRN Reason: Constipation Octreotide Lar [SandoSTATIN LAR] 30 mg IM QMONTH Isosorbide Mononitrate ER [Imdur] 30 mg PO DAILY #30 tab.er.24h Losartan [Cozaar] 25 mg PO DAILY Ipratropium-Albuterol Nebulize [Duoneb 0.5 mg-3 mg/3 ml Soln] 3 ml INHALATION RT-QID DULoxetine HCL [Cymbalta] 60 mg PO BID Ondansetron [Zofran] 4 mg PO Q8HR PRN PRN Reason: Nausea Hyoscyamine Sulfate [Levbid] 0.375 mg PO Q12H PRN PRN Reason: IBS Albuterol Inhaler [Ventolin Hfa Inhaler] 2 puff INHALATION RT-QID PRN PRN Reason: Shortness Of Breath Changed QUEtiapine [SEROquel] 200 mg PO HS #0 Discontinued ALPRAZolam [Xanax] 1 mg PO Q6H PRN PRN Reason: Anxiety Discharge Medication List Rivaroxaban [Xarelto] 20 mg PO DAILY 07/04/16 [History] Ergocalciferol (Vitamin D2) [Vitamin D2] 50,000 unit PO TU 05/08/17 [History] OXcarbazepine [Trileptal] 300 mg PO BID 07/06/17 [History] Diphenox-Atrop 2.5-0.025 mg [Lomotil] 1 - 2 tab PO Q6H PRN 01/29/18 [History] Octreotide Lar [SandoSTATIN LAR] 30 mg IM QMONTH 01/29/18 [History] Isosorbide Mononitrate ER [Imdur] 30 mg PO DAILY #30 tab.er.24h 01/30/18 [Rx] DULoxetine HCL [Cymbalta] 60 mg PO BID 10/08/18 [History] Ipratropium-Albuterol Nebulize [Duoneb 0.5 mg-3 mg/3 ml Soln] 3 ml INHALATION RT-QID 10/08/18 [History] Losartan [Cozaar] 25 mg PO DAILY 10/08/18 [History] Ondansetron [Zofran] 4 mg PO Q8HR PRN 07/04/19 [History] Albuterol Inhaler [Ventolin Hfa Inhaler] 2 puff INHALATION RT-QID PRN 03/01/21 [History] Hyoscyamine Sulfate [Levbid] 0.375 mg PO Q12H PRN 03/01/21 [History] Metoprolol Tartrate [Lopressor] 12.5 mg PO BID #60 tab 03/08/21 [Rx] QUEtiapine [SEROquel] 200 mg PO HS #0 03/08/21 [Rx] clonazePAM [KlonoPIN] 0.5 mg PO BID #60 tab 03/08/21 [Rx] rOPINIRole HCL [Requip] 0.25 mg PO 1900 #30 tab 03/08/21 [Rx] Follow up Appointment(s)/Referral(s): Huang Espinosa MD [STAFF PHYSICIAN] - 03/23/21 11:15 am Rojas Pedraza DO [Primary Care Provider] - 1-2 days (office will call with appointment date and time ) Patient Instructions/Handouts: Rhabdomyolysis (DC), Fall Prevention for Older Adults (DC) Activity/Diet/Wound Care/Special Instructions: cpk/bmp - 3 days Discharge Disposition: HOME SELF-CARE
[2021-03-08] MEDS ORDERED: QUEtiapine 200 MG TAB PO SCH (21:00)
--- NOTE | 2021-03-31 15:22 | CDI ---
Documentation Clarification Form Date: 03/31/2021 03:10:23 PM From: Shabbir Denney Admit Date: 03/01/2021 09:06:00 PM Patient Name: Xu Correa Visit Number: [id number] Discharge Date: 03/08/2021 06:09:00 PM ATTENTION: The Clinical Documentation Specialists (CDI) and [facility] Coding Staff appreciate your assistance in clarifying documentation. Please respond to the clarification below the line at the bottom and electronically sign. The CDI & [facility] Coding staff will review the response and follow-up if needed. Please note: Queries are made part of the Legal Health Record. If you have any questions, please contact the author of this message via ITS. Dr. Darin Burt Progress note 03/03/21 states patient taking extra doses of Xanax and Seroquel. Progress note 03/04 indicates heavy dose of Xanax is responsible for patients symptoms. Discharge diagnosis is toxic encephalopathy. To determine the principle diagnosis we need to know if this was accidental poisoning or adverse effect of medications taken properly. Query requested by security auditor. History/Risk Factors: altered mental status Clinical Indicators: Toxic encephalopathy Treatment: doses changed Can you please clarify was this: [ ] Accidental poisoning by incorrect doses [ ] Intentional self-harm poisoning [ ] Other, please specify [ ] Unable to determine [ ] the adverse effect of medications taken as prescribed Accidental poisoning by incorrect doses, POA MTDD
== END 2021-03-08 18:09 | disposition home or self-care (01) | DRG 917 ==
LOC: EC 19:33 → EEVIPCON 21:06 → 4SSUR 21:06
PROVIDERS: ADMIT Hospitalist; ATTEND Hospitalist
DX: T42.4X1A Poisoning by benzodiazepines, accidental (unintentional), initial encounter (principal); G92 Toxic encephalopathy; G40.209 Localization-related (focal) (partial) symptomatic epilepsy and epileptic syndromes with complex partial seizures, not intractable, without status epilepticus; I27.82 Chronic pulmonary embolism; R18.8 Other ascites; T43.591A Poisoning by other antipsychotics and neuroleptics, accidental (unintentional), initial encounter; T79.6XXA Traumatic ischemia of muscle, initial encounter; E78.5 Hyperlipidemia, unspecified; F03.90 Unspecified dementia, unspecified severity, without behavioral disturbance, psychotic disturbance, mood disturbance, and anxiety; F32.9 Major depressive disorder, single episode, unspecified; F41.9 Anxiety disorder, unspecified; F42.9 Obsessive-compulsive disorder, unspecified; G25.81 Restless legs syndrome; I10 Essential (primary) hypertension; I44.0 Atrioventricular block, first degree; J44.9 Chronic obstructive pulmonary disease, unspecified; J45.40 Moderate persistent asthma, uncomplicated; N20.0 Calculus of kidney; R29.6 Repeated falls; S80.211A Abrasion, right knee, initial encounter; W01.0XXA Fall on same level from slipping, tripping and stumbling without subsequent striking against object, initial encounter; H91.93 Unspecified hearing loss, bilateral; Z79.01 Long term (current) use of anticoagulants; Z79.899 Other long term (current) drug therapy; Z80.1 Family history of malignant neoplasm of trachea, bronchus and lung; Z86.718 Personal history of other venous thrombosis and embolism; Z86.73 Personal history of transient ischemic attack (TIA), and cerebral infarction without residual deficits; Z91.81 History of falling; T42.4X5A Adverse effect of benzodiazepines, initial encounter; Y92.009 Unspecified place in unspecified non-institutional (private) residence as the place of occurrence of the external cause; Z97.4 Presence of external hearing-aid
CPT/HCPCS: 36415; 70553; 71046; 80048; 80053; 81001; 82550; 82607; 82746; 83921; 84207; 84425; 84443; 85025; 85610; 85730; 86780; 93005; 93880; 94640; 94760; 95816; 96361; 96374; 96375; 99285

== ENCOUNTER → 2021-08-02 | Outpatient (CLI) | payer MEDICARE ==
[2021-08-02 10:38] LABS: African American GFR (CKD) >90 (>60 ml/min/1.73 sqM); Blood Urea Nitrogen 22 mg/dL (9-20); Non-African American GFR(CKD) 88 (>60 ml/min/1.73 sqM)
--- NOTE | 2021-08-02 12:24 | CT ---
EXAMINATION TYPE: CT ChestAbdPelvis w con DATE OF EXAM: 08/02/2021 COMPARISON: Most recent CT August 11, 2020 and older CTs HISTORY: Carcinoid tumor. CT DLP: 1936 mGycm. Automated Exposure Control for Dose Reduction was Utilized. CONTRAST: CT scan of the thorax, abdomen and pelvis is performed with oral and with IV Contrast, patient inject ed with 100 mL of Isovue 300. FINDINGS: LUNGS: The lungs remain grossly clear, there is no concerning new greater than 5 mm parenchymal mass or nodule identified. There is no pleural effusion or pneumothorax seen. The tracheobronchial tree is patent. MEDIASTINUM: There are no greater than 1 cm hilar or mediastinal lymph nodes. No cardiomegaly or pe ricardial effusion is seen. Mild coronary artery calcification is redemonstrated which is noted marke r for underlying coronary artery disease. Stable 4.2 cm ascending aortic aneurysm axial image 25. LIVER/GB: Evaluation for carcinoid tumor suboptimal as no dedicated hepatic arterial phase imaging is performed. Liver is heterogeneously hypodense relative to spleen suggesting fatty infiltration. Vagu e nonspecific hypodense lesion anteriorly in liver measures 2.2 cm long axis current study axial imag e 55 was less well seen on most recent prior, was better seen March 05, 2020 axial image 59 where it is grossly stable. No definitive new lesions on background heterogeneity. PANCREAS: Moderate to severe fat replaced atrophy greatest in the head and proximal body redemonstrat ed. SPLEEN: No significant abnormality is seen. ADRENALS: No significant abnormality is seen. KIDNEYS: There are single simple appearing 1.0 cm thin-walled cysts bilaterally seen best on delayed images. BOWEL: Oral contrast only reaches mid small bowel level. No suspicious small or large bowel dilatatio n is present. GENITAL ORGANS: Prostate gland is enlarged in size consistent with BPH. Scattered pelvic phleboliths are seen. LYMPH NODES: No new greater than 1cm abdominal or pelvic lymph nodes are appreciated. OSSEOUS STRUCTURES: Moderate to severe narrowing in both hip joints is redemonstrated. There is multi level moderate to severe spurring and disc space narrowing with vacuum disc phenomenon throughout the spine redemonstrated OTHER: There is redemonstration of heterogeneous hypodense mass in the left upper quadrant now measur ing 1.2 x 1.0 cm axial image 66 fairly stable in size from most recent CT. Tiny adjacent mass along t he left inferior aspect measuring near 4 mm axial image 68 remains present. No new mesenteric masses. Mild/moderate calcified plaque of the aorta with ectatic appearance with no greater than 3.0 cm aneur ysm is redemonstrated. Moderate-sized fat-containing left periumbilical hernia axial image 89 is rede monstrated. IMPRESSION: Grossly stable size and appearance of the left upper quadrant mesenteric mass. Nonspecifi c hepatic lesion grossly stable from March 05, 2020 CT was well seen on most recent prior. No new suspicious masses or adenopathy.
== END | disposition home or self-care (01) ==
LOC: RADCTMAIN 09:58
PROVIDERS: ATTEND Internal Medicine Hematology & Oncology
DX: C7A.098 Malignant carcinoid tumors of other sites (principal); K76.89 Other specified diseases of liver; R19.02 Left upper quadrant abdominal swelling, mass and lump
CPT/HCPCS: 82565; 84520; 71260; 74177; 36415; Q9967 ×2

== ENCOUNTER → 2022-03-30 | Outpatient (CLI) | payer MEDICARE ==
[2022-03-30 08:12] LABS: African American GFR (CKD) >90 (>60 ml/min/1.73 sqM); Blood Urea Nitrogen 17 mg/dL (9-20); Non-African American GFR(CKD) 84 (>60 ml/min/1.73 sqM)
--- NOTE | 2022-03-30 10:43 | CT ---
EXAMINATION TYPE: CT ChestAbdPelvis w con DATE OF EXAM: 03/30/2022 COMPARISON: Prior CT August 02, 2021 and older studies HISTORY: Carcinoid tumor CT DLP: 1793.1 mGycm. Automated Exposure Control for Dose Reduction was Utilized. CONTRAST: CT scan of the thorax, abdomen and pelvis is performed with oral and with IV Contrast, patient inject ed with 70 mL of Isovue 300. FINDINGS: LUNGS: The lungs remain grossly clear, there is no concerning new greater than 5 mm parenchymal mass or nodule identified. There is no pleural effusion or pneumothorax seen. The tracheobronchial tree is patent. MEDIASTINUM: There are no new greater than 1 cm hilar or mediastinal lymph nodes. No cardiomegaly o r pericardial effusion is seen. Coronary artery calcification is redemonstrated which is noted marker for underlying coronary artery disease. Stable 4.2 cm ascending aortic aneurysm axial image 28 curre nt study. LIVER/GB: Evaluation for carcinoid tumor suboptimal as no dedicated hepatic arterial phase imaging is performed. Liver is overall heterogeneous. Vague nonspecific hypodense lesion anteriorly abutting th e interlobar fissure in liver measures 2.9 cm long axis current study axial image 53 is increasing in size from most recent prior. This has been present however back to 2016 MRI and accounting for techn ical differences is felt fairly stable from older studies. Stable nonspecific subcentimeter low dense lesion posterior right hepatic lobe axial image 65. PANCREAS: Moderate to severe fat replaced atrophy greatest in the head and proximal body is redemonst rated. SPLEEN: No significant abnormality is seen. ADRENALS: No significant abnormality is seen. KIDNEYS: There are single simple appearing 1.0 cm thin-walled cysts bilaterally redemonstrated seen b est on delayed images. BOWEL: Oral contrast only reaches mid small bowel level similar to prior. No suspicious small or larg e bowel dilatation is present. GENITAL ORGANS: Prostate gland remains enlarged in size consistent with BPH. Scattered pelvic phlebol iths are redemonstrated. LYMPH NODES: No new greater than 1cm abdominal or pelvic lymph nodes are appreciated. OSSEOUS STRUCTURES: Underlying dextroconvex scoliosis redemonstrated. Moderate to severe narrowing in both hip joints is redemonstrated. There is multilevel moderate to severe spurring and disc space na rrowing with vacuum disc phenomenon throughout the lumbar spine redemonstrated. Prominent multilevel facet arthropathy OTHER: There is redemonstration of heterogeneous round soft tissue mass in the left upper quadrant no w measuring 1.1 x 1.0 cm axial image 15 9 now significantly changed from most recent CT. Tiny adjacen t mass along the left inferior aspect measuring near 4 mm axial images 60 and 61 remains present. No new mesenteric masses. Mild/moderate calcified plaque of the aorta with ectatic appearance without greater than 3.0 cm aneur ysm is redemonstrated. Moderate-sized fat-containing left periumbilical hernia axial image 89 is rede monstrated. IMPRESSION: Grossly stable size and appearance of the left upper quadrant mesenteric mass. Nonspecifi c hepatic lesion perhaps slightly larger in size has been present since 2016 MRI. This is perhaps sli ghtly growing in size and should be at least closely monitored. No new suspicious masses or adenopath y noted.
== END | disposition home or self-care (01) ==
LOC: RADCTMAIN 07:31
PROVIDERS: ATTEND Internal Medicine Hematology & Oncology
DX: C7A.098 Malignant carcinoid tumors of other sites (principal); D50.9 Iron deficiency anemia, unspecified; F32.5 Major depressive disorder, single episode, in full remission; Z71.89 Other specified counseling
CPT/HCPCS: 82565; 84520; 71260; 74177; 36415; Q9967

== ENCOUNTER 2022-05-30 10:11 | Emergency (ER) | payer MEDICARE ==
[2022-05-30 10:55] VITALS: BP 106/74; PULSE 66; RESP 18; TEMP 98
[2022-05-30] MEDS ORDERED: OXYMETAZOLINE 0.05% NASL SPRAY 1 SPRAY BOTTLE NASAL STA (11:34)
--- NOTE | 2022-05-30 11:36 | ED ---
ENT HPI - General Chief complaint: ENT Stated complaint: Nose Bleed Time Seen by Provider: 05/30/22 11:31 Source: patient, RN notes reviewed Mode of arrival: ambulatory Limitations: no limitations - History of Present Illness Initial comments: This a 71-year-old male presents emergency Department with chief complaint of epistaxis. Patient states he had a nosebleed. he states she's had some the past he does see dr. marinelli. patient states that the bleeding has subsided denies any headache dizziness no blurred vision no pain denies feeling short of breath no other associated complaints he states he put pressure on it but did not stop so he was advised to come emergency department. patient states that it only lasted a few minutes. - Related Data Home Medications Medication Instructions Recorded Confirmed Rivaroxaban [Xarelto] 20 mg PO DAILY 07/04/16 03/01/21 Ergocalciferol (Vitamin D2) 50,000 unit PO TU 05/08/17 03/01/21 [Vitamin D2] OXcarbazepine [Trileptal] 300 mg PO BID 07/06/17 03/01/21 Diphenox-Atrop 2.5-0.025 mg 1 - 2 tab PO Q6H PRN 01/29/18 03/01/21 [Lomotil] Octreotide Lar [SandoSTATIN LAR] 30 mg IM QMONTH 01/29/18 03/01/21 DULoxetine HCL [Cymbalta] 60 mg PO BID 10/08/18 03/01/21 Ipratropium-Albuterol Nebulize 3 ml INHALATION RT-QID 10/08/18 03/01/21 [Duoneb 0.5 mg-3 mg/3 ml Soln] Losartan [Cozaar] 25 mg PO DAILY 10/08/18 03/01/21 Ondansetron [Zofran] 4 mg PO Q8HR PRN 07/04/19 03/01/21 Albuterol Inhaler [Ventolin Hfa 2 puff INHALATION RT-QID PRN 03/01/21 03/01/21 Inhaler] Hyoscyamine Sulfate [Levbid] 0.375 mg PO Q12H PRN 03/01/21 03/01/21 Previous Rx's Medication Instructions Recorded Isosorbide Mononitrate ER [Imdur] 30 mg PO DAILY #30 tab.er.24h 01/30/18 Metoprolol Tartrate [Lopressor] 12.5 mg PO BID #60 tab 03/08/21 QUEtiapine [SEROquel] 200 mg PO HS #0 03/08/21 clonazePAM [KlonoPIN] 0.5 mg PO BID #60 tab 03/08/21 rOPINIRole HCL [Requip] 0.25 mg PO 1900 #30 tab 03/08/21 Allergies Allergy/AdvReac Type Severity Reaction Status Date / Time prochlorperazine Allergy Hallucinati Verified 05/30/22 10:55 [From Compazine] ons vortioxetine Allergy SEIZURES Verified 05/30/22 10:55 [From Trintellix] Review of Systems ROS Statement: Those systems with pertinent positive or pertinent negative responses have been documented in the HPI. ROS Other: All systems not noted in ROS Statement are negative. Past Medical History Past Medical History: Asthma, Cancer, COPD, Hearing Disorder / Deafness, Hyperlipidemia, Hypertension, Pulmonary Embolus (PE), Seizure Disorder Additional Past Medical History / Comment(s): "Mini strokes" and small vessel disorder, asthma was previously charted but pt/ unaware of this. 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, constipation (both in remission per dr oquendo), anemia, [place] even wl hearing aids since 8 years old, last seizure 3 years ago, obsessive compulsive disorder History of Any Multi-Drug Resistant Organisms: None Reported Past Surgical History: Hernia Repair Additional Past Surgical History / Comment(s): liver biopsy, soft tissue biopsy November 2018 Past Anesthesia/Blood Transfusion Reactions: Motion Sickness Additional Past Anesthesia/Blood Transfusion Reaction / Comment(s): clausterphobia, obsessive compulsive disorder Past Psychological History: Anxiety, Depression Smoking Status: Never smoker Past Alcohol Use History: None Reported Past Drug Use History: None Reported - Past Family History Mother Family Medical History: Dementia Additional Family Medical History / Comment(s): alzhiemers Father Family Medical History: Cancer Additional Family Medical History / Comment(s): lung cancer, hx of smoking General Exam Limitations: no limitations General appearance: alert, in no apparent distress Head exam: Present: atraumatic, normocephalic, normal inspection Eye exam: Present: normal appearance, PERRL, EOMI. Absent: scleral icterus, conjunctival injection, periorbital swelling ENT exam: Present: normal oropharynx, mucous membranes moist. Absent: normal exam (Dry blood right nostril no active bleeding) Neck exam: Present: normal inspection, full ROM. Absent: tenderness, meningismus, lymphadenopathy Respiratory exam: Present: normal lung sounds bilaterally. Absent: respiratory distress, wheezes, rales, rhonchi, stridor Course Vital Signs 05/30/22 10:51 Temperature 98 F Pulse Rate 66 Respiratory 18 Rate Blood Pressure 106/74 O2 Sat by Pulse 96 Oximetry Medical Decision Making - Medical Decision Making Patient had epistaxis prior arrival resolved without treatment. Patient does have small area of irritation patient was given Afrin nose clamp advised to use humidified air at home he will follow-up with his ENT and return for any worsening changing symptoms. Patient did not have any prolonged bleeding. Patient does not that he takes Xarelto. Disposition Clinical Impression: Epistaxis Disposition: HOME SELF-CARE Condition: Stable Instructions (If sedation given, give patient instructions): Nosebleed (ED) Additional Instructions: Please return to the Emergency Department if symptoms worsen or any other concerns. Is patient prescribed a controlled substance at d/c from ED?: No Referrals: Rojas Pedraza DO [Primary Care Provider] - 1-2 days Time of Disposition: 11:36
== END 2022-05-30 12:12 | disposition home or self-care (01) ==
LOC: EC 10:11
DX: R04.0 Epistaxis (principal); J44.9 Chronic obstructive pulmonary disease, unspecified; I10 Essential (primary) hypertension; I26.99 Other pulmonary embolism without acute cor pulmonale; F41.9 Anxiety disorder, unspecified; F32.A Depression, unspecified; Z88.9 Allergy status to unspecified drugs, medicaments and biological substances; Z79.899 Other long term (current) drug therapy
CPT/HCPCS: 99284

== ENCOUNTER → 2022-07-24 | Outpatient (CLI) | payer MEDICARE ==
[2022-07-24 12:56] LABS: African American GFR (CKD) >90 (>60 ml/min/1.73 sqM); Blood Urea Nitrogen 23 mg/dL (9-20); Non-African American GFR(CKD) 88 (>60 ml/min/1.73 sqM)
--- NOTE | 2022-07-24 14:40 | CT ---
EXAMINATION TYPE: CT ChestAbdPelvis w con DATE OF EXAM: 07/24/2022 COMPARISON: Prior CT March 30, 2022 and older studies HISTORY: carcinoid tumor CT DLP: 1888.6 mGycm. Automated Exposure Control for Dose Reduction was Utilized. CONTRAST: CT scan of the thorax, abdomen and pelvis is performed with oral and with IV Contrast, patient inject ed with 70 mL of Isovue 300. FINDINGS: LUNGS: The lungs remain grossly clear, there is no concerning new greater than 5 mm parenchymal mass or nodule identified. There is no pleural effusion or pneumothorax seen. The tracheobronchial tree is patent. MEDIASTINUM: There are no new greater than 1 cm hilar or mediastinal lymph nodes. No cardiomegaly o r pericardial effusion is seen. Coronary artery calcification is redemonstrated which is noted marker for underlying coronary artery disease. Stable 4.2 cm ascending aortic aneurysm axial image 28 curre nt study. LIVER/GB: Evaluation for carcinoid tumor suboptimal as no dedicated hepatic arterial phase imaging is performed. Liver is overall heterogeneous. Vague nonspecific hypodense lesion anteriorly abutting th e interlobar fissure in liver measures 3.4 cm long axis current study axial image 48 is stable or sli ghtly larger from most recent prior. This has been present however back to 2016 MRI and accounting fo r technical differences is felt only slightly larger from older studies. PANCREAS: Severe fat replaced atrophy greatest in the head and proximal body is redemonstrated. SPLEEN: No significant abnormality is seen. ADRENALS: No significant abnormality is seen. KIDNEYS: There are single simple appearing 1.0 cm thin-walled cysts bilaterally redemonstrated seen b est on delayed images. There are approximately 3-4 small nonobstructing bilateral renal calculi redem onstrated on current study. BOWEL: Oral contrast only reaches mid small bowel level similar to prior. No suspicious small or larg e bowel dilatation is present. GENITAL ORGANS: Prostate gland remains enlarged in size consistent with BPH. Scattered pelvic phlebol iths are redemonstrated. LYMPH NODES: No new greater than 1cm abdominal or pelvic lymph nodes are appreciated. Prominent but s ubcentimeter lymph nodes inferior to the pancreatic head are stable in their axial image 75. OSSEOUS STRUCTURES: Underlying dextroconvex scoliosis redemonstrated. Moderate to severe narrowing in both hip joints is redemonstrated. There is multilevel moderate to severe spurring and disc space na rrowing with vacuum disc phenomenon throughout the lumbar spine redemonstrated. Prominent multilevel facet arthropathy is again seen. OTHER: There is stable heterogeneous round soft tissue mass in the left upper quadrant now measuring roughly 9 mm axial image 63 not significantly changed from most recent CT. Tiny adjacent 3 to 4 mm ma ss along the left inferior aspect measuring axial images 64 is stable. No new mesenteric masses. Mild/moderate calcified plaque of the aorta with ectatic appearance without greater than 3.0 cm aneur ysm is redemonstrated. Moderate-sized fat-containing left periumbilical hernia axial image 89 is rede monstrated. IMPRESSION: Grossly stable size and appearance of the left upper quadrant mesenteric mass. Nonspecifi c hepatic lesion perhaps slightly larger in size has been present since 2016 MRI. This is perhaps sli ghtly growing in size and should be at least closely monitored. No new suspicious masses or adenopath y otherwise noted.
== END | disposition home or self-care (01) ==
LOC: RADCTMAIN 12:02
PROVIDERS: ATTEND Internal Medicine Hematology & Oncology
DX: C7A.098 Malignant carcinoid tumors of other sites (principal); K76.89 Other specified diseases of liver; R19.02 Left upper quadrant abdominal swelling, mass and lump
CPT/HCPCS: 82565; 84520; 71260; 74177; 36415; Q9967

== ENCOUNTER 2022-11-03 11:24 | Emergency (ER) | payer MEDICARE ==
[2022-11-03 11:48] VITALS: RESP 18; TEMP 97.5
--- NOTE | 2022-11-03 12:26 | ED ---
General Adult HPI - General Chief complaint: Psychiatric Symptoms Stated complaint: Mental health Time Seen by Provider: 11/03/22 11:29 Source: patient, EMS, RN notes reviewed Mode of arrival: EMS Limitations: physical limitation - History of Present Illness Initial comments: Patient is a pleasant 71-year-old male presents emergency Department for mental health evaluation. Patient is petition by plain clothes police officer. Patient reportedly was telling staff he had thoughts of suicide and plan. Patient denies that at this time. Patient states he was just making philosophical writings. Patient admits to being depressed recently. - Related Data Home Medications Medication Instructions Recorded Confirmed Rivaroxaban [Xarelto] 20 mg PO HS@199907/04/16 11/03/22 OXcarbazepine [Trileptal] 300 mg PO BID@08,199907/06/17 11/03/22 DULoxetine HCL [Cymbalta] 60 mg PO BID@08,199910/08/18 11/03/22 Ipratropium-Albuterol Nebulize 3 ml INHALATION RT-QID PRN 10/08/18 11/03/22 [Duoneb 0.5 mg-3 mg/3 ml Soln] Losartan [Cozaar] 25 mg PO DAILY@79910/08/18 11/03/22 Ondansetron [Zofran] 4 mg PO Q8HR PRN 07/04/19 11/03/22 Albuterol Inhaler [Ventolin Hfa 2 puff INHALATION RT-QID PRN 03/01/21 11/03/22 Inhaler] Hyoscyamine Sulfate [Levbid] 0.375 mg PO BID@799,199903/01/21 11/03/22 Ergocalciferol (Vitamin D2) 1,250 mcg PO TU 11/03/22 11/03/22 [Drisdol (50,000 Iu)] Isosorbide Mononitrate ER [Imdur] 30 mg PO DAILY@79911/03/22 11/03/22 Metoprolol Tartrate [Lopressor] 12.5 mg PO BID@08,199911/03/22 11/03/22 Mupirocin 2% Oint [Bactroban 2% 1 applic TOPICAL TID PRN 11/03/22 11/03/22 Oint] Sodium Chloride [Saline Mist] 1 spray EA NOSTRIL DAILY PRN 11/03/22 11/03/22 clonazePAM [KlonoPIN] 0.5 mg PO BID@0800,199911/03/22 11/03/22 clonazePAM [KlonoPIN] 1 mg PO HS@199911/03/22 11/03/22 rOPINIRole HCL [Requip] 4 mg PO HS@199911/03/22 11/03/22 tadalafiL [Cialis] 20 mg PO DAILY PRN 11/03/22 11/03/22 traZODone HCL [Desyrel] 100 mg PO HS@199911/03/22 11/03/22 Allergies Allergy/AdvReac Type Severity Reaction Status Date / Time prochlorperazine Allergy Hallucinati Verified 11/03/22 12:43 [From Compazine] ons vortioxetine Allergy SEIZURES Verified 11/03/22 12:43 [From [employer]] Review of Systems ROS Statement: Those systems with pertinent positive or pertinent negative responses have been documented in the HPI. ROS Other: All systems not noted in ROS Statement are negative. Constitutional: Denies: fever Eyes: Denies: eye pain ENT: Denies: ear pain Respiratory: Denies: cough Cardiovascular: Denies: palpitations Endocrine: Denies: fatigue Gastrointestinal: Denies: abdominal pain Genitourinary: Denies: dysuria Psychiatric: Reports: as per HPI, depression Past Medical History Past Medical History: Asthma, Cancer, COPD, Hearing Disorder / Deafness, Hyperlipidemia, Hypertension, Pulmonary Embolus (PE), Seizure Disorder Additional Past Medical History / Comment(s): "Mini strokes" and small vessel disorder, asthma was previously charted but pt/ unaware of this. 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, constipation (both in remission per dr oquendo), anemia, [place] even wl hearing aids since 8 years old, last seizure 3 years ago, obsessive compulsive disorder History of Any Multi-Drug Resistant Organisms: None Reported Past Surgical History: Hernia Repair Additional Past Surgical History / Comment(s): liver biopsy, soft tissue biopsy November 2018 Past Anesthesia/Blood Transfusion Reactions: Motion Sickness Additional Past Anesthesia/Blood Transfusion Reaction / Comment(s): clausterphobia, obsessive compulsive disorder Past Psychological History: Anxiety, Depression Smoking Status: Never smoker - Past Family History Mother Family Medical History: Dementia Additional Family Medical History / Comment(s): alzhiemers Father Family Medical History: Cancer Additional Family Medical History / Comment(s): lung cancer, hx of smoking General Exam Limitations: physical limitation General appearance: alert, in no apparent distress Head exam: Present: atraumatic Eye exam: Present: normal appearance Respiratory exam: Present: normal lung sounds bilaterally Cardiovascular Exam: Present: regular rate, normal rhythm GI/Abdominal exam: Present: soft. Absent: tenderness Extremities exam: Present: normal inspection Neurological exam: Present: alert Psychiatric exam: Present: normal affect, normal mood Skin exam: Present: normal color Course Vital Signs 11/03/22 11:30 Temperature 97.5 F L Pulse Rate 58 L Respiratory 18 Rate Blood Pressure 156/87 O2 Sat by Pulse 96 Oximetry Medical Decision Making - Medical Decision Making Was pt. sent in by a medical professional or institution (, PA, SHOVELER, urgent care, hospital, or assisted...) When possible be specific @ -Patient was sent from nursing facility Did you speak to anyone other than the patient for history (EMS, parent, family, police, friend...)? What history was obtained from this source @ -k 9 police officer was present Did you review nursing and triage notes (agree or disagree)? Why? @ -I reviewed and agree with nursing and triage notes Were old charts reviewed (outside hosp., previous admission, EMS record, old EKG, old radiological studies, urgent care reports/EKG's, assisted records)? Report findings @ -No old charts were reviewed Differential Diagnosis (chest pain, altered mental status, abdominal pain women, abdominal pain men, vaginal bleeding, weakness, fever, dyspnea, syncope, headache, dizziness, GI bleed, back pain, seizure, CVA, palpatations, mental health)? @ -not applicable EKG interpreted by me (3pts min.). @ -As above X-rays interpreted by me (1pt min.). @ -None done CT interpreted by me (1pt min.). @ -None done U/S interpreted by me (1pt. min.). @ -None done What testing was considered but not performed or refused? (CT, X-rays, U/S, labs)? Why? @ -None What meds were considered but not given or refused? Why? @ -None Did you discuss the management of the patient with other professionals (professionals i.e. , PA, SHOVELER, lab, RT, psych nurse, social media specialist, application helper, teacher, u.s. revenue officer, pillowcase maker)? Give summary @ -No Was smoking cessation discussed for >3mins.? @ -Case was discussed with psychiatric nurse who after interviewing patient and speaking with psychiatrist recommends discharge back to nursing facility. Was critical care preformed (if so, how long)? @ -No Were there social determinants of health that impacted care today? How? (Homelessness, low income, unemployed, alcoholism, drug addiction, transportation, low edu. Level, literacy, decrease access to med. care, senior living, rehab)? @ -No Was there de-escalation of care discussed even if they declined (Discuss DNR or withdrawal of care, Hospice)? DNR status @ -No What co-morbidities impacted this encounter? (DM, HTN, Smoking, COPD, CAD, Can cer, CVA, ARF, Chemo, Hep., AIDS, mental health diagnosis, sleep apnea, morbid obesity)? @ -None Was patient admitted / discharged? Hospital course, mention meds given and route, prescriptions, significant lab abnormalities, going to OR and other pertinent info. @ -Patient reevaluated and still denies suicidal ideation. Patient will be dis charged back to nursing facility and recommended follow-up . Patient denies suicidal ideation again and does contract for safety. Undiagnosed new problem with uncertain prognosis? @ -No Drug Therapy requiring intensive monitoring for toxicity (Heparin, Nitro, Insulin, Cardizem)? @ -No Were any procedures done? @ -No Diagnosis/symptom? @ -Depression Acute, or Chronic, or Acute on Chronic? @ -Acute on chronic Uncomplicated (without systemic symptoms) or Complicated (systemic symptoms)? @ -default Side effects of treatment? @ -No Exacerbation, Progression, or Severe Exacerbation? @ -No Poses a threat to life or bodily function? How? (Chest pain, [place], [place], pneumonia, PE, COPD, DKA, ARF, appy, cholecystitis, CVA, Diverticulitis, Homicidal, Suicidal, threat to staff... and all critical care pts) @ -No - Lab Data Result diagrams: 11/03/22 13:27 11/03/22 13:27 Lab Results 11/03/22 11/03/22 Range/Units 13:27 13:27 WBC 5.3 (3.8-10.6) k/uL RBC 4.60 (4.30-5.90) m/uL Hgb 12.4 L (13.0-17.5) gm/dL Hct 38.5 L (39.0-53.0) % MCV 83.8 (80.0-100.0) fL MCH 27.1 (25.0-35.0) pg MCHC 32.3 (31.0-37.0) g/dL RDW 22.5 H (11.5-15.5) % Plt Count 202 (150-450) k/uL MPV 8.2 Neutrophils % 61 % Lymphocytes % 23 % Monocytes % 6 % Eosinophils % 8 % Basophils % 0 % Neutrophils # 3.2 (1.3-7.7) k/uL Lymphocytes # 1.2 (1.0-4.8) k/uL Monocytes # 0.3 (0-1.0) k/uL Eosinophils # 0.4 (0-0.7) k/uL Basophils # 0.0 (0-0.2) k/uL Anisocytosis Moderate Microcytosis Moderate Sodium 138 (137-145) mmol/L Potassium 4.4 (3.5-5.1) mmol/L Chloride 102 (98-107) mmol/L Carbon Dioxide 27 (22-30) mmol/L Anion Gap 9 mmol/L BUN 17 (9-20) mg/dL Creatinine 0.74 (0.66-1.25) mg/dL Est GFR (CKD-EPI)AfAm >90 (>60 ml/min/1.73 sqM) Est GFR (CKD-EPI)NonAf >90 (>60 ml/min/1.73 sqM) Glucose 92 (74-99) mg/dL Calcium 8.9 (8.4-10.2) mg/dL Disposition Clinical Impression: Depression Disposition: HOME SELF-CARE Condition: Stable Instructions (If sedation given, give patient instructions): Depression (ED) Additional Instructions: Please do follow-up with your primary care physician and psychiatrist next day or 2 for recheck. Discharged back to nursing facility. Return for thoughts or attempt at self-harm, worsening symptoms or other concerns. Is patient prescribed a controlled substance at d/c from ED?: No Referrals: Rojas Pedraza DO [Primary Care Provider] - 1-2 days Time of Disposition: 14:24
[2022-11-03 13:46] LABS: Anisocytosis Moderate; Basophils % (A) 0 %; Eosinophils # (A) 0.4 k/uL (0-0.7); Eosinophils % (A) 8 %; HCT 38.5 % (39.0-53.0); HGB 12.4 gm/dL (13.0-17.5); Lymphocytes # (A) 1.2 k/uL (1.0-4.8); Lymphocytes % (A) 23 %; MCH 27.1 pg (25.0-35.0); MCHC 32.3 g/dL (31.0-37.0); MCV 83.8 fL (80.0-100.0); Mean Platelet Volume 8.2; Microcytosis Moderate; Monocytes # (A) 0.3 k/uL (0-1.0); Monocytes % (A) 6 %; Neutrophils # (A) 3.2 k/uL (1.3-7.7); Neutrophils % (A) 61 %; Platelet Count 202 k/uL (150-450); RDW 22.5 % (11.5-15.5); WBC 5.3 k/uL (3.8-10.6)
[2022-11-03 14:03] LABS: African American GFR (CKD) >90 (>60 ml/min/1.73 sqM); Anion Gap 9 mmol/L; Blood Urea Nitrogen 17 mg/dL (9-20); Calcium 8.9 mg/dL (8.4-10.2); Carbon Dioxide 27 mmol/L (22-30); Chloride 102 mmol/L (98-107); Glucose 92 mg/dL (74-99); Non-African American GFR(CKD) >90 (>60 ml/min/1.73 sqM); Potassium 4.4 mmol/L (3.5-5.1); Sodium 138 mmol/L (137-145)
[2022-11-03 14:36] VITALS: BP 116/74; PULSE 54
== END 2022-11-03 14:36 | disposition home or self-care (01) ==
LOC: EC 11:24
DX: F32.A Depression, unspecified (principal); I10 Essential (primary) hypertension; J44.9 Chronic obstructive pulmonary disease, unspecified; E78.5 Hyperlipidemia, unspecified; F41.9 Anxiety disorder, unspecified; Z79.01 Long term (current) use of anticoagulants; Z79.899 Other long term (current) drug therapy; Z86.711 Personal history of pulmonary embolism; Z86.73 Personal history of transient ischemic attack (TIA), and cerebral infarction without residual deficits; Z88.8 Allergy status to other drugs, medicaments and biological substances
CPT/HCPCS: 36415; 80048; 82075; 85025; 99285

== ENCOUNTER → 2023-03-06 | Outpatient (CLI) | payer MEDICARE ==
[2023-03-06 10:29] LABS: African American GFR (CKD) >90 (>60 ml/min/1.73 sqM); Blood Urea Nitrogen 14 mg/dL (9-20); Non-African American GFR(CKD) 86 (>60 ml/min/1.73 sqM)
--- NOTE | 2023-03-06 13:43 | CT ---
EXAMINATION TYPE: CT ChestAbdPelvis w con DATE OF EXAM: 03/06/2023 COMPARISON: 07/24/2022 HISTORY: liver CA, f/u CT DLP: 2294.3 mGycm CONTRAST: CT scan of the chest, abdomen and pelvis is performed with Oral Contrast and with IV Contrast, patien t injected with 100 mL of Isovue 300. CT Chest: LUNGS: The lungs are clear and free of infiltrate or atelectasis. No pulmonary nodule or mass is det ected. No pleural effusion or CT evidence of interstitial lung disease. MEDIASTINUM: Stable ascending thoracic aortic aneurysm. The heart is mildly enlarged. No evidence fo r mediastinal mass or adenopathy. HILAR STRUCTURES: No evidence for mass. No hilar adenopathy is appreciated. OTHER: No significant abnormality. CONTRAST CT ABDOMEN AND PELVIS FINDINGS: LIVER/GB: Tiny gallstones are again redemonstrated. Redemonstrated is hypodensity attenuating lesion adjacent to the falciform ligament measuring 2.7 cm versus 3.4 cm measured previously. No new lesions are identified. Biliary tree is of normal caliber. PANCREAS: No inflammation. No distinct mass. Fatty atrophy of the pancreas is present. SPLEEN: No splenic enlargement. No lesion seen. ADRENALS: No nodule. No thickening. KIDNEYS/BLADDER: No hydronephrosis. Nonobstructing nephrolithiasis is noted bilaterally. Calculi sancho sure up to 4.5 mm lower pole left kidney. Subcentimeter hypoattenuating lesions are noted bilaterally which are felt to reflect cysts. No distinct renal mass. BOWEL: Normal appendix. Normal bowel caliber. No inflammation. GENITAL ORGANS: There is evidence of prostate gland enlargement. LYMPH NODES: No greater than 1cm abdominal or pelvic lymph nodes are appreciated. AORTA: No significant abnormality. OSSEOUS STRUCTURES: There are multilevel degenerative disc disease noted at lumbar spine. OTHER: No significant additional abnormality is seen. IMPRESSION: 1. Stable hepatic lesion adjacent to the falciform ligament. No new lesions seen. 2. Ascending thoracic aortic aneurysm. 3. Nonobstructing renal calculi. 4. Tiny layering gallstones.
== END | disposition home or self-care (01) ==
LOC: RADCTMAIN 09:48
PROVIDERS: ATTEND Internal Medicine Hematology & Oncology
DX: C7A.098 Malignant carcinoid tumors of other sites (principal); D50.9 Iron deficiency anemia, unspecified; F32.5 Major depressive disorder, single episode, in full remission; K80.20 Calculus of gallbladder without cholecystitis without obstruction; N20.0 Calculus of kidney; I71.21 Aneurysm of the ascending aorta, without rupture; Z71.89 Other specified counseling; Z71.3 Dietary counseling and surveillance
CPT/HCPCS: 82565; 84520; 71260; 74177; 36415; Q9967

== ENCOUNTER 2023-05-29 05:51 | Day surgery (SDC) | payer MEDICARE ==
[2023-05-28 12:24] VITALS: BMI 32.4
[2023-05-29] MEDS ORDERED: LACTATED RINGERS 1,000 ML IV SCH (06:28)
[2023-05-29] MEDS ORDERED: PROPOFOL 10 MG/ML 20 ML VIAL IV ONE (06:59)
[2023-05-29] MEDS ORDERED: LIDOCAINE 1% INJ 10MG/ML (20 ML MDV) ONE (06:59)
[2023-05-29 07:00] VITALS: RESP 16; TEMP 97.5
--- NOTE | 2023-05-29 07:30 | P.PCN ---
Date of Procedure: 05/29/23 Procedure(s) Performed: Brief history: Patient is a pleasant 72-year-old white male scheduled for an elective upper endoscopy as well as colonoscopy as a part of evaluation of iron deficiency anemia. He has history of A. fib on Xarelto which has been on hold for 2 days. He denies any abdominal pain, nausea vomiting or bleeding. Procedure performed: Esophagogastroduodenoscopy with biopsy Colonoscopy with snare polypectomy Preoperative diagnosis: Iron deficiency anemia Anesthesia: MAC Procedure: After informed consent was obtained from the patient was brought into the endoscopy unit and IV sedation was administered by anesthesia under continuous monitoring. Initially upper endoscopy was done. The Olympus GF 160 video endoscope was inserted inserted into the mouth and esophagus intubated without any difficulty and was gradually advanced into the stomach and duodenum and carefully examined. The bulb and second part of the duodenum appeared normal. His were done from the duodenum to evaluate for celiac disease. The scope was then withdrawn into the stomach adequately insufflated with air and upon careful examination the antrum had mild gastritis and biopsies were done from this area. Mucosa of the body, cardia and fundus appeared normal. The scope was then withdrawn into the esophagus. The hiatal hernia noted. The GE junction was located at 40 cm to the incisors. It appeared regular with no erythema erosions or ulcerations. Rest of the esophagus appeared normal. Patient tolerated the procedure well. At this time the patient continued to remain sedation. Initial digital rectal examination was normal. Olympus CF 160 video colonoscope was then inserted into the rectum and gradually advanced to the cecum without any difficulty. Careful examination was performed as the scope was gradually being withdrawn. The prep was excellent. The cecum, appeared normal. In the ascending colon there was a 7 mm sessile polyp removed by snare polypectomy. In the transverse colon there was a 1 cm polyp removed by hot snare polyp rectum he. Rest of the ascending colon, transverse colon, descending colon, appeared normal. In the sigmoid there was a 5 mm polyp removed by snare polypectomy. Rest of the sigmoid colon and rectum appeared normal. Retroflexion was performed in the rectum and no lesions were noted. Patient tolerated the procedure well. Impression: 1. Upper endoscopy revealed mild antral gastritis and small hiatal hernia 2. Colonoscopy revealed: a) 7 mm ascending colon polyp status post snare polypectomy b) 1 cm transverse colon polyp status post snare polypectomy c) 5 mm sigmoid polyp status post polypectomy Recommendations: Findings of this examination were discussed with the patient as well as his family. He was advised to follow with the biopsy results.If the biopsy revealed adenoma he can have a repeat colonoscopy in 3 years.
[2023-05-29] MEDS ORDERED: ONDANSETRON 4 MG/2 ML VIAL ONE (07:43)
[2023-05-29] MEDS ORDERED: ONDANSETRON 4 MG/2 ML VIAL IVP ONE (07:45)
[2023-05-29 08:13] VITALS: BP 121/82; PULSE 48
== END 2023-05-29 08:30 | disposition home or self-care (01) ==
LOC: ORWHC2ENDO 05:51
PROVIDERS: ATTEND Internal Medicine Gastroenterology
DX: D12.2 Benign neoplasm of ascending colon (principal); K29.50 Unspecified chronic gastritis without bleeding; K44.9 Diaphragmatic hernia without obstruction or gangrene; D50.9 Iron deficiency anemia, unspecified; K90.0 Celiac disease; I25.10 Atherosclerotic heart disease of native coronary artery without angina pectoris; I10 Essential (primary) hypertension; J44.9 Chronic obstructive pulmonary disease, unspecified; I63.9 Cerebral infarction, unspecified; F42.9 Obsessive-compulsive disorder, unspecified; Z86.711 Personal history of pulmonary embolism; Z79.01 Long term (current) use of anticoagulants; Z79.51 Long term (current) use of inhaled steroids; Z79.899 Other long term (current) drug therapy; Z98.890 Other specified postprocedural states; Z88.6 Allergy status to analgesic agent; Z88.8 Allergy status to other drugs, medicaments and biological substances; Z88.9 Allergy status to unspecified drugs, medicaments and biological substances
CPT/HCPCS: 88305; 45385; 43239; J2405; J2001; J2704

== ENCOUNTER 2023-06-04 05:33 | Day surgery (SDC) | payer MEDICARE ==
[2023-06-04] MEDS ORDERED: HEPARIN SODIUM,PORCINE 10,000 UNIT in SODIUM CHLORIDE 0.9% 1,000 ML IRRIGATION PRN (06:20)
[2023-06-04] MEDS ORDERED: ALPRAZolam 0.5 MG TAB PO PRN (06:20)
[2023-06-04] MEDS ORDERED: NITROGLYCERIN SL TABS 0.4 MG TAB SUBLINGUAL PRN ×2 (06:20→08:39)
[2023-06-04] MEDS ORDERED: HEPARIN SODIUM,PORCINE (1 ML) 2,500 UNIT in SODIUM CHLORIDE 0.9% 250 ML IRRIGATION PRN (06:20)
[2023-06-04] MEDS ORDERED: ALPRAZolam 0.25 MG TAB PO PRN (06:20)
[2023-06-04] MEDS ORDERED: ASPIRIN 81 MG ONE (06:23)
[2023-06-04 06:32] LABS: Basophils # (A) 0.1 k/uL (0-0.2); Basophils % (A) 1 %; Eosinophils # (A) 0.5 k/uL (0-0.7); Eosinophils % (A) 7 %; HCT 43.2 % (39.0-53.0); HGB 14.5 gm/dL (13.0-17.5); Lymphocytes % (A) 31 %; MCH 30.9 pg (25.0-35.0); MCHC 33.5 g/dL (31.0-37.0); MCV 92.3 fL (80.0-100.0); Mean Platelet Volume 8.1; Monocytes # (A) 0.5 k/uL (0-1.0); Monocytes % (A) 7 %; Neutrophils # (A) 3.3 k/uL (1.3-7.7); Neutrophils % (A) 52 %; Platelet Count 233 k/uL (150-450); RBC 4.68 m/uL (4.30-5.90); RDW 14.9 % (11.5-15.5); WBC 6.4 k/uL (3.8-10.6)
[2023-06-04] MEDS ORDERED: SODIUM CHLORIDE 0.9% 1,000 ML IV ONE (06:35)
[2023-06-04] MEDS: SODIUM CHLORIDE 0.9% 1,000 ML in EMPTY BAG 1 BAG IV SCH ×2 (06:41→18:02)
[2023-06-04] MEDS ORDERED: ASPIRIN 325 MG TAB PO ONE (07:00)
[2023-06-04] MEDS ORDERED: ATORVASTATIN 80 MG TAB PO ONE (07:00)
[2023-06-04 07:02] LABS: African American GFR (CKD) >90 (>60 ml/min/1.73 sqM); Anion Gap 10 mmol/L; Blood Urea Nitrogen 21 mg/dL (9-20); Calcium 9.6 mg/dL (8.4-10.2); Carbon Dioxide 28 mmol/L (22-30); Chloride 98 mmol/L (98-107); Glucose 109 mg/dL (74-99); Non-African American GFR(CKD) >90 (>60 ml/min/1.73 sqM); Potassium 4.5 mmol/L (3.5-5.1); Sodium 136 mmol/L (137-145)
[2023-06-04] MEDS ORDERED: LIDOCAINE 1% INJ 10MG/ML (20 ML MDV) ONE (07:29)
[2023-06-04] MEDS ORDERED: VERAPAMIL 2.5 MG/ML 2 ML AMP ONE (07:30)
[2023-06-04] MEDS ORDERED: HEPARIN SODIUM 1,000 UN/ML (10ML VL) ONE (07:30)
[2023-06-04] MEDS: MIDAZOLAM 2 MG/2 ML VIAL IVP ONE ×2 (07:34→08:22)
[2023-06-04] MEDS: fentaNYL (PF) 50 MCG/ML 2 ML AMP IVP ONE ×2 (07:37→08:25)
[2023-06-04] MEDS ORDERED: fentaNYL (PF) 50 MCG/ML 2 ML AMP ONE (07:39)
[2023-06-04] MEDS ORDERED: LIDOCAINE 1% INJ 10MG/ML (5 ML VIAL-PF) SQ ONE (07:40)
[2023-06-04] MEDS ORDERED: VERAPAMIL SYRINGE (5 MG/10 ML) INTRAARTER ONE (07:41)
[2023-06-04] MEDS: HEPARIN SODIUM 1,000 UN/ML (10ML VL) IV ONE ×3 (07:44→08:38)
[2023-06-04] MEDS ORDERED: CLOPIDOGREL 75 MG TAB ONE (07:51)
[2023-06-04] MEDS ORDERED: CLOPIDOGREL 75 MG TAB PO ONE (07:55)
[2023-06-04] MEDS ORDERED: IOPAMIDOL-370 100ML BTL INJ ONE ×2 (08:07→08:36)
[2023-06-04] MEDS: NITROGLYCERIN 1000MCG/10ML SYRINGE INTRACORON ONE ×3 (08:10→08:32)
[2023-06-04] MEDS ORDERED: ALBUTEROL HFA INHALER INHALATION PRN (08:38)
[2023-06-04] MEDS ORDERED: ONDANSETRON 4 MG TAB PO PRN (08:38)
[2023-06-04] MEDS ORDERED: IPRATROPIUM-ALBUTEROL 3 ML NEB INHALATION PRN (08:38)
[2023-06-04] MEDS ORDERED: RX INFO: IV CONTRAST WAS GIVEN 1 EACH MISC MISCELLANE PRN (08:39)
[2023-06-04] MEDS ORDERED: MAG HYDROX/AL HYDROX/SIMETH 30 ML CUP PO PRN (08:39)
[2023-06-04] MEDS ORDERED: ZOLPIDEM 5 MG TAB PO PRN (08:39)
[2023-06-04] MEDS ORDERED: ATROPINE SULFATE 0.1 MG/ML 10ML SYRINGE IV PRN (08:39)
[2023-06-04] MEDS ORDERED: SODIUM CHLORIDE 0.9% 1,000 ML in EMPTY BAG 1 BAG IV SCH (08:45)
--- NOTE | 2023-06-04 08:46 | P.PCN ---
Date of Procedure: 06/04/23 Operative Findings: CARDIAC CATHETERIZATION AND PERCUTANEOUS CORONARY INTERVENTION PERFORMING PHYSICIAN: Stephan Pennington MD, [facility] PROCEDURE PERFORMED: 1. Selective right and left coronary angiogram 2. Successful stenting of mid LAD using 3.0 x 18 Xience SHARATH with an excellent angiographic results 3. Successful stenting of the ramus intermedius using 3.5 x 15 mm Xience SHARATH with an excellent angiographic results 4. Adjunctive use of intravascular ultrasound of the LAD and ramus intermedius 5. Ultrasound-guided access of the right radial artery INDICATION: This is a 72-year-old gentleman who was symptomatic and underwent a stress test came in to be abnormal showing ischemia COMPLICATION: None APPROACH: Right radial artery LEVEL OF SEDATION: Moderate with the sedation time off 55 minutes PROCEDURE DESCRIPTION: After obtaining an informed consent the patient was brought to the cardiac laborer steel handling. The right radial artery was cannulated using micropuncture technique under ultrasound guidance and marked functional wire passed easily then I placed a 6- [place] sheath in the right radial artery need after that I give the patient 2 mg of verapamil intra-arterial and 5000 use of heparin intravenously. Selective right and left coronary angiogram performed using JR4 and JL 3.5 catheter. Left heart catheterization was not performed. After that I did intervene on both the LAD and ramus intermedius SELECTIVE CORONARY ANGIOGRAM: The right coronary artery: Medium caliber vessel nondominant vessel. The LAD in the midportion has a lesion appears to be in the range of 60-70% Left main: Has mild disease only. Bifurcates into an LCx and LAD The left circumflex: Large caliber vessel nondominant vessel. The LCx has approximately a lesion appeared to be in the range of 60%. Gives rise into an OM1 which appeared to be a large caliber vessel was no disease. The ramus intermedius: Large-caliber vessel with tight lesion in the proximal portion The left anterior descending artery: Large caliber vessel with severe disease involving the midportion. The LAD gives rise into a large diagonal branch which seems to be normal PCI OF THE LAD and ramus intermedius: Anticoagulation was initiated using heparin with continuous ACT monitoring. After that I did engage the left main using EBU 3.5 guiding catheter. The LAD was wired using a run-through wire. Intravascular ultrasound was performed and showed a noncalcified lesion with a diameter around 3 mm. I predilated using 2.5 mm balloon before I deployed 3.0 x 18 mm stent. Subsequently the wire was directed toward the ramus intermedius and also intravascular ultrasound which showed calcified lesion but not very calcified with a diameter around 3.5-4 mm. Predilatation was performed using 3 mm balloon before I deployed 3.5 x 15 mm stent where the stent was positioned under fluoroscopy guidance and deployed under fluoroscopy guidance. Postdilatation was performed using initially 3.75 mm and subsequently for millimeter balloon. 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 I performed successful stenting of both as described above Intermediate to severe disease involving the mid RCA and left circumflex POSTPROCEDURE MANAGEMENT: 1. Dual antiplatelet therapy using aspirin and Plavix for 6 month 2. Aggressive cholesterol control 3. Follow-up with the patient
[2023-06-04] MEDS ORDERED: ERGOCALCIFEROL 1,250 MCG (50,000 IU) CAPSULE PO SCH (16:00)
[2023-06-04] MEDS: clonazePAM 0.5 MG TAB PO SCH (18:03)
[2023-06-04] MEDS: DULoxetine HCL 60 MG CAPSULE.DR PO SCH (20:49)
[2023-06-04] MEDS: METOPROLOL TARTRATE 12.5 MG TAB PO SCH (20:52)
[2023-06-04] MEDS: OXcarbazepine 300 MG TAB PO SCH (20:52)
[2023-06-04] MEDS: HYOSCYAMINE SULFATE 0.375 MG TAB.ER.12H PO SCH (20:52)
[2023-06-04] MEDS ORDERED: ATORVASTATIN 80 MG TAB PO SCH (21:00)
[2023-06-04] MEDS ORDERED: ARIPiprazole 2 MG TAB PO SCH (21:00)
[2023-06-04] MEDS ORDERED: rOPINIRole HCL 4 MG TABLET PO SCH (21:00)
[2023-06-04] MEDS ORDERED: clonazePAM 1 MG TAB PO SCH (21:00)
[2023-06-04] MEDS ORDERED: traZODone HCL 100 MG TAB PO SCH (21:00)
[2023-06-05] MEDS: SODIUM CHLORIDE 0.9% 1,000 ML in EMPTY BAG 1 BAG IV SCH ×2 (01:41→13:33)
[2023-06-05] MEDS: clonazePAM 0.5 MG TAB PO SCH (05:55)
[2023-06-05 06:50] VITALS: BP 155/98; PULSE 60; TEMP 97.5
[2023-06-05] MEDS: HYOSCYAMINE SULFATE 0.375 MG TAB.ER.12H PO SCH (07:47)
[2023-06-05] MEDS: METOPROLOL TARTRATE 12.5 MG TAB PO SCH (07:47)
[2023-06-05] MEDS: DULoxetine HCL 60 MG CAPSULE.DR PO SCH (07:48)
[2023-06-05] MEDS: OXcarbazepine 300 MG TAB PO SCH (07:48)
[2023-06-05] MEDS ORDERED: LOSARTAN-HCTZ 50-12.5 MG 1 EACH TAB PO SCH (09:00)
[2023-06-05] MEDS ORDERED: CLOPIDOGREL 75 MG TAB PO SCH (09:00)
[2023-06-05] MEDS ORDERED: ISOSORBIDE MONONITRATE ER 30 MG TAB.ER.24H PO SCH (09:00)
[2023-06-05 11:06] VITALS: RESP 18
[2023-06-05 14:27] VITALS: BMI 32.5
== END 2023-06-05 14:02 | disposition home or self-care (01) ==
LOC: CATHCVL 05:33 → 6NMEDSUR 08:35 → CATHCVL 06-05 14:02
PROVIDERS: ATTEND Internal Medicine Interventional Cardiology
DX: I25.10 Atherosclerotic heart disease of native coronary artery without angina pectoris (principal); I10 Essential (primary) hypertension; E78.5 Hyperlipidemia, unspecified; Z79.01 Long term (current) use of anticoagulants; Z79.899 Other long term (current) drug therapy
CPT/HCPCS: 92978; 92979; 93454; 76937; 80048; 85025; C9600; C1887; C1769 ×2; C1894; C1753; C1874 ×2; C1725 ×4; J2250; J2001; J3010; J1644; Q9967; J2305

== ENCOUNTER 2023-09-18 22:16 | Emergency (ER) | payer MEDICARE ==
[2023-09-18 22:29] VITALS: TEMP 97.9
--- NOTE | 2023-09-18 22:39 | ED ---
General Adult HPI - General Chief complaint: ENT Stated complaint: Nose Bleed Time Seen by Provider: 09/18/23 22:23 Source: EMS Mode of arrival: EMS - History of Present Illness Initial comments: Dictation was produced using at[employer] dictation software. please excuse any grammatical, word or spelling errors. Chief Complaint: 72-year-old male presents with epistaxis History of Present Illness: Patient 72-year-old male takes Plavix. Brought to the emergency department for approximate 1 hour of epistaxis. Patient had similar episode 2 to 3 days ago. Patient states that the bleeding is coming from his right naris. The ROS documented in this emergency department record has been reviewed and confirmed by me. Those systems with pertinent positive or negative responses shankar ve been documented in the HPI. All other systems are other negative and/or noncontributory. - Related Data Home Medications Medication Instructions Recorded Confirmed OXcarbazepine [Trileptal] 300 mg PO BID 07/06/17 06/01/23 DULoxetine HCL [Cymbalta] 60 mg PO BID 10/08/18 06/01/23 Ipratropium-Albuterol Nebulize 3 ml INHALATION RT-QID PRN 10/08/18 06/01/23 [Duoneb 0.5 mg-3 mg/3 ml Soln] Ondansetron [Zofran] 4 mg PO Q8HR PRN 07/04/19 06/04/23 Albuterol Inhaler [Ventolin Hfa 2 puff INHALATION RT-QID PRN 03/01/21 06/01/23 Inhaler] Hyoscyamine Sulfate [Levbid] 0.375 mg PO Q12HR 03/01/21 06/01/23 Ergocalciferol (Vitamin D2) 1,250 mcg PO WEEKLY 11/03/22 06/04/23 [Drisdol (50,000 Iu)] Isosorbide Mononitrate ER [Imdur] 30 mg PO DAILY 11/03/22 06/01/23 Metoprolol Tartrate [Lopressor] 12.5 mg PO BID 11/03/22 06/01/23 Sodium Chloride [Saline Mist] 1 spray EA NOSTRIL DAILY PRN 11/03/22 06/01/23 clonazePAM [KlonoPIN] 0.5 mg PO Q12HR 11/03/22 06/01/23 clonazePAM [KlonoPIN] 1 mg PO HS 11/03/22 06/01/23 rOPINIRole HCL [Requip] 4 mg PO HS 11/03/22 06/01/23 tadalafiL [Cialis] 20 mg PO DAILY 11/03/22 06/01/23 traZODone HCL [Desyrel] 150 mg PO HS 11/03/22 06/01/23 ARIPiprazole [Abilify] 4 mg PO HS 05/28/23 06/01/23 Losartan-Hctz 50-12.5 mg [Hyzaar 1 tab PO DAILY 05/28/23 06/01/23 50-12.5] Previous Rx's Medication Instructions Recorded Aspirin 81 mg PO DAILY #90 tab 06/05/23 Atorvastatin [Lipitor] 80 mg PO HS #90 tab 06/05/23 Clopidogrel [Plavix] 75 mg PO DAILY #90 tab 06/05/23 Rivaroxaban [Xarelto] 15 mg PO DAILY #90 tab 06/05/23 Amoxic-Pot Clav 875-125Mg 1 tab PO BID 10 Days #20 tab 09/19/23 [Augmentin 875-125] Allergies Allergy/AdvReac Type Severity Reaction Status Date / Time diphenhydramine Allergy Unknown Unknown Verified 09/18/23 22:26 [From Benadryl] prochlorperazine Allergy Hallucinati Verified 09/18/23 22:26 [From Compazine] ons vortioxetine Allergy SEIZURES Verified 09/18/23 22:26 [From Trintellix] Review of Systems ROS Statement: Those systems with pertinent positive or pertinent negative responses have been documented in the HPI. ROS Other: All systems not noted in ROS Statement are negative. Past Medical History Past Medical History: Asthma, Cancer, COPD, Hearing Disorder / Deafness, Hyperlipidemia, Hypertension, Pulmonary Embolus (PE), Seizure Disorder Additional Past Medical History / Comment(s): "Mini strokes" and small vessel disorder, asthma was previously charted but pt/ unaware of this. 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, constipation (both in remission per dr oquendo), anemia, [place] even wl hearing aids since 8 years old, last seizure 3 years ago, obsessive compulsive disorder History of Any Multi-Drug Resistant Organisms: None Reported Past Surgical History: Hernia Repair Additional Past Surgical History / Comment(s): liver biopsy, soft tissue biopsy November 2018 Past Anesthesia/Blood Transfusion Reactions: Motion Sickness Additional Past Anesthesia/Blood Transfusion Reaction / Comment(s): clauste rphobia, obsessive compulsive disorder Past Psychological History: Anxiety, Depression Smoking Status: Never smoker Past Alcohol Use History: None Reported Past Drug Use History: None Reported - Past Family History Mother Family Medical History: Dementia Additional Family Medical History / Comment(s): alzhiemers Father Family Medical History: Cancer Additional Family Medical History / Comment(s): lung cancer, hx of smoking General Exam - General Exam Comments Initial Comments: General: Well-appearing, nontoxic, no acute distress. Head: Normocephalic, atraumatic Eyes: PERRLA, EOMI ENT: Airway patent, bleeding, from the right naris, no blood in the posterior oropharynx Chest: Nonlabored breathing Skin: No visual rash, normal skin tone Neuro: Alert and oriented 3 Musculoskeletal: No gross abnormalities Course Vital Signs 09/18/23 09/18/23 09/19/23 22:22 23:24 00:51 Temperature 97.9 F Pulse Rate 72 63 63 Respiratory 18 17 17 Rate Blood Pressure 159/89 138/96 139/94 O2 Sat by Pulse 100 96 96 Oximetry - Reevaluation(s) Reevaluation #1: 09/18/23 22:39 Right nostril was packed with Merocel Reevaluation #2: 09/19/23 02:59 Patient still had some oozing despite Merisel packing. Merisel packing was removed and silver nitrate stick was used after site of bleeding was identified to the anterior nasal septum Reevaluation #3: 09/19/23 03:11 Bleeding was controlled with silver nitrate sticks. Rapid Rhino was placed. Medical Decision Making - Medical Decision Making Was pt. sent in by a medical professional or institution (, PA, RIVET FLUNKY, urgent care, hospital, or alf...) When possible be specific @ -No Did you speak to anyone other than the patient for history (EMS, parent, family, police, friend...)? What history was obtained from this source @ -No Did you review nursing and triage notes (agree or disagree)? Why? @ -I reviewed and agree with nursing and triage notes Were old charts reviewed (outside hosp., previous admission, EMS record, old EKG, old radiological studies, urgent care reports/EKG's, alf records)? Report findings @ -No old charts were reviewed Differential Diagnosis (chest pain, altered mental status, abdominal pain women, abdominal pain men, vaginal bleeding, musculoskeletal, weakness, fever, dyspnea, syncope, headache, dizziness, GI bleed, back pain, seizure, CVA, palpatations, mental health)? @ -Not applicable EKG interpreted by me (3pts min.). @ -None done X-rays interpreted by me (1pt min.). @ -None done CT interpreted by me (1pt min.). @ -None done U/S interpreted by me (1pt. min.). @ -None done What testing was considered but not performed or refused? (CT, X-rays, U/S, labs)? Why? @ -None What meds were considered but not given or refused? Why? @ -None Did you discuss the management of the patient with other professionals (professionals i.e. , PA, RIVET FLUNKY, lab, RT, psych nurse, social insurance adviser, immigration lawyer, teacher, payroll officer, case management manager)? Give summary @ -No Was smoking cessation discussed for >3mins.? @ -No Was critical care preformed (if so, how long)? @ -No Were there social determinants of health that impacted care today? How? (Homelessness, low income, unemployed, alcoholism, drug addiction, transportation, low edu. Level, literacy, decrease access to med. care, intermediate, rehab)? @ -No Was there de-escalation of care discussed even if they declined (Discuss DNR or withdrawal of care, Hospice)? DNR status @ -No What co-morbidities impacted this encounter? (DM, HTN, Smoking, COPD, CAD, Cancer, CVA, ARF, Chemo, Hep., AIDS, mental health diagnosis, sleep apnea, morbid obesity)? @ -None Was patient admitted / discharged? Hospital course, mention meds given and route, prescriptions, significant lab abnormalities, going to OR and other pertinent info. @ -72-year-old male presents with epistaxis. Vital signs upon arrival are within acceptable limits. Patient on Plavix. Initial packing and cautery with silver nitrate sticks did not control the bleeding. Rapid Rhino was placed with good control of bleeding. Patient observed emergency department for several hours. Patient given prescription for antibiotics and referral to ENT for outpatient further care. Undiagnosed new problem with uncertain prognosis? @ -No Drug Therapy requiring intensive monitoring for toxicity (Heparin, Nitro, Insulin, Cardizem)? @ -No Were any procedures done? @ -No Diagnosis/symptom? Acute, or Chronic, or Acute on Chronic? Uncomplicated (without systemic symptoms) or Complicated (systemic symptoms)? @ -Epistaxis Side effects of treatment? @ -No Exacerbation, Progression, or Severe Exacerbation? @ -No Poses a threat to life or bodily function? How? (Chest pain, [place], [place], pneumonia, PE, COPD, DKA, ARF, appy, cholecystitis, CVA, Diverticulitis, Homicidal, Suicidal, threat to staff... and all critical care pts) @ -No - Lab Data Result diagrams: 09/18/23 23:05 09/18/23 23:05 Lab Results 09/18/23 09/18/23 Range/Units 23:05 23:05 WBC 7.5 (3.8-10.6) k/uL RBC 3.76 L (4.30-5.90) m/uL Hgb 11.1 L (13.0-17.5) gm/dL Hct 35.3 L (39.0-53.0) % MCV 94.1 (80.0-100.0) fL MCH 29.5 (25.0-35.0) pg MCHC 31.3 (31.0-37.0) g/dL RDW 15.2 (11.5-15.5) % Plt Count 262 (150-450) k/uL MPV 7.6 Neutrophils % 64 % Lymphocytes % 24 % Monocytes % 5 % Eosinophils % 6 % Basophils % 1 % Neutrophils # 4.8 (1.3-7.7) k/uL Lymphocytes # 1.8 (1.0-4.8) k/uL Monocytes # 0.4 (0-1.0) k/uL Eosinophils # 0.4 (0-0.7) k/uL Basophils # 0.0 (0-0.2) k/uL Sodium 133 L (137-145) mmol/L Potassium 4.6 (3.5-5.1) mmol/L Chloride 101 (98-107) mmol/L Carbon Dioxide 24 (22-30) mmol/L Anion Gap 8 mmol/L BUN 14 (9-20) mg/dL Creatinine 0.66 (0.66-1.25) mg/dL Est GFR (CKD-EPI)AfAm >90 (>60 ml/min/1.73 sqM) Est GFR (CKD-EPI)NonAf >90 (>60 ml/min/1.73 sqM) Glucose 117 H (74-99) mg/dL Calcium 9.0 (8.4-10.2) mg/dL Disposition Clinical Impression: Epistaxis Disposition: HOME SELF-CARE Condition: Fair Instructions (If sedation given, give patient instructions): Nosebleed (ED) Prescriptions: Amoxic-Pot Clav 875-125Mg [Augmentin 875-125] 1 tab PO BID 10 Days #20 tab Is patient prescribed a controlled substance at d/c from ED?: No Referrals: Moody English MD [STAFF PHYSICIAN] - 1-2 days Time of Disposition: 04:00
[2023-09-18 23:19] LABS: Basophils % (A) 1 %; Eosinophils # (A) 0.4 k/uL (0-0.7); Eosinophils % (A) 6 %; HCT 35.3 % (39.0-53.0); HGB 11.1 gm/dL (13.0-17.5); Lymphocytes # (A) 1.8 k/uL (1.0-4.8); Lymphocytes % (A) 24 %; MCH 29.5 pg (25.0-35.0); MCHC 31.3 g/dL (31.0-37.0); MCV 94.1 fL (80.0-100.0); Mean Platelet Volume 7.6; Monocytes # (A) 0.4 k/uL (0-1.0); Monocytes % (A) 5 %; Neutrophils # (A) 4.8 k/uL (1.3-7.7); Neutrophils % (A) 64 %; Platelet Count 262 k/uL (150-450); RBC 3.76 m/uL (4.30-5.90); RDW 15.2 % (11.5-15.5); WBC 7.5 k/uL (3.8-10.6)
[2023-09-18] MEDS: TRANEXAMIC 1,000 MG/100ML-NACL 1,000 MG in SALINE 1 100ML.BAG IVPB ONE (23:21)
[2023-09-18 23:28] LABS: African American GFR (CKD) >90 (>60 ml/min/1.73 sqM); Anion Gap 8 mmol/L; Blood Urea Nitrogen 14 mg/dL (9-20); Carbon Dioxide 24 mmol/L (22-30); Chloride 101 mmol/L (98-107); Glucose 117 mg/dL (74-99); Non-African American GFR(CKD) >90 (>60 ml/min/1.73 sqM); Sodium 133 mmol/L (137-145)
[2023-09-19 00:05] LABS: Potassium 4.6 mmol/L (3.5-5.1)
[2023-09-19] MEDS: TRANEXAMIC ACID 1,000 MG/10 ML VIAL MISCELLANE ONE (00:16)
[2023-09-19] MEDS: SILVER NITRATE APPLICATOR 1 EACH STICK..EA. TOPICAL STA (02:54)
[2023-09-19] MEDS: MORPHINE SULFATE 4 MG/ML SYRINGE IVP STA (03:35)
[2023-09-19 04:52] VITALS: BP 126/93; PULSE 68; RESP 18
== END 2023-09-19 04:47 | disposition home or self-care (01) ==
LOC: EC 22:16
DX: R04.0 Epistaxis (principal); Z88.8 Allergy status to other drugs, medicaments and biological substances
CPT/HCPCS: 30901; 36415; 80048; 85025; 96374; 99284

== ENCOUNTER 2023-09-19 10:25 | Emergency (ER) | payer MEDICARE ==
[2023-09-19 10:56] VITALS: RESP 20; TEMP 97.6
--- NOTE | 2023-09-19 11:22 | ED ---
ENT HPI - General Chief complaint: ENT Stated complaint: Nose Bleed Time Seen by Provider: 09/19/23 11:21 Source: patient, EMS, RN notes reviewed, old records reviewed Mode of arrival: EMS Limitations: no limitations - History of Present Illness Initial comments: Patient is a 72-year-old male presenting to the ER with a chief complaint of epistaxis. Patient seen here earlier this morning for similar complaint. Patient had a Rhino Rocket placed and was discharged with bleeding controlled at that time. Patient resides at [facility]. Staff state that patient started to have a slower nosebleed earlier this morning while at breakfast. Patient is currently taking Plavix and Eliquis and took both of them this morning. Patient was told to follow-up with ENT but was sent to ER due to active bleeding. Patient denies any current complaints. - Related Data Home Medications Medication Instructions Recorded Confirmed OXcarbazepine [Trileptal] 300 mg PO BID 07/06/17 06/01/23 DULoxetine HCL [Cymbalta] 60 mg PO BID 10/08/18 06/01/23 Ipratropium-Albuterol Nebulize 3 ml INHALATION RT-QID PRN 10/08/18 06/01/23 [Duoneb 0.5 mg-3 mg/3 ml Soln] Ondansetron [Zofran] 4 mg PO Q8HR PRN 07/04/19 06/04/23 Albuterol Inhaler [Ventolin Hfa 2 puff INHALATION RT-QID PRN 03/01/21 06/01/23 Inhaler] Hyoscyamine Sulfate [Levbid] 0.375 mg PO Q12HR 03/01/21 06/01/23 Ergocalciferol (Vitamin D2) 1,250 mcg PO WEEKLY 11/03/22 06/04/23 [Drisdol (50,000 Iu)] Isosorbide Mononitrate ER [Imdur] 30 mg PO DAILY 11/03/22 06/01/23 Metoprolol Tartrate [Lopressor] 12.5 mg PO BID 11/03/22 06/01/23 Sodium Chloride [Saline Mist] 1 spray EA NOSTRIL DAILY PRN 11/03/22 06/01/23 clonazePAM [KlonoPIN] 0.5 mg PO Q12HR 11/03/22 06/01/23 clonazePAM [KlonoPIN] 1 mg PO HS 11/03/22 06/01/23 rOPINIRole HCL [Requip] 4 mg PO HS 11/03/22 06/01/23 tadalafiL [Cialis] 20 mg PO DAILY 11/03/22 06/01/23 traZODone HCL [Desyrel] 150 mg PO HS 11/03/22 06/01/23 ARIPiprazole [Abilify] 4 mg PO HS 05/28/23 06/01/23 Losartan-Hctz 50-12.5 mg [Hyzaar 1 tab PO DAILY 05/28/23 06/01/23 50-12.5] Previous Rx's Medication Instructions Recorded Aspirin 81 mg PO DAILY #90 tab 06/05/23 Atorvastatin [Lipitor] 80 mg PO HS #90 tab 06/05/23 Clopidogrel [Plavix] 75 mg PO DAILY #90 tab 06/05/23 Rivaroxaban [Xarelto] 15 mg PO DAILY #90 tab 06/05/23 Amoxic-Pot Clav 875-125Mg 1 tab PO BID 10 Days #20 tab 09/19/23 [Augmentin 875-125] Amoxic-Pot Clav 875-125Mg 1 tab PO Q12HR 10 Days #20 tab 09/19/23 [Augmentin 875-125] Allergies Allergy/AdvReac Type Severity Reaction Status Date / Time diphenhydramine Allergy Unknown Unknown Verified 09/19/23 10:39 [From Benadryl] prochlorperazine Allergy Hallucinati Verified 09/19/23 10:39 [From Compazine] ons vortioxetine Allergy SEIZURES Verified 09/19/23 10:39 [From Trintellix] Review of Systems ROS Statement: Those systems with pertinent positive or pertinent negative responses have been documented in the HPI. ROS Other: All systems not noted in ROS Statement are negative. Past Medical History Past Medical History: Asthma, Cancer, COPD, Hearing Disorder / Deafness, Hyperlipidemia, Hypertension, Pulmonary Embolus (PE), Seizure Disorder Additional Past Medical History / Comment(s): "Mini strokes" and small vessel disorder, asthma was previously charted but pt/ unaware of this. 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, constipation (both in remission per dr oquendo), anemia, [place] even wl hearing aids since 8 years old, last seizure 3 years ago, obsessive compulsive disorder History of Any Multi-Drug Resistant Organisms: None Reported Past Surgical History: Hernia Repair Additional Past Surgical History / Comment(s): liver biopsy, soft tissue biopsy November 2018 Past Anesthesia/Blood Transfusion Reactions: Motion Sickness Additional Past Anesthesia/Blood Transfusion Reaction / Comment(s): clausterphobia, obsessive compulsive disorder Past Psychological History: Anxiety, Depression Smoking Status: Never smoker Past Alcohol Use History: None Reported Past Drug Use History: None Reported - Past Family History Mother Family Medical History: Dementia Additional Family Medical History / Comment(s): alzhiemers Father Family Medical History: Cancer Additional Family Medical History / Comment(s): lung cancer, hx of smoking General Exam Limitations: no limitations General appearance: alert, in no apparent distress Head exam: Present: atraumatic, normocephalic, normal inspection Eye exam: Present: normal appearance, PERRL, EOMI. Absent: scleral icterus, conjunctival injection, periorbital swelling Pupils: Present: normal accommodation ENT exam: Present: normal exam, normal oropharynx, mucous membranes moist, other (Rhino Rocket in right nostril) Neck exam: Present: normal inspection. Absent: tenderness, meningismus, lymphadenopathy Respiratory exam: Present: normal lung sounds bilaterally. Absent: respiratory distress, wheezes, rales, rhonchi, stridor Cardiovascular Exam: Present: regular rate, normal rhythm, normal heart sounds. Absent: systolic murmur, diastolic murmur, rubs, gallop, clicks Neurological exam: Present: alert, oriented X3, CN II-XII intact Psychiatric exam: Present: normal affect, normal mood Skin exam: Present: warm, dry, intact, normal color. Absent: rash Course Vital Signs 09/19/23 09/19/23 10:30 13:00 Temperature 97.6 F Pulse Rate 79 64 Respiratory 20 20 Rate Blood Pressure 105/69 133/87 O2 Sat by Pulse 96 96 Oximetry Medical Decision Making - Medical Decision Making Was pt. sent in by a medical professional or institution (, PA, DIRECTOR PERSONAL, urgent care, hospital, or assisted...) When possible be specific @ -Patient sent by [facility] due to epistaxis. Did you speak to anyone other than the patient for history (EMS, parent, family, police, friend...)? What history was obtained from this source @ -No Did you review nursing and triage notes (agree or disagree)? Why? @ -I reviewed and agree with nursing and triage notes Were old charts reviewed (outside hosp., previous admission, EMS record, old EKG, old radiological studies, urgent care reports/EKG's, assisted records)? Report findings @ -Reviewed ER visit from 09-19-2023. Patient seen here for epistaxis bleeding controlled with Rhino Rocket. Patient referred to ENT. Patient discharged back to [facility] in stable condition. Differential Diagnosis (chest pain, altered mental status, abdominal pain women, abdominal pain men, vaginal bleeding, weakness, fever, dyspnea, syncope, headache, dizziness, GI bleed, back pain, seizure, CVA, palpatations, mental health, musculoskeletal)? @ -Epistaxis, nasal foreign body, septal hematoma, nasal bone fracture, cellulitis, orbital cellulitis this list abdominal to be all-inclusive EKG interpreted by me (3pts min.). @ -None X-rays interpreted by me (1pt min.). @ -None done CT interpreted by me (1pt min.). @ -None done U/S interpreted by me (1pt. min.). @ -None done What testing was considered but not performed or refused? (CT, X-rays, U/S, labs)? Why? @ -None What meds were considered but not given or refused? Why? @ -None Did you discuss the management of the patient with other professionals (professionals i.e. , PA, DIRECTOR PERSONAL, lab, RT, psych nurse, social secretary, product support rep, teacher, admissions officer, shoe caser)? Give summary @ -No Was smoking cessation discussed for >3mins.? @ -No Was critical care preformed (if so, how long)? @ -No Were there social determinants of health that impacted care today? How? (Homelessness, low income, unemployed, alcoholism, drug addiction, transportation, low edu. Level, literacy, decrease access to med. care, halfway, r ehab)? @ -Patient resides at [facility]. Was there de-escalation of care discussed even if they declined (Discuss DNR or withdrawal of care, Hospice)? DNR status @ -No What co-morbidities impacted this encounter? (DM, HTN, Smoking, COPD, CAD, Cancer, CVA, ARF, Chemo, Hep., AIDS, mental health diagnosis, sleep apnea, morbid obesity)? @ -Patient is on a blood thinner due to history of pulmonary embolism in 2016. Was patient admitted / discharged? Hospital course, mention meds given and route , prescriptions, significant lab abnormalities, going to OR and other pertinent info. @ -Discharge. Patient is a 72-year-old male presenting to the ER with chief complaint of epistaxis. History and physical exam completed. Vital stable. Patient in no signs of acute distress and nontoxic-appearing. Rhino Rocket present in right nostril. No active bleeding. Left nare patent. Labs obtained significant for hemoglobin 10.7 ( 09/19/23 hgb 11.1) otherwise unimpressive. I discussed with patient results, all questions answered. I advised patient to follow-up with ENT in the next 24 to 48 hours. Patient stated he wanted to remove Rhino Rocket. I advised him strongly against that and to keep it in place as it is controlling bleeding at this time. Return parameters discussed. Patient discharged in stable condition with follow-up to ENT. Referral given. Patient discharged back to [facility]. Patient verbally expressed understanding and agreement with care plan. Case discussed with ED attending, Dr. Kent. Undiagnosed new problem with uncertain prognosis? @ -No Drug Therapy requiring intensive monitoring for toxicity (Heparin, Nitro, Insulin, Cardizem)? @ -No Were any procedures done? @ -No Diagnosis/symptom? @ -Epistaxis Acute, or Chronic, or Acute on Chronic? @ -Acute Uncomplicated (without systemic symptoms) or Complicated (systemic symptoms)? @ -Uncomplicated Side effects of treatment? @ -No Exacerbation, Progression, or Severe Exacerbation? @ -No Poses a threat to life or bodily function? How? (Chest pain, [place], [place], pneumonia, PE, COPD, DKA, ARF, appy, cholecystitis, CVA, Diverticulitis, Homicidal, Suicidal, threat to staff... and all critical care pts) @ -No - Lab Data Result diagrams: 09/19/23 11:24 09/19/23 11:24 Lab Results 09/19/23 09/19/23 09/19/23 Range/Units 11:24 11:24 11:24 WBC 9.1 (3.8-10.6) k/uL RBC 3.57 L (4.30-5.90) m/uL Hgb 10.7 L (13.0-17.5) gm/dL Hct 33.2 L (39.0-53.0) % MCV 93.2 (80.0-100.0) fL MCH 30.1 (25.0-35.0) pg MCHC 32.3 (31.0-37.0) g/dL RDW 15.5 (11.5-15.5) % Plt Count 250 (150-450) k/uL MPV 8.0 PT 11.4 (10.0-12.5) sec INR 1.0 (<1.2) APTT 25.4 (22.0-30.0) sec Sodium 135 L (137-145) mmol/L Potassium 3.8 (3.5-5.1) mmol/L Chloride 99 (98-107) mmol/L Carbon Dioxide 28 (22-30) mmol/L Anion Gap 8 mmol/L BUN 17 (9-20) mg/dL Creatinine 0.73 (0.66-1.25) mg/dL Est GFR (CKD-EPI)AfAm >90 (>60 ml/min/1.73 sqM) Est GFR (CKD-EPI)NonAf >90 (>60 ml/min/1.73 sqM) Glucose 116 H (74-99) mg/dL Calcium 9.0 (8.4-10.2) mg/dL Total Bilirubin 0.4 (0.2-1.3) mg/dL AST 31 (17-59) U/L ALT 45 (4-49) U/L Alkaline Phosphatase 54 (38-126) U/L Total Protein 6.7 (6.3-8.2) g/dL Albumin 3.9 (3.5-5.0) g/dL Disposition Clinical Impression: Epistaxis Disposition: HOME SELF-CARE Condition: Stable Instructions (If sedation given, give patient instructions): Nosebleed (ED) Additional Instructions: Please follow-up with ENT in the next 24 to 48 hours. Keep Rhino Rocket in place. I recommend holding Eliquis until tomorrow morning. Start taking Augmentin and complete full course. Return to the ER for any new or worsening concerns. Prescriptions: Amoxic-Pot Clav 875-125Mg [Augmentin 875-125] 1 tab PO Q12HR 10 Days #20 tab Is patient prescribed a controlled substance at d/c from ED?: No Referrals: Lyly Abdullahi MD [Primary Care Provider] - 1-2 days Moody English MD [STAFF PHYSICIAN] - 1-2 days Time of Disposition: 12:25
[2023-09-19 11:49] LABS: HCT 33.2 % (39.0-53.0); HGB 10.7 gm/dL (13.0-17.5); MCH 30.1 pg (25.0-35.0); MCHC 32.3 g/dL (31.0-37.0); MCV 93.2 fL (80.0-100.0); Platelet Count 250 k/uL (150-450); RBC 3.57 m/uL (4.30-5.90); RDW 15.5 % (11.5-15.5); WBC 9.1 k/uL (3.8-10.6)
[2023-09-19 11:56] LABS: Partial Thromboplastin Time 25.4 sec (22.0-30.0); Prothrombin Time 11.4 sec (10.0-12.5)
[2023-09-19 12:05] LABS: ALT 45 U/L (4-49); AST 31 U/L (17-59); African American GFR (CKD) >90 (>60 ml/min/1.73 sqM); Albumin 3.9 g/dL (3.5-5.0); Alkaline Phosphatase 54 U/L (38-126); Anion Gap 8 mmol/L; Blood Urea Nitrogen 17 mg/dL (9-20); Carbon Dioxide 28 mmol/L (22-30); Chloride 99 mmol/L (98-107); Glucose 116 mg/dL (74-99); Non-African American GFR(CKD) >90 (>60 ml/min/1.73 sqM); Potassium 3.8 mmol/L (3.5-5.1); Sodium 135 mmol/L (137-145); Total Bilirubin 0.4 mg/dL (0.2-1.3); Total Protein 6.7 g/dL (6.3-8.2)
[2023-09-19] MEDS: DIPH,PERTUS(ACELL)TETVAC-LF 0.5 ML VIAL IM ONE (12:11)
[2023-09-19 13:25] VITALS: BP 133/87; PULSE 64
== END 2023-09-19 13:04 | disposition home or self-care (01) ==
LOC: EC 10:25
DX: R04.0 Epistaxis (principal); Z23 Encounter for immunization; Z88.8 Allergy status to other drugs, medicaments and biological substances; Z79.01 Long term (current) use of anticoagulants; Z79.02 Long term (current) use of antithrombotics/antiplatelets; Z86.711 Personal history of pulmonary embolism; Z86.73 Personal history of transient ischemic attack (TIA), and cerebral infarction without residual deficits
CPT/HCPCS: 36415; 80053; 85027; 85610; 85730; 90471; 90715; 99284

== ENCOUNTER 2023-11-12 06:16 | Day surgery (SDC) | payer MEDICARE ==
[~2023-11-12 06:16] MED LIST: ALPRAZolam 0.25 MG TAB PO PRN; ALPRAZolam 0.5 MG TAB PO PRN; ATORVASTATIN 80 MG TAB PO STA; HEPARIN SODIUM,PORCINE (1 ML) 2,500 UNIT in SODIUM CHLORIDE 0.9% 250 ML IRRIGATION PRN; HEPARIN SODIUM,PORCINE 10,000 UNIT in SODIUM CHLORIDE 0.9% 1,000 ML IRRIGATION PRN; NITROGLYCERIN SL TABS 0.4 MG TAB SUBLINGUAL PRN
[2023-11-12] MEDS ORDERED: ALBUTEROL NEBULIZED 2.5 MG/3 ML INHALATION PRN (06:53)
[2023-11-12] MEDS: SODIUM CHLORIDE 0.9% 1,000 ML IV ONE (07:00)
[2023-11-12] MEDS ORDERED: SODIUM CHLORIDE 0.9% 1,000 ML in EMPTY BAG 1 BAG IV SCH (07:00)
[2023-11-12 07:14] VITALS: RESP 16; TEMP 98.2
[2023-11-12] MEDS: ASPIRIN 325 MG TAB PO STA (07:25)
[2023-11-12] MEDS ORDERED: HEPARIN SODIUM 1,000 UN/ML (10ML VL) ONE (07:33)
[2023-11-12] MEDS: MIDAZOLAM 2 MG/2 ML VIAL IVP ONE (07:38)
[2023-11-12] MEDS: LIDOCAINE 1% INJ 10MG/ML (20 ML MDV) SQ ONE (07:38)
[2023-11-12] MEDS: VERAPAMIL SYRINGE (5 MG/10 ML) INTRAARTER ONE (07:39)
[2023-11-12] MEDS: HEPARIN SODIUM 1,000 UN/ML (10ML VL) IV ONE (07:43)
[2023-11-12] MEDS ORDERED: RX INFO: IV CONTRAST WAS GIVEN 1 EACH MISC MISCELLANE PRN (08:13)
[2023-11-12] MEDS ORDERED: SODIUM CHLORIDE 0.9% 1,000 ML IV SCH (08:15)
--- NOTE | 2023-11-12 08:17 | P.PCN ---
Date of Procedure: 11/12/23 Operative Findings: CARDIAC CATHETERIZATION PERFORMING PHYSICIAN: Stephan Pennington MD, RPVI PROCEDURE PERFORMED: 1. Selective right and left coronary angiogram and IFR of the LCx and RCA 2. Left heart catheterization 3. 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 Local anesthesia was performed using lidocaine subcutaneously. The right radial artery was cannulated using Seldinger technique, the guidewire passed easily, following that we advanced a 5-Canadian sheath dilator assembly, the wire and dilator were removed and sheath was flushed. Following that, 2 mg of verapamil along with 5000 unit heparin were given. Selective right and left coronary angiogram using a 6-Canadian JR4 and JL 3.5 catheters. Following that we did left heart catheterization using 6-Canadian pigtail catheter. After that we decided to do an IFR of the LCx and RCA with after zeroing the Doppler wire and equalizing between the Doppler wire and the guiding catheter which was JL 4.5 guiding catheter the left main was engaged and the LCx was wired and the IFR came in to be nonischemic at 0.91. Subsequently the wire which was Dobler wire equalized with a JR4 guiding catheter and subsequently the RCA was engaged and wired with IFR came in to be at 0.90. The procedure was completed there was no complication. SELECTIVE CORONARY ANGIOGRAM: The right coronary artery: Moderate to large caliber vessel and a dominant vessel with intermediate to severe disease in the midportion appears to be nonflow limiting by Doppler wire Left main: Is angiographically normal The ramus intermedius Is stented and the stent is patent The left circumflex: Has intermediate to severe disease involving the proximal portion with a lesion documented to be nonflow limiting by Doppler wire. The left anterior descending artery: Has mild disease only HEMODYNAMICS: LVEDP was 24 to 26 mmHg with no significant gradient across aortic valve CONCLUSION: 1. Patent stent in the ramus intermedius 2. Intermediate to severe disease involving the RCA and LCx documented to be nonflow limiting by Doppler wire POSTPROCEDURE MANAGEMENT: Medical treatment
[2023-11-12] MEDS: IOPAMIDOL-370 100ML BTL INJ ONE (08:22)
[2023-11-12 11:19] VITALS: BP 146/93; PULSE 57
== END 2023-11-12 12:05 ==
LOC: CATHCVL 06:16
PROVIDERS: ATTEND Internal Medicine Interventional Cardiology
DX: I25.10 Atherosclerotic heart disease of native coronary artery without angina pectoris (principal); I10 Essential (primary) hypertension; E78.5 Hyperlipidemia, unspecified; I47.19 Other supraventricular tachycardia; Z79.01 Long term (current) use of anticoagulants; Z79.899 Other long term (current) drug therapy
CPT/HCPCS: 93458; 93799; 76937; C1887 ×2; C1769 ×2; C1894; J2250; J2001; J1644; Q9967

== ENCOUNTER 2024-02-29 15:23 | Emergency (ER) | payer MEDICARE ==
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
[2024-02-29 16:18] LABS: Anisocytosis Moderate; Basophils % (A) 1 %; Eosinophils # (A) 0.2 k/uL (0-0.7); Eosinophils % (A) 4 %; HCT 35.1 % (39.0-53.0); Lymphocytes # (A) 1.1 k/uL (1.0-4.8); Lymphocytes % (A) 27 %; MCH 28.4 pg (25.0-35.0); MCHC 34.2 g/dL (31.0-37.0); MCV 83.1 fL (80.0-100.0); Mean Platelet Volume 7.9; Microcytosis Slight; Monocytes # (A) 0.3 k/uL (0-1.0); Monocytes % (A) 8 %; Neutrophils # (A) 2.3 k/uL (1.3-7.7); Neutrophils % (A) 59 %; Platelet Count 271 k/uL (150-450); RBC 4.22 m/uL (4.30-5.90); RDW 20.3 % (11.5-15.5)
[2024-02-29 16:21] VITALS: BP 133/88; PULSE 75; RESP 21; TEMP 98.3
[2024-02-29] MEDS: clonazePAM 0.5 MG TAB PO STA (16:21)
[2024-02-29] MEDS: ACETAMINOPHEN TAB 500 MG TAB PO STA (16:22)
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
[2024-02-29 16:29] LABS: INR 1.1 (<1.2); Partial Thromboplastin Time 30.1 sec (22.0-30.0); Prothrombin Time 11.8 sec (10.0-12.5)
[2024-02-29 16:31] LABS: ALT 28 U/L (4-49); African American GFR (CKD) >90 (>60 ml/min/1.73 sqM); Alcohol <10 mg/dL; Anion Gap 6 mmol/L; Blood Urea Nitrogen 12 mg/dL (9-20); Calcium 8.8 mg/dL (8.4-10.2); Carbon Dioxide 27 mmol/L (22-30); Chloride 93 mmol/L (98-107); Glucose 87 mg/dL (74-99); Non-African American GFR(CKD) >90 (>60 ml/min/1.73 sqM); Sodium 126 mmol/L (137-145)
[2024-02-29 16:37] LABS: AST 46 U/L (17-59); Albumin 3.7 g/dL (3.5-5.0); Alkaline Phosphatase 36 U/L (38-126); Potassium 4.9 mmol/L (3.5-5.1); Total Bilirubin 0.6 mg/dL (0.2-1.3); Total Protein 6.3 g/dL (6.3-8.2)
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
[2024-02-29] MEDS: MAGNESIUM SULFATE-D5W PMX 1 GM in DEXTROSE/WATER 1 100ML.BAG IVPB ONE (17:39)
== END 2024-02-29 19:52 | disposition home or self-care (01) ==
LOC: EC 15:23
DX: W19.XXXA Unspecified fall, initial encounter
CPT/HCPCS: 36415; 70450; 71045; 71260; 72125; 72170; 74177; 80053; 80320; 83605; 84484; 85025; 85610; 85730; 93005; 96366; 99285